=== PATIENT | male | born 1955 | race Caucasian/White ===

== ENCOUNTER 2016-05-21 10:57 | Inpatient (IN) | payer OTHER ==
[~2016-05-21] VITALS: Ht 160 cm; Wt 93.9 kg
[~2016-05-21 10:57] MED LIST: ASPI81TA28 PO; CARV12.52 PO; CITA20TA9 PO; CLOP1TAB5 PO; CYCL10TA6 PO; LOSA100T65 PO; NITR0.4S UT; PRVC/40 PO
[2016-05-21 11:05] VITALS: Ht 160 cm; Wt 93.9 kg
[2016-05-21 11:29] LABS: BASO % 0.7 %; BASO ABS # 0.05 K/uL (0-0.2); COMPLETE YES; EOS % 1.1 %; HEMATOCRIT 45.2 % (42-52); LYMPH % 26.7 %; LYMPH ABS # 2.01 K/uL (1.2-3.4); MEAN CORPUSCULAR HEMOGLOBIN 33.1 pg (25-34); MEAN CORPUSCULAR HGB CONC 35.6 g/dl (32-36); MEAN PLATELET VOLUME 10.5 fL (7.4-10.4); MONO % 9.8 %; NEUT % 61.7 %; PLATELET COUNT 200 K/uL (130-400); RED BLOOD COUNT 4.86 M/uL (4.7-6.1); WHITE BLOOD COUNT 7.54 K/uL (4.8-10.8)
--- NOTE | 2016-05-21 11:41 | DIAGNOSTIC IMAGING REPORT ---
CHEST ONE VIEW PORTABLE CLINICAL HISTORY: Atypical chest pain COMPARISON STUDY: 04/28/2013 FINDINGS: The cardiac and mediastinal contours are normal. There is no evidence of focal pulmonary consolidation. There is no evidence of failure. No pleural effusions are visualized.[ Slight interstitial prominence is felt to be chronic. IMPRESSION: No active disease in the chest. Electronically signed by: Jevon Reddy M.D. 05/21/2016 11:39 AM Dictated Date/Time: 05/21/2016 11:39 AM
[2016-05-21 11:44] LABS: PARTIAL THROMBOPLASTIN RATIO 1.1; PROTHROMBIN TIME (PATIENT) 10.5 SECONDS (9.0-12.0)
[2016-05-21 11:46] LABS: BUN/CREATININE RATIO 10.6 (10-20); CALCIUM 8.6 mg/dl (8.5-10.1); CREATININE 0.84 mg/dl (0.60-1.40); POTASSIUM 3.9 mmol/L (3.5-5.1)
[2016-05-21] MEDS ORDERED: ASPIRIN 81 MG CHEW PO STA (11:55)
[2016-05-21] MEDS ORDERED: LABETALOL HCL IV 5 MG/ML 20ML IV STA (11:56)
[2016-05-21 12:00] LABS: CKMB/CK RATIO 2.8 (0-3.0)
[2016-05-21] MEDS ORDERED: HEPARIN SOD 5000 UNIT/0.5 ML CARP ONE (12:42)
[2016-05-21] MEDS ORDERED: HEPARIN 25000 UNIT/500 ML D5W ONE (12:43)
[2016-05-21] MEDS ORDERED: NITROGLYCERIN 0.4 MG SL PER TAB CHARGE SL PRN (12:45)
[2016-05-21] MEDS ORDERED: ACETAMINOPHEN 325 MG TAB PO PRN (12:45)
[2016-05-21] MEDS ORDERED: ONDANSETRON INJ 2 MG/ML 2 ML VIAL IV PRN (12:45)
[2016-05-21] MEDS ORDERED: HEPARIN 25,000 UNIT/500ML D5W 500 ML IV PRN (13:00)
[2016-05-21 13:15] VITALS: O2SAT 97
--- NOTE | 2016-05-21 13:16 | History and Physical ---
History & Physical Date & Time of Service: May 21, 2016 at 12:55 Chief Complaint: Chest Pain Primary Care Physician: Jennifer Cantor M.D. History of Present Illness 60 year old male who was referred to the ER by his PCP for evaluation of chest pain. Patient reports he has been experiencing left jaw pain, left arm pain, and chest pain for the past 1-2 weeks. He reports that initially he would develop jaw pain only. It occurred while resting and would resolve on it's own. He reports it then started to radiated into the left side of his chest and into his left arm. He describes the chest pain as a sharp, stabbing pain. He rates it as it worst #3/10. Over the past few days, pain has become exertional. He also notes increasing exertional shortness of breath over the past couple of weeks. He denies associated lightheadedness, dizziness, diaphoresis, or nausea. No abdominal pain, vomiting, or diarrhea. Reports he otherwise has been feeling well. No fever or chills. Denies any urinary symptoms. He was given 1 SL nitro at PCP's office. He is currently chest pain free. In the ER, patient is found to have trop 4.2. EKG shows deeper T-wave inversions inferiorly but no other changes. BP was elevated on arrival at 189/76. This improved with a dose of IV Labetalol. Of note, patient reports he hasn't taken his meds in one year due to cost. Past Medical/Surgical History Medical Problems: (1) CAD (coronary artery disease) Permanent Comment: 2003 - inferior wall ND, s/p PCI and stenting to RCA 12/2012 - NSTEMI, s/p BMS to left cx Status: Chronic (2) COPD, mild Status: Chronic (3) Depression Status: Chronic (4) Dyslipidemia Status: Chronic (5) GERD (gastroesophageal reflux disease) Status: Chronic (6) HTN (hypertension) Status: Chronic Surgical Problems: (1) History of carpal tunnel surgery Status: Chronic Family History FH: CAD (coronary artery disease) FATHER ( at age 46 from [place]) Social History Smoking Status: Former Smoker Alcohol Use: none Immunizations History of Influenza Vaccine: No History of Tetanus Vaccine?: Yes Tetanus Immunization Date: Feb 22, 2007 History of Pneumococcal: Yes Pneumococcal Date: Feb 23, 2008 Allergies Coded Allergies: Morphine (Verified Allergy, Severe, GI SYMPTOMS, 05/21/16) Enalapril (Verified Allergy, Intermediate, COUGH, 05/21/16) Home Medications Scheduled Aspirin (Aspirin Ec), 81 MG PO DAILY Review of Systems 10 point review of systems was completed with the pertinent positives and negatives noted per the HPI Physical Exam Vital Signs Date Time Temp Pulse Resp B/P Pulse Ox O2 Delivery O2 Flow Rate FiO2 05/21/16 12:25 67 20 144/79 96 Room Air 05/21/16 12:21 67 20 172/106 95 Room Air 05/21/16 11:20 99 Room Air 05/21/16 11:20 97 Room Air 05/21/16 11:16 69 05/21/16 11:05 36.4 59 20 189/76 96 Room Air General Appearance: no apparent distress Head: normocephalic Eyes: normal inspection ENT: hearing grossly normal Neck: supple, no JVD Respiratory/Chest: chest non-tender, lungs clear, normal breath sounds, no respiratory distress Cardiovascular: regular rate, rhythm, no edema, normal peripheral pulses Abdomen/GI: normal bowel sounds, non tender, soft Extremities/Musculoskelatal: normal inspection, no calf tenderness Neurologic/Psych: no motor/sensory deficits, alert, normal mood/affect, oriented x 3 Skin: normal color, warm/dry Diagnostics Laboratory Results Results Past 24 Hours Test 05/21/16 11:18 Range/Units White Blood Count 7.54 4.8-10.8 K/uL Red Blood Count 4.86 4.7-6.1 M/uL Hemoglobin 16.1 14.0-18.0 g/dL Hematocrit 45.2 42-52 % Mean Corpuscular Volume 93.0 80-100 fL Mean Corpuscular Hemoglobin 33.1 25-34 pg Mean Corpuscular Hemoglobin Concent 35.6 32-36 g/dl Platelet Count 200 130-400 K/uL Mean Platelet Volume 10.5 7.4-10.4 fL Neutrophils (%) (Auto) 61.7 % Lymphocytes (%) (Auto) 26.7 % Monocytes (%) (Auto) 9.8 % Eosinophils (%) (Auto) 1.1 % Basophils (%) (Auto) 0.7 % Neutrophils # (Auto) 4.66 1.4-6.5 K/uL Lymphocytes # (Auto) 2.01 1.2-3.4 K/uL Monocytes # (Auto) 0.74 0.11-0.59 K/uL Eosinophils # (Auto) 0.08 0-0.5 K/uL Basophils # (Auto) 0.05 0-0.2 K/uL RDW Standard Deviation 44.0 36.4-46.3 fL RDW Coefficient of Variation 12.8 11.5-14.5 % Immature Granulocyte % (Auto) 0.0 % Immature Granulocyte # (Auto) 0.00 0.00-0.02 K/uL Prothrombin Time 10.5 9.0-12.0 SECONDS Prothromb Time International Ratio 1.0 0.9-1.1 Activated Partial Thromboplast Time 28.0 21.0-31.0 SECONDS Partial Thromboplastin Ratio 1.1 Sodium Level 138 136-145 mmol/L Potassium Level 3.9 3.5-5.1 mmol/L Chloride Level 104 98-107 mmol/L Carbon Dioxide Level 29 21-32 mmol/L Anion Gap 5.0 3-11 mmol/L Blood Urea Nitrogen 9 7-18 mg/dl Creatinine 0.84 0.60-1.40 mg/dl Est Creatinine Clear Calc Drug Dose 94.9 ml/min Estimated GFR () 110.3 Estimated GFR (Non- 95.2 BUN/Creatinine Ratio 10.6 10-20 Random Glucose 109 70-99 mg/dl Calcium Level 8.6 8.5-10.1 mg/dl Total Creatine Kinase 249 39-308 U/L Creatine Kinase MB 7.0 0.5-3.6 ng/ml Creatine Kinase MB Ratio 2.8 0-3.0 Troponin I 4.200 0-0.045 ng/ml Diagnostic Radiology CXR IMPRESSION: No active disease in the chest. Impression Assessment and Plan NSTEMI, HX CAD - admit to tele - patient presenting with worsening exertional chest, jaw, and left arm pain; chest pain resolved with nitro x 1 - hx CAD: 2003 PCI/stenting to RCA, 12/2012 - BMS to left cx; patient reports additional interventions done at [facility], details unknown, request for records placed - has not taken meds (beta jerrod, statin, Plavix) in one year due to cost; only taking ASA 81mg daily - initial troponin 4.2; EKG shows deeper T-wave inversions inferiorly - IV heparin started by ED - case discussed with Dr. Kimbrough - will resume low dose beta jerrod and atorvastatin 80mg daily; keep NPO for possible cath today - resting echo ordered HTN - BP elevated on arrival, improved with IV Labetalol x 1 - has not taken meds in one year; previous regimen: HCTZ 12.5mg daily, Losartan 100mg daily, carvediolol 12.5mg BID - for now, resuming carvedilol 3.125mg BID DVT PROPHYLAXIS - on IV heparin CODE STATUS - Patient is a full code as per my discussion with him. DISPO - In my clinical judgment this beneficiary meets acute admission criteria, established by [facility], that includes being hospitalized through two midnights. - Expect d/c home once medically stable. - Case management consult placed for assistance with medication costs VTE Prophylaxis VTE Risk Assessment Done? Y/N: Yes Risk Level: Moderate Note ATTENDING ADDENDUM Record reviewed. Patient interviewed and examined. Care coordinated with PETER Kirk. Please refer to her documentation for patient's history. Briefly, 60 YO male with history of ischemic heart disease, s/p PCI. Presented to clinic today with 1-2 weeks of worsening exertional CP and SOB. Received NTG in clinic with relief. EXAM: General- no distress VS- as noted HEENT- anicteric Neck- no JVD; carotids 2/2 Lungs- clear Heart- RRR, S4 Abdomen- + BS, soft, nontender Extremities- no pretibial edema or calf tenderness; radial and pedal pulses intact and symmetric Neuro- alert DATA: Troponin 4.2. Other lab studies as noted. EKG- SB 59/min, probable age-indeterminate inferior infarct, inverted T-waves inferiorly. CXR- slight interstitial prominence as previously noted. ASSESSMENT AND PLAN: 60 YO male with known ischemic heart disease, now with apparent non-STEMI. BP elevated in ED- received IV labetalol. Received aspirin and IV heparin. Cardiology consulted. Please refer to CLARIBEL Lozano's documentation for discussion of other issues. Keyon Mclaughlin MD .
[2016-05-21 13:48] VITALS: BP 142/87; PULSE 74; TEMP 36.8; O2SAT 96; BMI 36.7
--- NOTE | 2016-05-21 14:36 | CARDIOLOGY CONSULTATION ---
DATE OF CONSULTATION: 05/21/2016 REFERRING PHYSICIAN: Dr. Keyon Mclaughlin. REASON FOR CONSULTATION: NSTEMI. HISTORY OF PRESENT ILLNESS: Mr. Benoit is a 60-year-old gentleman who is known to the [facility]. He was last seen in clinic in 2012 and has been lost to follow up. He presented to his primary care physician's office today with chest pain. The patient reports exertional chest discomfort and heaviness over the past 2 weeks. Initially noted discomfort when walking to his car from work. The discomfort has become progressive and more severe. It is occurring at lower levels of exercise. Today, he reported an episode of resting chest discomfort and jaw pain while at his primary care physician's office. He was referred to the Emergency Department for evaluation. The patient was given sublingual nitroglycerin. He is pain free. Initial troponin is 4.200. Complex cardiovascular history listed below. Recent history notable for noncompliance. He stopped all cardiac medications approximately 1 year ago due to financial constraints. He seems to have poor insight into his medical conditions. He offers no other complaints at this time. REVIEW OF SYSTEMS: The pertinent positive noted above, a comprehensive 10-system review is otherwise negative. PAST MEDICAL HISTORY: 1. Chronic coronary artery disease with a history of prior inferior wall myocardial infarction in 2003, status post stenting to the right coronary artery. 2. NSTEMI in December 2012, status post bare-metal stenting to left circumflex. 3. History of preserved LV systolic function with inferior wall motion abnormality. 4. COPD. 5. Depression. 6. Dyslipidemia. 7. Hypertension. 8. Hypertriglyceridemia. 9. GERD. PAST SURGICAL HISTORY: Cardiac catheterization x2 with PCI to the RCA as well as left circumflex. FAMILY HISTORY: Premature coronary artery disease noted. Father at age 46 from myocardial infarction. SOCIAL HISTORY: Former tobacco abuse. ALLERGIES: MORPHINE AND ENALAPRIL. HOME MEDICATIONS CURRENTLY: Aspirin. The patient is noncompliant with all other medications. ECG ON ADMISSION: Sinus rhythm, age indeterminate inferior infarct, inferior T-wave abnormality. RESTING 2D TRANSTHORACIC ECHO: Pending. CHEST X-RAY: No active disease. LABORATORY DATA: Sodium 138, potassium 3.9, chloride 104, CO2 is 29, BUN is 9, and creatinine is 0.84. Troponin 4.200. White blood cell count 7.54, hemoglobin 16.1, and platelet count is 200. PT is 10.5 and INR is 1.0. PHYSICAL EXAMINATION: VITAL SIGNS: Temperature is 36.2 degrees centigrade, pulse 74 beats per minute and regular, respiratory rate 20 breaths per minute, blood pressure 142/87 and SaO2 is 96% on room air. GENERAL: NAD, awake, alert and oriented x3. THROAT: His mucous membranes are moist. No scleral icterus. Conjunctivae are pink. NECK: Supple. There is no JVD. No HJR. No carotid bruit. HEART: Regular with a normal S1 and S2. There is no murmur, rub, or gallop. LUNGS: Clear with no rales, rhonchi or wheeze. ABDOMEN: Soft and nontender. There is no rebound or guarding. Normal bowel sounds. EXTREMITIES: Warm and dry without clubbing, cyanosis, or edema. Posterior tibial pulses are 2/4 bilaterally. He has a 2/4 right upper extremity radial pulse. He has palpable ulnar pulse. He has a normal Wade's test. NEUROLOGIC: Demonstrates no focal deficit. FINAL IMPRESSION: 1. Non-ST elevation myocardial infarction. 2. Chronic coronary artery disease with prior RCA and circumflex stenting. 3. Preserved left ventricular systolic function with inferior wall motion abnormality per prior resting 2D transthoracic echo. 4. Hypertension. 5. Dyslipidemia. 6. Noncompliance. 7. Former tobacco abuse. PLAN AND RECOMMENDATIONS: The patient is currently medically managed with aspirin, heparin, statin, and beta-jerrod therapy. He is pain free. The risks, benefits and alternatives to cardiac catheterization with coronary angiography discussed at length. The patient is agreeable to procedure and possible percutaneous intervention if necessary. We also discussed his recent noncompliance and financial constraints. He understands that if intervention is performed, he will require Plavix for a minimum of 1 year. The patient is agreeable to obtain this medication. He is currently insured, although raises some concern regarding losing insurance in the near future. His significant other is present and is also agreeable. Further recommendations will be made pending review of cardiac catheterization. Thank you for allowing me to take part in the care of your patient.
[2016-05-21] MEDS ORDERED: PERFLUTREN LIPID MICROSPHERE (DEFINITY) IV ONE (14:44)
[2016-05-21] MEDS: ATORVASTATIN 40 MG TAB PO SCH (14:45)
[2016-05-21] MEDS: CARVEDILOL 3.125 MG TAB PO SCH ×2 (14:45→19:52)
[2016-05-21 15:35] VITALS: BP 134/80; PULSE 65; TEMP 36.8; O2SAT 94
[2016-05-21 17:00] LABS: PARTIAL THROMBOPLASTIN RATIO 2.9
--- NOTE | 2016-05-21 17:07 | EMERGENCY ROOM VISIT NOTE ---
History Report prepared by Cinda: Janice Jacobsen Under the Supervision of: Dr. Allen Ware M.D. First contact with patient: 11:15 Chief Complaint: CARDIAC ASSESSMENT Stated Complaint: ABNORMAL EKG History of Present Illness The patient is a 60 year old male who presents to the Emergency Room with complaints of intermittent, resolved chest pressure starting about 2 weeks ago. He first had some jaw discomfort and then started having chest pressure. He also reports some shortness of breath with exertion. He took Nitro with relief. He currently denies any pain or symptoms. He denies loss of consciousness, headache, nausea, vomiting, abdominal pain, diarrhea, or any other complaints. He has a history of cardiac stent placement. His last heart catheterization was a few years ago. The patient does not smoke cigarettes. He has a history of hypertension and high cholesterol. He denies any history of diabetes. He has a family history of heart disease. Source of History: patient Onset: about 2 weeks ago Position: chest Symptom Intensity: No pain currently Quality: pressure Timing: intermittent, resolved Modifying Factors (Relieving): other (Nitro with relief) Associated Symptoms: + SOB (with exertion), No LOC, No abdominal pain, No diarrhea, No headache, No nausea, No vomiting Review of Systems See HPI for pertinent positives & negatives. A total of 10 systems reviewed and were otherwise negative. Past Medical & Surgical Medical Problems: (1) CAD (coronary artery disease) (2) COPD, mild (3) Depression (4) Dyslipidemia (5) GERD (gastroesophageal reflux disease) (6) HTN (hypertension) Surgical Problems: (1) History of carpal tunnel surgery Family History Ischemic heart disease Other specified malignant neoplasm Social History Smoking Status: Never Smoker Housing Status: lives with family Occupation Status: employed Current/Historical Medications Scheduled Aspirin (Aspirin Ec), 81 MG PO DAILY Allergies Coded Allergies: Morphine (Verified Allergy, Severe, GI SYMPTOMS, 05/21/16) Enalapril (Verified Allergy, Intermediate, COUGH, 05/21/16) Physical Exam Vital Signs Date Time Temp Pulse Resp B/P Pulse Ox O2 Delivery O2 Flow Rate FiO2 05/21/16 12:25 67 20 144/79 96 Room Air 05/21/16 12:21 67 20 172/106 95 Room Air 05/21/16 11:20 99 Room Air 05/21/16 11:20 97 Room Air 05/21/16 11:16 69 05/21/16 11:05 36.4 59 20 189/76 96 Room Air Physical Exam GENERAL: Patient is well appearing and in no acute distress. HEENT: No acute trauma, normocephalic atraumatic, mucous membranes moist, no nasal congestion, no scleral icterus. NECK: No stridor, no adenopathy, no meningismus, trachea is midline. LUNGS: No dyspnea. Clear to auscultation and equal bilaterally. No wheeze, no rhonchi. HEART: Regular rate and rhythm. No murmurs, rubs, gallops appreciated. ABDOMEN: Soft, nontender, bowel sounds positive, no masses appreciated, no peritonitis. BACK: No midline tenderness, no CVA tenderness EXTREMITIES: Normal motion all extremities, no cyanosis, no edema. NEUROLOGIC: Alert and oriented, no acute motor or sensory deficits, no focal weakness, cranial nerves grossly intact. SKIN: No rash, no jaundice, no diaphoresis. Medical Decision & Procedures ER Provider Diagnostic Interpretation: X ray results are stated below per my interpretation and the radiologist's interpretation. CHEST ONE VIEW PORTABLE CLINICAL HISTORY: Atypical chest pain COMPARISON STUDY: 04/28/2013 FINDINGS: The cardiac and mediastinal contours are normal. There is no evidence of focal pulmonary consolidation. There is no evidence of failure. No pleural effusions are visualized.[ Slight interstitial prominence is felt to be chronic. IMPRESSION: No active disease in the chest. Electronically signed by: Jevon Reddy M.D. 05/21/2016 11:39 AM Dictated Date/Time: 05/21/2016 11:39 AM Laboratory Results 05/21/16 11:18 Red Blood Count 4.86, Mean Corpuscular Volume 93.0, Mean Corpuscular Hemoglobin 33.1, Mean Corpuscular Hemoglobin Concent 35.6, Mean Platelet Volume 10.5, Neutrophils (%) (Auto) 61.7, Lymphocytes (%) (Auto) 26.7, Monocytes (%) (Auto) 9.8, Eosinophils (%) (Auto) 1.1, Basophils (%) (Auto) 0.7, Neutrophils # (Auto) 4.66, Lymphocytes # (Auto) 2.01, Monocytes # (Auto) 0.74, Eosinophils # (Auto) 0.08, Basophils # (Auto) 0.05 2/27/17 11:18 Test 05/21/16 11:18 White Blood Count 7.54 K/uL (4.8-10.8) Red Blood Count 4.86 M/uL (4.7-6.1) Hemoglobin 16.1 g/dL (14.0-18.0) Hematocrit 45.2 % (42-52) Mean Corpuscular Volume 93.0 fL (80-100) Mean Corpuscular Hemoglobin 33.1 pg (25-34) Mean Corpuscular Hemoglobin Concent 35.6 g/dl (32-36) Platelet Count 200 K/uL (130-400) Mean Platelet Volume 10.5 fL (7.4-10.4) Neutrophils (%) (Auto) 61.7 % Lymphocytes (%) (Auto) 26.7 % Monocytes (%) (Auto) 9.8 % Eosinophils (%) (Auto) 1.1 % Basophils (%) (Auto) 0.7 % Neutrophils # (Auto) 4.66 K/uL (1.4-6.5) Lymphocytes # (Auto) 2.01 K/uL (1.2-3.4) Monocytes # (Auto) 0.74 K/uL (0.11-0.59) Eosinophils # (Auto) 0.08 K/uL (0-0.5) Basophils # (Auto) 0.05 K/uL (0-0.2) RDW Standard Deviation 44.0 fL (36.4-46.3) RDW Coefficient of Variation 12.8 % (11.5-14.5) Immature Granulocyte % (Auto) 0.0 % Immature Granulocyte # (Auto) 0.00 K/uL (0.00-0.02) Prothrombin Time 10.5 SECONDS (9.0-12.0) Prothromb Time International Ratio 1.0 (0.9-1.1) Anion Gap 5.0 mmol/L (3-11) Est Creatinine Clear Calc Drug Dose 94.9 ml/min Estimated GFR () 110.3 Estimated GFR (Non- 95.2 BUN/Creatinine Ratio 10.6 (10-20) Calcium Level 8.6 mg/dl (8.5-10.1) Total Creatine Kinase 249 U/L (39-308) Creatine Kinase MB 7.0 ng/ml (0.5-3.6) Creatine Kinase MB Ratio 2.8 (0-3.0) Troponin I 4.200 ng/ml (0-0.045) Hepatitis C Antibody Screen NEG (NEG) Laboratory results as reviewed by me. Medications Administered Medications (Trade) Dose Ordered Sig/Rolo Route Start Time Stop Time Status Last Admin Dose Admin Aspirin (Aspirin Chew) 162 mg NOW STAT PO 05/21/16 11:55 05/21/16 11:57 DC 05/21/16 12:13 162 MG Labetalol HCl (Normodyne IV) 10 mg NOW STAT IV 05/21/16 11:56 05/21/16 11:57 DC 05/21/16 12:16 10 MG ECG Indication: chest pain Rate (beats per minute): 59 Findings: T-wave inversion (Inferior), no acute ischemic change, no ectopy Comparison ECG Date: April 28, 2013 Change: no significant change ED Course 1115: The patient was evaluated in room C12B. A complete history and physical exam was performed. 1150: I reevaluated the patient. He reports that he took one 81 mg of aspirin this morning. 1155: Aspirin 162 mg PO 1156: Labetalol HCl 10 mg IV 1200: Heparin Sodium/Dextrose 1 ea N/A 1204: Upon reevaluation, the patient is resting comfortably. Discussed results and treatment plan with the patient. He verbalized understanding and agreement with the treatment plan. I spoke with PETER Kirk with [facility]. The patient will be evaluated for further management. Medical Decision Differential: Cardiac Ischemia (STEMI, NSTEMI, Unstable Angina, etc), Aortic Dissection, Arrhythmia, Pulmonary Embolism, Pneumonia, Pneumothorax, MSK, Infectious, Pericarditis/Myocarditis, Esophageal Rupture, Gastrointestinal, amongst other pathologies entertained. 60 yr old male arrives with left chest pain radiating to jaw earlier today resolved with SLNTG. Completely pain free now without symptoms. EKG similar to previous which was concerning appearing in past as well. Without persistent pain no indication for calling Heart Alert. CXR clear. Mild HTN though not currently causing issue. Given further ASA as only 81mg today. Monitored closely without any further chest pain nor concerns. BP improving just with rest. He is stable, no distress and looks well. Admits stopped taking most of his meds over a year ago. Long CAD history with many previous stents and multiple med comorbidities. Trop returned elevated consistent with NSTEMI consistent with history. Discussed at length risks of heparin and he has no contraindications. He agrees to starting heparin. Stable and admitted to medicine service for further treatment/evaluation. Consults Time Called: 1201 Consulting Physician: PETER Kirk with [facility] Returned Call: 1204 I spoke with PETER Kirk with [facility]. Impression Primary Impression: NSTEMI (non-ST elevated myocardial infarction) Critical Care I have personally spent greater than 35 minutes of critical care time in the direct management of this patient. This includes bedside care, interpretation of diagnostic studies, and testing, discussion with consultants, patient, and family members, and other required patient management activities. This 35 minutes is in excess of all separately billable procedures. Scribe Attestation The scribe's documentation has been prepared under my direction and personally reviewed by me in its entirety. I confirm that the note above accurately reflects all work, treatment, procedures, and medical decision making performed by me. Departure Information Dispostion Being Evaluated By Hospitalist Referrals No Doctor, Assigned (PCP) Patient Instructions My [facility]
--- NOTE | 2016-05-21 17:46 | ECHOCARDIOGRAM REPORT ---
*NOTICE TO RECEIVING [employer] [employer] This information is strictly Confidential and protected under [place] law. [place] law prohibits you from making any further disclosure of this information unless further disclosure is expressly permitted by the written consent of the person to whom it pertains or is authorized by law. A general authorization for the release of medical or other information is not sufficient for this purpose. Hospital accepts no responsibility if the information is made available to any other person, INCLUDING THE PATIENT. Interpretation Summary * Name: MALIKA QUISPE Study Date: 05/21/2016 03:14 PM BP: 142/87 mmHg * Patient Location: 210 HR: 74 * : 1955 (M/d/yyyy) Gender: Male Height: 63 in * Age: 60 yrs Ethnicity: [place] Weight: 207 lb * Ordering Physician: Teetee Lozano * Referring Physician: Jennifer Cantor * Performed By: Karla Hopper RDCS * * Reason For Study: NSTEMI * BSA: 2.0 m2 * History: NSTEMI * The study was technically adequate. * Compared to prior study, changes are noted. * -- Conclusions -- * Ejection Fraction = 50-55%. * The basal inferior wall is thinned and akinetic. * The apical lateral wall is hypokinetic. * The basal posterior wall is hypokinetic. * Grade I diastolic dysfunction, (abnormal relaxation pattern). * No significant valvular disease. Procedure Details * A complete two-dimensional transthoracic echocardiogram was performed (2D, M-mode, Doppler and color flow Doppler). Left Ventricle * The left ventricle is normal in size. * There is no thrombus. * There is normal left ventricular wall thickness. * Ejection Fraction = 50-55%. * Left ventricular systolic function is normal. * The basal inferior wall is thinned and akinetic. The apical lateral wall is hypokinetic. The basal posterior wall is hypokinetic. Right Ventricle * The right ventricle is normal size. * The right ventricular systolic function is normal as assessed by tricuspid annular plane systolic excursion (TAPSE) (normal >1.5 cm). Atria * The left atrial size is normal. * Right atrial size is normal. * There is no evidence of atrial septal defect, but resolution does not allow assessment for a patent foramen ovale. Mitral Valve * The mitral valve is normal. * There is no mitral valve stenosis. * Significant mitral regurgitation is absent. Tricuspid Valve * The tricuspid valve is normal. * There is no tricuspid stenosis. * Significant tricuspid regurgitation is absent. Aortic Valve * The aortic valve is trileaflet. * Aortic stenosis is absent. * There is no significant aortic regurgitation. Pulmonic Valve * The pulmonary valve is not well seen, but the Doppler examination is normal without significant regurgitation or stenosis. Great Vessels * The aortic root and proximal ascending aorta are normal sized. Pericardium/Pleural * There is no pericardial effusion. Great Vessels * Normal inferior vena cava diameter and respiratory variation suggests normal central venous pressure. Left Ventricular Diastolic Function * Grade I diastolic dysfunction, (abnormal relaxation pattern). MMode 2D Measurements and Calculations IVSd 1.2 cm IVSs 1.6 cm LVIDd 5.4 cm LVIDs 4.0 cm LVPWd 1.1 cm LVPWs 1.7 cm IVS/LVPW 1.1 FS 27.1 % EDV(Teich) 144.1 ml ESV(Teich) 68.7 ml EF(Teich) 52.3 % EDV(cubed) 161.6 ml ESV(cubed) 62.6 ml EF(cubed) 61.3 % % IVS thick 29.7 % % LVPW thick 45.1 % LV mass(C)d 261.5 grams LV mass(C)dI 133.3 grams/m\S\2 LV mass(C)s 259.3 grams LV mass(C)sI 132.2 grams/m\S\2 SV(Teich) 75.4 ml SI(Teich) 38.4 ml/m\S\2 SV(cubed) 99.0 ml SI(cubed) 50.5 ml/m\S\2 Ao root diam 3.5 cm Ao root area 9.5 cm\S\2 LA dimension 3.7 cm LA/Ao 1.1 LVAd ap4 34.5 cm\S\2 LVLd ap4 9.2 cm EDV(MOD-sp4) 107.7 ml EDV(sp4-el) 110.2 ml LVAs ap4 21.4 cm\S\2 LVLs ap4 7.8 cm ESV(MOD-sp4) 50.5 ml ESV(sp4-el) 49.8 ml EF(MOD-sp4) 53.1 % EF(sp4-el) 54.8 % LVAd ap2 33.0 cm\S\2 LVLd ap2 8.8 cm EDV(MOD-sp2) 110.1 ml EDV(sp2-el) 105.1 ml LVAs ap2 21.6 cm\S\2 LVLs ap2 7.4 cm ESV(MOD-sp2) 59.6 ml ESV(sp2-el) 53.8 ml EF(MOD-sp2) 45.9 % EF(sp2-el) 48.8 % LVLd %diff -4.55 % EDV(MOD-bp) 108.9 ml LVLs %diff -6.24 % ESV(MOD-bp) 55.0 ml EF(MOD-bp) 49.5 % SV(MOD-sp4) 57.2 ml SI(MOD-sp4) 29.1 ml/m\S\2 SV(MOD-sp2) 50.5 ml SI(MOD-sp2) 25.7 ml/m\S\2 SV(MOD-bp) 53.9 ml SI(MOD-bp) 27.5 ml/m\S\2 SV(sp4-el) 60.4 ml SI(sp4-el) 30.8 ml/m\S\2 SV(sp2-el) 51.3 ml SI(sp2-el) 26.1 ml/m\S\2 Doppler Measurements and Calculations MV E max kristi 64.7 cm/sec MV A max kristi 85.2 cm/sec MV E/A 0.76 MV dec time 0.25 sec Ao V2 max 134.1 cm/sec Ao max PG 7.2 mmHg Ao max PG (full) 3.9 mmHg LV V1 max PG 3.3 mmHg LV V1 max 91.0 cm/sec
[2016-05-21 19:39] VITALS: BP 133/78; PULSE 76; TEMP 37; O2SAT 95
[2016-05-21 23:46] LABS: PARTIAL THROMBOPLASTIN RATIO 1.8
[2016-05-22] VITALS (16 sets, daily range): BP systolic 131–174; BP diastolic 74–108; PULSE 64–93; TEMP 36.5–37.1; O2SAT 94–98
[2016-05-22 06:44] LABS: HEMATOCRIT 45.1 % (42-52); MEAN CELL VOLUME 93.2 fL (80-100); MEAN CORPUSCULAR HEMOGLOBIN 32.6 pg (25-34); MEAN PLATELET VOLUME 10.7 fL (7.4-10.4); PLATELET COUNT 183 K/uL (130-400); RED BLOOD COUNT 4.84 M/uL (4.7-6.1)
[2016-05-22 06:53] LABS: PARTIAL THROMBOPLASTIN RATIO 1.7
[2016-05-22 07:15] LABS: BUN/CREATININE RATIO 8.5 (10-20); CALCIUM 8.2 mg/dl (8.5-10.1); CREATININE 0.86 mg/dl (0.60-1.40); POTASSIUM 3.7 mmol/L (3.5-5.1)
[2016-05-22 07:18] LABS: CHOLESTEROL/HDL RATIO 4.9
[2016-05-22] MEDS ORDERED: NURSING VERBAL MED ORDER ONE ×2 (07:30→11:15)
[2016-05-22] MEDS ORDERED: HEPARIN SOD (PORCINE) 1000 UNIT/ML 10 ML VIAL ONE (07:56)
[2016-05-22] MEDS ORDERED: FENTANYL CITRATE INJ 50 MCG/1 ML 2 ML VIAL ONE (07:56)
[2016-05-22] MEDS ORDERED: NiCARDipine HCL INJ 2.5 MG/ML 10 ML AMP ONE (07:56)
[2016-05-22] MEDS ORDERED: MIDAZOLAM HCL 1 MG/ML 2ML VIAL ONE (07:56)
[2016-05-22] MEDS ORDERED: NITROGLYCERIN/D5W 100MCG/ML 20ML SYR ONE (07:57)
[2016-05-22] MEDS ORDERED: ASPIRIN 81 MG ECTAB PO SCH (09:00)
--- NOTE | 2016-05-22 09:33 | Procedure Note ---
Pre-Mod Sedation Assessment General Date of Moderate Sedation: May 22, 2016. Vital Signs: Vital Signs Past 12 Hours Date Time Temp Pulse Resp B/P Pulse Ox O2 Delivery O2 Flow Rate FiO2 05/22/16 09:30 64 16 129/78 96 Room Air 05/22/16 09:25 65 16 132/75 97 Room Air 05/22/16 09:20 63 16 127/77 96 Room Air 05/22/16 09:15 62 16 136/80 95 Room Air 05/22/16 08:00 Room Air 05/22/16 07:44 36.9 65 16 166/95 94 Room Air 05/22/16 04:00 Room Air 05/22/16 04:00 36.7 71 18 140/85 95 Room Air 05/22/16 00:01 Room Air 05/22/16 00:00 36.5 64 19 135/85 95 Room Air Review Cardiovascular: regular rate, rhythm, no edema, no gallop Abdomen: normal bowel sounds, non tender Lungs: chest non-tender, lungs clear Pre-Sedation Airway Assessment Oral Cavity: Dentures Smoking Status: Never Smoker ASA Classification: Class IV Procedure Planning Contraindications-for Mod Sed: None Yes Notes The planned sedation has been discussed with the patient and consent obtained. I have identified the patient, determined the appropriateness of sedation and have assessed the patient immediately prior to the procedure. All medicine(s) and interventions are by my order.
--- NOTE | 2016-05-22 09:34 | Procedure Note ---
Post-Mod Sedation Assessment General Date of Moderate Sedation May 22, 2016. Vital Signs: Vital Signs Past 12 Hours Date Time Temp Pulse Resp B/P Pulse Ox O2 Delivery O2 Flow Rate FiO2 05/22/16 09:30 64 16 129/78 96 Room Air 05/22/16 09:25 65 16 132/75 97 Room Air 05/22/16 09:20 63 16 127/77 96 Room Air 05/22/16 09:15 62 16 136/80 95 Room Air 05/22/16 08:00 Room Air 05/22/16 07:44 36.9 65 16 166/95 94 Room Air 05/22/16 04:00 Room Air 05/22/16 04:00 36.7 71 18 140/85 95 Room Air 05/22/16 00:01 Room Air 05/22/16 00:00 36.5 64 19 135/85 95 Room Air Review - Discharge Criteria Vital Signs Stable: Yes Alert/Oriented/Conversant: Yes Returned to Baseline Mental St: Yes Nausea Absent/Minimal: Yes Pain/Discomfort/Absent/Minimal: Yes Normal/Baseline Respirations: Yes Active Bleeding?: No Pt Received D/C Instructions: N/A Specific Proced. D/C Criteria Distal Pulses Present (Cardiac: Yes Groin site assessed-Card Cath: N/A Voided Prior To Discharge: N/A Discharged Patients Adult Escort/Transportation: N/A
--- NOTE | 2016-05-22 09:48 | Cardiac Catheterization ---
Procedure Note Procedure Date May 22, 2016. Pre-Procedure Diagnosis Non STEMI AUC Score 9 Post-Procedure Diagnosis Severe CAD Procedure(s) Performed Coronary Angiography (Start time 837. Stop time 917.), Left Heart Cath Flour Worker Dr. Kimbrough Leather Cartridge Belt Maker(s) [employer]en[employer] DIRECTOR STRATEGY Estimated Blood Loss 8cc Medication(s) Fentanyl (25mcg), Heparin, Nicardipine, Nitroglycerin, Versed (1mg), Lidocaine 1 % Summary of Findings 90% ulcerated mid LCx. 80% mid LAD SUPERVISOR PRE WAVE mid RCA Hemodynamics Rest Ao: 132/81/105 Final Ao: 130/80/103 LV: 126/4/9 Recommendations CABG Specimens None Radiation Exposure (mGy) 1724 Contrast (mls) 90 Procedural Complication(s) None Disposition PCU ACC Data Cardiac Status Clinical evaluation leading to the procedure CAD Presntation: Non STEMI Anginal Classification: CCS IV Heart Failure: No Coronary Anatomy Dominant: Right Left Main (% Stenosis): Normal LAD (% Stenosis): Ostial (0%), Proximal (20%), Mid (difuuse 30% followed by 80% ), Distal (diffuse 10-20%) D1 (% Stenosis): Ostial (20%), Proximal (20%), Mid (10%), Distal (10%) D2 (% Stenosis): Ostial (20%), Proximal (10%), Mid (20%), Distal (10%) D3 (% Stenosis): Ostial (diffuse mild luminal irregularities 10%) Circumflex (% Stenosis): Ostial (0%), Proximal (0%, stent patent), Mid (90% ulcerated) OM1 (% Stenosis): Ostial (0%), Proximal (10%), Mid (10%), Distal (10%) OM2 (% Stenosis): Ostial (0%), Proximal (30%), Mid (10%), Distal (10%) OM3 (% Stenosis): Ostial (20%), Proximal (10%), Mid (10%), Distal (10%) L PL1 (% Stenosis): Ostial (diffuse mild luminal irregularities, 10%) RCA (% Stenosis): Proximal (30% ISR), Mid (100% SUPERVISOR PRE WAVE) R PDA (% Stenosis): Ostial (fills via left to right collaterals) R PL1 (% Stenosis): Ostial (fills via right to left collaterals) R PL2 (% Stenosis): Ostial (small vessel with diffuse mild luninal irregularities) Diagnostic Status: Urgent Closure Device Percutaneous Entry Location: Radial Closure Device: Radial Band Recommendations: CABG Intraprocedure Events Significant Dissection: No Perforation: No
[2016-05-22] MEDS ORDERED: SODIUM CHLORIDE 0.9% 1000ML 250 ML IV PRN (09:50)
[2016-05-22] MEDS ORDERED: ATROPINE SULFATE 0.1 MG/ML 5ML SYR IV PRN (10:00)
[2016-05-22] MEDS ORDERED: ONDANSETRON INJ 2 MG/ML 2 ML VIAL IV PRN (10:00)
[2016-05-22] MEDS ORDERED: ACETAMINOPHEN 325 MG TAB PO PRN (10:00)
[2016-05-22] MEDS: ATORVASTATIN 40 MG TAB PO SCH (10:45)
[2016-05-22] MEDS: CARVEDILOL 3.125 MG TAB PO SCH (10:46)
--- NOTE | 2016-05-22 10:52 | Progress Note ---
Internal Med Progress Note Date of Service: May 22, 2016. Provider Documentation: SUBJECTIVE: Patient is seen and examined at bedside. Patient had cardiac cath today. Denies any chest pain, SOB, dizziness, palpitations currently. OBJECTIVE: Vital Signs-as noted below Physical Exam: General Appearance:Moderately built and nourished, no apparent distress Head: normocephalic, Atraumatic Eyes: normal inspection, EOMI, PERRLA, Anicteric Neck: supple, no JVD, Trachea midline Respiratory/Chest: Normal breath sounds, CTA Cardiovascular: S1, S2, No murmur Abdomen/GI:Soft, Non tender, Bowel sounds present Extremities/Musculoskelatal:normal inspection, no edema Neurologic/Psych:AAOX3, grossly no focal neurological deficits Skin: normal color, warm Lab data as noted below. ASSESSMENT & PLAN: NSTEMI, HX CAD S/P Cardiac cath on 05/22/16 Continue monitoring in Tele patient presented with worsening exertional chest, jaw, and left arm pain; chest pain resolved with nitro x 1 H/O CAD: 2003 PCI/stenting to RCA, 12/2012 - BMS to left cx Patient not taking meds (beta jerrod, statin, Plavix) in one year due to cost; only taking ASA 81mg daily initial troponin 4.2; 5.1; EKG shows deeper T-wave inversions inferiorly On IV heparin which was started by ED Appreciate cardiology help. ECHO/Cardiac cath results as below Continue Aspirin, Statin, Coreg, IV heparin HTN BP elevated on arrival, improved with IV Labetalol x 1 Not taken meds for one year previous regimen: HCTZ 12.5mg daily, Losartan 100mg daily, carvedilol 12.5mg BID Continue carvedilol 3.125mg BID for now DVT PROPHYLAXIS on IV heparin CODE STATUS Full code DISPO Plan to transfer to [place] for further care: Needs CABG PROCEDURES: Cardiac Cath results: 90% ulcerated mid LCx. 80% mid LAD SHOP ESTIMATOR mid RCA ECHO: -- Conclusions -- * Ejection Fraction = 50-55%. * The basal inferior wall is thinned and akinetic. * The apical lateral wall is hypokinetic. * The basal posterior wall is hypokinetic. * Grade I diastolic dysfunction, (abnormal relaxation pattern). * No significant valvular disease. Vital Signs: Date Time Temp Pulse Resp B/P Pulse Ox O2 Delivery O2 Flow Rate FiO2 2/28/17 11:00 36.5 82 20 158/74 97 05/22/16 10:30 36.5 78 21 159/85 94 05/22/16 10:15 36.5 66 20 157/94 97 05/22/16 10:00 36.5 70 20 156/89 97 05/22/16 09:45 36.5 93 20 157/94 97 05/22/16 09:30 64 16 129/78 96 Room Air 05/22/16 09:25 65 16 132/75 97 Room Air 05/22/16 09:20 63 16 127/77 96 Room Air 05/22/16 09:15 62 16 136/80 95 Room Air 05/22/16 08:00 Room Air 05/22/16 07:44 36.9 65 16 166/95 94 Room Air 05/22/16 04:00 Room Air 05/22/16 04:00 36.7 71 18 140/85 95 Room Air 05/22/16 00:01 Room Air 05/22/16 00:00 36.5 64 19 135/85 95 Room Air 05/21/16 20:00 Room Air 05/21/16 19:39 37.0 76 20 133/78 95 Room Air 05/21/16 16:00 Room Air 05/21/16 15:35 36.8 65 19 134/80 94 Room Air 05/21/16 13:48 36.8 74 20 142/87 96 Room Air 05/21/16 13:15 59 20 140/96 97 05/21/16 13:05 65 20 148/102 96 Room Air 05/21/16 12:25 67 20 144/79 96 Room Air 05/21/16 12:21 67 20 172/106 95 Room Air 05/21/16 11:20 99 Room Air 05/21/16 11:20 97 Room Air 05/21/16 11:16 69 Lab Results: Results Past 24 Hours Test 05/21/16 11:18 05/21/16 16:30 05/21/16 17:00 05/21/16 17:07 Range/Units White Blood Count 7.54 4.8-10.8 K/uL Red Blood Count 4.86 4.7-6.1 M/uL Hemoglobin 16.1 14.0-18.0 g/dL Hematocrit 45.2 42-52 % Mean Corpuscular Volume 93.0 80-100 fL Mean Corpuscular Hemoglobin 33.1 25-34 pg Mean Corpuscular Hemoglobin Concent 35.6 32-36 g/dl Platelet Count 200 130-400 K/uL Mean Platelet Volume 10.5 7.4-10.4 fL Neutrophils (%) (Auto) 61.7 % Lymphocytes (%) (Auto) 26.7 % Monocytes (%) (Auto) 9.8 % Eosinophils (%) (Auto) 1.1 % Basophils (%) (Auto) 0.7 % Neutrophils # (Auto) 4.66 1.4-6.5 K/uL Lymphocytes # (Auto) 2.01 1.2-3.4 K/uL Monocytes # (Auto) 0.74 0.11-0.59 K/uL Eosinophils # (Auto) 0.08 0-0.5 K/uL Basophils # (Auto) 0.05 0-0.2 K/uL RDW Standard Deviation 44.0 36.4-46.3 fL RDW Coefficient of Variation 12.8 11.5-14.5 % Immature Granulocyte % (Auto) 0.0 % Immature Granulocyte # (Auto) 0.00 0.00-0.02 K/uL Prothrombin Time 10.5 9.0-12.0 SECONDS Prothromb Time International Ratio 1.0 0.9-1.1 Activated Partial Thromboplast Time 28.0 74.8 21.0-31.0 SECONDS Partial Thromboplastin Ratio 1.1 2.9 Sodium Level 138 136-145 mmol/L Potassium Level 3.9 3.5-5.1 mmol/L Chloride Level 104 98-107 mmol/L Carbon Dioxide Level 29 21-32 mmol/L Anion Gap 5.0 3-11 mmol/L Blood Urea Nitrogen 9 7-18 mg/dl Creatinine 0.84 0.60-1.40 mg/dl Est Creatinine Clear Calc Drug Dose 94.9 ml/min Estimated GFR () 110.3 Estimated GFR (Non- 95.2 BUN/Creatinine Ratio 10.6 10-20 Random Glucose 109 70-99 mg/dl Calcium Level 8.6 8.5-10.1 mg/dl Total Creatine Kinase 249 39-308 U/L Creatine Kinase MB 7.0 5.8 0.5-3.6 ng/ml Creatine Kinase MB Ratio 2.8 0-3.0 Troponin I 4.200 4.510 0-0.045 ng/ml Hepatitis C Antibody Screen NEG NEG Test 05/21/16 23:00 05/21/16 23:20 05/22/16 06:29 Range/Units Creatine Kinase MB Ratio 0-3.0 Activated Partial Thromboplast Time 47.3 44.7 21.0-31.0 SECONDS Partial Thromboplastin Ratio 1.8 1.7 Creatine Kinase MB 4.7 0.5-3.6 ng/ml Troponin I 5.140 0-0.045 ng/ml White Blood Count 7.60 4.8-10.8 K/uL Red Blood Count 4.84 4.7-6.1 M/uL Hemoglobin 15.8 14.0-18.0 g/dL Hematocrit 45.1 42-52 % Mean Corpuscular Volume 93.2 80-100 fL Mean Corpuscular Hemoglobin 32.6 25-34 pg Mean Corpuscular Hemoglobin Concent 35.0 32-36 g/dl RDW Standard Deviation 44.1 36.4-46.3 fL RDW Coefficient of Variation 12.9 11.5-14.5 % Platelet Count 183 130-400 K/uL Mean Platelet Volume 10.7 7.4-10.4 fL Sodium Level 142 136-145 mmol/L Potassium Level 3.7 3.5-5.1 mmol/L Chloride Level 107 98-107 mmol/L Carbon Dioxide Level 28 21-32 mmol/L Anion Gap 7.0 3-11 mmol/L Blood Urea Nitrogen 7 7-18 mg/dl Creatinine 0.86 0.60-1.40 mg/dl Est Creatinine Clear Calc Drug Dose 92.6 ml/min Estimated GFR () 109.2 Estimated GFR (Non- 94.3 BUN/Creatinine Ratio 8.5 10-20 Random Glucose 91 70-99 mg/dl Calcium Level 8.2 8.5-10.1 mg/dl Triglycerides Level 140 0-150 mg/dl Cholesterol Level 131 0-200 mg/dl HDL Cholesterol 27 mg/dl LDL Cholesterol, Calculated 76 mg/dl VLDL Cholesterol, Calculated 28 mg/dl Cholesterol/HDL Ratio 4.9
[2016-05-22] MEDS ORDERED: LPT40 PO (11:14)
[2016-05-22] MEDS ORDERED: CRG3125 PO (11:14)
[2016-05-22] MEDS ORDERED: NTRSLP4 SL (11:14)
--- NOTE | 2016-05-22 11:22 | Discharge Summary ---
Discharge Summary Date of Service May 22, 2016. Discharge Summary Admission Date: May 21, 2016 at 12:35 Discharge Disposition: Acute care facility Principal Diagnosis: NSTEMI Procedures: Coronary Angiography, Left Heart Cath Consultations: Cardiology Pending Studies/Follow-Up: Follow up with at [facility] Medication Reconciliation New Medications: Atorvastatin (Atorvastatin Calcium) 40 Mg Tab 80 MG PO DAILY for 30 Days, #60 TAB Carvedilol (Carvedilol) 3.125 Mg Tab 3.125 MG PO BID for 30 Days, #60 TAB Nitroglycerin (Nitrostat) 0.4 Mg/1 Tab Subl 0.4 MG SL UD PRN for Chest Pain for 30 Days Continued Medications: Aspirin (Aspirin Ec) 81 Mg Tab 81 MG PO DAILY Admission Information HPI (per Admitting provider): 60 year old male who was referred to the ER by his PCP for evaluation of chest pain. Patient reports he has been experiencing left jaw pain, left arm pain, and chest pain for the past 1-2 weeks. He reports that initially he would develop jaw pain only. It occurred while resting and would resolve on it's own. He reports it then started to radiated into the left side of his chest and into his left arm. He describes the chest pain as a sharp, stabbing pain. He rates it as it worst #3/10. Over the past few days, pain has become exertional. He also notes increasing exertional shortness of breath over the past couple of weeks. He denies associated lightheadedness, dizziness, diaphoresis, or nausea. No abdominal pain, vomiting, or diarrhea. Reports he otherwise has been feeling well. No fever or chills. Denies any urinary symptoms. He was given 1 SL nitro at PCP's office. He is currently chest pain free. In the ER, patient is found to have trop 4.2. EKG shows deeper T-wave inversions inferiorly but no other changes. BP was elevated on arrival at 189/76. This improved with a dose of IV Labetalol. Of note, patient reports he hasn't taken his meds in one year due to cost. Physical Exam (per Admitting): General Appearance: no apparent distress Head: normocephalic Eyes: normal inspection ENT: hearing grossly normal Neck: supple, no JVD Respiratory/Chest: chest non-tender, lungs clear, normal breath sounds, no respiratory distress Cardiovascular: regular rate, rhythm, no edema, normal peripheral pulses Abdomen/GI: normal bowel sounds, non tender, soft Extremities/Musculoskelatal: normal inspection, no calf tenderness Neurologic/Psych: no motor/sensory deficits, alert, normal mood/affect, oriented x 3 Skin: normal color, warm/dry Hospital Course NSTEMI, HX CAD S/P Cardiac cath on 05/22/16 Continue monitoring in Tele patient presented with worsening exertional chest, jaw, and left arm pain; chest pain resolved with nitro x 1 H/O CAD: 2003 PCI/stenting to RCA, 12/2012 - BMS to left cx Patient not taking meds (beta jerrod, statin, Plavix) in one year due to cost; only taking ASA 81mg daily initial troponin 4.2; 5.1; EKG shows deeper T-wave inversions inferiorly On IV heparin which was started by ED Appreciate cardiology help. ECHO/Cardiac cath results as below Continue Aspirin, Statin, Coreg, IV heparin HTN BP elevated on arrival, improved with IV Labetalol x 1 Not taken meds for one year previous regimen: HCTZ 12.5mg daily, Losartan 100mg daily, carvedilol 12.5mg BID Continue carvedilol 3.125mg BID for now DVT PROPHYLAXIS on IV heparin CODE STATUS Full code DISPO Plan to transfer to [place] for further care: Needs CABG PROCEDURES: Cardiac Cath results: 90% ulcerated mid LCx. 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 * The basal inferior wall is thinned and akinetic. * The apical lateral wall is hypokinetic. * The basal posterior wall is hypokinetic. * Grade I diastolic dysfunction, (abnormal relaxation pattern). * No significant valvular disease. Total time spent on discharge = 55 minutes This includes examination of the patient, discharge planning, medication reconciliation, and communication with other providers. Discharge Instructions Discharge Instructions Admission Reason for Admission: Nstemi Discharge Discharge Diagnosis / Problem: NSTEMI Discharge Goals Goal(s): Decrease discomfort, Improve function Activity Recommendations Activity Limitations: per Instructions/Follow-up section . Instructions / Follow-Up Instructions / Follow-Up Follow up with (Fixed Route Operator) at [facility] for further [facility] Care: * Take your medications exactly as directed. Don't skip doses. * Remember that recovery after a heart attack takes time. Plan to rest for at lease 4-8 weeks while you recover. Then return to normal activity when your doctor says it's okay. * Ask your doctor about joining a heart rehabilitation program. * Tell your doctor if you are feeling depressed. Feelings of sadness are common after a heart attack, but it is important that you speak to someone if you are feeling overwhelmed by these feelings. * If you are having chest pain, call 911 for an ambulance. Do NOT drive yourself to the hospital. * Ask your family members to learn CPR. * Learn to take your own blood pressure and pulse. Keep a record of your results. Ask your doctor when you should seek emergency medical attention. He or she will tell you which blood pressure reading is dangerous. Lifestyle Changes: * Maintain a healthy weight. Get help to lose any extra pounds. * Cut back on salt. * Limit canned, dried, packaged, and fast foods. * Don't add salt to your food. * Season foods with herbs instead of salt when you cook. * Break the smoking habit. Enroll in a stop-smoking program to improve your chances of success. * Limit fatty foods. * Check your lipid levels regularly. (Your doctor can show you how to do this.) * Build up your activity according to your doctor's recommendation. * Ask your doctor when it's okay to resume sexual activity. * Tell your doctor about any erectile dysfunction (ED) medication you are taking. Some ED medications are not safe if you take certain heart medications. * Try to manage stress. Follow Up: It is important for you to keep your follow up appointments with your medical provider. Current Hospital Diet Patient's current hospital diet: AHA Diet (Heart Healthy) Discharge Diet Recommended Diet: AHA Diet (Heart Healthy) Pending Studies Studies pending at discharge: no Laboratory Results Lipid Panel Test 05/22/16 06:29 Range/Units Triglycerides Level 140 0-150 mg/dl Cholesterol Level 131 0-200 mg/dl HDL Cholesterol 27 mg/dl Cholesterol/HDL Ratio 4.9 LDL Cholesterol, Calculated 76 mg/dl Medical Emergencies . Who to Call and When: Medical Emergencies: If at any time you feel your situation is an emergency, please call 911 immediately. Call 911 immediately or go to your nearest Emergency Room if you experience any of the following: Warning Signs and Symptoms of a Heart Attack * Chest pain that is not relieved by medication * Shortness of breath . Non-Emergent Contact Non-Emergency issues call your: Primary Care Provider, Fixed Route Operator Call Non-Emergent contact if: you have a fever, your pain is not controlled, your pain is worsening, your pain is unusual for you, you have any medication questions . . "Provider Documentation" section prepared by Jose Alejandro. AMI Core Measures Reason no ASA as I/P: Treatment provided - N/A Reason no ASA at D/C: Treatment provided - N/A Reason no statin as I/P: Treatment provided - N/A Reason no statin at D/C: Treatment provided - N/A VTE Core Measure Inpt VTE Proph given/why not?: Unfractionated heparin SQ
[2016-05-22 11:47] LABS: PARTIAL THROMBOPLASTIN RATIO 1.4
[2016-05-22] MEDS: HEPARIN 25,000 UNIT/500ML D5W 500 ML IV PRN ×2 (11:54→12:15)
[2016-05-22] MEDS ORDERED: HEPARIN IV BOLUS 6,000 UNIT in SYRINGE 0 ML IV ONE (13:00)
[2016-05-22 18:32] LABS: PARTIAL THROMBOPLASTIN RATIO 3.1
== END 2016-05-22 18:46 | disposition short-term general hospital (02) | DRG 282 ==
LOC: ENRESERVDT → ENRESERVTM → C.EDB 10:59 → C.2E 12:35
PROVIDERS: ADMIT Hospitalist; ATTEND Internal Medicine
PROC: 4A023N7 Measurement of Cardiac Sampling and Pressure, Left Heart, Percutaneous Approach (ICD-10-PCS; principal; 2016-05-22 07:55)
PROC: B2111ZZ Fluoroscopy of Multiple Coronary Arteries using Low Osmolar Contrast (ICD-10-PCS; principal; 2016-05-22 07:55)
DX: I21.4 Non-ST elevation (NSTEMI) myocardial infarction (principal); I25.10 Atherosclerotic heart disease of native coronary artery without angina pectoris; I25.2 Old myocardial infarction; J44.9 Chronic obstructive pulmonary disease, unspecified; E78.5 Hyperlipidemia, unspecified; K21.9 Gastro-esophageal reflux disease without esophagitis; I10 Essential (primary) hypertension; Z87.891 Personal history of nicotine dependence; Z91.19 Patient's noncompliance with other medical treatment and regimen; Z79.82 Long term (current) use of aspirin; Z82.49 Family history of ischemic heart disease and other diseases of the circulatory system

== ENCOUNTER 2020-06-25 03:28 | Inpatient (IN) ==
[2020-06-25] MEDS ORDERED: fentaNYL citrate 100 MCG/2 ML VIAL IV STA ×2 (03:43→04:10)
[2020-06-25] MEDS ORDERED: fentaNYL citrate 100 MCG/2 ML VIAL ONE (03:46)
--- NOTE | 2020-06-25 03:47 | Emergency Department Note ---
Impression & Plan Acute pancreatitis, Acute upper GI bleed ED Provider Note Name: MALIKA QUISPE Age: 64 Sex: M Arrives Via: Walk-In Informant: Patient, EMS ED Provider: Allen Ware MD Chief Complaint: Abdominal pain Impression: Acute Pancreatitis Upper GI Bleed Medical Decision Makin yr old male with history CAD, COPD, HTN, DLP, Depression, GERD and previous CABG and Cholecystectomy arrives for severe abdominal pain. Evaluated on arrival and highly concerning for severe pathology, and emergently sent to CT for evaluation of dissection. Pain controlled with IV pain meds. CT consistent with severe pancreatitis as well as Lipase is severely elevated. Gradually feeling better with narcotics. He developed large amount of emesis which was coffee ground. Consistent with PUD rather than varicosities. He was given IV protonix and IV zofran which seemed to work well for nausea though did have some vomiting a bit later and further zofran. He is maintaining airway without difficulty and after discussion with hospitalist will hold off on NG tube as not clear source of bleed and vomiting is able to be controlled with zofran. Hemodynamically stable and HgB OK right now. I did opt to type/cross for 2 though no indication for transfusion at this time. Unclear etiology of pancreatitis as previous jayne and he does not drink alcohol Prior Medical Record and Triage/Nursing Notes reviewed by Me Additional history obtained from chart Differentials: Aortic dissection, ACS, PE, Pancreatitis, Hepatitis, Bowel obstruction, ischemic gut, PUD, GERD, Rochelle triplett tear, varicosities amongst other pathologies. Vital Signs: reviewed and remarkable for no significant abnormalities Interventions: saline lock, fentanyl iv, dilaudid iv, zofran iv, protonix iv Labs:Reviewed and remarkable for elevated lipase Imaging:[facility] Radiologist interpretation reviewed by me: ct c/a/p angio: acute pancreatitis EKG:Per My Interpretation: Indication Epigastric pain: NSR 76 bpm, qtc 447 with poor baseline. No Ectopy. No Ischemia. Compared to EKG 06/02/19, no significant changes. Cardiac/Tele Monitoring: Cardiac Monitoring: An Order was placed for continuous cardiac monitoring. The monitor shows a rate of 70 with a normal sinus rhythm. Consults:Dr Sánchez Plan: Disposition:Hospitalization. Referred to: PCP Condition: Fair History of Present Illness:64 yr old male arrives for evaluation of abdominal pain. Patient notes a few days of diarrhea. Acutely worsening abdominal pain over the last day or so. Associated nausea and shortness of breath. Notes tearing pain through to back and in to chest. Associated with leg pains and bilateral flank pain as well. No history of similar Previous CABG and Cholecystectomy. Denies trauma, injury, falls. With worsening pain patient started vomiting this evening. Denies black/bloody stools nor blood in emesis. States no new medications. Denies etoh use. No urinary symptoms, fevers, chills, syncope, headache, neck pain, focal weakness, nor other symptoms. No blood thinners other than asa 81mg daily ROS: See above HPI for pertinent positives & negatives. A total of 10 systems re viewed and were otherwise negative. Past Medical History:CAD, COPD, HTN, DLP, Depression, GERD Past Surgical History:Cholecystectomy, CABG Family History:See Below Social History:See Below Home Medications:See Below Allergies:See Below Vitals:Blood Pressure: 131/67, Pulse 73, RR 22, T 36.5C, O2 95% on 2: Physical Exam: GENERAL: Patient is severely ill appearing and in severe distress. Writhing on bed EYES: No scleral icterus, unremarkable pupils. ENT: Mucous membranes moist, no nasal congestion. NECK: No masses appreciated, nomeningismus, trachea is midline. RESPIRATORY: Tachypnea/dyspnea, clear to auscultation and equal bilaterally. No wheeze, no rhonchi. CARDIOVASCULAR: Regular rate and rhythm.No murmurs, rubs, gallops appreciated. GASTROINTESTINAL: Diffuse TTP, distension and bilateral flank mottling BACK: No midline tenderness, no CVA tenderness EXTREMITIES: Normal motion all extremities, no cyanosis, no edema. NEUROLOGIC: Alert and oriented, no acute motor or sensory deficits, no focal weakness, cranial nerves grossly intact. SKIN: Mildly mottled bilateral flanks. No rash, no jaundice, no diaphoresis. PSYCH: Appropriate GCS: 15 ED Course: Times/Reassessments: Patient arrived severely distressed writhing in bed with pain in abdomen radiating to back and up chest with shob. Highly concerning for dissection and immediately IV placed and he went to CT angio c/a/p. Pain controlled with fentanyl/dilaudid. CT with pancreatitis. Began vomiting coffee ground emesis. Protonix IV. Suspect PUD/rochelle rather than varicose given no blood earlier and no liver history. Critical Care: I have personally spent 45 minutes of critical care time in the direct management of this patient. Severe abdominal pain concern dissection with acute upper GI bleed and pancreatitis. This was a life/limb threatening event. This 45 minutes is in excess of all separately billable procedures. Allen Ware MD Past Med/Surg History Medical History BPH (benign prostatic hyperplasia) CAD (coronary artery disease) COPD, mild Depression Dyslipidemia GERD (gastroesophageal reflux disease) HTN (hypertension) Myocardial Infarction Surgical History History of carpal tunnel surgery History of colonoscopy History of heart artery stent History of quadruple bypass (~2016) History of tooth extraction Hx laparoscopic cholecystectomy (10/02/19) Family History Mother Breast cancer Heart disease Father Heart disease Denies family history of Ovarian cancer Prostate cancer Myocardial infarction Colorectal cancer Social History Smoking Status: Never smoker Second Hand Exposure: No; Hx Alcohol Use: No Hx Substance Use: No Preferred Language: Bruneian Communication Ability: Effective Visual Impairment: No Limitations Hearing Ability: Hard of Hearing Culinary Arts Instructor Required: No Beliefs That Will Affect Care: None marital status: Current Living Situation: Spouse current occupational status: employed current occupation: [employer] Feels Safe at Home: Yes Physical Activity Frequency: Does not Exercise Assistive Devices: Glasses Allergies Allergies Allergy/AdvReac Type Severity Reaction Status Date / Time bee venom protein (honey bee) Allergy Intermediate EXTREME Verified 01/20/20 13:57 SWELLING enalapril Allergy Intermediate COUGH Verified 01/20/20 13:57 morphine Allergy Intermediate GI SYMPTOMS Verified 01/20/20 13:57 Home Meds Home Medications Medication Instructions Recorded Confirmed aspirin 81 mg PO QAM 06/02/19 05/02/20 atorvastatin 80 mg PO QAM 06/02/19 05/02/20 clopidogrel [Plavix] 75 mg PO QAM 06/02/19 05/02/20 nitroglycerin [Nitrostat] 0.4 mg SUBLINGUAL UD 06/02/19 05/02/20 pantoprazole 40 mg tablet,delayed 40 mg PO BID tab 09/07/19 05/02/20 release carvedilol 3.125 mg tablet 6.25 mg PO BID tab 09/30/19 05/02/20 Previous Rx's Medication Instructions Recorded tamsulosin 0.4 mg capsule 0.4 mg PO DAILY #30 cap 09/08/19 Results & Data (ED) Vital Signs Vital Signs - 24 hr 06/25/20 03:31 06/25/20 03:46 06/25/20 04:00 Temperature 36.5 C Temperature Source Oral Pulse Rate 77 60 Pulse Rate from SpO2 Sensor 60 Respiratory Rate 24 28 H Respiratory Effort / Characteristics Non-Labored Spontaneous Respiratory Depth Normal Blood Pressure 110/77 141/91 H Blood Pressure Mean 88 107 Pulse Oximetry 96 97 Oxygen Delivery Method Room Air Oxygen Flow Rate Sepsis Recent Fever Within 48 Hours No Sepsis New/Unexplained Change in Mental Status N/A Sepsis Action Taken by Nursing No Action Required 06/25/20 04:02 06/25/20 04:04 06/25/20 04:15 Temperature Temperature Source Pulse Rate 65 65 68 Pulse Rate from SpO2 Sensor 62 60 56 L Respiratory Rate 29 H 28 H 26 H Respiratory Effort / Characteristics Respiratory Depth Blood Pressure 163/90 H Blood Pressure Mean 114 Pulse Oximetry 96 97 98 Oxygen Delivery Method Oxygen Flow Rate Sepsis Recent Fever Within 48 Hours Sepsis New/Unexplained Change in Mental Status Sepsis Action Taken by Nursing 06/25/20 04:30 06/25/20 04:31 06/25/20 04:43 Temperature Temperature Source Pulse Rate 73 76 72 Pulse Rate from SpO2 Sensor 73 72 Respiratory Rate 27 H 28 H 25 H Respiratory Effort / Characteristics Respiratory Depth Blood Pressure 158/105 H 118/76 Blood Pressure Mean 122 90 Pulse Oximetry 98 94 Oxygen Delivery Method Nasal Cannula Nasal Cannula Oxygen Flow Rate 2 2 Sepsis Recent Fever Within 48 Hours Sepsis New/Unexplained Change in Mental Status Sepsis Action Taken by Nursing 06/25/20 04:45 06/25/20 04:46 06/25/20 05:00 Temperature Temperature Source Pulse Rate 70 73 71 Pulse Rate from SpO2 Sensor 69 54 L 63 Respiratory Rate 24 22 21 Respiratory Effort / Characteristics Respiratory Depth Blood Pressure 131/67 132/78 Blood Pressure Mean 88 96 Pulse Oximetry 95 95 96 Oxygen Delivery Method Oxygen Flow Rate Sepsis Recent Fever Within 48 Hours Sepsis New/Unexplained Change in Mental Status Sepsis Action Taken by Nursing 06/25/20 05:01 06/25/20 05:15 06/25/20 05:16 Temperature Temperature Source Pulse Rate 66 67 71 Pulse Rate from SpO2 Sensor 65 60 71 Respiratory Rate 21 22 20 Respiratory Effort / Characteristics Respiratory Depth Blood Pressure 157/76 H Blood Pressure Mean 103 Pulse Oximetry 95 96 97 Oxygen Delivery Method Oxygen Flow Rate Sepsis Recent Fever Within 48 Hours Sepsis New/Unexplained Change in Mental Status Sepsis Action Taken by Nursing 06/25/20 05:30 06/25/20 05:31 06/25/20 05:45 Temperature Temperature Source Pulse Rate 63 72 82 Pulse Rate from SpO2 Sensor 60 72 81 Respiratory Rate 21 21 27 H Respiratory Effort / Characteristics Respiratory Depth Blood Pressure 144/92 H 169/100 H Blood Pressure Mean 109 123 Pulse Oximetry 95 96 98 Oxygen Delivery Method Nasal Cannula Oxygen Flow Rate 2 Sepsis Recent Fever Within 48 Hours Sepsis New/Unexplained Change in Mental Status Sepsis Action Taken by Nursing 06/25/20 05:46 Temperature Temperature Source Pulse Rate 78 Pulse Rate from SpO2 Sensor 77 Respiratory Rate 25 H Respiratory Effort / Characteristics Respiratory Depth Blood Pressure Blood Pressure Mean Pulse Oximetry 97 Oxygen Delivery Method Oxygen Flow Rate Sepsis Recent Fever Within 48 Hours Sepsis New/Unexplained Change in Mental Status Sepsis Action Taken by Nursing Laboratory Data Result diagrams: 06/25/20 03:45 06/25/20 03:45 Lab Results 06/25/20 06/25/20 06/25/20 Range/Units 03:45 03:45 03:45 WBC 16.65 H (4.8-10.8) K/uL RBC 5.51 (4.7-6.1) M/uL Hgb 17.8 (14.0-18.0) g/dL POC Hgb (14.0-18.0) g/dl Hct 51.9 (42-52) % POC Hct (42-52) % MCV 94.2 (80-100) fL MCH 32.3 (25-34) pg MCHC 34.3 (32-36) g/dL RDW Std Deviation 44.6 (36.4-46.3) fL RDW Coeff of Rasta 12.9 (11.5-14.5) % Plt Count 273 (130-400) K/uL MPV 10.7 H (7.4-10.4) fL Immature Gran % (Auto) 0.3 % Neut % (Auto) 75.8 % Lymph % (Auto) 15.6 % Hamilton % (Auto) 7.6 % Eos % (Auto) 0.5 % Baso % (Auto) 0.2 % Neut # (Auto) 12.62 H (1.4-6.5) K/uL Lymph # (Auto) 2.60 (1.2-3.4) K/uL Hamilton # (Auto) 1.26 H (0.11-0.59) K/uL Eos # (Auto) 0.09 (0-0.5) K/uL Baso # (Auto) 0.03 (0-0.2) K/uL Immature Gran # (Auto) 0.05 H (0.00-0.02) K/uL PT 10.3 (9.0-12.0) Seconds INR 1.0 (0.9-1.1) APTT 22.1 (21.0-31.0) Seconds PTT Ratio 0.8 POC Sodium (135-144) mmol/L Sodium 140 (136-145) mmol/L POC Potassium (3.3-5.0) mmol/L Potassium 3.2 L (3.5-5.1) mmol/L POC Chloride (101-112) mmol/L Chloride 107 (98-107) mmol/L Carbon Dioxide 27 (21-32) mmol/L POC Total CO2 (24-31) mmol/L Anion Gap 6.0 (3-11) POC Anion Gap (16-25) mmol/L POC BUN (7-18) mg/dl BUN 11 (7-18) mg/dl Creatinine 1.18 (0.6-1.4) mg/dl POC Creatinine (0.6-1.3) mg/dl Est Cr Clr Drug Dosing 63.0 ml/min Est GFR ( Amer) 75.1 Est GFR (Non-Af Amer) 64.8 BUN/Creatinine Ratio 9.1 L (10-20) Glucose 204 H (70-99) mg/dl POC Glucose (other) (70-99) mg/dl Calcium 8.8 (8.5-10.1) mg/dl POC Ioniz Calcium Sahara (1.12-1.32) mmol/l Magnesium 2.3 (1.8-2.4) mg/dl Total Bilirubin 2.8 H (0.2-1) mg/dl Direct Bilirubin 1.2 H (0-0.2) mg/dl AST 311 H (15-37) U/L ALT 195 H (12-78) U/L Alkaline Phosphatase 97 (45-117) U/L Troponin I < 0.015 (0-0.045) ng/ml Total Protein 7.8 (6.4-8.2) gm/dl Albumin 4.1 (3.4-5.0) gm/dl Lipase 43260 H (73-393) U/L COVID-19 Eval Order SARS-CoV-2 (PCR) (Negative) Influenza Type A (PCR) (Neg) Influenza Type B (PCR) (Neg) RSV (RT-PCR) (Neg) Blood Type Antibody Screen Crossmatch 06/25/20 06/25/20 06/25/20 Range/Units 03:47 04:41 04:48 WBC (4.8-10.8) K/uL RBC (4.7-6.1) M/uL Hgb (14.0-18.0) g/dL POC Hgb 18.4 H (14.0-18.0) g/dl Hct (42-52) % POC Hct 54 H (42-52) % MCV (80-100) fL MCH (25-34) pg MCHC (32-36) g/dL RDW Std Deviation (36.4-46.3) fL RDW Coeff of Rasta (11.5-14.5) % Plt Count (130-400) K/uL MPV (7.4-10.4) fL Immature Gran % (Auto) % Neut % (Auto) % Lymph % (Auto) % Hamilton % (Auto) % Eos % (Auto) % Baso % (Auto) % Neut # (Auto) (1.4-6.5) K/uL Lymph # (Auto) (1.2-3.4) K/uL Hamilton # (Auto) (0.11-0.59) K/uL Eos # (Auto) (0-0.5) K/uL Baso # (Auto) (0-0.2) K/uL Immature Gran # (Auto) (0.00-0.02) K/uL PT (9.0-12.0) Seconds INR (0.9-1.1) APTT (21.0-31.0) Seconds PTT Ratio POC Sodium 142 (135-144) mmol/L Sodium (136-145) mmol/L POC Potassium 3.3 (3.3-5.0) mmol/L Potassium (3.5-5.1) mmol/L POC Chloride 101 (101-112) mmol/L Chloride (98-107) mmol/L Carbon Dioxide (21-32) mmol/L POC Total CO2 29 (24-31) mmol/L Anion Gap (3-11) POC Anion Gap 16.0 (16-25) mmol/L POC BUN 9 (7-18) mg/dl BUN (7-18) mg/dl Creatinine (0.6-1.4) mg/dl POC Creatinine 1.0 (0.6-1.3) mg/dl Est Cr Clr Drug Dosing ml/min Est GFR ( Amer) Est GFR (Non-Af Amer) BUN/Creatinine Ratio (10-20) Glucose (70-99) mg/dl POC Glucose (other) 204 H (70-99) mg/dl Calcium (8.5-10.1) mg/dl POC Ioniz Calcium Sahara 1.16 (1.12-1.32) mmol/l Magnesium (1.8-2.4) mg/dl Total Bilirubin (0.2-1) mg/dl Direct Bilirubin (0-0.2) mg/dl AST (15-37) U/L ALT (12-78) U/L Alkaline Phosphatase (45-117) U/L Troponin I (0-0.045) ng/ml Total Protein (6.4-8.2) gm/dl Albumin (3.4-5.0) gm/dl Lipase (73-393) U/L COVID-19 Eval Order CovFluRsv at [facility] SARS-CoV-2 (PCR) (Negative) Influenza Type A (PCR) (Neg) Influenza Type B (PCR) (Neg) RSV (RT-PCR) (Neg) Blood Type O Positive Antibody Screen NEGATIVE Crossmatch See Detail 06/25/20 Range/Units 04:48 WBC (4.8-10.8) K/uL RBC (4.7-6.1) M/uL Hgb (14.0-18.0) g/dL POC Hgb (14.0-18.0) g/dl Hct (42-52) % POC Hct (42-52) % MCV (80-100) fL MCH (25-34) pg MCHC (32-36) g/dL RDW Std Deviation (36.4-46.3) fL RDW Coeff of Rasta (11.5-14.5) % Plt Count (130-400) K/uL MPV (7.4-10.4) fL Immature Gran % (Auto) % Neut % (Auto) % Lymph % (Auto) % Hamilton % (Auto) % Eos % (Auto) % Baso % (Auto) % Neut # (Auto) (1.4-6.5) K/uL Lymph # (Auto) (1.2-3.4) K/uL Hamilton # (Auto) (0.11-0.59) K/uL Eos # (Auto) (0-0.5) K/uL Baso # (Auto) (0-0.2) K/uL Immature Gran # (Auto) (0.00-0.02) K/uL PT (9.0-12.0) Seconds INR (0.9-1.1) APTT (21.0-31.0) Seconds PTT Ratio POC Sodium (135-144) mmol/L Sodium (136-145) mmol/L POC Potassium (3.3-5.0) mmol/L Potassium (3.5-5.1) mmol/L POC Chloride (101-112) mmol/L Chloride (98-107) mmol/L Carbon Dioxide (21-32) mmol/L POC Total CO2 (24-31) mmol/L Anion Gap (3-11) POC Anion Gap (16-25) mmol/L POC BUN (7-18) mg/dl BUN (7-18) mg/dl Creatinine (0.6-1.4) mg/dl POC Creatinine (0.6-1.3) mg/dl Est Cr Clr Drug Dosing ml/min Est GFR ( Amer) Est GFR (Non-Af Amer) BUN/Creatinine Ratio (10-20) Glucose (70-99) mg/dl POC Glucose (other) (70-99) mg/dl Calcium (8.5-10.1) mg/dl POC Ioniz Calcium Sah[place] (1.12-1.32) mmol/l Magnesium (1.8-2.4) mg/dl Total Bilirubin (0.2-1) mg/dl Direct Bilirubin (0-0.2) mg/dl AST (15-37) U/L ALT (12-78) U/L Alkaline Phosphatase (45-117) U/L Troponin I (0-0.045) ng/ml Total Protein (6.4-8.2) gm/dl Albumin (3.4-5.0) gm/dl Lipase (73-393) U/L COVID-19 Eval Order SARS-CoV-2 (PCR) NEGATIVE (Negative) Influenza Type A (PCR) Negative (Neg) Influenza Type B (PCR) Negative (Neg) RSV (RT-PCR) Negative (Neg) Blood Type Antibody Screen Crossmatch Administered Medications Discontinued Medications Fentanyl Citrate (Fentanyl Citrate 100 Mcg/2 Ml Vial) 75 mcg IV NOW STA Stop: 06/25/20 03:44 Last Admin: 06/25/20 03:47 Dose: 75 mcg Documented by: [id number] Fentanyl Citrate (Fentanyl Citrate 100 Mcg/2 Ml Vial) Confirm Administered Dose 100 mcg .ROUTE .STK-MED ONE Stop: 06/25/20 03:47 Last Admin: 06/25/20 03:47 Dose: Not Given Documented by: [id number] Fentanyl Citrate (Fentanyl Citrate 100 Mcg/2 Ml Vial) 50 mcg IV NOW STA Stop: 06/25/20 04:11 Last Admin: 06/25/20 04:13 Dose: 50 mcg Documented by: [id number] Hydromorphone HCl (Hydromorphone Inj 1 Mg/Ml Syringe) 1 mg IV NOW STA Stop: 06/25/20 04:34 Last Admin: 06/25/20 04:35 Dose: 1 mg Documented by: [id number] Hydromorphone HCl (Hydromorphone Inj 1 Mg/Ml Syringe) Confirm Administered Dose 1 mg .ROUTE .STK-MED ONE Stop: 06/25/20 04:34 Last Admin: 06/25/20 04:34 Dose: Not Given Documented by: [id number] Pantoprazole Sodium 80 mg/ (Dextrose) 100 mls @ 400 mls/hr IV ONE STA Stop: 06/25/20 04:44 Last Infusion: 06/25/20 05:13 Dose: 0 mls/hr Documented by: [id number] Admin: 06/25/20 04:44 Dose: 400 mls/hr Documented by: [id number] Ioversol (Optiray 320 125ml) 120 ml IV ONCE ONE Stop: 06/25/20 04:09 Last Admin: 06/25/20 04:08 Dose: 120 ml Documented by: [id number] Ondansetron HCl (Ondansetron Inj 2 Mg/Ml 2 Ml Vial) 4 mg IV NOW STA Stop: 06/25/20 04:31 Last Admin: 06/25/20 04:32 Dose: 4 mg Documented by: [id number] Ondansetron HCl (Ondansetron Inj 2 Mg/Ml 2 Ml Vial) Confirm Administered Dose 4 mg .ROUTE .STK-MED ONE Stop: 06/25/20 04:31 Last Admin: 06/25/20 04:32 Dose: Not Given Documented by: [id number] Ondansetron HCl (Ondansetron Inj 2 Mg/Ml 2 Ml Vial) 4 mg IV NOW STA Stop: 06/25/20 06:23 Last Admin: 06/25/20 06:25 Dose: 4 mg Documented by: [id number] Discharge Plan Visit Data Chief Complaint: Vomiting Stated Complaint: VOMITING,DIARRHEA,SOB ED Provider: Allen Ware Discharge Problem: Acute pancreatitis, Acute upper GI bleed Forms Stand Alone Forms: [facility] Prescriptions Prescriptions: No Action carvedilol 3.125 mg tablet 6.25 mg PO BID RF: 0 pantoprazole 40 mg tablet,delayed release (DR/EC) 40 mg PO BID RF: 0 tamsulosin 0.4 mg capsule 0.4 mg PO DAILY Qty: 30 RF: 2 atorvastatin 80 mg Tablet 80 mg PO QAM RF: 0 clopidogrel [Plavix] 75 mg Tablet 75 mg PO QAM RF: 0 aspirin 81 mg Tablet,Delayed Release (Dr/Ec) 81 mg PO QAM RF: 0 nitroglycerin [Nitrostat] 0.4 mg Tablet, Sublingual 0.4 mg sublingual UD RF: 0 Discharge Problem: Acute pancreatitis Qualifiers: Pancreatitis type: other Acute pancreatitis complication: uninfected necrosis Qualified Code(s): K85.81 - Other acute pancreatitis with uninfected necrosis
[2020-06-25 04:00] LABS: iSTAT Hemoglobin 18.4 g/dl (14.0-18.0); iSTAT Ionized Calcium 1.16 mmol/l (1.12-1.32); iSTAT Potassium 3.3 mmol/L (3.3-5.0)
[2020-06-25] MEDS ORDERED: OPTIRAY 320 125ml IV ONE (04:08)
[2020-06-25 04:27] LABS: Basophils # (auto) 0.03 K/uL (0-0.2); Basophils % (auto) 0.2 %; Eosinophils # (auto) 0.09 K/uL (0-0.5); Eosinophils % (auto) 0.5 %; Hematocrit (blood only) 51.9 % (42-52); Hemoglobin 17.8 g/dL (14.0-18.0); Immature Granulocytes # (auto) 0.05 K/uL (0.00-0.02); Immature Granulocytes % (auto) 0.3 %; Lymphocytes % (auto) 15.6 %; Mean Corpuscular Hemoglobin 32.3 pg (25-34); Mean Corpuscular Hgb Conc 34.3 g/dL (32-36); Mean Corpuscular Volume 94.2 fL (80-100); Mean Platelet Volume 10.7 fL (7.4-10.4); Monocytes # (auto) 1.26 K/uL (0.11-0.59); Monocytes % (auto) 7.6 %; Neutrophils # (auto) 12.62 K/uL (1.4-6.5); Neutrophils % (auto) 75.8 %; Platelet Count 273 K/uL (130-400); RDW Coefficient of Variation 12.9 % (11.5-14.5); RDW Standard Deviation 44.6 fL (36.4-46.3); Red Blood Count 5.51 M/uL (4.7-6.1); White Blood Count 16.65 K/uL (4.8-10.8)
[2020-06-25] MEDS ORDERED: ONDANSETRON INJ 2 MG/ML 2 ML VIAL IV STA ×2 (04:30→06:22)
[2020-06-25] MEDS ORDERED: SODIUM CHLORIDE 0.9% 250 ML IV PRN (04:30)
[2020-06-25] MEDS ORDERED: PANTOprazole 80 MG in DEXTROSE 5% 100 ML IV STA (04:30)
[2020-06-25] MEDS ORDERED: ONDANSETRON INJ 2 MG/ML 2 ML VIAL ONE (04:30)
[2020-06-25] MEDS ORDERED: HYDROmorphone INJ 1 MG/ML SYRINGE ONE (04:33)
[2020-06-25] MEDS ORDERED: HYDROmorphone INJ 1 MG/ML SYRINGE IV STA (04:33)
[2020-06-25 04:36] LABS: Partial Thromboplastin Ratio 0.8; Partial Thromboplastin Time 22.1 Seconds (21.0-31.0); Prothrombin Time 10.3 Seconds (9.0-12.0)
[2020-06-25 04:51] LABS: Alanine Aminotransferase 195 U/L (12-78); Albumin Level 4.1 gm/dl (3.4-5.0); Aspartate Aminotransferase 311 U/L (15-37); BUN Creatinine Ratio 9.1 (10-20); Bilirubin Direct 1.2 mg/dl (0-0.2); Blood Urea Nitrogen 11 mg/dl (7-18); Calcium 8.8 mg/dl (8.5-10.1); Carbon Dioxide 27 mmol/L (21-32); Chloride 107 mmol/L (98-107); Est GFR (African American) 75.1; Est GFR (Non-African American) 64.8; Glucose 204 mg/dl (70-99); Magnesium 2.3 mg/dl (1.8-2.4); Potassium 3.2 mmol/L (3.5-5.1); Sodium 140 mmol/L (136-145)
[2020-06-25 05:12] LABS: Alkaline Phosphatase 97 U/L (45-117); Bilirubin,Total 2.8 mg/dl (0.2-1); Total Protein 7.8 gm/dl (6.4-8.2); Troponin I < 0.015 ng/ml (0-0.045)
[2020-06-25 05:22] LABS: Lipase 58143 U/L (73-393)
[2020-06-25 05:54] LABS: Influenza A virus by PCR Negative (Neg); Influenza B virus by PCR Negative (Neg); RSV by PCR Negative (Neg); SARS CoV2 RNA(COVID-19) InHosp NEGATIVE (Negative)
--- NOTE | 2020-06-25 06:07 | History & Physical Report ---
Date of Service June 25, 2020 Assessment & Plan (1) Pancreatitis: Pancreatitis/transaminitis/duodenitis/gastric outlet obstruction/upper GI bleed- Question the possibility of a duodenal mass/duodenal ulcer contributing to gastric outlet obstruction symptoms as noted on CT Protonix drip IV fluids NSS + KCl 20 mEq at 150 mils per hour Serial CBC with differential, chemistry profile, lipase and magnesium levels Zofran 4 mg IV every 6 hours as needed Consult gastroenterology Present on Admission?: Yes (2) Transaminitis: See above Present on Admission?: Yes (3) Duodenitis: Duodenitis versus duodenal mass noted on CT. Consult gastroenterology for EGD Present on Admission?: Yes (4) Gastric outlet obstruction: Patient with recurrent nausea vomiting of dark bilious material likely consisting of blood products as well. Would be concerned about placing NG tube for potential og aggravating underlying bleeding process Present on Admission?: Yes (5) CAD (coronary artery disease): CAD/hypertension/stented coronary arteries- Hold aspirin and Plavix due to likely upper GI bleed with associated duodenal ulcer versus duodenal mass Hold carvedilol Present on Admission?: Yes (6) HTN (hypertension): See above Present on Admission?: Yes (7) Dyslipidemia: Hold atorvastatin while n.p.o. Present on Admission?: Yes (8) GERD (gastroesophageal reflux disease): See above Present on Admission?: Yes (9) BPH w urinary obs/LUTS: Hold tamsulosin 1 p.o. Present on Admission?: Yes History of Present Illness Chief Complaint: The patient presents to the emergency department with complaint of severe abdominal pain, generalized myalgias, leg and flank pain that is worsening over the past 24 hours, with a few days of diarrhea, and nausea with vomiting of dark bilious material. Primary Care Provider: PETER Francisco The patient is a 64-year-old male with a past medical history including mitral regurgitation, laparoscopic cholecystectomy, carpal tunnel surgery, hypertension, COPD, dyslipidemia, depression, CAD and GERD. He presents with symptoms as noted above. In the emergency department he vomited large volumes of dark bilious material. He denies any recent travels or sick exposures. He denies any questionable food intakes. He is on aspirin 81 mg daily and clopidogrel 75 mg daily. He has not had any blood in stool or urine. Allergies Allergy/AdvReac Type Severity Reaction Status Date / Time bee venom protein (honey bee) Allergy Intermediate EXTREME Verified 01/20/20 13:57 SWELLING enalapril Allergy Intermediate COUGH Verified 01/20/20 13:57 morphine Allergy Intermediate GI SYMPTOMS Verified 01/20/20 13:57 Home Medications Medication Instructions Recorded Confirmed Type aspirin 81 mg PO QAM 06/02/19 05/02/20 History atorvastatin 80 mg PO QAM 06/02/19 05/02/20 History clopidogrel [Plavix] 75 mg PO QAM 06/02/19 05/02/20 History nitroglycerin [Nitrostat] 0.4 mg SUBLINGUAL UD 06/02/19 05/02/20 History pantoprazole 40 mg tablet,delayed 40 mg PO BID tab 09/07/19 05/02/20 History release tamsulosin 0.4 mg capsule 0.4 mg PO DAILY #30 cap 09/08/19 05/02/20 Rx carvedilol 3.125 mg tablet 6.25 mg PO BID tab 09/30/19 05/02/20 History Past Med/Surg History Medical History BPH (benign prostatic hyperplasia) CAD (coronary artery disease) COPD, mild Depression Dyslipidemia GERD (gastroesophageal reflux disease) HTN (hypertension) Myocardial Infarction Surgical History History of carpal tunnel surgery History of colonoscopy History of heart artery stent History of quadruple bypass (~2016) History of tooth extraction Hx laparoscopic cholecystectomy (10/02/19) Family History Mother Breast cancer Heart disease Father Heart disease Denies family history of Ovarian cancer Prostate cancer Myocardial infarction Colorectal cancer Social History Smoking Status: Never smoker Second Hand Exposure: No; Hx Alcohol Use: No Hx Substance Use: No Preferred Language: Georgian Communication Ability: Effective Visual Impairment: No Limitations Hearing Ability: Hard of Hearing [employer] Manager Required: No Beliefs That Will Affect Care: None marital status: Current Living Situation: Spouse current occupational status: employed current occupation: [employer] Feels Safe at Home: Yes Physical Activity Frequency: Does not Exercise Assistive Devices: Glasses Review of Systems Review of Systems: The patient denies chest pain, palpitations, cough, lower extremity swelling, sore throat, fevers, chills, sweats, diarrhea , constipation, blood in urine or stool, dysuria, urinary frequency or urgency, memory loss, loss of consciousness, rash, abnormal bruising, imbalance, focal or generalized weakness, numbness or tingling in arms or legs, generalized arthralgias or myalgias, back or neck pain, or night sweats. The review of systems is otherwise negative other than for that already noted above, and at least 10 systems have been reviewed. Physical Exam Physical Exam: The patient is awake, alert and oriented 3, well developed and well nourished, normocephalic and atraumatic, lying in bed and in moderate distress when actively vomiting HEENT--PERRL, EOMI, mucous membranes and oropharynx dry. Neck--supple. No JVD. No bruits. Thyroid normal, trachea midline, no adenopathy. Heart--normal S1 and S2. No murmurs, rubs or gallops. Lungs--clear bilaterally, no respiratory distress, no accessory muscle use. Abdomen--normal bowel sounds and soft. generalized mild tenderness. Nondistended Extremities--no cyanosis or clubbing. No edema. Dermatologic--normal skin turgor, normal color, no abnormal lymph nodes, no rash. Neurologic--cranial nerves II through XII grossly intact. Rheumatologic--limited exam due to vomiting Psychiatric--normal affect. Results & Data Results & Data ([facility]) Vital Signs (Past 12 Hours) Vital Signs Temp Pulse Resp BP Pulse Ox 06/25/20 05:46 78 25 H 97 06/25/20 05:45 82 27 H 169/100 H 98 06/25/20 05:31 72 21 96 06/25/20 05:30 63 21 144/92 H 95 06/25/20 05:16 71 20 97 06/25/20 05:15 67 22 157/76 H 96 06/25/20 05:01 66 21 95 06/25/20 05:00 71 21 132/78 96 06/25/20 04:46 73 22 95 06/25/20 04:45 70 24 131/67 95 06/25/20 04:43 72 25 H 118/76 94 04/03/21 04:31 76 28 H 158/105 H 06/25/20 04:30 73 27 H 98 06/25/20 04:15 68 26 H 98 06/25/20 04:04 65 28 H 97 06/25/20 04:02 65 29 H 163/90 H 96 06/25/20 04:00 97.7 F 06/25/20 03:46 60 28 H 141/91 H 97 06/25/20 03:31 77 24 110/77 96 Laboratory Results Laboratory Results WBC 16.65 K/uL (4.8-10.8) H 06/25/20 03:45 RBC 5.51 M/uL (4.7-6.1) 06/25/20 03:45 Hgb 17.8 g/dL (14.0-18.0) 06/25/20 03:45 POC Hgb 18.4 g/dl (14.0-18.0) H 06/25/20 03:47 Hct 51.9 % (42-52) 06/25/20 03:45 POC Hct 54 % (42-52) H 06/25/20 03:47 MCV 94.2 fL (80-100) 06/25/20 03:45 MCH 32.3 pg (25-34) 06/25/20 03:45 MCHC 34.3 g/dL (32-36) 06/25/20 03:45 RDW Std Deviation 44.6 fL (36.4-46.3) 06/25/20 03:45 RDW Coeff of Rasta 12.9 % (11.5-14.5) 06/25/20 03:45 Plt Count 273 K/uL (130-400) 06/25/20 03:45 MPV 10.7 fL (7.4-10.4) H 06/25/20 03:45 Immature Gran % (Auto) 0.3 % 06/25/20 03:45 Neut % (Auto) 75.8 % 06/25/20 03:45 Lymph % (Auto) 15.6 % 06/25/20 03:45 Snyder % (Auto) 7.6 % 06/25/20 03:45 Eos % (Auto) 0.5 % 06/25/20 03:45 Baso % (Auto) 0.2 % 06/25/20 03:45 Neut # (Auto) 12.62 K/uL (1.4-6.5) H 06/25/20 03:45 Lymph # (Auto) 2.60 K/uL (1.2-3.4) 06/25/20 03:45 Snyder # (Auto) 1.26 K/uL (0.11-0.59) H 06/25/20 03:45 Eos # (Auto) 0.09 K/uL (0-0.5) 06/25/20 03:45 Baso # (Auto) 0.03 K/uL (0-0.2) 06/25/20 03:45 Immature Gran # (Auto) 0.05 K/uL (0.00-0.02) H 06/25/20 03:45 PT 10.3 Seconds (9.0-12.0) 06/25/20 03:45 INR 1.0 (0.9-1.1) 06/25/20 03:45 APTT 22.1 Seconds (21.0-31.0) 06/25/20 03:45 PTT Ratio 0.8 06/25/20 03:45 POC Sodium 142 mmol/L (135-144) 06/25/20 03:47 Sodium 140 mmol/L (136-145) 06/25/20 03:45 POC Potassium 3.3 mmol/L (3.3-5.0) 06/25/20 03:47 Potassium 3.2 mmol/L (3.5-5.1) L 06/25/20 03:45 POC Chloride 101 mmol/L (101-112) 06/25/20 03:47 Chloride 107 mmol/L (98-107) 06/25/20 03:45 Carbon Dioxide 27 mmol/L (21-32) 06/25/20 03:45 POC Total CO2 29 mmol/L (24-31) 06/25/20 03:47 Anion Gap 6.0 (3-11) 06/25/20 03:45 POC Anion Gap 16.0 mmol/L (16-25) 06/25/20 03:47 POC BUN 9 mg/dl (7-18) 06/25/20 03:47 BUN 11 mg/dl (7-18) 06/25/20 03:45 Creatinine 1.18 mg/dl (0.6-1.4) 06/25/20 03:45 POC Creatinine 1.0 mg/dl (0.6-1.3) 06/25/20 03:47 Est Cr Clr Drug Dosing 63.0 ml/min 06/25/20 03:45 Est GFR ( Amer) 75.1 06/25/20 03:45 Est GFR (Non-Af Amer) 64.8 06/25/20 03:45 BUN/Creatinine Ratio 9.1 (10-20) L 06/25/20 03:45 Glucose 204 mg/dl (70-99) H 06/25/20 03:45 POC Glucose (other) 204 mg/dl (70-99) H 06/25/20 03:47 Calcium 8.8 mg/dl (8.5-10.1) 06/25/20 03:45 POC Ioniz Calcium [place] 1.16 mmol/l (1.12-1.32) 06/25/20 03:47 Magnesium 2.3 mg/dl (1.8-2.4) 06/25/20 03:45 Total Bilirubin 2.8 mg/dl (0.2-1) H 06/25/20 03:45 Direct Bilirubin 1.2 mg/dl (0-0.2) H 06/25/20 03:45 AST 311 U/L (15-37) H 06/25/20 03:45 ALT 195 U/L (12-78) H 06/25/20 03:45 Alkaline Phosphatase 97 U/L (45-117) 06/25/20 03:45 Troponin I < 0.015 ng/ml (0-0.045) 06/25/20 03:45 Total Protein 7.8 gm/dl (6.4-8.2) 06/25/20 03:45 Albumin 4.1 gm/dl (3.4-5.0) 06/25/20 03:45 Lipase 66153 U/L (73-393) H 06/25/20 03:45 COVID-19 Eval Order CovFluRsv at [facility] 06/25/20 04:48 SARS-CoV-2 (PCR) NEGATIVE (Negative) 06/25/20 04:48 Influenza Type A (PCR) Negative (Neg) 06/25/20 04:48 Influenza Type B (PCR) Negative (Neg) 06/25/20 04:48 RSV (RT-PCR) Negative (Neg) 06/25/20 04:48 Crossmatch See Detail 06/25/20 04:41 Diagnostic Findings [facility] Patient: MALIKA QUISPE (Male) : 55 Status: ER Date: 06/25/20 04:17 Room #: History: 120 ml optiray, eval for dissection,unknown appendix, pt unable to lift arms Slices: [id number] Priors: Tech: Fro[place]an [place] @ [phone] Exams: CTA ABDOMEN & PELVIS, CT ABDOMEN & PELVIS Without Contrast Contrast: IV Amt: 120 ml optiray Accession Numbers: [id number] Preliminary Findings Only See Final Report For Complete Findings CT ABDOMEN & PELVIS W/O Contrast: Peripancreatic stranding/fluid, suggestive of pancreatitis. No organized fluid collection. Duodenal wall thickening, may be reactive. Fat density in the duodenum, may be related to ingested material or mass. Areas of mild small and large bowel wall thickening or underdistention. Correlate clinically regarding enterocolitis. Normal caliber appendix. Mildly thickened underdistended bladder. Prostatomegaly. Renal hypodensities. No hydronephrosis or ureteral stone. Fat-containing ventral and inguinal hernias. Small hydroceles. Cholecystectomy. CTA ABDOMEN & PELVIS: No aortic aneurysm or dissection. Branch vessels are patent. Atherosclerotic disease. Radiologist: Sharee Jackson M.D. Study ready at 04:27 and initial results transmitted at 05:13 *This report constitutes a preliminary interpretation only. Non-acute findings felt to be unrelated to the clinical presentation may not be discussed in this report. The study will be interpreted and a final report will be generated by the local Radiologist the following shift. To reach the hospital radiology department call [phone]. If a discrepancy is found between the preliminary and final interpretations of this study, please notify us via our Client Portal at [email or web address].You can also fax this report with a description of the discrepancy, or include the final report, to our daytime fax number [phone].If faxing, please indicate the severity of discrepancy using one of the following categories: [ ] 1 - Agree/Informational [ ] 2 - Unlikely to Affect Management [ ] 3 - Possible Eventual Change of Management [ ] 4 - Probable Immediate Change of Management For all other patient related information, please fax us at [phone]. [id number] [facility] Patient: MALIKA QUISPE (Male) : 55 Status: ER Date: 06/25/20 04:19 Room #: History: 120 ml optiray, eval for dissection,unknown appendix, pt unable to lift arms Slices: [id number] Priors: Tech: Froilan [place] @ [id number] Exams: CT CHEST Without Contrast, CTA CHEST Contrast: IV Amt: 120 ml optiray Accession Numbers: [id number] Preliminary Findings Only See Final Report For Complete Findings CT CHEST W/O Contrast: Distended fluid and air-filled esophagus. Mild atelectasis/pneumonitis. Atherosclerotic disease. Postsurgical changes CTA CHEST: Motion artifact. No aortic dissection or large central PE. Aneurysmal dilatation of the descending thoracic aorta measuring 3.2 cm. Radiologist: Sharee Jackson M.D. Study ready at 04:27 and initial results transmitted at 05:01 *This report constitutes a preliminary interpretation only. Non-acute findings felt to be unrelated to the clinical presentation may not be discussed in this report. The study will be interpreted and a final report will be generated by the local Radiologist the following shift. To reach the hospital radiology department call [phone]. If a discrepancy is found between the preliminary and final interpretations of this study, please notify us via our Client Portal at [email or web address].You can also fax this report with a description of the discrepancy, or include the final report, to our daytime fax number [phone].If faxing, please indicate the severity of discrepancy using one of the following categories: [ ] 1 - Agree/Informational [ ] 2 - Unlikely to Affect Management [ ] 3 - Possible Eventual Change of Management [ ] 4 - Probable Immediate Change of Management For all other patient related information, please fax us at [phone]. [id number] Code Status & VTE Plan Code Status Full code VTE Prophylaxis Plan VTE Prophylaxis will be ordered: Yes PG Care Time/CCT Total # of Minutes Spent Total Time Spent with Patient: Total time spent is greater than 50% in coordination of care (as documented) at patient's floor/unit and/or counseling patient: Coding Level of Care Code 04928 Initial Inpt Care Lvl 3 Diagnoses Pancreatitis K85.90 Transaminitis R74.01 Duodenitis K29.80 Gastric outlet obstruction K31.1 CAD (coronary artery disease) I25.10 HTN (hypertension) I10 Dyslipidemia E78.5 GERD (gastroesophageal reflux disease) K21.9 BPH w urinary obs/LUTS N40.1; N13.8
--- NOTE | 2020-06-25 08:33 | CT Scan Report ---
CT ANGIOGRAPHY OF THE CHEST WITHOUT AND WITH IV CONTRAST CLINICAL HISTORY: Chest pain. Suspected aortic dissection. COMPARISON STUDY: No previous studies for comparison. TECHNIQUE: Noncontrast images were obtained through the thorax. Following the IV administration of 12 0 mL of Optiray-320, CT angiography of the thorax was performed from the thoracic inlet to the lung b ases. MIP images were acquired. Images are reviewed in the axial, sagittal, and coronal planes. IV co ntrast was administered without complication. A dose lowering technique was utilized adhering to the principles of ALARA. CT DOSE: FINDINGS: Thyroid: Imaged portions of the thyroid gland are normal in appearance. Thoracic aorta: Noncontrast images reveal no evidence of acute thoracic hematoma. There is no evidenc e of thoracic aortic aneurysm or dissection. Pulmonary vasculature: The pulmonary trunk is normal in caliber. There are no central filling defects identified to suggest pulmonary embolus. Note that this examination was not protocoled for the evalu ation of pulmonary emboli. HEART: There are postsurgical changes of a midline sternotomy. There are coronary artery calcificatio ns. There is no pericardial effusion. Lungs and pleural spaces: There is respiratory motion artifact. There is no focal pulmonary consolida tion. There are no pleural effusions. Mediastinum: There is a hiatal hernia with a distended fluid-filled esophagus. There is no pathologic mediastinal lymphadenopathy. Karin: There is no evidence of pathologic hilar lymphadenopathy Axilla: There is no evidence of pathologic axillary lymphadenopathy Upper abdomen: There is infiltration of the peripancreatic fat suspicious for acute pancreatitis. Skeletal structures: There are no lytic or blastic osseous lesions. IMPRESSION: 1. No evidence of thoracic aortic aneurysm or dissection. 2. Dilated fluid-filled esophagus 3. Infiltration of the peripancreatic fat consistent with acute pancreatitis ACT 112: Negative or not required by law. Electronically signed by: Jevon Reddy M.D. 06/25/2020 8:32 AM
[2020-06-25] MEDS ORDERED: GLUCOSE 10 TABS/TUBE PO PRN (08:38)
[2020-06-25] MEDS ORDERED: GLUCAGON FOR INJ 1 MG VIAL SQ PRN (08:38)
[2020-06-25] MEDS ORDERED: CARBOHYDRATES FOR HYPOGLYCEMIA PO PRN (08:38)
[2020-06-25] MEDS ORDERED: DEXTROSE 50% 50 ML SYRINGE IV PRN (08:38)
[2020-06-25] MEDS ORDERED: GLUCOSE 40% GEL 15 GM TUBE PO PRN (08:38)
--- NOTE | 2020-06-25 08:43 | CT Scan Report ---
CT angio abd pelvis wo/w con CT DOSE: 3407.43 mGy.cm CLINICAL HISTORY: Abdominal pain. Possible dissection. TECHNIQUE: Unenhanced images were obtained through the abdomen and pelvis. CT angiography was then pe rformed a dynamic helical fashion during intravenous and ministration 1 20 cc of Optiray 320. MIP brain ges were acquired. A dose lowering technique was utilized adhering to the principles of ALARA. COMPARISON STUDY: Abdominal ultrasound dated 09/08/2019 FINDINGS: The visualized portions the lung bases reveal respiratory motion artifact and mild basilar atelectasi s. There is a fluid-filled dilated esophagus. No hepatic masses are visualized in this arterial phase study. The gallbladder is surgically absent. No splenic lesions are visualized. There is infiltration of the peripancreatic fat. The pancreas appears edematous. There is mild peripa ncreatic fluid. The findings are indicative of acute interstitial pancreatitis. No adrenal masses are visualized. There are bilateral renal cysts, the largest of which is located on the right and bilobed measuring 5 cm. There are no transition zones indicate bowel obstruction. The appendix appears normal. There is no ev idence of acute diverticulitis. There is no free air. There is no ascites. There is a moderate fat-containing periumbilical ventral h ernia There is no evidence of abdominal aortic aneurysm or dissection. There is no evidence of iliac artery stenosis. The inferior mesenteric artery is patent. There is no evidence of hemodynamically signific ant renal artery stenosis. There is no evidence of hemodynamically significant celiac or superior mes enteric artery stenosis. There is a 30% diameter narrowing of the proximal superior mesenteric artery . There is a duodenal lipoma within the transverse portion the duodenum. The prostate is enlarged. There is a venous varix within the right inguinal region. IMPRESSION: 1. No evidence of abdominal aortic aneurysm or dissection 2. No evidence of hemodynamically significant celiac superior mesenteric or renal artery stenosis 3. CT findings indicative of acute pancreatitis 4. Dilated fluid-filled esophagus 5. Bilateral renal cysts 6. Duodenal lipoma 7. Fat-containing periumbilical ventral hernia 8. Prostatomegaly ACT 112: Negative or not required by law. Electronically signed by: Jevon Reddy M.D. 06/25/2020 8:42 AM
[2020-06-25] MEDS ORDERED: NSS + 20MEQ KCL 20 MEQ/1,000 ML BAG IV SCH (09:00)
--- NOTE | 2020-06-25 09:14 | Electrocardiogram Report ---
Test Reason : Blood Pressure : / mmHG Vent. Rate : 076 BPM Atrial Rate : 076 BPM P-R Int : 160 ms QRS Dur : 100 ms QT Int : 398 ms P-R-T Axes : 002 -38 069 degrees QTc Int : 447 ms Poor data quality, interpretation may be adversely affected Normal sinus rhythm Old Inferior infarct Left axis deviation Left ventricular hypertrophy with repolarization abnormality Abnormal ECG When compared with ECG of 02-JUN-2019 10:43, Ectopy no longer present Otherwise no significant change Confirmed by Enzo Menchaca ([id number]) on 06/25/2020 9:13:50 AM Referred By: REFERRED SELF Confirmed By:Enzo Menchaca
[2020-06-25 09:35] LABS: BUN Creatinine Ratio 9.1 (10-20); Creatinine Clr Calc Pharmacy 60.9 ml/min; Est GFR (African American) 72.2; Est GFR (Non-African American) 62.3
[2020-06-25] MEDS: PANTOprazole 40 MG in DEXTROSE 5% 100 ML IV SCH ×3 (10:02→21:44)
[2020-06-25] MEDS: LACTATED RINGER'S 1,000 ML IV SCH ×3 (11:20→23:08)
[2020-06-25] MEDS: HYDROmorphone INJ 0.5 MG/0.5 ML SYR IV PRN ×3 (11:20→20:17)
[2020-06-25] MEDS ORDERED: diazePAM 5 MG TABLET PO ONE (11:46)
[2020-06-25] MEDS: INSULIN ASPART 100 UNITS/ML 3 ML PEN SC SCH ×3 (12:09→17:35)
[2020-06-25 13:13] LABS: BUN Creatinine Ratio 12.4 (10-20); Calcium 8.5 mg/dl (8.5-10.1); Creatinine Clr Calc Pharmacy 60.9 ml/min; Est GFR (African American) 72.2; Est GFR (Non-African American) 62.3; Potassium 4.3 mmol/L (3.5-5.1)
--- NOTE | 2020-06-25 17:19 | Magnetic Resonance Report ---
MR MRCP CLINICAL HISTORY: pancreatitis, transaminitis; eval for CBD stone COMPARISON STUDY: CT scan of the abdomen and pelvis dated 06/25/2020 FINDINGS: A breath-hold MRCP was obtained. MIP images were acquired. There are bilateral renal cysts. The largest is located on the right measuring 5.5 cm. There is trace perihepatic fluid. The spleen measures 9.2 cm in diameter. The gallbladder is surgically absent. 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 The pancreas appears edematous. There is peripancreatic edema consistent with acute interstitial panc reatitis. The common bile duct is of normal caliber. There are no ductal filling defects identified. There is n o pancreatic ductal dilatation. IMPRESSION: 1. Pancreatic edema and peripancreatic fluid consistent with acute pancreatitis 2. No evidence of pancreatic or biliary ductal dilatation. There are no filling defects to indicate c ommon bile duct calculi. 3. 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 Electronically signed by: Jevon Reddy M.D. 06/25/2020 5:18 PM
[2020-06-25 17:28] LABS: BUN Creatinine Ratio 13.8 (10-20); Calcium 8.8 mg/dl (8.5-10.1); Creatinine Clr Calc Pharmacy 64.1 ml/min; Est GFR (African American) 76.7; Est GFR (Non-African American) 66.2; Potassium 4.1 mmol/L (3.5-5.1)
[2020-06-25] MEDS: ONDANSETRON INJ 2 MG/ML 2 ML VIAL IV PRN (20:17)
--- NOTE | 2020-06-25 20:37 | Hospitalist Progress Note ---
Date of Service June 25, 2020 Assessment & Plan (1) Pancreatitis: etiology? with abnormal LFTs in obstructive pattern, and h/o cholecystectomy - CBD stone? passed stone? other? MRCP ordered STAT to r/o choledocholithiasis. Keep NPO. Change fluids to LR and run 200cc/hr. GI consultation pending. low-grade fever this afternoon -- blood cx's obtained. repeat LFTs and lipase along w/ cbc am. pain control. if vomiting persists despite anti-emetics may need to consider NG tube. check abd x-rays to r/o obstruction/ileus. (2) Transaminitis: See above in "pancreatitis" (3) CAD (coronary artery disease): Hold aspirin and Plavix due to ? of coffee-ground emesis resume carvedilol (4) HTN (hypertension): resume coreg resume flomax (5) Dyslipidemia: Hold atorvastatin due to abnormal LFTs (6) GERD (gastroesophageal reflux disease): cont PPI IV (7) BPH w urinary obs/LUTS: resume flomax (8) Lipoma of small intestine: CT abd/pelvis suggest lipoma or other pathology of duodenum MCRP may shed more light on this ?duodenitis or duodenal ulcer?? (9) DVT prophylaxis: SCDs for now if no GI bleeding then add chemical DVT proph Admission and Anticipated Discharge Date Admission Date: June 25, 2020 Subjective tele since admission normal. had emesis earlier this am but none since. main complaint is that of abdominal pain, central, and constant. had stool in the last 24 hours. no chest pain or dyspnea. Physical Exam Constitutional: well developed, well nourished, + acute distress (2nd pain ) and + ill appearing; no altered mental status Eyes: + anicteric sclerae ENMT: Mouth: + dry oral mucous membranes Respiratory: normal respiratory effort, lungs clear to auscultation Cardiovascular: RRR, no murmur, no edema Heart Sounds: normal S1 and normal S2 Vessels: posterior tibial pulses present and dorsalis pedis pulses present; no JVD Gastrointestinal (Abdomen): Inspection/Auscultation: + abdomen distended (mild) and normal bowel sounds Percussion/Palpation: + abdomen tender (epigastric region/central); no guarding, abdomen not rigid and no hepatosplenomegaly Skin: no jaundice Psychiatric: Orientation: alert and oriented x 3 Results & Data Results & Data ([facility]) Vital Signs (Past 12 Hours) Vital Signs Temp Pulse Resp BP Pulse Ox 06/25/20 19:41 37.7 C H 91 H 16 187/96 H 94 06/25/20 11:09 36.8 C 66 20 195/99 H 95 06/25/20 08:45 36.6 C 70 20 180/99 H 95 06/25/20 08:38 36.6 C 70 20 180/99 H 95 Laboratory Results Laboratory Results - last 24 hr 06/25/20 06/25/20 06/25/20 03:45 03:45 03:45 WBC 16.65 H RBC 5.51 Hgb 17.8 POC Hgb Hct 51.9 POC Hct MCV 94.2 MCH 32.3 MCHC 34.3 RDW Std Deviation 44.6 RDW Coeff of Rasta 12.9 Plt Count 273 MPV 10.7 H Immature Gran % (Auto) 0.3 Neut % (Auto) 75.8 Lymph % (Auto) 15.6 [place] % (Auto) 7.6 Eos % (Auto) 0.5 Baso % (Auto) 0.2 Neut # (Auto) 12.62 H Lymph # (Auto) 2.60 [place] # (Auto) 1.26 H Eos # (Auto) 0.09 Baso # (Auto) 0.03 Immature Gran # (Auto) 0.05 H PT 10.3 INR 1.0 APTT 22.1 PTT Ratio 0.8 POC Sodium Sodium 140 POC Potassium Potassium 3.2 L POC Chloride Chloride 107 Carbon Dioxide 27 POC Total CO2 Anion Gap 6.0 POC Anion Gap POC BUN BUN 11 Creatinine 1.18 POC Creatinine Est Cr Clr Drug Dosing 63.0 Est GFR ( Amer) 75.1 Est GFR (Non-Af Amer) 64.8 BUN/Creatinine Ratio 9.1 L Glucose 204 H POC Glucose (other) Calcium 8.8 POC Ioniz Calcium [place] Magnesium 2.3 Total Bilirubin 2.8 H Direct Bilirubin 1.2 H AST 311 H ALT 195 H Alkaline Phosphatase 97 Troponin I < 0.015 Total Protein 7.8 Albumin 4.1 Lipase 13849 H COVID-19 Eval Order SARS-CoV-2 (PCR) Influenza Type A (PCR) Influenza Type B (PCR) RSV (RT-PCR) Blood Type Antibody Screen Crossmatch 06/25/20 06/25/20 06/25/20 03:47 04:41 04:48 WBC RBC Hgb POC Hgb 18.4 H Hct POC Hct 54 H MCV MCH MCHC RDW Std Deviation RDW Coeff of [place] Plt Count MPV Immature Gran % (Auto) Neut % (Auto) Lymph % (Auto) [place] % (Auto) Eos % (Auto) Baso % (Auto) Neut # (Auto) Lymph # (Auto) [place] # (Auto) Eos # (Auto) Baso # (Auto) Immature Gran # (Auto) PT INR APTT PTT Ratio POC Sodium 142 Sodium POC Potassium 3.3 Potassium POC Chloride 101 Chloride Carbon Dioxide POC Total CO2 29 Anion Gap POC Anion Gap 16.0 POC BUN 9 BUN Creatinine POC Creatinine 1.0 Est Cr Clr Drug Dosing Est GFR ( Amer) Est GFR (Non-Af Amer) BUN/Creatinine Ratio Glucose POC Glucose (other) 204 H Calcium POC Ioniz Calcium [place] 1.16 Magnesium Total Bilirubin Direct Bilirubin AST ALT Alkaline Phosphatase Troponin I Total Protein Albumin Lipase COVID-19 Eval Order CovFluRsv at [facility] SARS-CoV-2 (PCR) Influenza Type A (PCR) Influenza Type B (PCR) RSV (RT-PCR) Blood Type O Positive Antibody Screen NEGATIVE Crossmatch See Detail 06/25/20 06/25/20 06/25/20 04:48 09:00 12:31 WBC RBC Hgb POC Hgb Hct POC Hct MCV MCH MCHC RDW Std Deviation RDW Coeff of [place] Plt Count MPV Immature Gran % (Auto) Neut % (Auto) Lymph % (Auto) [place] % (Auto) Eos % (Auto) Baso % (Auto) Neut # (Auto) Lymph # (Auto) [place] # (Auto) Eos # (Auto) Baso # (Auto) Immature Gran # (Auto) PT INR APTT PTT Ratio POC Sodium Sodium 138 140 POC Potassium Potassium 4.0 D 4.3 POC Chloride Chloride 108 H 112 H Carbon Dioxide 24 25 POC Total CO2 Anion Gap 5.0 3.0 POC Anion Gap POC BUN BUN 11 15 Creatinine 1.22 1.22 POC Creatinine Est Cr Clr Drug Dosing 60.9 60.9 Est GFR ( Amer) 72.2 72.2 Est GFR (Non-Af Amer) 62.3 62.3 BUN/Creatinine Ratio 9.1 L 12.4 Glucose 174 H 150 H POC Glucose (other) Calcium 9.0 8.5 POC Ioniz Calcium [place] Magnesium Total Bilirubin Direct Bilirubin AST ALT Alkaline Phosphatase Troponin I Total Protein Albumin Lipase COVID-19 Eval Order SARS-CoV-2 (PCR) NEGATIVE Influenza Type A (PCR) Negative Influenza Type B (PCR) Negative RSV (RT-PCR) Negative Blood Type Antibody Screen Crossmatch 06/25/20 16:51 WBC RBC Hgb POC Hgb Hct POC Hct MCV MCH MCHC RDW Std Deviation RDW Coeff of [place] Plt Count MPV Immature Gran % (Auto) Neut % (Auto) Lymph % (Auto) [place] % (Auto) Eos % (Auto) Baso % (Auto) Neut # (Auto) Lymph # (Auto) [place] # (Auto) Eos # (Auto) Baso # (Auto) Immature Gran # (Auto) PT INR APTT PTT Ratio POC Sodium Sodium 138 POC Potassium Potassium 4.1 POC Chloride Chloride 110 H Carbon Dioxide 24 POC Total CO2 Anion Gap 4.0 POC Anion Gap POC BUN BUN 16 Creatinine 1.16 POC Creatinine Est Cr Clr Drug Dosing 64.1 Est GFR ( Amer) 76.7 Est GFR (Non-Af Amer) 66.2 BUN/Creatinine Ratio 13.8 Glucose 134 H POC Glucose (other) Calcium 8.8 POC Ioniz Calcium [place] Magnesium Total Bilirubin Direct Bilirubin AST ALT Alkaline Phosphatase Troponin I Total Protein Albumin Lipase COVID-19 Eval Order SARS-CoV-2 (PCR) Influenza Type A (PCR) Influenza Type B (PCR) RSV (RT-PCR) Blood Type Antibody Screen Crossmatch Diagnostic Findings Abdomen/Pelvis CTA 06/25/20 03:43 CT angio abd pelvis wo/w con CT DOSE: 3407.43 mGy.cm CLINICAL HISTORY: Abdominal pain. Possible dissection. TECHNIQUE: Unenhanced images were obtained through the abdomen and pelvis. CT angiography was then performed a dynamic helical fashion during intravenous and ministration 1 20 cc of Optiray 320. MIP images were acquired. A dose lowering technique was utilized adhering to the principles of ALARA. COMPARISON STUDY: Abdominal ultrasound dated 09/08/2019 FINDINGS: The visualized portions the lung bases reveal respiratory motion artifact and mild basilar atelectasis. There is a fluid-filled dilated esophagus. No hepatic masses are visualized in this arterial phase study. The gallbladder is surgically absent. No splenic lesions are visualized. There is infiltration of the peripancreatic fat. The pancreas appears edematous. There is mild peripancreatic fluid. The findings are indicative of acute interstitial pancreatitis. No adrenal masses are visualized. There are bilateral renal cysts, the largest of which is located on the right and bilobed measuring 5 cm. There are no transition zones indicate bowel obstruction. The appendix appears normal. There is no evidence of acute diverticulitis. There is no free air. There is no ascites. There is a moderate fat-containing periumbilical ventral hernia There is no evidence of abdominal aortic aneurysm or dissection. There is no karen dence of iliac artery stenosis. The inferior mesenteric artery is patent. There is no evidence of hemodynamically significant renal artery stenosis. There is no evidence of hemodynamically significant celiac or superior mesenteric artery stenosis. There is a 30% diameter narrowing of the proximal superior mesenteric artery. There is a duodenal lipoma within the transverse portion the duodenum. The prostate is enlarged. There is a venous varix within the right inguinal region. IMPRESSION: 1. No evidence of abdominal aortic aneurysm or dissection 2. No evidence of hemodynamically significant celiac superior mesenteric or renal artery stenosis 3. CT findings indicative of acute pancreatitis 4. Dilated fluid-filled esophagus 5. Bilateral renal cysts 6. Duodenal lipoma 7. Fat-containing periumbilical ventral hernia 8. Prostatomegaly ACT 112: Negative or not required by law. Electronically signed by: Jevon Reddy M.D. 06/25/2020 8:42 AM Chest CTA 06/25/20 03:43 CT ANGIOGRAPHY OF THE CHEST WITHOUT AND WITH IV CONTRAST CLINICAL HISTORY: Chest pain. Suspected aortic dissection. COMPARISON STUDY: No previous studies for comparison. TECHNIQUE: Noncontrast images were obtained through the thorax. Following the IV administration of 120 mL of Optiray-320, CT angiography of the thorax was performed from the thoracic inlet to the lung bases. MIP images were acquired. Images are reviewed in the axial, sagittal, and coronal planes. IV contrast was administered without complication. A dose lowering technique was utilized adhering to the principles of ALARA. CT DOSE: FINDINGS: Thyroid: Imaged portions of the thyroid gland are normal in appearance. Thoracic aorta: Noncontrast images reveal no evidence of acute thoracic hematoma. There is no evidence of thoracic aortic aneurysm or dissection. Pulmonary vasculature: The pulmonary trunk is normal in caliber. There are no central filling defects identified to suggest pulmonary embolus. Note that this examination was not protocoled for the evaluation of pulmonary emboli. HEART: There are postsurgical changes of a midline sternotomy. There are coronary artery calcifications. There is no pericardial effusion. Lungs and pleural spaces: There is respiratory motion artifact. There is no focal pulmonary consolidation. There are no pleural effusions. Mediastinum: There is a hiatal hernia with a distended fluid-filled esophagus. There is no pathologic mediastinal lymphadenopathy. [place]: There is no evidence of pathologic hilar lymphadenopathy Axilla: There is no evidence of pathologic axillary lymphadenopathy Upper abdomen: There is infiltration of the peripancreatic fat suspicious for acute pancreatitis. Skeletal structures: There are no lytic or blastic osseous lesions. IMPRESSION: 1. No evidence of thoracic aortic aneurysm or dissection. 2. Dilated fluid-filled esophagus 3. Infiltration of the peripancreatic fat consistent with acute pancreatitis ACT 112: Negative or not required by law. Electronically signed by: Jeovn Reddy M.D. 06/25/2020 8:32 AM Cholangiopancreatography MRI 06/25/20 10:25 MR MRCP CLINICAL HISTORY: pancreatitis, transaminitis; eval for CBD stone COMPARISON STUDY: CT scan of the abdomen and pelvis dated 06/25/2020 FINDINGS: A breath-hold MRCP was obtained. MIP images were acquired. There are bilateral renal cysts. The largest is located on the right measuring 5.5 cm. There is trace perihepatic fluid. The spleen measures 9.2 cm in diameter. The gallbladder is surgically absent. 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 The pancreas appears edematous. There is peripancreatic edema consistent with acute interstitial pancreatitis. The common bile duct is of normal caliber. There are no ductal filling defects identified. There is no pancreatic ductal dilatation. IMPRESSION: 1. Pancreatic edema and peripancreatic fluid consistent with acute pancreatitis 2. No evidence of pancreatic or biliary ductal dilatation. There are no filling defects to indicate common bile duct calculi. 3. 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 Electronically signed by: Jevon Reddy M.D. 06/25/2020 5:18 PM PG Care Time/CCT Total # of Minutes Spent Total Time Spent with Patient: Total time spent is greater than 50% in coordination of care (as documented) at patient's floor/unit and/or counseling patient: Coding Level of Care Code None Diagnoses Pancreatitis K85.90 Transaminitis R74.01 CAD (coronary artery disease) I25.10 HTN (hypertension) I10 Dyslipidemia E78.5 GERD (gastroesophageal reflux disease) K21.9 BPH w urinary obs/LUTS N40.1; N13.8 Lipoma of small intestine D17.5 DVT prophylaxis Z29.9
[2020-06-25 20:58] LABS: Appearance Urine Clear (Clear); Bacteria Urine Automated Negative (Negative); Blood Urine 1+ (Negative); Color Urine Orange; Glucose Urine UA Negative (Negative); Ketones Urine 1+ (Negative); Leukocyte Esterase Urine Trace (Negative); Nitrite Urine Negative (Negative); Protein Urine 1+ (Negative); Specific Gravity Urine 1.037 (1.000-1.030); Urobilinogen Urine Negative (Negative); pH Urine 5.5 (4.5-7.5)
[2020-06-25 20:59] LABS: Bilirubin Urine 1+ (Negative)
[2020-06-25] MEDS ORDERED: METOPROLOL TARTRATE 1 MG/ML VIAL IV STA (23:00)
[2020-06-26] MEDS: INSULIN ASPART 100 UNITS/ML 3 ML PEN SC SCH ×4 (00:15→17:10)
[2020-06-26] MEDS: PANTOprazole 40 MG in DEXTROSE 5% 100 ML IV SCH ×4 (03:23→21:47)
[2020-06-26] MEDS: LACTATED RINGER'S 1,000 ML IV SCH ×4 (03:31→19:19)
[2020-06-26] MEDS ORDERED: METOPROLOL TARTRATE 1 MG/ML VIAL IV STA (04:12)
[2020-06-26] MEDS: ONDANSETRON INJ 2 MG/ML 2 ML VIAL IV PRN (04:36)
--- NOTE | 2020-06-26 06:16 | XRay Report ---
XR abdomen 2V w PA chest CLINICAL HISTORY: vomiting, assess for obstruction COMPARISON STUDY: 06/02/2019 FINDINGS: There are postsurgical changes of midline sternotomy. The heart is mildly enlarged. Trace p leural effusions are suspected. There are right basilar opacities, atelectasis versus pneumonia. Ther e is no evidence of failure. There is no free intraperitoneal air. IMPRESSION: 1. No evidence of free intraperitoneal air 2. Suspected small bilateral pleural effusions 3. Right basilar opacities, atelectasis versus pneumonia. ACT 112: Negative or not required by law. Electronically signed by: Jevon Reddy M.D. 06/26/2020 6:14 AM
[2020-06-26] MEDS ORDERED: carvediloL 6.25 MG TAB PO SCH (06:55)
[2020-06-26] MEDS ORDERED: TAMSULOSIN HCL 0.4 MG CAP PO ONE (06:55)
[2020-06-26] MEDS: HYDROmorphone INJ 0.5 MG/0.5 ML SYR IV PRN (07:19)
[2020-06-26 07:27] LABS: Albumin Level 3.5 gm/dl (3.4-5.0); BUN Creatinine Ratio 15.7 (10-20); Calcium 8.4 mg/dl (8.5-10.1); Creatinine Clr Calc Pharmacy 77.4 ml/min; Est GFR (African American) 98.9; Est GFR (Non-African American) 85.3; Potassium 3.9 mmol/L (3.5-5.1)
[2020-06-26 07:32] LABS: Hematocrit (blood only) 47.6 % (42-52); Hemoglobin 16.5 g/dL (14.0-18.0); Mean Corpuscular Hemoglobin 32.7 pg (25-34); Mean Corpuscular Hgb Conc 34.7 g/dL (32-36); Mean Corpuscular Volume 94.4 fL (80-100); Mean Platelet Volume 10.4 fL (7.4-10.4); Platelet Count 183 K/uL (130-400); RDW Coefficient of Variation 13.5 % (11.5-14.5); RDW Standard Deviation 46.6 fL (36.4-46.3); Red Blood Count 5.04 M/uL (4.7-6.1); White Blood Count 25.39 K/uL (4.8-10.8)
[2020-06-26 07:33] LABS: Albumin Globulin Ratio 1.2 (0.9-2); Bilirubin,Total 3.2 mg/dl (0.2-1); Total Protein 6.5 gm/dl (6.4-8.2)
[2020-06-26 07:37] LABS: Basophils # (auto) 0.01 K/uL (0-0.2); Immature Granulocytes # (auto) 0.09 K/uL (0.00-0.02); Immature Granulocytes % (auto) 0.4 %; Lymphocytes # (auto) 0.79 K/uL (1.2-3.4); Lymphocytes % (auto) 3.1 %; Monocytes % (auto) 7.1 %; Neutrophils % (auto) 89.4 %
[2020-06-26] MEDS ORDERED: PIPERACILL/TAZOBAC CONSULT ACTIVE PRN (08:06)
[2020-06-26] MEDS ORDERED: PIPERACILLIN/TAZOBACTAM 3.375 GM in DEXTROSE 5% 100 ML IV STA (08:15)
[2020-06-26] MEDS: PIPERACILLIN/TAZOBACTAM 3.375 GM in DEXTROSE 5% 100 ML IV SCH ×3 (09:40→21:01)
--- NOTE | 2020-06-26 15:23 | Consultation Report ---
DATE OF CONSULTATION: 06/26/2020 REFERRING PHYSICIAN: Kai Mitchell MD. REASON FOR CONSULTATION: I was asked by Dr. Mitchell to consult on this gentleman for evaluation of pancreatitis. HISTORY OF PRESENT ILLNESS: The patient is a 64-year-old who presented yesterday with severe abdominal pain. The pain was epigastric in origin. It began on Saturday and became worse. He had a few days of diarrhea, nausea and vomiting as well associated with this. The pain was in the epigastric area, it was stabbing in nature with some radiation to his back. Upon workup in the Emergency Room, he was found to have severe interstitial pancreatitis. Since admission, he has been hydrated and kept n.p.o. and today he feels much better. He has not had any bowel movements, but he has been passing flatus and he has been urinating "quite a lot." PAST MEDICAL HISTORY: Significant for mitral valve regurg. He had a laparoscopic cholecystectomy last year, hypertension, COPD, dyslipidemia, coronary artery disease, GERD. ALLERGIES: HE STATES HE IS ALLERGIC TO BEE VENOM, ENALAPRIL AND MORPHINE. OUTPATIENT MEDICATIONS: Include aspirin, atorvastatin, Plavix, pantoprazole, carvedilol. FAMILY HISTORY: He denies any family history of gastrointestinal disease. SOCIAL HISTORY: Not significant for active smoking or drinking alcohol. REVIEW OF SYSTEMS: As above, otherwise he denies any recent fevers. He denies any recent jaundice. He denies any recent rashes. He has had no hair loss or change in vision or change in hearing. He denies any change in mood or mental status. He denies any seizure activity. He has had no productive cough. He has no chest pain on exertion. He denies palpitations. He denies joint swelling. He denies easy bruising. He denies dysuria or polyuria. He denies heat or cold intolerance. PHYSICAL EXAMINATION: GENERAL: Reveals a pleasant gentleman lying in bed in no distress. VITAL SIGNS: His most recent blood pressure is 172/90, pulse is 74, temperature is 37.4. SKIN: Anicteric. EYES: Show anicteric sclerae. MOUTH: Clear of lesions. NECK: Supple with no adenopathy. CHEST: Clear. HEART: Regular rate and rhythm with no murmurs. ABDOMEN: Soft with good bowel sounds. He does have some tenderness to deep palpation in the epigastric area, but no rebound. EXTREMITIES: Warm with good distal pulses and no edema. NEUROLOGIC: He is alert and oriented x3 and grossly intact. LABORATORY DATA: On admission, his lipase was 58,000 and today it is 2395. His liver enzymes including AST and ALT were 311 and 195 on admission and today they are improved at 96 and 105 respectively. Total bilirubin yesterday was 2.8 and today is 3.2. His creatinine on admission was 1.2 and today it is 0.94. IMAGING: Shows interstitial pancreatitis and MRCP did not show any biliary ductal dilatation and no filling defects. IMPRESSION AND PLAN: A 64-year-old gentleman with acute pancreatitis, most likely biliary in origin. The patient may have passed a small stone. Even though the patient's bilirubin is mildly elevated, this can be seen in acute pancreatitis. His liver enzymes are improving. He is also subjectively improving. Given the MRCP and his clinical status is improving, I do not think he needs an ERCP at this point. I would keep him n.p.o. except for ice chips and meds. Tomorrow if he continues to improve as he has been, I would give him a trial of a low fat light diet. I would continue to follow his bilirubin. If his bilirubin improves and he continues to clinically improve, I would recommend an outpatient EUS and possible ERCP. If his bilirubin gets worse or his symptoms get worse, this should be done as an inpatient. I discussed this with the patient and he is agreeable with this plan.
--- NOTE | 2020-06-26 20:44 | Hospitalist Progress Note ---
Date of Service June 26, 2020 Assessment & Plan (1) Pancreatitis: etiology? with abnormal LFTs in obstructive pattern, and h/o cholecystectomy - CBD stone? passed stone? other? MRCP did not show choledocholithiasis but rise in bilirubin is concerning along with leukocytosis. appreciate GI consult by [facility] today. Keep NPO 1 more day. Cont LR but lower fluid rate to 150cc/hr. Given fever and jump in wbc count zosyn added to cover for pancreatic necrosis or cholangitis or other biliary/pancreatic tract infectious process (although CT and MRI did NOT show necrosis of pancreas). follow blood cx's. repeat LFTs and lipase along w/ cbc am. pain control. (2) Transaminitis: See above in "pancreatitis" ast/alt improving, but t.bili mirella overnight lfts in am (3) CAD (coronary artery disease): Hold aspirin and Plavix due to ? of coffee-ground emesis at admission and potential for needing a procedure cont carvedilol hold statin due to abnormal LFTs (4) HTN (hypertension): uncontrolled increase coreg to 12.5mg BID (5) Dyslipidemia: Hold atorvastatin due to abnormal LFTs (6) GERD (gastroesophageal reflux disease): cont PPI but d/c drip and change to oral PPI bid (7) BPH w urinary obs/LUTS: cont flomax (8) Lipoma of small intestine: imaging (MRCP) confirms lipoma of duodenum (9) DVT prophylaxis: SCDs for now if H/H remain stable then add chemical means updated pt's by phone today care d/w Dr Robertson from [facility] Admission and Anticipated Discharge Date Admission Date: June 25, 2020 Subjective feels better today overall less abd pain no diarrhea no vomiting but does have mild nausea tele overnight wnl asks when he can eat no hematemesis or coffee-ground emesis or bilious emesis Review of Systems Constitutional: + fever, + fatigue and + anorexia; no chills Respiratory: no cough and no dyspnea Cardiovascular: no chest pain Gastrointestinal: + abdominal pain and + bloating; no nausea Physical Exam Constitutional: well developed and well nourished; no acute distress and no altered mental status Eyes: + scleral abnormality (Icterus) ENMT: Mouth: + dry oral mucous membranes Respiratory: normal respiratory effort, lungs clear to auscultation Cardiovascular: RRR, no murmur, no edema Heart Sounds: normal S1 and normal S2 Vessels: posterior tibial pulses present and dorsalis pedis pulses present; no JVD Gastrointestinal (Abdomen): Inspection/Auscultation: + abdomen distended (mild) and normal bowel sounds Percussion/Palpation: + abdomen tender (epigastric region/central); no guarding, abdomen not rigid and no hepatosplenomegaly Skin: no jaundice Psychiatric: Orientation: alert and oriented x 3 Results & Data Results & Data ([facility]) Vital Signs (Past 12 Hours) Vital Signs Temp Pulse Resp BP Pulse Ox 06/26/20 19:04 36.7 C 89 16 181/87 H 92 06/26/20 15:55 37.2 C 75 20 179/88 H 92 06/26/20 11:35 37.4 C 74 19 172/90 H 93 Laboratory Results Laboratory Results - last 24 hr 06/25/20 06/26/20 06/26/20 20:40 00:06 06:12 WBC RBC Hgb Hct MCV MCH MCHC RDW Std Deviation RDW Coeff of [place]asta Plt Count MPV Immature Gran % (Auto) Neut % (Auto) Lymph % (Auto) [place] % (Auto) Eos % (Auto) Baso % (Auto) Neut # (Auto) Lymph # (Auto) [place] # (Auto) Eos # (Auto) Baso # (Auto) Immature Gran # (Auto) Sodium Potassium Chloride Carbon Dioxide Anion Gap BUN Creatinine Est Cr Clr Drug Dosing Est GFR ( Amer) Est GFR (Non-Af Amer) BUN/Creatinine Ratio Glucose POC Glucose 105 H 94 Estimat Average Glucose Hemoglobin A1c Calcium Total Bilirubin AST ALT Alkaline Phosphatase Total Protein Albumin Globulin Albumin/Globulin Ratio Lipase Urine Color [place] Urine Appearance Clear Urine pH 5.5 Ur Specific [place] 1.037 H Urine Protein 1+ H Urine Glucose (UA) Negative Urine Ketones 1+ H Urine Blood 1+ H Urine Nitrite Negative Urine Bilirubin 1+ H Urine Urobilinogen Negative Ur Leukocyte Esterase Trace H Urine WBC (Auto) 1-5 Urine RBC (Auto) 5-10 H U Hyaline Cast (Auto) 10-30 H U Epithel Cells (Auto) 10-20 H Urine Bacteria (Auto) Negative 06/26/20 06/26/20 06/26/20 07:01 07:01 07:01 WBC 25.39 H RBC 5.04 Hgb 16.5 Hct 47.6 MCV 94.4 MCH 32.7 MCHC 34.7 RDW Std Deviation 46.6 H RDW Coeff of [place] 13.5 Plt Count 183 MPV 10.4 Immature Gran % (Auto) 0.4 Neut % (Auto) 89.4 Lymph % (Auto) 3.1 [place] % (Auto) 7.1 Eos % (Auto) 0.0 Baso % (Auto) 0.0 Neut # (Auto) 22.70 H Lymph # (Auto) 0.79 L [place] # (Auto) 1.80 H Eos # (Auto) 0.00 Baso # (Auto) 0.01 Immature Gran # (Auto) 0.09 H Sodium 139 Potassium 3.9 Chloride 109 H Carbon Dioxide 26 Anion Gap 4.0 BUN 15 Creatinine 0.94 Est Cr Clr Drug Dosing 77.4 Est GFR ( Amer) 98.9 Est GFR (Non-Af Amer) 85.3 BUN/Creatinine Ratio 15.7 Glucose 91 POC Glucose Estimat Average Glucose Pending Hemoglobin A1c Pending Calcium 8.4 L Total Bilirubin 3.2 H AST 96 H ALT 105 H Alkaline Phosphatase 77 Total Protein 6.5 Albumin 3.5 Globulin 3.0 Albumin/Globulin Ratio 1.2 Lipase 2395 H Urine Color Urine Appearance Urine pH Ur Specific [place] Urine Protein Urine Glucose (UA) Urine Ketones Urine Blood Urine Nitrite Urine Bilirubin Urine Urobilinogen Ur Leukocyte Esterase Urine WBC (Auto) Urine RBC (Auto) U Hyaline Cast (Auto) U Epithel Cells (Auto) Urine Bacteria (Auto) 06/26/20 06/26/20 06/26/20 11:19 16:05 20:16 WBC RBC Hgb Hct MCV MCH MCHC RDW Std Deviation RDW Coeff of [place] Plt Count MPV Immature Gran % (Auto) Neut % (Auto) Lymph % (Auto) [place] % (Auto) Eos % (Auto) Baso % (Auto) Neut # (Auto) Lymph # (Auto) [place] # (Auto) Eos # (Auto) Baso # (Auto) Immature Gran # (Auto) Sodium Potassium Chloride Carbon Dioxide Anion Gap BUN Creatinine Est Cr Clr Drug Dosing Est GFR ( Amer) Est GFR (Non-Af Amer) BUN/Creatinine Ratio Glucose POC Glucose 100 H 90 83 Estimat Average Glucose Hemoglobin A1c Calcium Total Bilirubin AST ALT Alkaline Phosphatase Total Protein Albumin Globulin Albumin/Globulin Ratio Lipase Urine Color Urine Appearance Urine pH Ur Specific [place] Urine Protein Urine Glucose (UA) Urine Ketones Urine Blood Urine Nitrite Urine Bilirubin Urine Urobilinogen Ur Leukocyte Esterase Urine WBC (Auto) Urine RBC (Auto) U Hyaline Cast (Auto) U Epithel Cells (Auto) Urine Bacteria (Auto) blood cx's neg to date PG Care Time/CCT Total # of Minutes Spent Total Time Spent with Patient: Total time spent is greater than 50% in coordination of care (as documented) at patient's floor/unit and/or counseling patient: Coding Level of Care Code 23935 Subseq Hosp Care Lvl 3 Diagnoses Pancreatitis K85.90 Transaminitis R74.01 CAD (coronary artery disease) I25.10 HTN (hypertension) I10 Dyslipidemia E78.5 GERD (gastroesophageal reflux disease) K21.9 BPH w urinary obs/LUTS N40.1; N13.8 Lipoma of small intestine D17.5 DVT prophylaxis Z29.9
[2020-06-26] MEDS: PANTOprazole 40 MG TAB PO SCH (21:01)
[2020-06-26] MEDS: carvediloL 12.5 MG TAB PO SCH (21:02)
[2020-06-27] MEDS: INSULIN ASPART 100 UNITS/ML 3 ML PEN SC SCH ×3 (00:20→12:19)
[2020-06-27] MEDS: LACTATED RINGER'S 1,000 ML IV SCH ×2 (01:28→07:52)
[2020-06-27] MEDS: PIPERACILLIN/TAZOBACTAM 3.375 GM in DEXTROSE 5% 100 ML IV SCH (06:10)
[2020-06-27 06:30] LABS: Estimated Average Glucose 108 mg/dl; Hemoglobin A1C 5.4 % (4.5-5.6)
[2020-06-27 06:44] LABS: Basophils # (auto) 0.02 K/uL (0-0.2); Basophils % (auto) 0.1 %; Hematocrit (blood only) 41.2 % (42-52); Hemoglobin 14.5 g/dL (14.0-18.0); Immature Granulocytes # (auto) 0.08 K/uL (0.00-0.02); Immature Granulocytes % (auto) 0.4 %; Lymphocytes # (auto) 0.99 K/uL (1.2-3.4); Lymphocytes % (auto) 4.6 %; Mean Corpuscular Hemoglobin 32.6 pg (25-34); Mean Corpuscular Hgb Conc 35.2 g/dL (32-36); Mean Corpuscular Volume 92.6 fL (80-100); Mean Platelet Volume 10.6 fL (7.4-10.4); Monocytes % (auto) 8.8 %; Neutrophils # (auto) 18.68 K/uL (1.4-6.5); Neutrophils % (auto) 86.1 %; Platelet Count 146 K/uL (130-400); RDW Coefficient of Variation 12.9 % (11.5-14.5); Red Blood Count 4.45 M/uL (4.7-6.1); White Blood Count 21.67 K/uL (4.8-10.8)
[2020-06-27 07:18] LABS: Albumin Level 2.8 gm/dl (3.4-5.0); BUN Creatinine Ratio 18.1 (10-20); Calcium 8.1 mg/dl (8.5-10.1); Creatinine Clr Calc Pharmacy 102.3 ml/min; Est GFR (African American) 114.9; Est GFR (Non-African American) 99.2; Potassium 3.5 mmol/L (3.5-5.1)
[2020-06-27 07:21] LABS: Albumin Globulin Ratio 0.9 (0.9-2); Bilirubin,Total 3.1 mg/dl (0.2-1); Globulin 3.1 gm/dl (2.5-4.0); Total Protein 5.9 gm/dl (6.4-8.2)
[2020-06-27] MEDS: carvediloL 12.5 MG TAB PO SCH (07:51)
[2020-06-27] MEDS ORDERED: TAMSULOSIN HCL 0.4 MG CAP PO SCH (09:00)
[2020-06-27] MEDS: PANTOprazole 40 MG TAB PO SCH (09:10)
--- NOTE | 2020-06-27 09:19 | Gastroenterology Progress Note ---
Date of Service June 27, 2020 Assessment & Plan (1) Acute pancreatitis: Pt is a 64 y/o male followed for acute pancreatitis, unsure etiology: he is s/p cholecystectomy, denies ETOH, marijuana products, NSAIDs. MRCP w/o signs of CBD filling defect. 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 - Advanced to low fat diet - DC IVF if tolerating PO well - Will arrange outpt EUS eval in 4-6 week's time - Avoid ETOH, tobacco, NSAIDs - Elevated WBC and febrile, blood cx negative. Infectious vs inflammatory response. Will defer further workup to primary team Admission and Anticipated Discharge Date Admission Date: June 25, 2020 Supervising Physician Co-Signing Physician Notes I have seen and examined the patient and discussed the management with PETER Deutsch. GI consult for abnl ct showing pancreaitis- bilious vomiting on admission that has now resolved. Labs sig for lipase of 338, ct evidence of pancreatitis, slight elevation in lft's - ast 76, alt 66, tb 3.1, albd 2.8 He reports he is hungry- about to eat a popsicle Denies any new medications, recent supplements, recent drug use, mrcp shows no evidence of cbd stone, prior lap jayne in the past. He is on supportive care with iv fluids. ? idiopathic pancreatitis possibly from large duodenal lipoma- this will likely resolve with conservative mgmt. He is tolerating po. Agree with further plan of care as above. Subjective Pt denies abd pain, n/v ,would like to have a diet and wants to get discharged today if possible Noted WBC 21K, febrile last night 38C Review of Systems Review of Systems: All systems reviewed & are unremarkable except as noted in HPI & below Physical Exam Constitutional: WD/WN, vitals as above well groomed, cooperative and comfortable Eyes: PERRL, conjunctivae normal, anicteric sclerae ENMT: external ear and nose normal, oropharynx normal Respiratory: normal respiratory effort, lungs clear to auscultation Cardiovascular: RRR, no murmur, no edema Gastrointestinal (Abdomen): mild distended, but BS present, non tender Skin: no rashes, warm and dry no jaundice Psychiatric: A+Ox3, euthymic affect Lymphatic: no lymphedema Results & Data ([facility]) Vital Signs (Past 12 Hours) Vital Signs Temp Pulse Pulse Pulse Resp BP Pulse Ox 06/27/20 07:12 38 C H 87 16 184/83 H 94 06/27/20 07:00 73 06/27/20 03:10 37 C 77 18 153/79 H 94 06/26/20 23:35 37 C 75 18 160/78 H 93 06/26/20 23:11 75 (1) Acute pancreatitis Acute pancreatitis complication: uninfected necrosis Pancreatitis type: other Qualified Code(s): K85.81 - Other acute pancreatitis with uninfected necrosis
--- NOTE | 2020-06-27 17:28 | Discharge Summary ---
Date of Service June 27, 2020 Admission HPI Per Admitting Provider The patient is a 64-year-old male with a past medical history including mitral regurgitation, laparoscopic cholecystectomy, carpal tunnel surgery, hypertension, COPD, dyslipidemia, depression, CAD and GERD. He presents with symptoms as noted above. In the emergency department he vomited large volumes of dark bilious material. He denies any recent travels or sick exposures. He denies any questionable food intakes. He is on aspirin 81 mg daily and clopidogrel 75 mg daily. He has not had any blood in stool or urine. Principal Diagnosis Pancreatitis - Idiopathic vs. possibly from duodenal lipoma Discharge Exam Constitutional WD/WN, vitals as above Eyes EOM intact bilaterally; no conjunctival abnormality ENMT external ear and nose normal, oropharynx normal Neck trachea midline, no thyromegaly normal visual inspection Respiratory normal respiratory effort, lungs clear to auscultation no respiratory distress Cardiovascular RRR, no murmur, no edema Gastrointestinal (Abdomen) Inspection/Auscultation: abdomen normal to inspection; abdomen not distended Musculoskeletal no cyanosis or clubbing, extremities motor strength 5/5 Skin no rashes, warm and dry Neurologic moves all extremities and awake Psychiatric Orientation: alert, oriented to person and cooperative Discharge Data Allergies Allergy/AdvReac Type Severity Reaction Status Date / Time bee venom protein (honey bee) Allergy Intermediate EXTREME Verified 01/20/20 13:57 SWELLING enalapril Allergy Intermediate COUGH Verified 01/20/20 13:57 morphine Allergy Intermediate GI SYMPTOMS Verified 01/20/20 13:57 Consultations 06/25/20 05:19 ED Decision to Admit Stat 06/25/20 08:38 Consult Gastroenterology Routine Ordered Studies 06/25/20 03:43 CT angio abd pelvis wo/w con Urgent CT angio chest dissec wo/w con Urgent 06/25/20 10:25 MR MRCP Stat Hospital Course (1) Pancreatitis: Idiopathic vs. from duodenal lipoma. MRCP did not show choledocholithiasis but rise in bilirubin is concerning along with leukocytosis. Appreciate GI consult by [facility] today -> Will follow up in 4-6 weeks for EUS. - On discharge, lipase had normalized. WBC was trending down. The patient had no pain, no nausea, and requested discharge. - Asked patient to see PCP this week to recheck CBC to ensure WBC trending down. (2) Transaminitis: See above in "pancreatitis" - Ast/alt improving. T.bili stable/slightly down. (3) CAD (coronary artery disease): Held aspirin and Plavix due to ? of coffee-ground emesis at admission and potential for needing a procedure. - Continued carvedilol - Held statin due to abnormal LFTs. - On discharge, he had had no indication of GI bleed. Restarted ASA/Plavix. Given return to normal of labs, can restart statin as well. (4) HTN (hypertension): Not well controlled in the hospital. - Will need PCP follow up for check. (5) Dyslipidemia: Held atorvastatin due to abnormal LFTs as above. (6) GERD (gastroesophageal reflux disease): cont PPI but d/c drip and change to oral PPI bid (7) BPH w urinary obs/LUTS: Cont Flomax. 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 - Plan as above (9) DVT prophylaxis: SCDs Total Time Total Time Spent Total Time Spent (In Minutes): 35 Discharge Plan Discharge Items Patient Disposition: Home - Self-Care Reason For Visit: Pancreatitis Discharge Diagnosis: Pancreatitis Activity: Resume your previous activity Non-emergency contact: Primary Care Provider and [employer] Call non-emergency contact if: your symptoms worsen and your temperature is above 101 Follow-up/Referrals: Faustino Rashid CRNP [Primary Care Provider] - 07/04/20 10:20 am (Please see Mr. Rashid in 1 week. I would like him to recheck your blood counts to be sure they are stable.) Jeffry Robertson MD [Physician] - (DR ROBERTSON'S OFFICE WILL CALL YOU WITH A FOLLOW UP APT.) Diet: Low Fat Addtl Attending Provider Instructions: Mr. Benoit, Alan were admitted to the hospital with pancreatitis. We felt that his was possibly caused by a benign lipoma near the exit point where the pancreas juices enter the small intestine. Usual causes of pancreatitis are alcohol, NSAID use, or new medications. None of these apply to you. Other cases are "idiopathic" meaning we don't find a cause. The GI doctors would like you to see them in the office to plan for an examination of this benign mass. They will plan to do a scope. Please call their office when you get home to arrange a follow-up appointment. Please avoid alcohol, high fat foods, NSAIDs (for example, ibuprofen, naproxen, etc), and tobacco products. Pending Studies at Discharge: No Stand-Alone Forms: [facility], Smoking Cessation Medications and DC Order Prescriptions: Continued carvedilol 3.125 mg tablet 6.25 mg PO BID RF: 0 pantoprazole 40 mg tablet,delayed release (DR/EC) 40 mg PO BID RF: 0 tamsulosin 0.4 mg capsule 0.4 mg PO DAILY Qty: 30 RF: 2 atorvastatin 80 mg Tablet 80 mg PO QAM RF: 0 clopidogrel [Plavix] 75 mg Tablet 75 mg PO QAM RF: 0 aspirin 81 mg Tablet,Delayed Release (Dr/Ec) 81 mg PO QAM RF: 0 nitroglycerin [Nitrostat] 0.4 mg Tablet, Sublingual 0.4 mg sublingual UD RF: 0 Discharge Orders: Discharge Order (Routine); Ordered 06/27/20 Ordered By: Lio Carl Admission Data Admit Date/Time: 06/25/20 06:06 Attending Provider: Lio Carl Admit Provider: Ephraim Sánchez Primary Care Provider: Faustino Rashid Other Providers: Todd Mendoza ; Lio Carl Other Interventions: Discharge Summary Assessment (RN) Last Done: 06/27/20 14:16 Coding Level of Care Code D/C Day Management >30 mins Diagnoses Pancreatitis K85.90 Transaminitis R74.01 CAD (coronary artery disease) I25.10 HTN (hypertension) I10 Dyslipidemia E78.5 GERD (gastroesophageal reflux disease) K21.9 BPH w urinary obs/LUTS N40.1; N13.8 Lipoma of small intestine D17.5 DVT prophylaxis Z29.9
== END 2020-06-27 15:30 | disposition home or self-care (01) | DRG 439 ==
LOC: ED 03:28 → 2S 06:06 → SUATTDRO 06:06 → 2S 08:25

== ENCOUNTER 2020-06-29 09:24 | Observation (INO) ==
[2020-06-29] MEDS ORDERED: SODIUM CHLORIDE 0.9% 1000ML 1,000 ML IV STA (09:42)
[2020-06-29] MEDS ORDERED: HYDROmorphone INJ 0.5 MG/0.5 ML SYR IV STA ×2 (09:42→11:41)
[2020-06-29] MEDS ORDERED: ONDANSETRON INJ 2 MG/ML 2 ML VIAL IV STA (09:42)
--- NOTE | 2020-06-29 09:56 | Emergency Department Note ---
History of Present Illness General Chief complaint: Abdominal Pain Stated complaint: ABD PAIN Time Seen by Provider: 06/29/20 09:33 Source: patient Mode of arrival: ambulatory Limitations: no limitations History of Present Illness Provider complaint: worsening abdominal pain Maximum Pain Intensity: 5 This 64-year-old male patient recently admitted to the emergency department over the weekend for acute pancreatitis presents to the emergency department today at the recommendation of his primary care provider due to worsening abdominal pain. The patient states he was admitted on Saturday and discharged on Saturday. At that time, he had a pain level of 2/10. Since then, he has been attempting to eat Jell-O, ice, and popsicles and states despite this, his pain has been increasing and is now 5/10. Patient was evaluated by his PCP who was concerned for a distended abdomen and no bowel movement since Saturday. He indicated he was concerned that the patient may have been discharged too soon. The patient denies any alcohol use. He states he has not had a fever or vomiting. There is no chest pain or dyspnea. There is some nausea. His pain is diffuse throughout the abdomen, but worse in the epigastrium. He has been taking Tylenol without relief. He denies the use of any antiemetics. Patient denies any hematemesis or coffee-ground emesis. He denies any hematochezia or melena. He states he was not discharged on PPIs, but was only using them while in the hospital. Home Medications Medication Instructions Recorded Confirmed Type aspirin 81 mg PO QAM 06/02/19 06/29/20 History atorvastatin 80 mg PO QAM 06/02/19 06/29/20 History nitroglycerin [Nitrostat] 0.4 mg SUBLINGUAL UD 06/02/19 06/29/20 History pantoprazole 40 mg tablet,delayed 40 mg PO BID tab 09/07/19 06/29/20 History release carvedilol 3.125 mg tablet 6.25 mg PO BID tab 09/30/19 06/29/20 History Allergies Allergy/AdvReac Type Severity Reaction Status Date / Time bee venom protein (honey bee) Allergy Intermediate EXTREME Verified 06/29/20 11:48 SWELLING enalapril Allergy Intermediate COUGH Verified 06/29/20 11:48 morphine Allergy Intermediate GI SYMPTOMS Verified 06/29/20 11:48 Past Med/Surg History Medical History Acute pancreatitis BPH (benign prostatic hyperplasia) CAD (coronary artery disease) 8 stents prior to 2012. 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, s/p PCI and stenting to RCA 12/2012 - NSTEMI, s/p BMS to left cx" COPD, mild Depression Dyslipidemia GERD (gastroesophageal reflux disease) HTN (hypertension) Lipoma of small intestine duodenal lipoma Myocardial Infarction 2004 Surgical History History of carpal tunnel surgery RT History of colonoscopy History of heart artery stent STENTS PLACED TOTAL 8 (BEFORE 2012, PT STATES NO STENTS CURRENTLY HEART NOW) History of quadruple bypass (~2016) 2016 NIRANJAN GARCIA (MENA-LAD, SVG-D1, SVG-OM3, SVG-PDA) History of tooth extraction Hx laparoscopic cholecystectomy (10/02/19) Laparoscopic Cholecystectomy Dr. Acharya 10/09/2019 Family History (Updated 06/29/20 @ 11:40 by Kai Mitchell) Mother Breast cancer Heart disease Father Heart disease Myocardial infarction Denies family history of Pancreatic cancer Ovarian cancer Prostate cancer Colorectal cancer Social History Smoking Status: Never smoker Second Hand Exposure: No; Hx Alcohol Use: No Hx Substance Use: No Preferred Language: Turkish Communication Ability: Effective Visual Impairment: No Limitations Hearing Ability: Hard of Hearing Money Order Clerk Required: No Beliefs That Will Affect Care: None marital status: Current Living Situation: Spouse Current Living Situation Comment: Becky Méndez current occupational status: employed current occupation: [employer] How many Children do You have: 0 Other Information That Helps Us Care for You: No Feels Safe at Home: Yes Safety Concerns: Feels Safe At This Time caffeine: No during the past year weight has: remained stable Physical Activity Frequency: Daily Seatbelt Use: other Sunscreen Use: No Assistive Devices: Glasses Review of Systems A total of 10 systems reviewed and were otherwise negative Physical Exam Vital Signs Vital Signs - 24 hr 06/29/20 09:26 06/29/20 10:59 06/29/20 11:30 Temperature 36.8 C Temperature Source Temporal Artery Scan Pulse Rate 82 73 72 Pulse Rate from SpO2 Sensor 71 72 Respiratory Rate 20 23 23 Respiratory Effort / Characteristics Non-Labored Respiratory Depth Normal Respiratory Pattern Regular Blood Pressure 165/96 H 182/111 H Blood Pressure Mean 119 134 Blood Pressure Position Sitting Pulse Oximetry 96 93 95 Oxygen Delivery Method Room Air Sepsis Recent Fever Within 48 Hours No Sepsis New/Unexplained Change in Mental Status No Sepsis Action Taken by Nursing No Action Required 06/29/20 11:36 06/29/20 12:00 06/29/20 12:30 Temperature Temperature Source Pulse Rate 77 73 Pulse Rate from SpO2 Sensor 75 74 Respiratory Rate 20 19 Respiratory Effort / Characteristics Respiratory Depth Respiratory Pattern Blood Pressure 188/112 H 166/84 H Blood Pressure Mean 137 111 Blood Pressure Position Pulse Oximetry 95 93 94 Oxygen Delivery Method Room Air Sepsis Recent Fever Within 48 Hours Sepsis New/Unexplained Change in Mental Status Sepsis Action Taken by Nursing VITALS: Vitals are noted on the nurse's note and reviewed by myself. GENERAL: This is a 64-year-old white male, in no acute distress, nondiaphoretic, well-developed well-nourished. SKIN: The skin was without rashes, erythema, edema, or bruising. There is no tenting of the skin. Capillary refill less than 2 seconds. HEAD: Normocephalic atraumatic. EYES: Conjunctivae without injection, sclerae without icterus. NECK: Supple without nuchal rigidity. No lymphadenopathy. Cervical spine is nontender. No JVD. HEART: Regular rate and rhythm without murmurs gallops or rubs. LUNGS: Clear to auscultation bilaterally without wheezes, rales or rhonchi. No retractions or accessory muscle use. ABDOMEN: Positive bowel sounds x 4. Normal tympanic percussion. Mildly distended. Abdomen is tender, worse in the epigastrium but diffusely tender. No masses or organomegaly. Baptiste sign negative. No guarding or rebound tenderness. MUSCULOSKELETAL: No muscle atrophy, erythema, or edema noted. Full range of motion without joint tenderness in all extremities. No tenderness to palpation. Normal gait. Strength 5/5 throughout. NEURO: Patient was alert and oriented to person place and time. No focal neurological deficits. Course Course The patient was seen and evaluated as above. An order was placed for continuous cardiac monitoring. The monitor shows a rose marie l sinus rhythm at a rate of 73 bpm. IV access obtained, labs drawn. Patient medicated with IV fluids, Zofran, Dilaudid. Imaging performed and reviewed by myself and radiologist as noted. Labs reviewed by myself. I discussed the findings with the patient at bedside. Discussed elevated troponin with the patient and recommended admission. Patient agreeable. I discussed the case with the poolroom/poolhall manager. I [facility] the [facility] He did agree to see and evaluate the patient. Administered Medications Discontinued Medications Hydromorphone HCl (Hydromorphone Inj 0.5 Mg/0.5 Ml Syr) 0.5 mg IV NOW STA Stop: 06/29/20 09:43 Last Admin: 06/29/20 10:47 Dose: 0.5 mg Documented by: [id number] Hydromorphone HCl (Hydromorphone Inj 0.5 Mg/0.5 Ml Syr) 0.5 mg IV NOW STA Stop: 06/29/20 11:42 Last Admin: 06/29/20 11:55 Dose: 0.5 mg Documented by: [id number] Hydromorphone HCl (Hydromorphone Inj 0.5 Mg/0.5 Ml Syr) Confirm Administered Dose 0.5 mg .ROUTE .STK-MED ONE Stop: 06/29/20 11:53 Last Admin: 06/29/20 11:55 Dose: Not Given Documented by: [id number] Sodium Chloride (Nss 1000ml) 1,000 mls @ 999 mls/hr IV .Q1H1M STA Stop: 06/29/20 10:42 Last Infusion: 06/29/20 12:47 Dose: 0 mls/hr Documented by: [id number] Admin: 06/29/20 11:34 Dose: 999 mls/hr Documented by: [id number] Ioversol (Ioversol 100ml) 94 ml IV ONCE ONE Stop: 06/29/20 11:07 Last Admin: 06/29/20 11:07 Dose: 94 ml Documented by: [id number] Ondansetron HCl (Ondansetron Inj 2 Mg/Ml 2 Ml Vial) 4 mg IV NOW STA Stop: 06/29/20 09:43 Last Admin: 06/29/20 10:47 Dose: 4 mg Documented by: [id number] Medical Decision Making Differential Diagnosis Etiologies such as appendicitis, diverticulitis, obstruction, inflammatory bowel disease, renal colic, PUD, biliary pathology, pancreatitis, mesenteric ischemia, aortic pathology, infections, genitourinary, UTI, cardiac etiology, perforated viscus, as well as others were entertained. Medical Records Attestation: I reviewed the patient's medical records. Home Medications Current Medication List: was personally reviewed by me Laboratory Data Attestation: I reviewed the patient's lab results. Leukocytosis of 16,000. No concerning anemia or thrombocytopenia. Renal, hepatic function without significant abnormality. Potassium 2.7. Troponin elevated at 0.153. Lactic acid 1.5. Lipase 196. Urinalysis positive for urobilinogen, but no clear evidence of infection. COVID-19 testing negative. Result diagrams: 06/29/20 09:58 06/29/20 09:58 Lab Results 06/29/20 06/29/20 06/29/20 Range/Units 09:58 09:58 09:58 WBC 16.82 H (4.8-10.8) K/uL RBC 4.58 L (4.7-6.1) M/uL Hgb 15.1 (14.0-18.0) g/dL POC Hgb (14.0-18.0) g/dl Hct 41.5 L (42-52) % POC Hct (42-52) % MCV 90.6 (80-100) fL MCH 33.0 (25-34) pg MCHC 36.4 H (32-36) g/dL RDW Std Deviation 42.4 (36.4-46.3) fL RDW Coeff of Rasta 12.7 (11.5-14.5) % Plt Count 226 (130-400) K/uL MPV 10.4 (7.4-10.4) fL Immature Gran % (Auto) 0.4 % Neut % (Auto) 81.5 % Lymph % (Auto) 6.2 % [place] % (Auto) 11.7 % Eos % (Auto) 0.1 % Baso % (Auto) 0.1 % Neut # (Auto) 13.73 H (1.4-6.5) K/uL Lymph # (Auto) 1.04 L (1.2-3.4) K/uL [place] # (Auto) 1.97 H (0.11-0.59) K/uL Eos # (Auto) 0.01 (0-0.5) K/uL Baso # (Auto) 0.01 (0-0.2) K/uL Immature Gran # (Auto) 0.06 H (0.00-0.02) K/uL POC Sodium (135-144) mmol/L Sodium 138 (136-145) mmol/L POC Potassium (3.3-5.0) mmol/L Potassium 2.7 L (3.5-5.1) mmol/L POC Chloride (101-112) mmol/L Chloride 104 (98-107) mmol/L Carbon Dioxide 29 (21-32) mmol/L POC Total CO2 (24-31) mmol/L Anion Gap 5.0 (3-11) POC Anion Gap (16-25) mmol/L POC BUN (7-18) mg/dl BUN 11 (7-18) mg/dl Creatinine 0.85 (0.6-1.4) mg/dl POC Creatinine (0.6-1.3) mg/dl Est Cr Clr Drug Dosing 83.2 ml/min Est GFR ( Amer) 106.7 Est GFR (Non-Af Amer) 92.1 BUN/Creatinine Ratio 13.4 (10-20) Glucose 89 (70-99) mg/dl POC Glucose (other) (70-99) mg/dl Lactate 1.5 (0.4-2.0) mmol/L Calcium 8.4 L (8.5-10.1) mg/dl POC Ioniz Calcium Sahara (1.12-1.32) mmol/l Magnesium (1.8-2.4) mg/dl Total Bilirubin 2.5 H (0.2-1) mg/dl Direct Bilirubin (0-0.2) mg/dl AST 36 (15-37) U/L ALT 46 (12-78) U/L Alkaline Phosphatase 73 (45-117) U/L Troponin I 0.153 H* (0-0.045) ng/ml Total Protein 6.4 (6.4-8.2) gm/dl Albumin 2.9 L (3.4-5.0) gm/dl Globulin 3.5 (2.5-4.0) gm/dl Albumin/Globulin Ratio 0.8 L (0.9-2) Lipase 196 (73-393) U/L Urine Color Urine Appearance (Clear) Urine pH (4.5-7.5) Ur Specific Sidney (1.000-1.030) Urine Protein (Negative) Urine Glucose (UA) (Negative) Urine Ketones (Negative) Urine Blood (Negative) Urine Nitrite (Negative) Urine Bilirubin (Negative) Urine Urobilinogen (Negative) Ur Leukocyte Esterase (Negative) Urine WBC (Auto) (0-5) /hpf Urine RBC (Auto) (0-4) /hpf U Hyaline Cast (Auto) (0-5) /lpf U Epithel Cells (Auto) (0-5) /lpf Urine Bacteria (Auto) (Negative) Ur Renal Epithelial Cell (0-5) /lpf COVID-19 Eval Order SARS-CoV-2 (PCR) (Negative) Influenza Type A (PCR) (Neg) Influenza Type B (PCR) (Neg) RSV (RT-PCR) (Neg) 06/29/20 06/29/20 06/29/20 Range/Units 09:58 10:50 10:55 WBC (4.8-10.8) K/uL RBC (4.7-6.1) M/uL Hgb (14.0-18.0) g/dL POC Hgb 14.3 (14.0-18.0) g/dl Hct (42-52) % POC Hct 42 (42-52) % MCV (80-100) fL MCH (25-34) pg MCHC (32-36) g/dL RDW Std Deviation (36.4-46.3) fL RDW Coeff of Rasta (11.5-14.5) % Plt Count (130-400) K/uL MPV (7.4-10.4) fL Immature Gran % (Auto) % Neut % (Auto) % Lymph % (Auto) % [place] % (Auto) % Eos % (Auto) % Baso % (Auto) % Neut # (Auto) (1.4-6.5) K/uL Lymph # (Auto) (1.2-3.4) K/uL [place] # (Auto) (0.11-0.59) K/uL Eos # (Auto) (0-0.5) K/uL Baso # (Auto) (0-0.2) K/uL Immature Gran # (Auto) (0.00-0.02) K/uL POC Sodium 138 (135-144) mmol/L Sodium (136-145) mmol/L POC Potassium 2.9 L (3.3-5.0) mmol/L Potassium (3.5-5.1) mmol/L POC Chloride 98 L (101-112) mmol/L Chloride (98-107) mmol/L Carbon Dioxide (21-32) mmol/L POC Total CO2 34 H (24-31) mmol/L Anion Gap (3-11) POC Anion Gap 10.0 L (16-25) mmol/L POC BUN 11 (7-18) mg/dl BUN (7-18) mg/dl Creatinine (0.6-1.4) mg/dl POC Creatinine 0.6 (0.6-1.3) mg/dl Est Cr Clr Drug Dosing ml/min Est GFR ( Amer) Est GFR (Non-Af Amer) BUN/Creatinine Ratio (10-20) Glucose (70-99) mg/dl POC Glucose (other) 85 (70-99) mg/dl Lactate (0.4-2.0) mmol/L Calcium (8.5-10.1) mg/dl POC Ioniz Calcium Sah[place] 1.07 L (1.12-1.32) mmol/l Magnesium 2.6 H (1.8-2.4) mg/dl Total Bilirubin (0.2-1) mg/dl Direct Bilirubin 0.8 H (0-0.2) mg/dl AST (15-37) U/L ALT (12-78) U/L Alkaline Phosphatase (45-117) U/L Troponin I (0-0.045) ng/ml Total Protein (6.4-8.2) gm/dl Albumin (3.4-5.0) gm/dl Globulin (2.5-4.0) gm/dl Albumin/Globulin Ratio (0.9-2) Lipase (73-393) U/L Urine Color Dark Yellow Urine Appearance Clear (Clear) Urine pH 8.0 H (4.5-7.5) Ur Specific Sidney 1.016 (1.000-1.030) Urine Protein 1+ H (Negative) Urine Glucose (UA) Negative (Negative) Urine Ketones Negative (Negative) Urine Blood Trace H (Negative) Urine Nitrite Negative (Negative) Urine Bilirubin Negative (Negative) Urine Urobilinogen Positive H (Negative) Ur Leukocyte Esterase Negative (Negative) Urine WBC (Auto) 1-5 (0-5) /hpf Urine RBC (Auto) 5-10 H (0-4) /hpf U Hyaline Cast (Auto) 1-5 (0-5) /lpf U Epithel Cells (Auto) >30 H (0-5) /lpf Urine Bacteria (Auto) Negative (Negative) Ur Renal Epithelial Cell 0-5 (0-5) /lpf COVID-19 Eval Order SARS-CoV-2 (PCR) (Negative) Influenza Type A (PCR) (Neg) Influenza Type B (PCR) (Neg) RSV (RT-PCR) (Neg) 06/29/20 06/29/20 Range/Units 11:55 11:55 WBC (4.8-10.8) K/uL RBC (4.7-6.1) M/uL Hgb (14.0-18.0) g/dL POC Hgb (14.0-18.0) g/dl Hct (42-52) % POC Hct (42-52) % MCV (80-100) fL MCH (25-34) pg MCHC (32-36) g/dL RDW Std Deviation (36.4-46.3) fL RDW Coeff of Rasta (11.5-14.5) % Plt Count (130-400) K/uL MPV (7.4-10.4) fL Immature Gran % (Auto) % Neut % (Auto) % Lymph % (Auto) % [place] % (Auto) % Eos % (Auto) % Baso % (Auto) % Neut # (Auto) (1.4-6.5) K/uL Lymph # (Auto) (1.2-3.4) K/uL [place] # (Auto) (0.11-0.59) K/uL Eos # (Auto) (0-0.5) K/uL Baso # (Auto) (0-0.2) K/uL Immature Gran # (Auto) (0.00-0.02) K/uL POC Sodium (135-144) mmol/L Sodium (136-145) mmol/L POC Potassium (3.3-5.0) mmol/L Potassium (3.5-5.1) mmol/L POC Chloride (101-112) mmol/L Chloride (98-107) mmol/L Carbon Dioxide (21-32) mmol/L POC Total CO2 (24-31) mmol/L Anion Gap (3-11) POC Anion Gap (16-25) mmol/L POC BUN (7-18) mg/dl BUN (7-18) mg/dl Creatinine (0.6-1.4) mg/dl POC Creatinine (0.6-1.3) mg/dl Est Cr Clr Drug Dosing ml/min Est GFR ( Amer) Est GFR (Non-Af Amer) BUN/Creatinine Ratio (10-20) Glucose (70-99) mg/dl POC Glucose (other) (70-99) mg/dl Lactate (0.4-2.0) mmol/L Calcium (8.5-10.1) mg/dl POC Ioniz Calcium Sahara (1.12-1.32) mmol/l Magnesium (1.8-2.4) mg/dl Total Bilirubin (0.2-1) mg/dl Direct Bilirubin (0-0.2) mg/dl AST (15-37) U/L ALT (12-78) U/L Alkaline Phosphatase (45-117) U/L Troponin I (0-0.045) ng/ml Total Protein (6.4-8.2) gm/dl Albumin (3.4-5.0) gm/dl Globulin (2.5-4.0) gm/dl Albumin/Globulin Ratio (0.9-2) Lipase (73-393) U/L Urine Color Urine Appearance (Clear) Urine pH (4.5-7.5) Ur Specific Sidney (1.000-1.030) Urine Protein (Negative) Urine Glucose (UA) (Negative) Urine Ketones (Negative) Urine Blood (Negative) Urine Nitrite (Negative) Urine Bilirubin (Negative) Urine Urobilinogen (Negative) Ur Leukocyte Esterase (Negative) Urine WBC (Auto) (0-5) /hpf Urine RBC (Auto) (0-4) /hpf U Hyaline Cast (Auto) (0-5) /lpf U Epithel Cells (Auto) (0-5) /lpf Urine Bacteria (Auto) (Negative) Ur Renal Epithelial Cell (0-5) /lpf COVID-19 Eval Order CovFluRsv at [facility] SARS-CoV-2 (PCR) NEGATIVE (Negative) Influenza Type A (PCR) Negative (Neg) Influenza Type B (PCR) Negative (Neg) RSV (RT-PCR) Negative (Neg) Imaging Data Radiologist's Impression: Abdomen/Pelvis CT 06/29/20 09:42 CT abd pelvis IV con only CLINICAL HISTORY: Worsening abdominal pain. Recent pancreatitis. COMPARISON STUDY: MRCP dated 06/25/2020, CT scan dated 06/25/2020 TECHNIQUE: The patient was scanned in a dynamic helical fashion during intravenous administration of 94 cc of Optiray 320 A dose lowering technique was utilized adhering to the principles of ALARA. CT DOSE: 449.03 mGy.cm FINDINGS: Lower chest: There are small pleural effusions left larger than right with associated basilar atelectatic changes. Liver: There are right hepatic lobe dystrophic calcifications. There is no ductal dilatation. The hepatic and portal veins appear patent. Gallbladder: Surgically absent Spleen: Normal in size and attenuation. Pancreas: There is increasing peripancreatic fluid indicative of acute interstitial pancreatitis. There is no evidence of pancreatic necrosis. Adrenal glands: Unremarkable. Kidneys: There are multiple bilateral renal cysts. There is no hydronephrosis. No solid renal masses are visualized. The largest renal cyst arises from the upper pole the right kidney measuring 6 cm. Bowel: There are no transition zones to indicate bowel obstruction. There is a duodenal lipoma. There is no evidence of acute appendicitis. There is no evidence of acute diverticulitis. Peritoneum: There is no free intraperitoneal air. There are small fat-containing umbilical and periumbilical hernias. Vasculature: The abdominal aorta is normal in course and caliber. Adenopathy: None. Pelvic viscera: The prostate is enlarged. Skeletal structures: No destructive osseous lesions are seen. IMPRESSION: 1. No evidence of bowel obstruction. No evidence of free air 2. Increasing peripancreatic fluid indicative of acute interstitial pancreatitis. No evidence of pancreatic necrosis. 3. Stable duodenal lipoma 4. Small bilateral pleural effusions with basilar atelectasis 5. Bilateral renal cysts 6. Prostatomegaly 7. Fat-containing umbilical and periumbilical hernias. ACT 112: Negative or not required by law. Electronically signed by: Jevon Reddy M.D. 06/29/2020 11:17 AM ECG Data Attestation: I personally reviewed and interpreted this ECG as follows: Indication: + abdominal pain Rate (beats per minute): 73 Rhythm: + normal sinus ECG ST segments: + T-wave inversions (Anterior, inferior); no ST depression and no ST elevation Comparison ECG Date: from (06/25/2020) Change: the following changes noted (T wave inversion now present in anterior and inferior leads.) Blood Pressure Blood Pressure Findings: Elevated blood pressure Blood Pressure Disposition: further management by hospitalist MDM Narrative This 64-year-old male patient presents to the emergency department today for abdominal pain. This is in the setting of recent acute pancreatitis. The patient has not had a bowel movement and his pain has been worsening since discharge on Saturday. He is afebrile. He is hypertensive. Given his history and symptoms, we did elect to perform work-up to include labs, EKG testing, and CT imaging of the abdomen/pelvis. Lipase has improved, though CT imaging concerning for worsening pancreatitis. The patient was found to have an elevated troponin and inverted T waves in the anterior and inferior leads. Suspect ischemia associated with the acute pancreatitis. The patient will be admitted to the hospitalist service for ongoing management of his symptoms. Please see hospitalist dictation regarding ongoing management care of this patient. The chart was completed utilizing [employer] Speech voice recognition software. Grammatical errors, random word insertions, pronoun errors, and incomplete sentences are an occasional consequence of this system due to software limitations, ambient noise, and hardware issues. Any formal questions or concerns about the content, text, or information contained within the body of this dictation should be directly addressed to the provider for clarification. Impression & Plan Pancreatitis, Elevated troponin Discharge Plan Visit Data Chief Complaint: Abdominal Pain Stated Complaint: ABD PAIN ED Provider: Pankaj Staton ED Midlevel Provider: Zuleyka David Discharge Problem: Pancreatitis, Elevated troponin Patient Disposition: Admitted As Inpatient Discharge Instructions Interventions: ED Discharge Assessment Last Done: 06/29/20 14:01
[2020-06-29 10:35] LABS: Hematocrit (blood only) 41.5 % (42-52); Hemoglobin 15.1 g/dL (14.0-18.0); Mean Corpuscular Hgb Conc 36.4 g/dL (32-36); Mean Corpuscular Volume 90.6 fL (80-100); Mean Platelet Volume 10.4 fL (7.4-10.4); Platelet Count 226 K/uL (130-400); RDW Coefficient of Variation 12.7 % (11.5-14.5); RDW Standard Deviation 42.4 fL (36.4-46.3); Red Blood Count 4.58 M/uL (4.7-6.1); White Blood Count 16.82 K/uL (4.8-10.8)
[2020-06-29 10:36] LABS: Basophils # (auto) 0.01 K/uL (0-0.2); Basophils % (auto) 0.1 %; Eosinophils # (auto) 0.01 K/uL (0-0.5); Eosinophils % (auto) 0.1 %; Immature Granulocytes # (auto) 0.06 K/uL (0.00-0.02); Immature Granulocytes % (auto) 0.4 %; Lymphocytes # (auto) 1.04 K/uL (1.2-3.4); Lymphocytes % (auto) 6.2 %; Monocytes # (auto) 1.97 K/uL (0.11-0.59); Monocytes % (auto) 11.7 %; Neutrophils # (auto) 13.73 K/uL (1.4-6.5); Neutrophils % (auto) 81.5 %
[2020-06-29 10:45] LABS: Albumin Globulin Ratio 0.8 (0.9-2); Albumin Level 2.9 gm/dl (3.4-5.0); BUN Creatinine Ratio 13.4 (10-20); Bilirubin,Total 2.5 mg/dl (0.2-1); Calcium 8.4 mg/dl (8.5-10.1); Creatinine Clr Calc Pharmacy 83.2 ml/min; Est GFR (African American) 106.7; Est GFR (Non-African American) 92.1; Globulin 3.5 gm/dl (2.5-4.0); Potassium 2.7 mmol/L (3.5-5.1); Total Protein 6.4 gm/dl (6.4-8.2); Troponin I 0.153 ng/ml (0-0.045)
[2020-06-29] MEDS ORDERED: OPTIRAY 320 100ml IV ONE (11:06)
[2020-06-29 11:08] LABS: iSTAT Creatinine 0.6 mg/dl (0.6-1.3); iSTAT Hemoglobin 14.3 g/dl (14.0-18.0); iSTAT Ionized Calcium 1.07 mmol/l (1.12-1.32); iSTAT Potassium 2.9 mmol/L (3.3-5.0)
--- NOTE | 2020-06-29 11:18 | CT Scan Report ---
CT abd pelvis IV con only CLINICAL HISTORY: Worsening abdominal pain. Recent pancreatitis. COMPARISON STUDY: MRCP dated 06/25/2020, CT scan dated 06/25/2020 TECHNIQUE: The patient was scanned in a dynamic helical fashion during intravenous administration of 94 cc of Optiray 320 A dose lowering technique was utilized adhering to the principles of ALARA. CT DOSE: 449.03 mGy.cm FINDINGS: Lower chest: There are small pleural effusions left larger than right with associated basilar atelect atic changes. Liver: There are right hepatic lobe dystrophic calcifications. There is no ductal dilatation. The hep atic and portal veins appear patent. Gallbladder: Surgically absent Spleen: Normal in size and attenuation. Pancreas: There is increasing peripancreatic fluid indicative of acute interstitial pancreatitis. The re is no evidence of pancreatic necrosis. Adrenal glands: Unremarkable. Kidneys: There are multiple bilateral renal cysts. There is no hydronephrosis. No solid renal masses are visualized. The largest renal cyst arises from the upper pole the right kidney measuring 6 cm. Bowel: There are no transition zones to indicate bowel obstruction. There is a duodenal lipoma. There is no evidence of acute appendicitis. There is no evidence of acute diverticulitis. Peritoneum: There is no free intraperitoneal air. There are small fat-containing umbilical and perium bilical hernias. Vasculature: The abdominal aorta is normal in course and caliber. Adenopathy: None. Pelvic viscera: The prostate is enlarged. Skeletal structures: No destructive osseous lesions are seen. IMPRESSION: 1. No evidence of bowel obstruction. No evidence of free air 2. Increasing peripancreatic fluid indicative of acute interstitial pancreatitis. No evidence of panc reatic necrosis. 3. Stable duodenal lipoma 4. Small bilateral pleural effusions with basilar atelectasis 5. Bilateral renal cysts 6. Prostatomegaly 7. Fat-containing umbilical and periumbilical hernias. ACT 112: Negative or not required by law. Electronically signed by: Jevon Reddy M.D. 06/29/2020 11:17 AM
[2020-06-29 11:25] LABS: Appearance Urine Clear (Clear); Bacteria Urine Automated Negative (Negative); Bilirubin Urine Negative (Negative); Blood Urine Trace (Negative); Color Urine Dark Yellow; Epithelial Cell Urine Auto >30 /lpf (0-5); Glucose Urine UA Negative (Negative); Ketones Urine Negative (Negative); Leukocyte Esterase Urine Negative (Negative); Nitrite Urine Negative (Negative); Specific Gravity Urine 1.016 (1.000-1.030); Urobilinogen Urine Positive (Negative)
[2020-06-29 11:40] LABS: Protein Urine 1+ (Negative)
--- NOTE | 2020-06-29 11:41 | History & Physical Report ---
Date of Service June 29, 2020 Assessment & Plan (1) Acute pancreatitis: Recently admitted to the hospital for the same diagnosis. Peak lipase was about 50,000. Etiology was uncertain - had LFT abnormalities in an obstructive pattern but MRCP was negative for choledocholithiasis. Can't rule out that he had passed a small, retained gallstone. He is s/p cholecystectomy in the past. No alcohol use. Triglycerides wnl. Calcium wnl. COVID negative, and no other symptoms to suggest viral infection. He has a duodenal lipoma and there is a question of whether this could be contributing to pancreatitis. He presents today with recurrent, constant abdominal pain. Although lipase is normal his CT abd/pelvis shows radiographic worsening of his pancreatitis. Fortunately no necrosis or pseudocyst seen. He has no peritonitis on physical exam. Plan - * NPO except small amount of ice chips * copious LR hydration (200cc/hr) * dilaudid IV prn pain * t. bili mildly high but continuing to trend down - will obtain direct bili as well * repeat LFTs, lipase, etc in am * low threshold for formal GI consultation ([facility]) * CBC with leukocytosis but WBC count is slowly coming down; repeat in am (2) Hypokalemia: Give 20meq IV x 1 now. Then LR with 20meq added at 200cc/hr should normalize the K by tomorrow. Check mag level. Repeat BMP am. (3) Lipoma of small intestine: Duodenal lipoma. Causing/contributing to pancreatitis?? Plan - [facility]. There has been some discussion about endoscopic removal in the future. (4) Elevated troponin: Will trend. No symptoms to suggest ACS. Most likely myocardial demand ischemia in setting of his acute pancreatitis. However, he does have known CAD and there are anterior and inferior EKG changes. Repeat EKG am. Place on telemetry. (5) BPH w urinary obs/LUTS: No LUTs at this time. (6) HTN (hypertension): Markedly elevated, perhaps due to pain. Continue coreg. Treat pain. Adjust meds as needed. (7) COPD, mild: No symptoms of exacerbation at this time. (8) Dyslipidemia: Hold statin. (9) Depression: no issues at this time. (10) CAD (coronary artery disease): see "elevated troponin" above. continue coreg, aspirin. hold statin. trend troponins. (11) GERD (gastroesophageal reflux disease): cont PPI bid. (12) DVT prophylaxis: lovenox 40mg daily updated at bedside place on observation for now History of Present Illness Chief Complaint: abdominal pain Primary Care Provider: PETER Francisco 64yo male - well known to me from his recent hospital stay for acute pancreatitis (uncertain etiology) - along with CAD & HTN who presents from home due to ongoing and worsening central abdominal pain. During previous stay he received customary care for his pancreatitis including IV fluids, pain meds, etc. LFTs had been high and improved during the stay. Lipase improved nicely as well. His abdominal pain improved and he was resumed on a diet. He was discharged to home Saturday afternoon "feeling really good." Plan was for outpatient EUS at [facility]. Saturday evening his abdominal pain returned. Initially mild, then progressively worsened, and is now constant/severe. It radiates to his low back. No nausea/emesis. He has very little appetite. Able to take some clears last pm only. Passing little flatus and had a tiny stool since hospital discharge. Denies chest pain or dyspnea. Had subjective fever last night but no chills. No cough. Allergies Allergy/AdvReac Type Severity Reaction Status Date / Time bee venom protein (honey bee) Allergy Intermediate EXTREME Verified 06/29/20 11:48 SWELLING enalapril Allergy Intermediate COUGH Verified 06/29/20 11:48 morphine Allergy Intermediate GI SYMPTOMS Verified 06/29/20 11:48 Home Medications Medication Instructions Recorded Confirmed Type aspirin 81 mg PO QAM 06/02/19 06/29/20 History atorvastatin 80 mg PO QAM 06/02/19 06/29/20 History nitroglycerin [Nitrostat] 0.4 mg SUBLINGUAL UD 06/02/19 06/29/20 History pantoprazole 40 mg tablet,delayed 40 mg PO BID tab 09/07/19 06/29/20 History release carvedilol 3.125 mg tablet 6.25 mg PO BID tab 09/30/19 06/29/20 History Past Med/Surg History Medical History (Updated 06/29/20 @ 12:49 by Kai Mitchell) Acute pancreatitis BPH (benign prostatic hyperplasia) CAD (coronary artery disease) 8 stents prior to 2012. S/p 4 vessel CABG 2016 "2003 - inferior wall [place], s/p PCI and stenting to RCA 12/2012 - NSTEMI, s/p BMS to left cx" COPD, mild Depression Dyslipidemia GERD (gastroesophageal reflux disease) HTN (hypertension) Lipoma of small intestine duodenal lipoma Myocardial Infarction 2003 Surgical History History of carpal tunnel surgery RT History of colonoscopy History of heart artery stent STENTS PLACED TOTAL 8 (BEFORE 2012, PT STATES NO STENTS CURRENTLY HEART NOW) History of quadruple bypass (~2016) 2016 [facility] (MENA-LAD, SVG-D1, SVG-OM3, SVG-PDA) History of tooth extraction Hx laparoscopic cholecystectomy (10/02/19) Laparoscopic Cholecystectomy Dr. Acharya 10/09/2019 Family History (Updated 06/29/20 @ 11:40 by Kai Mitchell) Mother Breast cancer Heart disease Father Heart disease Myocardial infarction Denies family history of Pancreatic cancer Ovarian cancer Prostate cancer Colorectal cancer Social History (Updated 06/29/20 @ 11:41 by Kai Mitchell) Smoking Status: Never smoker Second Hand Exposure: No; Hx Alcohol Use: No Hx Substance Use: No Preferred Language: [place] Leonean Communication Ability: Effective Visual Impairment: No Limitations Hearing Ability: Hard of Hearing Link Assembler Required: No Beliefs That Will Affect Care: None marital status: Current Living Situation: Spouse Current Living Situation Comment: Becky Méndez current occupational status: employed current occupation: [employer] How many Children do You have: 0 Feels Safe at Home: Yes caffeine: No during the past year weight has: remained stable Physical Activity Frequency: Daily Seatbelt Use: other Sunscreen Use: No Assistive Devices: None Review of Systems Constitutional: as per Subjective / HPI, + fever, + fatigue and + anorexia; no chills Eyes: no worsening vision Ear, Nose, Mouth, Throat: no nasal congestion and no sore throat no loss of taste/smell Respiratory: no cough and no dyspnea Cardiovascular: no chest pain Gastrointestinal: + abdominal pain and + constipation; no nausea and no vomiting Genitourinary: no dysuria Musculoskeletal: + back pain Integumentary: no rash Neurologic: no loss of sensation Psychiatric: + abnormal sleep pattern (couldn't sleep last night due to pain ) Endocrine: denies diabetes Hematologic / Lymphatic: no easy bleeding Physical Exam Constitutional: + acute distress (mild abdominal pain ); + not appropriately hydrated and no altered mental status Eyes: + anicteric sclerae and PERRL ENMT: Mouth: + dry oral mucous membranes Neck: trachea midline, no thyromegaly Respiratory: normal respiratory effort, lungs clear to auscultation Auscultation: + diminished lung sounds (bases ) Cardiovascular: Rate/Rhythm: regular rate and regular rhythm Heart Sounds: normal S1 and normal S2; no murmur Vessels: posterior tibial pulses present and dorsalis pedis pulses present; no JVD Extremities: no edema Gastrointestinal (Abdomen): Inspection/Auscultation: + abdomen distended and + hypoactive bowel sounds Percussion/Palpation: + abdomen tender (periumbical ); no guarding, abdomen not rigid and no hepatosplenomegaly Musculoskeletal: no cyanosis or clubbing, extremities motor strength 5/5 Skin: + turgor decreased; no jaundice Neurologic: deep tendon reflexes 2+ bilaterally and moves all extremities; no focal motor deficits Psychiatric: Orientation: alert and oriented x 3 Lymphatic: no cervical lymphadenopathy Results & Data Results & Data ([facility]) Vital Signs (Past 12 Hours) Vital Signs Temp Pulse Resp Pulse Ox 06/29/20 11:36 95 06/29/20 09:26 36.8 C 82 20 96 Laboratory Results Laboratory Results - last 24 hr 06/29/20 06/29/20 06/29/20 09:58 09:58 09:58 WBC 16.82 H RBC 4.58 L Hgb 15.1 POC Hgb Hct 41.5 L POC Hct MCV 90.6 MCH 33.0 MCHC 36.4 H RDW Std Deviation 42.4 RDW Coeff of Rasta 12.7 Plt Count 226 MPV 10.4 Immature Gran % (Auto) 0.4 Neut % (Auto) 81.5 Lymph % (Auto) 6.2 [place] % (Auto) 11.7 Eos % (Auto) 0.1 Baso % (Auto) 0.1 Neut # (Auto) 13.73 H Lymph # (Auto) 1.04 L [place] # (Auto) 1.97 H Eos # (Auto) 0.01 Baso # (Auto) 0.01 Immature Gran # (Auto) 0.06 H POC Sodium Sodium 138 POC Potassium Potassium 2.7 L POC Chloride Chloride 104 Carbon Dioxide 29 POC Total CO2 Anion Gap 5.0 POC Anion Gap POC BUN BUN 11 Creatinine 0.85 POC Creatinine Est Cr Clr Drug Dosing 83.2 Est GFR ( Amer) 106.7 Est GFR (Non-Af Amer) 92.1 BUN/Creatinine Ratio 13.4 Glucose 89 POC Glucose (other) Lactate 1.5 Calcium 8.4 L POC Ioniz Calcium [place] Total Bilirubin 2.5 H AST 36 ALT 46 Alkaline Phosphatase 73 Troponin I 0.153 H* Total Protein 6.4 Albumin 2.9 L Globulin 3.5 Albumin/Globulin Ratio 0.8 L Lipase 196 Urine Color Urine Appearance Urine pH Ur Specific [place] Urine Protein Urine Glucose (UA) Urine Ketones Urine Blood Urine Nitrite Urine Bilirubin Urine Urobilinogen Ur Leukocyte Esterase Urine WBC (Auto) Urine RBC (Auto) U Hyaline Cast (Auto) U Epithel Cells (Auto) Urine Bacteria (Auto) Ur Renal Epithelial Cell COVID-19 Eval Order SARS-CoV-2 (PCR) Influenza Type A (PCR) Influenza Type B (PCR) RSV (RT-PCR) 06/29/20 06/29/20 06/29/20 10:50 10:55 11:55 WBC RBC Hgb POC Hgb 14.3 Hct POC Hct 42 MCV MCH MCHC RDW Std Deviation RDW Coeff of [place] Plt Count MPV Immature Gran % (Auto) Neut % (Auto) Lymph % (Auto) [place] % (Auto) Eos % (Auto) Baso % (Auto) Neut # (Auto) Lymph # (Auto) [place] # (Auto) Eos # (Auto) Baso # (Auto) Immature Gran # (Auto) POC Sodium 138 Sodium POC Potassium 2.9 L Potassium POC Chloride 98 L Chloride Carbon Dioxide POC Total CO2 34 H Anion Gap POC Anion Gap 10.0 L POC BUN 11 BUN Creatinine POC Creatinine 0.6 Est Cr Clr Drug Dosing Est GFR ( Amer) Est GFR (Non-Af Amer) BUN/Creatinine Ratio Glucose POC Glucose (other) 85 Lactate Calcium POC Ioniz Calcium [place] 1.07 L Total Bilirubin AST ALT Alkaline Phosphatase Troponin I Total Protein Albumin Globulin Albumin/Globulin Ratio Lipase Urine Color Dark Yellow Urine Appearance Clear Urine pH 8.0 H Ur Specific [place] 1.016 Urine Protein 1+ H Urine Glucose (UA) Negative Urine Ketones Negative Urine Blood Trace H Urine Nitrite Negative Urine Bilirubin Negative Urine Urobilinogen Positive H Ur Leukocyte Esterase Negative Urine WBC (Auto) 1-5 Urine RBC (Auto) 5-10 H U Hyaline Cast (Auto) 1-5 U Epithel Cells (Auto) >30 H Urine Bacteria (Auto) Negative Ur Renal Epithelial Cell 0-5 COVID-19 Eval Order CovFluRsv at [facility] SARS-CoV-2 (PCR) Influenza Type A (PCR) Influenza Type B (PCR) RSV (RT-PCR) 06/29/20 11:55 WBC RBC Hgb POC Hgb Hct POC Hct MCV MCH MCHC RDW Std Deviation RDW Coeff of [place] Plt Count MPV Immature Gran % (Auto) Neut % (Auto) Lymph % (Auto) [place] % (Auto) Eos % (Auto) Baso % (Auto) Neut # (Auto) Lymph # (Auto) [place] # (Auto) Eos # (Auto) Baso # (Auto) Immature Gran # (Auto) POC Sodium Sodium POC Potassium Potassium POC Chloride Chloride Carbon Dioxide POC Total CO2 Anion Gap POC Anion Gap POC BUN BUN Creatinine POC Creatinine Est Cr Clr Drug Dosing Est GFR ( Amer) Est GFR (Non-Af Amer) BUN/Creatinine Ratio Glucose POC Glucose (other) Lactate Calcium POC Ioniz Calcium [place] Total Bilirubin AST ALT Alkaline Phosphatase Troponin I Total Protein Albumin Globulin Albumin/Globulin Ratio Lipase Urine Color Urine Appearance Urine pH Ur Specific [place] Urine Protein Urine Glucose (UA) Urine Ketones Urine Blood Urine Nitrite Urine Bilirubin Urine Urobilinogen Ur Leukocyte Esterase Urine WBC (Auto) Urine RBC (Auto) U Hyaline Cast (Auto) U Epithel Cells (Auto) Urine Bacteria (Auto) Ur Renal Epithelial Cell COVID-19 Eval Order SARS-CoV-2 (PCR) Pending Influenza Type A (PCR) Pending Influenza Type B (PCR) Pending RSV (RT-PCR) Pending Diagnostic Findings Abdomen/Pelvis CT 06/29/20 09:42 CT abd pelvis IV con only CLINICAL HISTORY: Worsening abdominal pain. Recent pancreatitis. COMPARISON STUDY: MRCP dated 06/25/2020, CT scan dated 06/25/2020 TECHNIQUE: The patient was scanned in a dynamic helical fashion during intravenous administration of 94 cc of Optiray 320 A dose lowering technique was utilized adhering to the principles of ALARA. CT DOSE: 449.03 mGy.cm FINDINGS: Lower chest: There are small pleural effusions left larger than right with associated basilar atelectatic changes. Liver: There are right hepatic lobe dystrophic calcifications. There is no ductal dilatation. The hepatic and portal veins appear patent. Gallbladder: Surgically absent Spleen: Normal in size and attenuation. Pancreas: There is increasing peripancreatic fluid indicative of acute interstitial pancreatitis. There is no evidence of pancreatic necrosis. Adrenal glands: Unremarkable. Kidneys: There are multiple bilateral renal cysts. There is no hydronephrosis. No solid renal masses are visualized. The largest renal cyst arises from the upper pole the right kidney measuring 6 cm. Bowel: There are no transition zones to indicate bowel obstruction. There is a duodenal lipoma. There is no evidence of acute appendicitis. There is no evidence of acute diverticulitis. Peritoneum: There is no free intraperitoneal air. There are small fat-containing umbilical and periumbilical hernias. Vasculature: The abdominal aorta is normal in course and caliber. Adenopathy: None. Pelvic viscera: The prostate is enlarged. Skeletal structures: No destructive osseous lesions are seen. IMPRESSION: 1. No evidence of bowel obstruction. No evidence of free air 2. Increasing peripancreatic fluid indicative of acute interstitial p ancreatitis. No evidence of pancreatic necrosis. 3. Stable duodenal lipoma 4. Small bilateral pleural effusions with basilar atelectasis 5. Bilateral renal cysts 6. Prostatomegaly 7. Fat-containing umbilical and periumbilical hernias. ACT 112: Negative or not required by law. Electronically signed by: Jevon Reddy M.D. 06/29/2020 11:17 AM EKG - my reading - NSR; anterior ST flattening relative to previous EKGs; inferior III/AVF ST flattening relative to prior EKGs Code Status & VTE Plan Code Status full VTE Prophylaxis Plan VTE Prophylaxis will be ordered: Yes PG Care Time/CCT Total # of Minutes Spent Total Time Spent with Patient: Total time spent is greater than 50% in coordination of care (as documented) at patient's floor/unit and/or counseling patient: Coding Level of Care Code 94370 OBS Care - Level 3 Diagnoses Acute pancreatitis K85.81 Acute pancreatitis complication: uninfected necrosis Pancreatitis type: other Hypokalemia E87.6 Lipoma of small intestine D17.5 Elevated troponin R77.8 BPH w urinary obs/LUTS N40.1; N13.8 HTN (hypertension) I10 COPD, mild J44.9 Dyslipidemia E78.5 Depression F32.9 CAD (coronary artery disease) I25.10 GERD (gastroesophageal reflux disease) K21.9 DVT prophylaxis Z29.9 (1) Acute pancreatitis Acute pancreatitis complication: uninfected necrosis Pancreatitis type: other Qualified Code(s): K85.81 - Other acute pancreatitis with uninfected necrosis
[2020-06-29] MEDS ORDERED: HYDROmorphone INJ 0.5 MG/0.5 ML SYR ONE (11:52)
[2020-06-29 11:53] LABS: Renal Epithelial Cells Urine 0-5 /lpf (0-5)
[2020-06-29] MEDS ORDERED: HYDROmorphone INJ 0.5 MG/0.5 ML SYR IV PRN (12:31)
[2020-06-29 12:57] LABS: Influenza A virus by PCR Negative (Neg); Influenza B virus by PCR Negative (Neg); RSV by PCR Negative (Neg); SARS CoV2 RNA(COVID-19) InHosp NEGATIVE (Negative)
[2020-06-29 13:02] LABS: Bilirubin Direct 0.8 mg/dl (0-0.2); Magnesium 2.6 mg/dl (1.8-2.4)
[2020-06-29] MEDS ORDERED: NITROGLYCERIN SL 0.4 MG/TAB TAB SL PRN (14:18)
[2020-06-29] MEDS ORDERED: ONDANSETRON INJ 2 MG/ML 2 ML VIAL IV PRN (14:18)
--- NOTE | 2020-06-29 16:04 | Electrocardiogram Report ---
Test Reason : Blood Pressure : / mmHG Vent. Rate : 073 BPM Atrial Rate : 073 BPM P-R Int : 164 ms QRS Dur : 112 ms QT Int : 418 ms P-R-T Axes : 033 -31 010 degrees QTc Int : 460 ms Normal sinus rhythm Possible Left atrial enlargement Left axis deviation Left ventricular hypertrophy Inferior infarct , age undetermined Abnormal ECG When compared with ECG of 25-JUN-2020 03:45, T wave inversion now evident in Inferior leads T wave inversion more evident in Anterior leads Confirmed by Timothy Cedeno ([id number]) on 06/29/2020 4:04:24 PM Referred By: REFERRED SELF Confirmed By:Timothy Cedeno
[2020-06-29] MEDS: POTASSIUM CHLORIDE / WTR 10 MEQ/100 ML PLCT IV SCH (16:49)
[2020-06-29] MEDS: ENOXAPARIN INJ 40 MG/0.4 ML SYR SQ SCH (16:50)
[2020-06-29] MEDS: POTASSIUM CHLORIDE 20 MEQ in D5W AND LACTATED RINGERS 1,000 ML IV SCH ×2 (17:44→21:07)
[2020-06-29] MEDS: carvediloL 12.5 MG TAB PO SCH (19:09)
[2020-06-29] MEDS ORDERED: carvediloL 6.25 MG TAB PO SCH (21:00)
[2020-06-29] MEDS: PANTOprazole 40 MG TAB PO SCH (21:06)
[2020-06-30] MEDS: POTASSIUM CHLORIDE 20 MEQ in D5W AND LACTATED RINGERS 1,000 ML IV SCH ×3 (02:09→13:21)
--- NOTE | 2020-06-30 07:19 | Hospitalist Progress Note ---
Date of Service June 30, 2020 Assessment & Plan (1) Acute pancreatitis: Recently admitted to the hospital for the same diagnosis. Completely resolved with bowel movements Peak lipase was about 50,000 lipase now normal. Etiology was uncertain - had LFT abnormalities in an obstructive pattern but MRCP was negative for choledocholithiasis. Can't rule out that he had passed a small, retained gallstone. He is s/p cholecystectomy in the past. No alcohol use. Triglycerides wnl. Calcium wnl. COVID negative, and no other symptoms to suggest viral infection. He has a duodenal lipoma and there is a question of whether this could be contributing to pancreatitis. Although lipase is normal his CT abd/pelvis shows radiographic worsening of his pancreatitis. Fortunately no necrosis or pseudocyst seen. He remains without peritonitis on physical exam. Improved bowel movement we will continue cathartic agents advance diet (2) Hypokalemia: Give 20meq IV x 1 now. Then LR with 20meq added at 200cc/hr should normalize the K by tomorrow. Check mag level. Repeat BMP am. (3) Lipoma of small intestine: Duodenal lipoma. Causing/contributing to pancreatitis?? Plan - Outpatient EUS by [facility]. There has been some discussion about endoscopic removal in the future. (4) Elevated troponin: Will trend. No symptoms to suggest ACS. Most likely myocardial demand ischemia in setting of his acute pancreatitis. However, he does have known CAD and there are anterior and inferior EKG changes. Repeat EKG am. Place on telemetry. (5) BPH w urinary obs/LUTS: No LUTs at this time. (6) HTN (hypertension): Markedly elevated, perhaps due to pain. Continue coreg. Treat pain. Adjust meds as needed. (7) COPD, mild: No symptoms of exacerbation at this time. (8) Dyslipidemia: Hold statin. (9) Depression: no issues at this time. (10) CAD (coronary artery disease): see "elevated troponin" above. continue coreg, aspirin. hold statin. trend troponins. (11) GERD (gastroesophageal reflux disease): cont PPI bid. (12) DVT prophylaxis: lovenox 40mg daily updated at bedside place on observation for now Admission and Anticipated Discharge Date Admission Date: June 29, 2020 Subjective pt states he feels much better after having a bowel movement will keep overnight to see if he can advance diet and tolerate it Review of Systems Review of Systems: Mild distress and fatigue no headache, blurry or double vision no speech or swallowing issues no chest pain, pressure or palpitations no shortness of breath, cough or wheezes no abdominal pain, resolved with bowel movement no dysuria, hematuria or frequency no focal joint pain or swelling no back pain, CVA tenderness or radicular pain no bruising, bleeding or rashes no focal signs of weakness or numbness or altered sensation no complaints of anxiety or depression.. Physical Exam Physical Exam: The patient appeared well nourished and normally developed. Vital signs as documented. Head exam is normocephalic atraumatic no scleral icterus Neck is without JVD, thyromegaly, or carotid bruits. Lungs are clear to auscultation, no focal loss of breath sounds Cardiac exam, Rhythm is regular.. No murmurs, rubs or gallops. Abdominal exam reveals normal bowel sounds, soft non tender, no masses no tenderness despite abnormal CT findings Extremities are nonedematous and both pedal pulses are present Neurologic exam is alert and oriented, no focal loss of strength or sensation Skin is without bruises or rashes Psychologically is without concerns for anxiety or depression Results & Data Results & Data ([facility]) Vital Signs (Past 12 Hours) Vital Signs Temp Pulse Pulse Resp BP Pulse Ox 06/30/20 03:19 99.1 F 76 18 168/95 H 97 06/30/20 00:03 59 L 06/29/20 23:50 99.3 F 70 20 119/66 96 06/29/20 20:05 99.1 F 85 16 175/58 H 94 PG Care Time/CCT Total # of Minutes Spent Total Time Spent with Patient: Total time spent is greater than 50% in coordination of care (as documented) at patient's floor/unit and/or counseling patient: Coding Level of Care Code 70848 Subseq Hosp Care Lvl 3 Diagnoses Acute pancreatitis K85.81 Acute pancreatitis complication: uninfected necrosis Pancreatitis type: other Hypokalemia E87.6 Lipoma of small intestine D17.5 Elevated troponin R77.8 BPH w urinary obs/LUTS N40.1; N13.8 HTN (hypertension) I10 COPD, mild J44.9 Dyslipidemia E78.5 Depression F32.9 CAD (coronary artery disease) I25.10 GERD (gastroesophageal reflux disease) K21.9 DVT prophylaxis Z29.9 (1) Acute pancreatitis Acute pancreatitis complication: uninfected necrosis Pancreatitis type: other Qualified Code(s): K85.81 - Other acute pancreatitis with uninfected necrosis
[2020-06-30 07:40] LABS: Basophils # (auto) 0.01 K/uL (0-0.2); Basophils % (auto) 0.1 %; Eosinophils # (auto) 0.05 K/uL (0-0.5); Eosinophils % (auto) 0.3 %; Hematocrit (blood only) 40.8 % (42-52); Hemoglobin 14.4 g/dL (14.0-18.0); Immature Granulocytes # (auto) 0.06 K/uL (0.00-0.02); Immature Granulocytes % (auto) 0.4 %; Lymphocytes % (auto) 9.3 %; Mean Corpuscular Hemoglobin 32.4 pg (25-34); Mean Corpuscular Hgb Conc 35.3 g/dL (32-36); Mean Corpuscular Volume 91.7 fL (80-100); Mean Platelet Volume 10.7 fL (7.4-10.4); Monocytes # (auto) 1.75 K/uL (0.11-0.59); Monocytes % (auto) 11.6 %; Neutrophils # (auto) 11.83 K/uL (1.4-6.5); Neutrophils % (auto) 78.3 %; Platelet Count 196 K/uL (130-400); RDW Coefficient of Variation 12.9 % (11.5-14.5); RDW Standard Deviation 43.4 fL (36.4-46.3); Red Blood Count 4.45 M/uL (4.7-6.1)
[2020-06-30] MEDS: ASPIRIN 81 MG ECTAB PO SCH (07:40)
[2020-06-30] MEDS: PANTOprazole 40 MG TAB PO SCH ×2 (07:40→21:19)
[2020-06-30] MEDS: carvediloL 12.5 MG TAB PO SCH ×2 (07:40→21:20)
[2020-06-30 08:23] LABS: Albumin Globulin Ratio 0.7 (0.9-2); Albumin Level 2.4 gm/dl (3.4-5.0); BUN Creatinine Ratio 12.4 (10-20); Bilirubin,Total 1.6 mg/dl (0.2-1); Calcium 8.1 mg/dl (8.5-10.1); Creatinine Clr Calc Pharmacy 110.1 ml/min; Est GFR (African American) 119.9; Est GFR (Non-African American) 103.5; Globulin 3.4 gm/dl (2.5-4.0); Potassium 3.2 mmol/L (3.5-5.1); Total Protein 5.8 gm/dl (6.4-8.2)
[2020-06-30] MEDS ORDERED: hydrALAZINE HCL 20 MG/ML VIAL IV PRN (12:26)
--- NOTE | 2020-06-30 15:50 | Electrocardiogram Report ---
Test Reason : Blood Pressure : / mmHG Vent. Rate : 064 BPM Atrial Rate : 064 BPM P-R Int : 172 ms QRS Dur : 106 ms QT Int : 440 ms P-R-T Axes : 044 -25 -08 degrees QTc Int : 453 ms Normal sinus rhythm Inferior infarct (cited on or before 18-FEB-2008) Abnormal ECG When compared with ECG of 29-JUN-2020 10:53, No significant change was found Confirmed by Timothy Cedeno ([id number]) on 06/30/2020 3:50:11 PM Referred By: REFERRED SELF Confirmed By:Timothy Cedeno
[2020-06-30] MEDS: ENOXAPARIN INJ 40 MG/0.4 ML SYR SQ SCH (16:24)
[2020-06-30] MEDS: POTASSIUM CHLORIDE CRTAB 20 MEQ TABCR PO SCH (21:19)
[2020-07-01 06:02] LABS: Hematocrit (blood only) 39.3 % (42-52); Mean Corpuscular Hemoglobin 32.3 pg (25-34); Mean Corpuscular Hgb Conc 35.6 g/dL (32-36); Mean Corpuscular Volume 90.8 fL (80-100); Mean Platelet Volume 10.5 fL (7.4-10.4); Platelet Count 229 K/uL (130-400); RDW Coefficient of Variation 12.8 % (11.5-14.5); Red Blood Count 4.33 M/uL (4.7-6.1); White Blood Count 11.29 K/uL (4.8-10.8)
[2020-07-01 06:36] LABS: Albumin Level 2.3 gm/dl (3.4-5.0); BUN Creatinine Ratio 17.6 (10-20); Calcium 7.9 mg/dl (8.5-10.1); Creatinine Clr Calc Pharmacy 110.1 ml/min; Est GFR (African American) 119.9; Est GFR (Non-African American) 103.5; Potassium 3.3 mmol/L (3.5-5.1)
[2020-07-01 06:39] LABS: Albumin Globulin Ratio 0.6 (0.9-2); Bilirubin,Total 1.3 mg/dl (0.2-1); Globulin 3.7 gm/dl (2.5-4.0)
[2020-07-01] MEDS: PANTOprazole 40 MG TAB PO SCH (08:26)
[2020-07-01] MEDS: carvediloL 12.5 MG TAB PO SCH (08:26)
[2020-07-01] MEDS: ASPIRIN 81 MG ECTAB PO SCH (08:26)
[2020-07-01] MEDS: POTASSIUM CHLORIDE CRTAB 20 MEQ TABCR PO SCH (08:26)
--- NOTE | 2020-07-01 18:42 | Discharge Summary ---
Date of Service July 01, 2020 Admission HPI Per Admitting Provider 64yo male - well known to me from his recent hospital stay for acute pancreatitis (uncertain etiology) - along with CAD & HTN who presents from home due to ongoing and worsening central abdominal pain. During previous stay he received customary care for his pancreatitis including IV fluids, pain meds, etc. LFTs had been high and improved during the stay. Lipase improved nicely as well. His abdominal pain improved and he was resumed on a diet. He was discharged to home Saturday afternoon "feeling really good." Plan was for outpatient EUS at [facility]. Saturday evening his abdominal pain returned. Initially mild, then progressively worsened, and is now constant/severe. It radiates to his low back. No nausea/emesis. He has very little appetite. Able to take some clears last pm only. Passing little flatus and had a tiny stool since hospital discharge. Denies chest pain or dyspnea. Had subjective fever last night but no chills. No cough. Principal Diagnosis abdominal pain resolved, likely from constipation persistent pancreatic inflammation seen on imaging Discharge Exam The patient appeared well nourished and normally developed. Vital signs as documented. Head exam is normocephalic atraumatic no scleral icterus Neck is without JVD, thyromegaly, or carotid bruits. Lungs are clear to auscultation, no focal loss of breath sounds Cardiac exam, Rhythm is regular.. No murmurs, rubs or gallops. Abdominal exam reveals normal bowel sounds, soft non tender, no masses Extremities are nonedematous and both pedal pulses are present Neurologic exam is alert and oriented, no focal loss of strength or sensation Skin is without bruises or rashes Psychologically is without concerns for anxiety or depression Discharge Data Allergies Allergy/AdvReac Type Severity Reaction Status Date / Time bee venom protein (honey bee) Allergy Intermediate EXTREME Verified 06/29/20 11:48 SWELLING enalapril Allergy Intermediate COUGH Verified 06/29/20 11:48 morphine Allergy Intermediate GI SYMPTOMS Verified 06/29/20 11:48 Consultations 06/29/20 11:02 ED Decision to Admit Stat Ordered Studies 06/29/20 09:42 CT abd pelvis IV con only Stat Hospital Course (1) Acute pancreatitis: Recently admitted to the hospital for the same diagnosis. Completely resolved with bowel movements Peak lipase was about 50,000 lipase now normal. Etiology was uncertain - had LFT abnormalities in an obstructive pattern but MRCP was negative for choledocholithiasis. Can't rule out that he had passed a small, retained gallstone. He is s/p cholecystectomy in the past. No alcohol use. Triglycerides wnl. Calcium wnl. COVID negative, and no other symptoms to suggest viral infection. He has a duodenal lipoma and there is a question of whether this could be contributing to pancreatitis. I personally spoke to [facility] gastroenterology and they do feel they will follow-up with his possible duodenal lipoma but do not recommend any further inpatient evaluation. All the patient's symptoms resolved the 3 of 2 large bowel movements he is no additional pain or problems he was given food and his labs are checked 1 day afterwards without evidence elevation of LFTs or lipase. Subsequently he was discharged home on a bowel regiment Although lipase is normal his CT abd/pelvis shows radiographic worsening of his pancreatitis. Fortunately no necrosis or pseudocyst seen. (2) Hypokalemia: Patient received oral supplementation as an inpatient (3) Lipoma of small intestine: Duodenal lipoma. Plan - Outpatient EUS by [facility]. There has been some discussion about endoscopic removal in the future. (4) Elevated troponin: Will trend. Likely demand ischemia continue aspirin statin and beta- jerrod No symptoms to suggest ACS. Most likely myocardial demand ischemia in setting of his acute pancreatitis. (5) BPH w urinary obs/LUTS: No LUTs at this time. (6) HTN (hypertension): Improved with bowel movement continue Coreg (7) COPD, mild: No symptoms of exacerbation at this time. (8) Dyslipidemia: Hold statin. (9) Depression: no issues at this time. (10) CAD (coronary artery disease): continue coreg, aspirin. hold statin. (11) GERD (gastroesophageal reflux disease): cont PPI bid. Total Time Total Time Spent Total Time Spent (In Minutes): It required greater than 30 minutes to prepare this patient for discharge Discharge Plan Discharge Items Patient Disposition: Home - Self-Care Reason For Visit: ACUTE PANCREATITIS, HYPOKALEMIA,DEHYDRATION Discharge Diagnosis: abdominal pain hypokalemia pancreatic inflammation on CT scan of abdomen Activity: Resume your previous activity Non-emergency contact: Primary Care Provider Call non-emergency contact if: you have any medication questions and your symptoms worsen Follow-up/Referrals: Faustino Rashid CRNP [Primary Care Provider] - 07/06/20 9:40 am (You have an appt with Patrick Hernandez on July 06 at 0940am. Please arrive 15 minutes prior to your appt time. It is important that you keep your appt. If for any reason this appt does not fit your schedule please call [phone] to reschedule. ) Diet: Low Fiber Addtl Attending Provider Instructions: please hydrate and eat healthy, consider using over the counter senna containing laxative please follow up with your primary care next week Pending Studies at Discharge: No Stand-Alone Forms: My [facility], Smoking Cessation Medications and DC Order Prescriptions: New sennosides [Senna Lax] 8.6 mg tablet 17.2 mg PO DAILY PRN (Reason: constipation) Qty: 60 RF: 0 Continued carvedilol 3.125 mg tablet 6.25 mg PO BID RF: 0 pantoprazole 40 mg tablet,delayed release (DR/EC) 40 mg PO BID RF: 0 atorvastatin 80 mg Tablet 80 mg PO QAM RF: 0 aspirin 81 mg Tablet,Delayed Release (Dr/Ec) 81 mg PO QAM RF: 0 nitroglycerin [Nitrostat] 0.4 mg Tablet, Sublingual 0.4 mg sublingual UD RF: 0 Discharge Orders: Discharge Order (Routine); Ordered 07/01/20 Ordered By: Quan Burgos Admission Data Admit Date/Time: 06/29/20 12:31 Attending Provider: Quan Burgos Admit Provider: Kai Mitchell Primary Care Provider: Faustino Rashid Other Providers: Kai Mitchell Coding Level of Care Code D/C Day Management >30 mins Diagnoses Acute pancreatitis K85.81 Acute pancreatitis complication: uninfected necrosis Pancreatitis type: other Hypokalemia E87.6 Lipoma of small intestine D17.5 Elevated troponin R77.8 BPH w urinary obs/LUTS N40.1; N13.8 HTN (hypertension) I10 COPD, mild J44.9 Dyslipidemia E78.5 Depression F32.9 CAD (coronary artery disease) I25.10 GERD (gastroesophageal reflux disease) K21.9
== END 2020-07-01 15:00 | disposition home or self-care (01) ==
LOC: 2N 09:24 → ED 09:24 → SUATTDRO 12:31 → 2N 14:01

== ENCOUNTER 2023-09-21 21:11 | Inpatient (IN) ==
--- OUTSIDE RECORDS SUMMARY | 2023-09-21 21:18 | External Medical Summary | Summary of Care ---
Author Name Unknown Organization [facility] Address [address] [place] [address] Phone [phone] Care Team Providers Care Public Service Representative Name Role Phone Zuleyka Benz DO Primary Care Provider Reason for Visit * Reason Onset Date Comments Appointment 07/31/2023 Colonoscopy Encounter Details Date Type Department Care Team (Late st Contact Info) Description 07/31/[address] [place] [address] Zuleyka Benz [address] [place] [id number] Appointment (Colonoscopy ) Allergies Active Allergy Reactions Criticality Noted Date Comments Bee Venom Edema Other High 08/09/2020 Enalapril Cough 02/20/2011 Morphine And Codeine Nausea/vomiting High 07/29/2009 documented as of this encounter (statuses as of 08/27/2023) Medications Medication Sig Dispensed Refills Start Date End Date Status aspirin 81 MG chewable tabletIndication s:Old myocardial infarct,Atherosc lerotic heart disease of [place]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 angina pectoris (HCC) Take 1 Tablet by mouth in the morning. 60 Tab 6 05/02/2017 Active B-12 1000 MCG Oral Capsule Take 1 Capsule by mouth in the morning. Active Loratadine 10 MG Oral Tablet (Claritin)Indica tions:Flu-like symptoms,Nasal sinus congestion,Non-r ecurrent acute serous otitis media of both ears TAKE 1 TABLET BY MOUTH EVERY DAY IN THE MORNING 30 Tablet 05/31/2022 Active hydrOXYzine HCl 50 MG Oral TabletIndication s:Fear of flying Take 1 tablet 30 minutes before flying if needed for anxiety. 20 Tablet 11/20/2022 Active Clotrimazole-Bet amethasone 1-0.05 % External Cream Apply to affected area twice daily. 45 g 6 04/29/2023 Active Ciclopirox 8 % External Solution Apply over nail and surrounding skin. Apply daily over previous coat. After seven (7) days, may remove with alcohol and continue cycle. 6.6 mL 3 05/30/2023 Active Atorvastatin Calcium 80 MG Oral Tablet (Lipitor)Indicat ions:Coronary artery disease involving [place] coronary artery of [place] heart without angina pectoris,HTN, goal below 140/90,Dyslipide ze, goal LDL below 70,Coronary artery disease involving [place] heart without angina pectoris, unspecified vessel or lesion type,Asymptomati c bilateral carotid artery stenosis Take 1 Tablet by mouth every afternoon. 90 Tablet 3 06/28/2023 Active Furosemide 20 MG Oral Tablet (Lasix)Indicatio ns:Coronary artery disease involving [place] coronary artery of [place] heart without angina pectoris,HTN, goal below 140/90,Dyslipide ze, goal LDL below 70,Coronary artery disease involving [place] heart without angina pectoris, unspecified vessel or lesion type,Asymptomati c bilateral carotid artery stenosis Only as needed 90 Tablet 3 06/28/2023 Active hydroCHLOROthiaz daniel 25 MG Oral Tablet (Hydrodiuril)Ind ications:Coronar y artery disease involving [place] coronary artery of [place] heart without angina pectoris,HTN, goal below 140/90,Dyslipide ze, goal LDL below 70,Coronary artery disease involving [place] heart without angina pectoris, unspecified vessel or lesion type,Asymptomati c bilateral carotid artery stenosis Take 1 Tablet by mouth in the morning. 90 Tablet 3 06/28/2023 Active Isosorbide Mononitrate ER 60 MG Oral Tablet Extended Release 24 Hour (Imdur)Indicatio ns:Coronary artery disease involving [place] coronary artery of [place] heart without angina pectoris,HTN, goal below 140/90,Dyslipide ze, goal LDL below 70,Coronary artery disease involving [place] heart without angina pectoris, unspecified vessel or lesion type,Asymptomati c bilateral carotid artery stenosis TAKE 1 TABLET BY MOUTH EVERY DAY IN THE MORNING 90 Tablet 3 06/28/2023 Active Losartan Potassium 50 MG Oral Tablet (Cozaar)Indicati ons:Coronary artery disease involving [place] coronary artery of [place] heart without angina pectoris,HTN, goal below 140/90,Dyslipide ze, goal LDL below 70,Coronary artery disease involving [place] heart without angina pectoris, unspecified vessel or lesion type,Asymptomati c bilateral carotid artery stenosis Take 1 Tablet by mouth in the morning and 1 Tablet before bedtime. 90 Tablet 1 06/28/2023 Active amLODIPine Besylate 10 MG Oral Tablet (Norvasc)Indicat ions:Coronary artery disease involving [place] coronary artery of [place] heart without angina pectoris,HTN, goal below 140/90,Dyslipide ze, goal LDL below 70,Coronary artery disease involving [place] heart without angina pectoris, unspecified vessel or lesion type,Asymptomati c bilateral carotid artery stenosis Take 1 Tablet by mouth in the morning. 100 Tablet 3 07/15/2023 Active Ezetimibe 10 MG Oral Tablet (Zetia)Indicatio ns:Coronary artery disease involving [place] coronary artery of [place] heart without angina pectoris,Dyslipi demia, goal LDL below 70,Asymptomatic bilateral carotid artery stenosis Take 1 Tablet by mouth in the morning. 100 Tablet 3 07/15/2023 Active Nitroglycerin 0.4 MG Sublingual Tablet Sublingual (Nitrostat)Indic ations:HTN, goal below 140/90,Coronary artery disease involving [place] heart without angina pectoris, unspecified vessel or lesion type,Dyslipidemi a, goal LDL below [address] Place 1 Tablet under the tongue as needed for Pain, Chest. May repeat 3 times. If chest pain continues, call 911. 25 Tablet 1 07/31/2023 Active Carvedilol 12.5 MG Oral Tablet (Coreg)Indicatio ns:Coronary artery disease involving [place] coronary artery of [place] heart without angina pectoris,HTN, goal below 140/90,Dyslipide ze, goal LDL below 70,Coronary artery disease involving [place] heart without angina pectoris, unspecified vessel or lesion type,Asymptomati c bilateral carotid artery stenosis Take by mouth 1/2 tablet 2 times per day with morning and evening meals 90 Tablet 3 06/28/2023 4 Discontinued Akofvsj-Rvaegy-M cell Pertussis 5-2.5-18.5 LF-MCG/0.5 Suspension Prefilled Syringe (Boostrix) Inject 0.5 mL into a large muscle once for 1 dose. As directed 0.5 mL 07/31/2023 Hospital, Clinic, or Other Facility Administered Medication Ordered Dose Route Frequency Start Date End Date Status albuterol (PROVENTIL HFA) inhaler 4 PuffIndications:COPD, mild (HCC) 4 Puff IN Q4H PRN 08/07/2017 Active documented as of this encounter (statuses as of 08/27/2023) Active Problems Problem Noted Date Diagnosed Date PSVT (paroxysmal supraventricular tachycardia) 0 04/17/2022 Premature atrial contractions 12/22/2021 ASCVD (arteriosclerotic cardiovascular disease) 12/22/2021 BPH with obstruction/lower urinary tract symptom s 10/25/2021 Supraumbilical hernia withou t gangrene and without obstruction 07/05/2021 Overview: fat containing Gastroesophageal reflux dise ase with esophagitis without hemorrhage 06/07/2021 Atherosclerotic heart diseas e of [place]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 angina pectoris 09/06/2016 Thoracic aortic ectasia 09/06/2016 S/P CABG x 3 08/06/2016 Dyslipidemia, goal LDL below 70 04/03/2012 HTN, goal below 140/90 05/13/2008 Old myocardial infarct 09/30/2003 COPD, mild documented as of this encounter (statuses as of 08/27/2023) Resolved Problems Problem Noted Date Diagnosed Date Resolved Date Hypertensive kidney disease with chronic kidney disease stage II 07/30/2023 07/31/2023 CKD (chronic kidney disease), stage II 05/11/2021 07/31/2023 Overview: EGFR 71 History of tobacco use 07/08/201810/14 History of colon polyps 07/08/201809/23 Contact dermatitis 07/08/2018 9 Lump in scrotum 08/22/2013 09/06/2016 HTN, goal below 130/80 04/30/201307/30 Major depressive disorder wi th single episode, in full remission 11/24/2009 07/08/2018 Impaired fasting glucose 02/16/2009 PERCUTANEOUS TRANSLUMINAL CO RONARY ANGIOPLASTY STATUS 09/30/2003 10/14/2018 HYPERLIPIDEMIA 02/16/2009 Gastroesophageal reflux dise ase with esophagitis 06/07/2021 Dyslipidemia, goal LDL below 100 04/03/2012 documented as of this encounter (statuses as of 08/27/2023) Immunizations Name Administration Dates Next Due Pneumococcal Polysaccharide PPV23 (Pneumovax) 02/23/2008 Seasonal Influenza, PF, 6 M & above, IM , (FluLaval or Fluzone) 01/23/2018 Seasonal Influenza, Split, I IV3, With Preserve, Inj 02/01/2014,01/25/2012,12/14/2010,12/22,01/17/2009,02/23/2008 TD - Tetanus/Diptheria (ADULT) 02/22/2007 documented as of this encounter Social History Tobacco Use Types Packs/Day Years Used Date Smoking Tobacco: Former Cigarettes 1.5 38 1 03/28/1974 - 01/26/2013 Smokeless Tobacco: Never Alcohol Use Standard Drinks/Week Comments No 0 (1 standard drink = 0.6 oz pur e alcohol) PHQ-2 Answer Date Recorded PHQ-2 Score 0 01/08/2019 Hunger Vital Sign Answer Date Recorded Worried About Running Out of Food in the Last Ye ar Never true 08/18/2020 Ran Out of Food in the Last Year Never true 08/18/2020 Sex and Gender Information Value Date Recorded Sex Assigned at Not on file Gender Identity Not on file Sexual Orientation Not on file Job Start Date Occupation Industry Not on file Not on file Not on file documented as of this encounter Functional Status Functional Status Response Date of Assess ment Are you deaf or do you have serious difficulty h earing? No 05/24/2016 Are you blind or do you have serious difficulty seeing, even when wearing glasses? No 05/24/2016 Do you have serious difficul ty walking or climbing stairs? (5 years old or older) No 05/24/2016 Do you have difficulty dress ing or bathing? (5 years old or older) No 05/24/2016 Because of a physical, menta l, or emotional condition, do you have difficulty doing errands alone such as visiting a doctor s office or shopping? (15 years old or older) No 05/25/19 Cognitive Status Response Date of Assessm ent Because of a physical, menta l, or emotional condition, do you have serious difficulty concentrating, remembering, or making decisions? (5 years old or older) No 05/24/2016 documented as of this encounter Miscellaneous Notes * Telephone Encounter - Rosa Lee OSA - 08/27/2023 2:54 PM EDT Letter Sent. Patient did not return call and schedule. Second message left for patient 1 week ago. 08/27/2023 2:54 PM * Telephone Encounter - Ginger Izaguirre OSA - 08/20/2023 3:39 PM EDT Lmm PHIL Herrera 08/20/2023 3:39 PM * Telephone Encounter - Beba Guerra OSA - 08/05/2023 8:30 AM EDT Lmm for pt. * Telephone Encounter - Elsie Barreto OSA - 07/31/2023 3:42 PM EDT Jeffry mueller scheduled for colonoscopy for: Special screening for malignant neoplasms, colon [Z12.11] documented in this encounter Plan of Treatment Upcoming Encounters Date Type Department Care Team (Late st Contact Info) Description 12/13/2023 8:00 AM EDT Office Visit Cardiology, [facility] [address] [place] [address] Luda Baldwin CRNP [address] [place] [phone] 03/24/2024 8:50 AM EST Office Visit Family [address] [place] [phone] Zuleyka Benz [address] [place] [address] Health Maintenance Due Date Last Done Comments Alpha-1 Antitrypsin 08/01/1973 Cologuard 08/01/2000 Fecal Occult Blood Test 08/01/2000 Sigmoidoscopy 08/01/2000 Zoster Vaccines (1 of 2) 08/01/2005 DTaP,Tdap,and Td Vaccines (1 - Tdap) 02/23/2007 02/22/2007 Colonoscopy 01/13/2009 01/14/2008 Colorectal Cancer Screening 01/13/2009 Depression Screening 01/09/2020 01/08/2019 Pneumococcal Vaccine: 65+ Years (3 of 3 - PPSV23 or PCV20) 08/01/2020 02/23/2008, 06/24/2007 COVID-19 Vaccine (3 - 2022- season) 2022 08/01/2020, 07/29/2020 *NEPHROLOGY REFERRAL DUE TO RESISTANT HTN 07/07/2023 Influenza Vaccine (FLU shot) (Season Ended) 2023 02/12/2021, 01/23/2018, 01/23/2018, Additional history exists GFR 07/04/2024 07/05/2023, 01/24, 04/30/2022, Additional history exists O2 ASSESSMENT COMPLETED IN PAST YEAR FOR COPD 07/30/2024 07/31/2023 Albumin/Creatinine Ratio 07/31/2026 08/01/2023 Diabetes Screening 07/31/2026 08/01/2023, 0 07/05/2023, 02/11/2023, Additional history exists RETIRED - COLONOSCOPY-ANNUAL AGES 18-100 Discontinued 01/14/2008 Lung Cancer Screening Completed 01/08/2018 AAA Screening Completed 08/08/2023 GARDASIL-HPV IMMUNIZATION SERIES Aged Out No longer eligible based on patient's age to complete this topic Hepatitis B Aged Out No longer eligi ble based on patient's age to complete this topic MENINGOCOCCAL (MENACTRA/MENVEO) Aged Out No longer eligible based on patient's age to complete this topic documented as of this encounter Medical Devices Implanted Type Area Graduation Coach Device Identifier Shelf Expiration Date Model / Serial / Lot Delicia Flynn 6 [id number] - [id number] Implanted:Qty: 4 on 05/23/2016 by Vinny Wolf MD at OR [facility] N/A: Sternum JNJ : [employer] 11/22/2020 [id number] / / [id number] Graft Marker Coronary - [id number] Implanted:Qty: 1 on 05/23/2016 by Vinny Wolf MD at OR [facility] N/A: Aorta VM CARDIO VASCULAR 09/21/2017 [id number] / / [id number] Graft Marker Coronary - [id number] Implanted:Qty: 1 on 05/23/2016 by Vinny Wolf MD at OR [facility] N/A: Aorta VM CARDIO VASCULAR 09/21/2017 [id number] / / [id number] Graft Marker Coronary - [id number] Implanted:Qty: 1 on 05/23/2016 by Vinny Wolf MD at OR [facility] N/A: Aorta VM CARDIO VASCULAR 09/21/2017 [id number] / / [id number] Lens Intraoc 22.5 - [id number] - [id number] Implanted:Qty: 1 on 05/03/2022 by Jonny Chong MD at OR [facility] Left: Eye [employer]OM[employer] 02/21/2027 [id number] / [id number] / [id number] Lens Intraoc 22.5 - [id number] - [id number] Implanted:Qty: 1 on 05/10/2022 by Jonny Chong MD at OR [facility] Right: Eye BAUSCH [employer] LOMB 11/22/2026 [id number] / [id number] / [id number] documented as of this encounter Additional Health Concerns Infection Onset Date Last Indicated Resolved Time C. difficile Rule-Out 08/01/2023 08/01/20232023 10:53 PM EDT documented as of this encounter Advance Directives * No Code (Latest Code Status on File) Date Activated Date Inactivated Comments 05/10/2022 8:51 AM 05/10/2022 3:12 PM This order r eflects the patients wishes and were consensually agreed upon. Question Answer Comments Discussion of Advance Directives occurred with: Patient Does the patient have a Living Will? No Does the patient have Health Care Power of Attor nancy? No * No Code Date Activated Date Inactivated Comments 05/03/2022 11:09 AM 05/03/2022 5:34 PM This order re flects the patients wishes and were consensually agreed upon. Question Answer Comments Discussion of Advance Directives occurred with: Patient Does the patient have a Living Will? No Does the patient have Health Care Power of Attor nancy? No * Full Code Date Activated Date Inactivated Comments 05/23/2016 2:01 PM 05/26/2016 6:20 PM This order ref lects the patients wishes and were consensually agreed upon. * Full Code Date Activated Date Inactivated Comments 05/23/2016 2:35 AM 05/23/2016 2:01 PM This order ref lects the patients wishes and were consensually agreed upon. Question Answer Comments Discussion of Advance Directives occurred with: Patient Does the patient have a Living Will? No Does the patient have Health Care Power of Attor nancy? No * Full Code Date Activated Date Inactivated Comments 05/22/2016 8:39 PM 05/23/2016 2:35 AM This order re flects the patients wishes and were consensually agreed upon. Question Answer Comments Discussion of Advance Directives occurred with: Patient Care Teams Public Service Representative Relationship Specialty Start Date End Date Zuleyka Benz DO [address] [place] [address] [place] [id number] PCP - General Internal Medicine 07/08/18 documented as of this encounter
--- OUTSIDE RECORDS SUMMARY | 2023-09-21 21:18 | External Medical Summary | Summary of Care ---
Author Name Unknown Organization [facility] Address [address] [facility] [place] [address] Phone [phone] Care Team Providers Care Area Counselor Name Role Phone Zuleyka Benz DO Primary Care Provider Reason for Visit * Reason Onset Date Comments Appointment 07/31/2023 Colonoscopy Encounter Details Date Type Department Care Team (Late st Contact Info) Description 07/31/[address] [phone] Zuleyka Benz [address] [place] [address] Appointment (Colonoscopy ) Allergies Active Allergy Reactions Criticality Noted Date Comments Bee Venom Edema Other High 08/09/2020 Enalapril Cough 02/20/2011 Morphine And Related Nausea/vomiting High 07/29/2009 documented as of this encounter (statuses as of 08/20/2023) Medications Medication Sig Dispensed Refills Start Date End Date Status aspirin 81 MG chewable tabletIndication s:Old myocardial infarct,Atherosc lerotic heart disease of [place]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 angina [...] Oral Tablet (Lipitor)Indicat ions:Coronary artery disease involving [place] coronary artery of [place] heart without angina pectoris,HTN, goal below 140/90,Dyslipide ze, goal LDL below 70,Coronary artery disease involving [place] heart without angina pectoris, unspecified vessel or lesion type,Asymptomati c bilateral carotid artery stenosis Take 1 Tablet by mouth every afternoon. 90 Tablet 3 06/28/2023 Active Furosemide 20 MG Oral Tablet (Lasix)Indicatio ns:Coronary artery disease involving [place] coronary artery of [place] heart without angina pectoris,HTN, goal below 140/90,Dyslipide ze, goal LDL below 70,Coronary artery disease involving [place] heart without angina pectoris, unspecified vessel or lesion type,Asymptomati c bilateral carotid artery stenosis Only as needed 90 Tablet 3 06/28/2023 Active hydroCHLOROthiaz daniel 25 MG Oral Tablet (Hydrodiuril)Ind ications:Coronar y artery disease involving [place] coronary artery of [place] heart without angina pectoris,HTN, goal below 140/90,Dyslipide ze, goal LDL below 70,Coronary artery disease involving [place] heart without angina pectoris, unspecified vessel or lesion type,Asymptomati c bilateral carotid artery stenosis Take 1 Tablet by mouth in the morning. 90 Tablet 3 06/28/2023 Active Isosorbide Mononitrate ER 60 MG Oral Tablet Extended Release 24 Hour (Imdur)Indicatio ns:Coronary artery disease involving [place] coronary artery of [place] heart without angina pectoris,HTN, goal below 140/90,Dyslipide ze, goal LDL below 70,Coronary artery disease involving [place] heart without angina pectoris, unspecified vessel or lesion type,Asymptomati c bilateral carotid artery stenosis TAKE 1 TABLET BY MOUTH EVERY DAY IN THE MORNING 90 Tablet 3 06/28/2023 Active Losartan Potassium 50 MG Oral Tablet (Cozaar)Indicati ons:Coronary artery disease involving [place] coronary artery of [place] heart without angina pectoris,HTN, goal below 140/90,Dyslipide ze, goal LDL below 70,Coronary artery disease involving [place] heart without angina pectoris, unspecified vessel or lesion type,Asymptomati c bilateral carotid artery stenosis Take 1 Tablet by mouth in the morning and 1 Tablet before bedtime. 90 Tablet 1 06/28/2023 Active amLODIPine Besylate 10 MG Oral Tablet (Norvasc)Indicat ions:Coronary artery disease involving [place] coronary artery of [place] heart without angina pectoris,HTN, goal below 140/90,Dyslipide ze, goal LDL below 70,Coronary artery disease involving [place] heart without angina pectoris, unspecified vessel or lesion type,Asymptomati c bilateral carotid artery stenosis Take 1 Tablet by mouth in the morning. 100 Tablet 3 07/15/2023 Active Ezetimibe 10 MG Oral Tablet (Zetia)Indicatio ns:Coronary artery disease involving [place] coronary artery of [place] heart without angina pectoris,Dyslipi demia, goal LDL below 70,Asymptomatic bilateral carotid artery stenosis Take 1 Tablet by mouth in the morning. 100 Tablet 3 07/15/2023 Active Nitroglycerin 0.4 MG Sublingual Tablet Sublingual (Nitrostat)Indic ations:HTN, goal below 140/90,Coronary artery disease involving [place] heart without angina pectoris, unspecified vessel or lesion type,Dyslipidemi a, goal LDL below [address] Place 1 Tablet under the tongue as needed for Pain, Chest. May repeat 3 times. If chest pain continues, call 911. 25 Tablet 1 07/31/2023 Active Carvedilol 12.5 MG Oral Tablet (Coreg)Indicatio ns:Coronary artery disease involving [place] coronary artery of [place] heart without angina pectoris,HTN, goal below 140/90,Dyslipide ze, goal LDL below 70,Coronary artery disease involving [place] heart without angina pectoris, unspecified vessel or lesion type,Asymptomati c bilateral carotid artery stenosis Take by mouth 1/2 tablet 2 times per day with morning and evening meals 90 Tablet 3 06/28/2023 4 Discontinued Fclzhsi-Gxkvpd-P cell Pertussis 5-2.5-18.5 LF-MCG/0.5 Suspension Prefilled Syringe (Boostrix) Inject 0.5 mL into a large muscle once for 1 dose. As directed 0.5 mL 07/31/2023 Hospital, Clinic, or Other Facility Administered Medication Ordered Dose Route Frequency Start Date End Date Status albuterol (PROVENTIL HFA) inhaler 4 PuffIndications:COPD, mild (HCC) 4 Puff IN Q4H PRN 08/07/2017 Active documented as of this encounter (statuses as of 08/20/2023) Active Problems Problem Noted Date Diagnosed Date PSVT (paroxysmal supraventricular tachycardia) 0 04/17/2022 Premature atrial contractions 12/22/2021 ASCVD (arteriosclerotic cardiovascular disease) 12/22/2021 BPH with obstruction/lower urinary tract symptom s 10/25/2021 Supraumbilical hernia withou t gangrene and without obstruction 07/05/2021 Overview: fat containing Gastroesophageal reflux dise ase with esophagitis without hemorrhage 06/07/2021 Atherosclerotic heart diseas e of [place]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 angina pectoris 09/06/2016 Thoracic aortic ectasia 09/06/2016 S/P CABG x 3 08/06/2016 Dyslipidemia, goal LDL below 70 04/03/2012 HTN, goal below 140/90 05/13/2008 Old myocardial infarct 09/30/2003 COPD, mild documented as of this encounter (statuses as of 08/20/2023) Resolved Problems Problem Noted Date Diagnosed Date [...] as of this encounter (statuses as of 08/20/2023) Immunizations Name Administration Dates Next Due Pneumococcal [...] encounter Miscellaneous Notes * Telephone Encounter - Ginger Izaguirre OSA [...] 8:00 AM EDT Office Visit Cardiology, [facility] [address] [facility] [place] [address] Luda Baldwin CRNP [address] [place] [address] 03/24/2024 8:50 AM EST Office Visit Family Medicine [address] [place] [phone] Zuleyka Benz [address] [place] [address] Health Maintenance Due Date Last Done Comments Alpha-1 Antitrypsin 08/01/1973 Cologuard 08/01/2000 Fecal Occult Blood Test 08/01/2000 Sigmoidoscopy 08/01/2000 Zoster Vaccines (1 of 2) 08/01/2005 DTaP,Tdap,and Td Vaccines (1 - Tdap) 02/23/2007 02/22/2007 Colonoscopy 01/13/2009 01/14/2008 Colorectal Cancer Screening 01/13/2009 Depression Screening 01/09/2020 01/08/2019 Pneumococcal Vaccine: 65+ Years (3 of 3 - PPSV23 or PCV20) 08/01/2020 02/23/2008, 06/24/2007 COVID-19 Vaccine (3 - season) 2022 08/01/2020, 07/29/2020 *NEPHROLOGY REFERRAL DUE [...] this encounter Medical Devices Implanted Type Area Assistant Plant Manager Device Identifier Shelf Expiration Date Model / Serial / Lot Sut Steel 6 [id number] - [id number] Implanted:Qty: 4 on 05/23/2016 by Vinny Wolf MD at [place] [facility] [place] N/A: Sternum JNJ : [employer] 11/22/2020 [id number] / / [id number] Graft Marker Coronary - [id number] Implanted:Qty: 1 on 05/23/2016 by Vinny Wolf MD at [place] [facility] [place] N/A: Aorta VM CARDIO VASCULAR 09/21/2017 [id number] / / [id number] Graft Marker Coronary - [id number] Implanted:Qty: 1 on 05/23/2016 by Vinny Wolf MD at OR [facility] [place] N/A: Aorta VM CARDIO VASCULAR 09/21/2017 [id number] / / [id number] Graft Marker Coronary - [id number] Implanted:Qty: 1 on 05/23/2016 by Vinny Wolf MD at OR [facility] [place] N/A: Aorta VM CARDIO VASCULAR 09/21/2017 [id number] / / [id number] Lens Intraoc 22.5 - [id number] - [id number] Implanted:Qty: 1 on 05/03/2022 by Jonny Chong MD at OR [facility] Left: Eye [employer] 02/21/2027 [id number] / [id number] / [id number] Lens Intraoc 22.5 - [id number] - [id number] Implanted:Qty: 1 on 05/10/2022 by Jonny Chong MD at OR [facility] Right: Eye [employer] 11/22/2026 [id number] / [id number] / [id number] documented as of this encounter Additional Health [...] Advance Directives occurred with: Patient Care Teams Area Counselor Relationship Specialty Start Date End Date Zuleyka Benz DO [address] [place] [address] [place] [address] PCP - General Internal Medicine 07/08/18 documented as of this encounter
--- OUTSIDE RECORDS SUMMARY | 2023-09-21 21:18 | External Medical Summary | Summary of Care ---
Author Name Unknown Organization [facility] Address [address] [facility] [place] [address] Phone [phone] Care Team Providers Care Supervisor Insulation Name Role Phone Zuleyka Benz DO Primary Care Provider Encounter Details Date Type Department Care Team (Late st Contact Info) Description 08/08/2023 8:15 AM EDT Imaging Radiology [address] [place] [address] Screening for AAA (abdominal aortic aneurysm) Allergies Active Allergy Reactions Criticality Noted Date Comments Bee Venom Edema Other High 08/09/2020 Enalapril Cough 02/20/2011 Morphine And Related Nausea/vomiting High 07/29/2009 documented as of this encounter (statuses as of 08/12/2023) Medications Medication Sig Dispensed Refills Start Date End Date Status aspirin 81 MG chewable tabletIndications:O ld myocardial infarct,Atheroscler otic heart disease of [place]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 angina pectoris (HCC) Take 1 Tablet by mouth in the morning. 60 Tab 6 05/02/2017 Active B-12 1000 MCG Oral Capsule Take 1 Capsule by mouth in the morning. Active Loratadine 10 MG Oral Tablet (Claritin)Indicatio ns:Flu-like symptoms,Nasal sinus congestion,Non-recu rrent acute serous otitis media of both ears TAKE 1 TABLET BY MOUTH EVERY DAY IN THE MORNING 30 Tablet 05/31/2022 Active hydrOXYzine HCl 50 MG Oral TabletIndications:F ear of flying Take 1 tablet 30 minutes before flying if needed for anxiety. 20 Tablet 11/20/2022 Active Clotrimazole-Betame thasone 1-0.05 % External Cream Apply to affected area twice daily. 45 g 6 04/29/2023 Active Ciclopirox 8 % External Solution Apply over nail and surrounding skin. Apply daily over previous coat. After seven (7) days, may remove with alcohol and continue cycle. 6.6 mL 3 05/30/2023 Active Atorvastatin Calcium 80 MG Oral Tablet (Lipitor)Indication s:Coronary artery disease involving [place] coronary artery of [place] heart without angina pectoris,HTN, goal below 140/90,Dyslipidemia , goal LDL below 70,Coronary artery disease involving [place] heart without angina pectoris, unspecified vessel or lesion type,Asymptomatic bilateral carotid artery stenosis Take 1 Tablet by mouth every afternoon. 90 Tablet 3 06/28/2023 Active Furosemide 20 MG Oral Tablet (Lasix)Indications: Coronary artery disease involving [place] coronary artery of [place] heart without angina pectoris,HTN, goal below 140/90,Dyslipidemia , goal LDL below 70,Coronary artery disease involving [place] heart without angina pectoris, unspecified vessel or lesion type,Asymptomatic bilateral carotid artery stenosis Only as needed 90 Tablet 3 06/28/2023 Active hydroCHLOROthiazide 25 MG Oral Tablet (Hydrodiuril)Indica tions:Coronary artery disease involving [place] coronary artery of [place] heart without angina pectoris,HTN, goal below 140/90,Dyslipidemia , goal LDL below 70,Coronary artery disease involving [place] heart without angina pectoris, unspecified vessel or lesion type,Asymptomatic bilateral carotid artery stenosis Take 1 Tablet by mouth in the morning. 90 Tablet 3 06/28/2023 Active Isosorbide Mononitrate ER 60 MG Oral Tablet Extended Release 24 Hour (Imdur)Indications: Coronary artery disease involving [place] coronary artery of [place] heart without angina pectoris,HTN, goal below 140/90,Dyslipidemia , goal LDL below 70,Coronary artery disease involving [place] heart without angina pectoris, unspecified vessel or lesion type,Asymptomatic bilateral carotid artery stenosis TAKE 1 TABLET BY MOUTH EVERY DAY IN THE MORNING 90 Tablet 3 06/28/2023 Active Losartan Potassium 50 MG Oral Tablet (Cozaar)Indications :Coronary artery disease involving [place] coronary artery of [place] heart without angina pectoris,HTN, goal below 140/90,Dyslipidemia , goal LDL below 70,Coronary artery disease involving [place] heart without angina pectoris, unspecified vessel or lesion type,Asymptomatic bilateral carotid artery stenosis Take 1 Tablet by mouth in the morning and 1 Tablet before bedtime. 90 Tablet 1 06/28/2023 Active amLODIPine Besylate 10 MG Oral Tablet (Norvasc)Indication s:Coronary artery disease involving [place] coronary artery of [place] heart without angina pectoris,HTN, goal below 140/90,Dyslipidemia , goal LDL below 70,Coronary artery disease involving [place] heart without angina pectoris, unspecified vessel or lesion type,Asymptomatic bilateral carotid artery stenosis Take 1 Tablet by mouth in the morning. 100 Tablet 3 07/15/2023 Active Ezetimibe 10 MG Oral Tablet (Zetia)Indications: Coronary artery disease involving [place] coronary artery of [place] heart without angina pectoris,Dyslipidem ia, goal LDL below 70,Asymptomatic bilateral carotid artery stenosis Take 1 Tablet by mouth in the morning. 100 Tablet 3 07/15/2023 Active Nitroglycerin 0.4 MG Sublingual Tablet Sublingual (Nitrostat)Indicati ons:HTN, goal below 140/90,Coronary artery disease involving [place] heart without angina pectoris, unspecified vessel or lesion type,Dyslipidemia, goal LDL below 70 Place 1 Tablet under the tongue as needed for Pain, Chest. May repeat 3 times. If chest pain continues, call 911. 25 Tablet 1 07/31/2023 Active Carvedilol 12.5 MG Oral Tablet (Coreg)Indications: Coronary artery disease involving [place] coronary artery of [place] heart without angina pectoris,HTN, goal below 140/90,Dyslipidemia , goal LDL below 70,Coronary artery disease involving [place] heart without angina pectoris, unspecified vessel or lesion type,Asymptomatic bilateral carotid artery stenosis TAKE 1/2 TABLET BY MOUTH 2 TIMES PER DAY WITH MORNING AND EVENING MEALS 90 Tablet 3 08/05/2023 Active Hospital, Clinic, or Other Facility Administered Medication Ordered Dose Route Frequency Start Date End Date Status albuterol (PROVENTIL HFA) inhaler 4 PuffIndications:COPD, mild (HCC) 4 Puff IN Q4H PRN 08/07/2017 Active documented as of this encounter (statuses as of 08/12/2023) Active Problems Problem Noted Date Diagnosed Date PSVT (paroxysmal supraventricular tachycardia) 0 04/17/2022 Premature atrial contractions 12/22/2021 ASCVD (arteriosclerotic cardiovascular disease) 12/22/2021 BPH with obstruction/lower urinary tract symptom s 10/25/2021 Supraumbilical hernia withou t gangrene and without obstruction 07/05/2021 Overview: fat containing Gastroesophageal reflux dise ase with esophagitis without hemorrhage 06/07/2021 Atherosclerotic heart diseas e of [place]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 angina pectoris 09/06/2016 Thoracic aortic ectasia 09/06/2016 S/P CABG x 3 08/06/2016 Dyslipidemia, goal LDL below 70 04/03/2012 HTN, goal below 140/90 05/13/2008 Old myocardial infarct 09/30/2003 COPD, mild documented as of this encounter (statuses as of 08/12/2023) Resolved Problems Problem Noted Date Diagnosed Date [...] as of this encounter (statuses as of 08/12/2023) Immunizations Name Administration Dates Next Due Pneumococcal [...] (15 years old or older) No 05/25/19 17 Cognitive Status Response Date of Assessm ent Because of a physical, menta l, or emotional condition, do you have serious difficulty concentrating, remembering, or making decisions? (5 years old or older) No 05/24/2016 documented as of this encounter Plan of Treatment Upcoming Encounters Date Type Department Care Team (Late st Contact Info) Description 12/13/2023 8:00 AM EDT Office Visit Cardiology, [facility] [address] [place] [address] Luda Baldwin CRNP [address] [address] 03/24/2024 8:50 AM EST Office Visit Family Medicine [address] [place] [phone] Zuleyka Benz [address] [place] [address] Health Maintenance Due Date Last Done Comments [...] this encounter Medical Devices Implanted Type Area Hand Shoes Sewer Device Identifier Shelf Expiration Date Model / Serial / Lot Sut Gee 6 M654g - [id number] Implanted:Qty: 4 on 05/23/2016 by Vinny Wolf MD at OR [facility] [place] N/A: Sternum JNJ : [employer] 11/22/2020 [id number] / / [id number] Graft Marker Coronary - [id number] Implanted:Qty: 1 on 05/23/2016 by Vinny Wolf MD at OR [facility] [place] N/A: Aorta VM CARDIO VASCULAR 09/21/2017 [id number] / / [id number] Graft Marker Coronary - [id number] Implanted:Qty: 1 on 05/23/2016 by Vinny Wolf MD at OR [facility] [place] N/A: Aorta VM CARDIO VASCULAR 09/21/2017 [id number] / / [id number] Graft Marker Coronary - [id number] Implanted:Qty: 1 on 05/23/2016 by Vinny Wolf MD at OR [facility] [place] N/A: Aorta VM CARDIO VASCULAR 09/21/2017 [id number] / / [id number] Lens Intraoc 22.5 - [id number] - [id number] Implanted:Qty: 1 on 05/03/2022 by Jonny Chong MD at OR [facility] Left: Eye [employer]OM[employer] 02/21/2027 [id number] / [id number] / [id number] Lens Intraoc 22.5 - [id number] - [id number] Implanted:Qty: 1 on 05/10/2022 by Jonny Chong MD at OR [facility] Right: Eye [employer]OMB 11/22/2026 [id number] / [id number] / [id number] documented as of this encounter Procedures Procedure Name Priority Date/Time Associated Diagnosis Comments US AORTA Routine 08/08/2023 9:36 AM EDT Screening for AAA (abdominal aortic aneurysm) documented in this encounter Results * US AORTA (08/08/2023 9:36 AM EDT) Anatomical Region Laterality Modality Abdomen Ultrasound 08/09/2023 5:15 AM EDT Impressions 08/09/2023 5:12 AM EDT IMPRESSION No abdominal aortic aneurysm Narrative 08/09/2023 5:12 AM EDT EXAM US AORTA - 08/08/2023 9:36 am HISTORY AAA screening TECHNIQUE Sonogram of the abdominal aorta. COMPARISON None. FINDINGS Aorta measures as follows : Proximal: 2.4 cm x 2.6 cm. Mid: 2.0 cm x 2.0 cm. Distal: 2.8 cm x 2.5 cm. Right common iliac: 1.1 cm x 1.2 cm. Left common iliac: 1.3 cm x 1.1 cm. Atherosclerotic changes. Procedure Note Mauro Austin MD - 08/09/2023 EXAM US AORTA - 08/08/2023 9:36 am HISTORY AAA screening TECHNIQUE Sonogram of the abdominal aorta. COMPARISON None. FINDINGS Aorta measures as follows : Proximal: 2.4 cm x 2.6 cm. Mid: 2.0 cm x 2.0 cm. Distal: 2.8 cm x 2.5 cm. Right common iliac: 1.1 cm x 1.2 cm. Left common iliac: 1.3 cm x 1.1 cm. Atherosclerotic changes. IMPRESSION IMPRESSION No abdominal aortic aneurysm Zuleyka Benz DO RAD ULTRASOUND documented in this encounter Visit Diagnoses Diagnosis Screening for AAA (abdominal aortic aneurysm) Screening for other and unspecified cardiovascular conditions documented in this encounter Advance Directives * No Code [...] Advance Directives occurred with: Patient Care Teams Supervisor Insulation Relationship Specialty Start Date End Date Zuleyka Benz DO [address] [place] [address] [place] [phone] PCP - General Internal Medicine 07/08/18 documented as of this encounter
--- OUTSIDE RECORDS SUMMARY | 2023-09-21 21:19 | External Medical Summary ---
Author Name Unknown Address Unknown Organization K01:[facility] - [address] [place] [address] Laboratory Report Ordering Provider Test Date Status MARCELA EVANGELISTA 08/01/2023 11:12:48 Final Observation Date Value Abnormality Reference (Units) Status Source 08/01/2023 11:12:48 Semi-liquid Final Clostridioides difficile toxin and [id number] strain DNA panel - Stool by GENARO with probe detection 08/01/2023 11:12:48 Negative. No C. difficile toxin B gene DNA detected by PCR (Amplified Probe). Negative Final Performing Location [facility] - [address] [place] [address]
--- OUTSIDE RECORDS SUMMARY | 2023-09-21 21:19 | External Medical Summary | Summary of Care ---
Author Name Unknown Organization [facility] Address [address] [facility] [place] [address] Phone [phone] Care Team Providers Care Auxiliary Engineer Name Role Phone Zuleyka Benz DO Primary Care Provider Reason for Visit * Reason Comments Outpatient Testing Encounter Details Date Type Department Care Team (Late st Contact Info) Description 08/01/2023 8:40 AM EDT Laboratory Laboratory [address] [place] [phone] [facility] [address] [place] [address] terminal gauger current use of therapeutic drug; HTN, goal below 140/90; Nocturia; Incomplete bladder emptying; Elevated blood sugar Allergies Active Allergy Reactions Criticality Noted Date Comments Bee Venom Edema Other High 08/09/2020 Enalapril Cough 02/20/2011 Morphine And Related Nausea/vomiting High 07/29/2009 documented as of this encounter (statuses as of 08/01/2023) Medications Medication Sig Dispensed Refills Start Date End Date Status aspirin 81 MG chewable tabletIndications:O ld myocardial infarct,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 60 Tab 6 05/02/2017 Active B-12 1000 MCG Oral Capsule Take 1 Capsule by mouth in the morning. 0 Active Loratadine 10 MG Oral Tablet (Claritin)Indicatio ns:Flu-like symptoms,Nasal sinus congestion,Non-recu rrent acute serous otitis media of both ears TAKE 1 TABLET BY MOUTH EVERY DAY IN THE MORNING 30 Tablet 0 05/31/2022 Active hydrOXYzine HCl 50 MG Oral TabletIndications:F ear of flying Take 1 tablet 30 minutes before flying if needed for anxiety. 20 Tablet 0 11/20/2022 Active Clotrimazole-Betame thasone 1-0.05 % External Cream Apply to affected area twice daily. 45 g 6 04/29/2023 Active Ciclopirox 8 % External Solution Apply over nail and surrounding skin. Apply daily over previous coat. After seven (7) days, may remove with alcohol and continue cycle. 6.6 mL 3 05/30/2023 Active Atorvastatin Calcium 80 MG Oral Tablet (Lipitor)Indication s:Coronary artery disease involving [place] coronary artery of [place] heart without angina pectoris,HTN, goal below 140/90,Dyslipidemia , goal LDL below 70,Coronary artery disease involving [place] heart without angina pectoris, unspecified vessel or lesion type,Asymptomatic bilateral carotid artery stenosis Take 1 Tablet by mouth every afternoon. 90 Tablet 3 06/28/2023 Active Carvedilol 12.5 MG Oral Tablet (Coreg)Indications: Coronary artery disease involving [place] coronary artery of [place] heart without angina pectoris,HTN, goal below 140/90,Dyslipidemia , goal LDL below 70,Coronary artery disease involving [place] heart without angina pectoris, unspecified vessel or lesion type,Asymptomatic bilateral carotid artery stenosis Take by mouth 1/2 tablet 2 times per day with morning and evening meals 90 Tablet 3 06/28/2023 Active Furosemide 20 MG Oral Tablet (Lasix)Indications: Coronary artery disease involving [place] coronary artery of [place] heart without angina pectoris,HTN, goal below 140/90,Dyslipidemia , goal LDL below 70,Coronary artery disease involving [place] heart without angina pectoris, unspecified vessel or lesion type,Asymptomatic bilateral carotid artery stenosis Only as needed 90 Tablet 3 06/28/2023 Active hydroCHLOROthiazide 25 MG Oral Tablet (Hydrodiuril)Indica tions:Coronary artery disease involving [place] coronary artery of [place] heart without angina pectoris,HTN, goal below 140/90,Dyslipidemia , goal LDL below 70,Coronary artery disease involving [place] heart without angina pectoris, unspecified vessel or lesion type,Asymptomatic bilateral carotid artery stenosis Take 1 Tablet by mouth in the morning. 90 Tablet 3 06/28/2023 Active Isosorbide Mononitrate ER 60 MG Oral Tablet Extended Release 24 Hour (Imdur)Indications: Coronary artery disease involving [place] coronary artery of [place] heart without angina pectoris,HTN, goal below 140/90,Dyslipidemia , goal LDL below 70,Coronary artery disease involving [place] heart without angina pectoris, unspecified vessel or lesion type,Asymptomatic bilateral carotid artery stenosis TAKE 1 TABLET BY MOUTH EVERY DAY IN THE MORNING 90 Tablet 3 06/28/2023 Active Losartan Potassium 50 MG Oral Tablet (Cozaar)Indications :Coronary artery disease involving [place] coronary artery of [place] heart without angina pectoris,HTN, goal below 140/90,Dyslipidemia , goal LDL below 70,Coronary artery disease involving [place] heart without angina pectoris, unspecified vessel or lesion type,Asymptomatic bilateral carotid artery stenosis Take 1 Tablet by mouth in the morning and 1 Tablet before bedtime. 90 Tablet 1 06/28/2023 Active amLODIPine Besylate 10 MG Oral Tablet (Norvasc)Indication s:Coronary artery disease involving [place] coronary artery of [place] heart without angina pectoris,HTN, goal below 140/90,Dyslipidemia , goal LDL below 70,Coronary artery disease involving [place] heart without angina pectoris, unspecified vessel or lesion type,Asymptomatic bilateral carotid artery stenosis Take 1 Tablet by mouth in the morning. 100 Tablet 3 07/15/2023 Active Ezetimibe 10 MG Oral Tablet (Zetia)Indications: Coronary artery disease involving [place] coronary artery of [place] heart without angina pectoris,Dyslipidem ia, goal LDL below 70,Asymptomatic bilateral carotid artery stenosis Take 1 Tablet by mouth in the morning. 100 Tablet 3 07/15/2023 Active Nitroglycerin 0.4 MG Sublingual Tablet Sublingual (Nitrostat)Indicati ons:HTN, goal below 140/90,Coronary artery disease involving [place] heart without angina pectoris, unspecified vessel or lesion type,Dyslipidemia, goal LDL below [address] Place 1 Tablet under the tongue as needed for Pain, Chest. May repeat 3 times. If chest pain continues, call 911. 30 Tablet 1 07/31/2023 Active Hospital, Clinic, or Other Facility Administered Medication Ordered Dose Route Frequency Start Date End Date Status albuterol (PROVENTIL HFA) inhaler 4 PuffIndications:COPD, mild (HCC) 4 Puff IN Q4H PRN 08/07/2017 Active documented as of this encounter (statuses as of 08/01/2023) Active Problems Problem Noted Date Diagnosed Date PSVT (paroxysmal supraventricular tachycardia) 0 04/17/2022 Premature atrial contractions 12/22/2021 ASCVD (arteriosclerotic cardiovascular disease) 12/22/2021 BPH with obstruction/lower urinary tract symptom s 10/25/2021 Supraumbilical hernia withou t gangrene and without obstruction 07/05/2021 Overview: fat containing Gastroesophageal reflux dise ase with esophagitis without hemorrhage 06/07/2021 Atherosclerotic heart diseas e of [place]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 angina pectoris 09/06/2016 Thoracic aortic ectasia 09/06/2016 S/P CABG x 3 08/06/2016 Dyslipidemia, goal LDL below 70 04/03/2012 HTN, goal below 140/90 05/13/2008 Old myocardial infarct 09/30/2003 COPD, mild documented as of this encounter (statuses as of 08/01/2023) Resolved Problems Problem Noted Date Diagnosed Date [...] as of this encounter (statuses as of 08/01/2023) Immunizations Name Administration Dates Next Due Pneumococcal [...] Care Team (Late st Contact Info) Description 08/05/2023 10:00 AM EDT Nurse Only Ancillary Darwin Farrell[address] [place] [address] Nurse Tiffany [address] [place] [address] 08/08/2023 8:15 AM EDT Imaging Radiology [address] [place] [address] 12/13/2023 8:00 AM EDT Office Visit Cardiology, [facility] [address] [place] [address] Luda Baldwin CRNP [address] [place] [address] 03/24/2024 8:50 AM EST Office Visit Family Medicine [address] [place] [phone] Zuleyka Benz[address] [place] [address] Pending Results Name Type Priority Associated Diagnoses Date /Time MAGNESIUM Lab Routine group home current use of therapeutic drug 08/01/2023 8:23 AM EDT VITAMIN B12 Lab Routine terminal gauger current use of therapeutic drug 08/01/2023 8:23 AM EDT PSA Lab Routine Nocturia Incomplete bladder emptying 08/01/2023 8:23 AM EDT HEMOGLOBIN A1C Lab Routine Elevated blood sugar 08/01/2023 8:23 AM EDT Health Maintenance Due Date Last Done Comments Albumin/Creatinine Ratio 08/01/1973 Alpha-1 Antitrypsin 08/01/1973 Cologuard 08/01/2000 Fecal Occult Blood Test 08/01/2000 Sigmoidoscopy 08/01/2000 Zoster Vaccines (1 of 2) 08/01/2005 DTaP,Tdap,and Td Vaccines (1 - Tdap) 02/23/2007 02/22/2007 Colonoscopy 01/13/2009 01/14/2008 Colorectal Cancer Screening 01/13/2009 Depression Screening 01/09/2020 01/08/2019 AAA Screening 08/01/2020 Pneumococcal Vaccine: 65+ Years (3 of 3 - PPSV23 or PCV20) 08/01/2020 02/23/2008, 06/24/2007 COVID-19 Vaccine (3 - 2022-24 season) 2022 08/01/2020, 07/29/2020 *NEPHROLOGY REFERRAL DUE TO RESISTANT HTN 07/07/2023 Influenza Vaccine (FLU shot) (Season Ended) 2023 02/12/2021, 01/23/2018, 01/23/2018, Additional history exists GFR 07/04/2024 07/05/2023, 01/24, 04/30/2022, Additional history exists O2 ASSESSMENT COMPLETED IN PAST YEAR FOR COPD 07/30/2024 07/31/2023 Diabetes Screening 07/04/2026 07/05/2023, 1 04/13/2022, 04/30/2022, Additional history exists RETIRED - COLONOSCOPY-ANNUAL AGES 18-100 Discontinued 01/14/2008 Lung Cancer Screening Completed 01/08/2018 GARDASIL-HPV IMMUNIZATION SERIES Aged Out No longer eligible based on patient's age to complete this topic Hepatitis B Aged Out No longer eligi ble based on patient's age to complete this topic MENINGOCOCCAL (MENACTRA/MENVEO) Aged Out No longer eligible based on patient's age to complete this topic documented as of this encounter Medical Devices Implanted Type Area Iron Miner Blasting Device Identifier Shelf Expiration Date Model / Serial / Lot Sut Steel 6 [id number] - [id number] Implanted:Qty: 4 on 05/23/2016 [place]inny Wolf [place] [facility] [place] Sternum JNJ : [employer] 11/22/2020 [id number] / / [id number] Graft Marker Coronary - [id number] Implanted:Qty: 1 on 05/23/2016 by Vinny Wolf [place] [facility] [place]: Aorta VM CARDIO VASCULAR 09/21/2017 [id number] / / [id number] Graft Marker Coronary - [id number] Implanted:Qty: 1 on 05/23/2016 by Vinny Wolf [place] [facility] [place] Aorta VM CARDIO VASCULAR 09/21/2017 [id number] / / [id number] Graft Marker Coronary - [id number] Implanted:Qty: 1 on 05/23/2016 by Vinny Wolf [place] [facility] [place] Aorta VM CARDIO VASCULAR 09/21/2017 [id number] / / [id number] Lens Intraoc 22.5 - [id number] - [id number] Implanted:Qty: 1 on 05/03/2022 by Jonny Chong MD at OR [facility] Left: Eye [employer] 02/21/2027 [id number] / [id number] / [id number] Lens Intraoc 22.5 - [id number] - [id number] Implanted:Qty: 1 on 05/10/2022 by Jonny Chong MD at OR [facility] Right: Eye [employer] 11/22/2026 [id number] / [id number] / [id number] documented as of this encounter Visit Diagnoses Diagnosis group home current use of therapeutic drug HTN, goal below 140/90 Unspecified essential hypertension Nocturia Incomplete bladder emptying Elevated blood sugar Other abnormal glucose documented in this encounter Advance Directives Latest Code Status on File Code Status Date Activated Date Inactivated Comments No Code 05/10/2022 8:51 AM 05/10/2022 3:12 PM This order reflects the patients wishes and were consensually agreed upon. Question Answer Comments Discussion of Advance Directives occurred with: Patient Does the patient have a Living Will? No Does the patient have Health Care Power of Manager Home Healthcare? No Code Status History Code Status Date Activated Date Inactivated Comments No Code 05/03/2022 11:09 AM 05/03/2022 5:34 PM This o rder reflects the patients wishes and were consensually agreed upon. Question Answer Comments Discussion of Advance Directives occurred with: Patient Does the patient have a Living Will? No Does the patient have Health Care Power of Manager Home Healthcare? No Full Code 05/23/2016 2:01 PM 05/26/2016 6:20 PM This or jorge reflects the patients wishes and were consensually agreed upon. Full Code 05/23/2016 2:35 AM 05/23/2016 2:01 PM This or jorge reflects the patients wishes and were consensually agreed upon. Question Answer Comments Discussion of Advance Directives occurred with: Patient Does the patient have a Living Will? No Does the patient have Health Care Power of Manager Home Healthcare? No Full Code 05/22/2016 8:39 PM 05/23/2016 2:35 AM This o rder reflects the patients wishes and were consensually agreed upon. Question Answer Comments Discussion of Advance Directives occurred with: Patient Care Teams Auxiliary Engineer Relationship Specialty Start Date End Date Zuleyka Benz DO [address] [place] [address] [place] [address] PCP - General Internal Medicine 07/08/18 documented as of this encounter
--- OUTSIDE RECORDS SUMMARY | 2023-09-21 21:19 | External Medical Summary | Summary of Care ---
Author Name Unknown Organization [facility] Address [address] [facility] [place] [address] Phone [phone] Care Team Providers Care Section Hand Name Role Phone Zuleyka Benz DO Primary Care Provider Reason for Visit * Reason Onset Date Comments Appointment 07/31/2023 Colonoscopy Encounter Details Date Type Department Care Team (Late st Contact Info) Description 07/31/[address] [place] [address] Zuleyka Benz [address] [place] [address] Appointment (Colonoscopy ) Allergies Active Allergy Reactions Criticality Noted Date Comments Bee Venom Edema Other High 08/09/2020 Enalapril Cough 02/20/2011 Morphine And Related Nausea/vomiting High 07/29/2009 documented as of this encounter (statuses as of 07/31/2023) Medications Medication Sig Dispensed Refills Start Date End Date Status aspirin 81 MG chewable tabletIndications: Old myocardial infarct,Atheroscle rotic heart disease of [place]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 angina pectoris (HCC) Take 1 Tablet by mouth in the morning. 60 Tab 6 05/02/2017 Active B-12 1000 MCG Oral Capsule Take 1 Capsule by mouth in the morning. 0 Active Loratadine 10 MG Oral Tablet (Claritin)Indicati ons:Flu-like symptoms,Nasal sinus congestion,Non-rec urrent acute serous otitis media of both ears TAKE 1 TABLET BY MOUTH EVERY DAY IN THE MORNING 30 Tablet 0 05/31/2022 Active hydrOXYzine HCl 50 MG Oral TabletIndications: Fear of flying Take 1 tablet 30 minutes before flying if needed for anxiety. 20 Tablet 0 11/20/2022 Active Clotrimazole-Betam ethasone 1-0.05 % External Cream Apply to affected area twice daily. 45 g 6 04/29/2023 Active Ciclopirox 8 % External Solution Apply over nail and surrounding skin. Apply daily over previous coat. After seven (7) days, may remove with alcohol and continue cycle. 6.6 mL 3 05/30/2023 Active Atorvastatin Calcium 80 MG Oral Tablet (Lipitor)Indicatio ns:Coronary artery disease involving [place] coronary artery of [place] heart without angina pectoris,HTN, goal below 140/90,Dyslipidemi a, goal LDL below 70,Coronary artery disease involving [place] heart without angina pectoris, unspecified vessel or lesion type,Asymptomatic bilateral carotid artery stenosis Take 1 Tablet by mouth every afternoon. 90 Tablet 3 06/28/2023 Active Carvedilol 12.5 MG Oral Tablet (Coreg)Indications :Coronary artery disease involving [place] coronary artery of [place] heart without angina pectoris,HTN, goal below 140/90,Dyslipidemi a, goal LDL below 70,Coronary artery disease involving [place] heart without angina pectoris, unspecified vessel or lesion type,Asymptomatic bilateral carotid artery stenosis Take by mouth 1/2 tablet 2 times per day with morning and evening meals 90 Tablet 3 06/28/2023 Active Furosemide 20 MG Oral Tablet (Lasix)Indications :Coronary artery disease involving [place] coronary artery of [place] heart without angina pectoris,HTN, goal below 140/90,Dyslipidemi a, goal LDL below 70,Coronary artery disease involving [place] heart without angina pectoris, unspecified vessel or lesion type,Asymptomatic bilateral carotid artery stenosis Only as needed 90 Tablet 3 06/28/2023 Active hydroCHLOROthiazid e 25 MG Oral Tablet (Hydrodiuril)Indic ations:Coronary artery disease involving [place] coronary artery of [place] heart without angina pectoris,HTN, goal below 140/90,Dyslipidemi a, goal LDL below 70,Coronary artery disease involving [place] heart without angina pectoris, unspecified vessel or lesion type,Asymptomatic bilateral carotid artery stenosis Take 1 Tablet by mouth in the morning. 90 Tablet 3 06/28/2023 Active Isosorbide Mononitrate ER 60 MG Oral Tablet Extended Release 24 Hour (Imdur)Indications :Coronary artery disease involving [place] coronary artery of [place] heart without angina pectoris,HTN, goal below 140/90,Dyslipidemi a, goal LDL below 70,Coronary artery disease involving [place] heart without angina pectoris, unspecified vessel or lesion type,Asymptomatic bilateral carotid artery stenosis TAKE 1 TABLET BY MOUTH EVERY DAY IN THE MORNING 90 Tablet 3 06/28/2023 Active Losartan Potassium 50 MG Oral Tablet (Cozaar)Indication s:Coronary artery disease involving [place] coronary artery of [place] heart without angina pectoris,HTN, goal below 140/90,Dyslipidemi a, goal LDL below 70,Coronary artery disease involving [place] heart without angina pectoris, unspecified vessel or lesion type,Asymptomatic bilateral carotid artery stenosis Take 1 Tablet by mouth in the morning and 1 Tablet before bedtime. 90 Tablet 1 06/28/2023 Active amLODIPine Besylate 10 MG Oral Tablet (Norvasc)Indicatio ns:Coronary artery disease involving [place] coronary artery of [place] heart without angina pectoris,HTN, goal below 140/90,Dyslipidemi a, goal LDL below 70,Coronary artery disease involving [place] heart without angina pectoris, unspecified vessel or lesion type,Asymptomatic bilateral carotid artery stenosis Take 1 Tablet by mouth in the morning. 100 Tablet 3 07/15/2023 Active Ezetimibe 10 MG Oral Tablet (Zetia)Indications :Coronary artery disease involving [place] coronary artery of [place] heart without angina pectoris,Dyslipide ze, goal LDL below 70,Asymptomatic bilateral carotid artery stenosis Take 1 Tablet by mouth in the morning. 100 Tablet 3 07/15/2023 Active Nitroglycerin 0.4 MG Sublingual Tablet Sublingual (Nitrostat)Indicat ions:HTN, goal below 140/90,Coronary artery disease involving [place] heart without angina pectoris, unspecified vessel or lesion type,Dyslipidemia, goal LDL below [address] Place 1 Tablet under the tongue as needed for Pain, Chest. May repeat 3 times. If chest pain continues, call 911. 30 Tablet 1 07/31/2023 Active Qwlnntv-Zqhszj-Efd ll Pertussis 5-2.5-18.5 LF-MCG/0.5 Suspension Prefilled Syringe (Boostrix) Inject 0.5 mL into a large muscle once for 1 dose. As directed 0.5 mL 0 07/31/2023 07/31/2023 Active Hospital, Clinic, or Other Facility Administered Medication Ordered Dose Route Frequency Start Date End Date Status albuterol (PROVENTIL HFA) inhaler 4 PuffIndications:COPD, mild (HCC) 4 Puff IN Q4H PRN 08/07/2017 Active documented as of this encounter (statuses as of 07/31/2023) Active Problems Problem Noted Date Diagnosed Date PSVT (paroxysmal supraventricular tachycardia) 0 04/17/2022 Premature atrial contractions 12/22/2021 ASCVD (arteriosclerotic cardiovascular disease) 12/22/2021 BPH with obstruction/lower urinary tract symptom s 10/25/2021 Supraumbilical hernia withou t gangrene and without obstruction 07/05/2021 Overview: fat containing Gastroesophageal reflux dise ase with esophagitis without hemorrhage 06/07/2021 Atherosclerotic heart diseas e of [place]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 angina pectoris 09/06/2016 Thoracic aortic ectasia 09/06/2016 S/P CABG x 3 08/06/2016 Dyslipidemia, goal LDL below 70 04/03/2012 HTN, goal below 140/90 05/13/2008 Old myocardial infarct 09/30/2003 COPD, mild documented as of this encounter (statuses as of 07/31/2023) Resolved Problems Problem Noted Date Diagnosed Date [...] as of this encounter (statuses as of 07/31/2023) Immunizations Name Administration Dates Next Due Pneumococcal [...] encounter Miscellaneous Notes * Telephone Encounter - Elsie Barreto OSA - 07/31/2023 3:42 PM EDT Jeffry mueller scheduled for colonoscopy for: Special screening for malignant neoplasms, colon [Z12.11] documented in this encounter Plan of Treatment Upcoming Encounters Date Type Department Care Team (Late st Contact Info) Description 08/01/2023 8:20 AM EDT Nurse Only Ancillary [address] [place] [address] Tiffany, Nurse [address] [place] [address] 08/05/2023 10:00 AM EDT Nurse Only Ancillary [address] [place] [address] Tiffany, Nurse [address] [place] [address] 08/08/2023 8:15 AM EDT Imaging Radiology [address] [place] [address] 12/13/2023 8:00 AM EDT Office Visit Cardiology, [facility] [address] [place] [address] Luda Baldwin CRNP [address] [place] [address] 03/24/2024 8:50 AM EST Office Visit Family Medicine [address] [place] [phone] Zuleyka Benz DO [address] [place] [address] [place] [address] Health Maintenance Due Date Last Done Comments [...] this encounter Medical Devices Implanted Type Area Model Maker Firearms Device Identifier Shelf Expiration Date Model / Serial / Lot Sut Steel 6 [id number] - [id number] Implanted:Qty: 4 on 05/23/2016 by Vinny Wolf MD [place] [facility] [place] Sternum J[place] : [employer] 11/22/2020 [id number] / / [id number] Graft Marker Coronary - [id number] Implanted:Qty: 1 on 05/23/2016 by Vinny Wolf MD [place] [facility] [place]: Aorta VM CARDIO VASCULAR 09/21/2017 [id number] / / [id number] Graft Marker Coronary - [id number] Implanted:Qty: 1 on 05/23/2016 by Vinny Wolf MD at [place] [facility] [place]A: Aorta VM CARDIO VASCULAR 09/21/2017 [id number] / / [id number] Graft Marker Coronary - [id number] Implanted:Qty: 1 on 05/23/2016 by Vinny Wolf MD at [place] [facility] [place]A: Aorta VM CARDIO VASCULAR 09/21/2017 [id number] / / [id number] Lens Intraoc 22.5 - [id number] - [id number] Implanted:Qty: 1 on 05/03/2022 by Jonny Chong MD at OR [facility] Left: Eye [employer] 02/21/2027 [id number] / [id number] / [id number] Lens Intraoc 22.5 - [id number] - [id number] Implanted:Qty: 1 on 05/10/2022 by Jonny Chong MD at OR [facility] Right: Eye [employer]OM[employer] 11/22/2026 [id number] / [id number] / [id number] documented as of this encounter Advance Directives Latest Code Status on File Code Status Date Activated Date Inactivated Comments No Code 05/10/2022 8:51 AM 05/10/2022 3:12 PM This order reflects the patients wishes and were consensually agreed upon. Question Answer Comments Discussion of Advance Directives occurred with: Patient Does the patient have a Living Will? No Does the patient have Health Care Power of System Safety Engineer? No Code Status History Code Status Date Activated Date Inactivated Comments No Code 05/03/2022 11:09 AM 05/03/2022 5:34 PM This o rder reflects the patients wishes and were consensually agreed upon. Question Answer Comments Discussion of Advance Directives occurred with: Patient Does the patient have a Living Will? No Does the patient have Health Care Power of System Safety Engineer? No Full Code 05/23/2016 2:01 PM 05/26/2016 [...] the patient have Health Care Power of System Safety Engineer? No Full Code 05/22/2016 8:39 PM 05/23/2016 2:35 AM This o rder reflects the patients wishes and were consensually agreed upon. Question Answer Comments Discussion of Advance Directives occurred with: Patient Care Teams Section Hand Relationship Specialty Start Date End Date Zuleyka Benz DO [address] [place] [address] [place] [address] PCP - General Internal Medicine 07/08/18 documented as of this encounter
--- OUTSIDE RECORDS SUMMARY | 2023-09-21 21:19 | External Medical Summary | Summary of Care ---
Author Name Unknown Organization [facility] Address [address] [facility] [place] [address] Phone [phone] Care Team Providers Care Asthma Educator Name Role Phone Zuleyka Benz DO Primary Care Provider Reason for Visit * Reason Comments eRx-Medication Refill Encounter Details Date Type Department Care Team (Late st Contact Info) Description 08/03/2023 Refill Cardiology, [facility] [address] [facility] [place] [phone] Luda Durham CRNP [address] [place] [address] Coronary artery disease involving [place] coronary artery of [place] heart without angina pectoris; HTN, goal below 140/90; Dyslipidemia, goal LDL below 70; Coronary artery disease involving [place] heart without angina pectoris, unspecified vessel or lesion type; Asymptomatic bilateral carotid artery stenosis Allergies Active Allergy Reactions Criticality Noted Date Comments Bee Venom Edema Other High 08/09/2020 Enalapril Cough 02/20/2011 Morphine And Related Nausea/vomiting High 07/29/2009 documented as of this encounter (statuses as of 08/05/2023) Medications Medication Sig Dispensed Refills Start Date End Date Status aspirin 81 MG chewable tabletIndication s:Old myocardial infarct,Atherosc lerotic heart disease of [place]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 angina pectoris (HCC) Take 1 Tablet by mouth in the morning. 60 Tab 6 05/02/2017 Active B-12 1000 MCG Oral Capsule Take 1 Capsule by mouth in the morning. 0 Active Loratadine 10 MG Oral Tablet (Claritin)Indica tions:Flu-like symptoms,Nasal sinus congestion,Non-r ecurrent acute serous otitis media of both ears TAKE 1 TABLET BY MOUTH EVERY DAY IN THE MORNING 30 Tablet 0 05/31/2022 Active hydrOXYzine HCl 50 MG Oral TabletIndication s:Fear of flying Take 1 tablet 30 minutes before flying if needed for anxiety. 20 Tablet 0 11/20/2022 Active Clotrimazole-Bet amethasone 1-0.05 % External Cream Apply to affected area twice daily. 45 g 6 04/29/2023 Active Ciclopirox 8 % External Solution Apply over nail and surrounding skin. Apply daily over previous coat. After seven (7) days, may remove with alcohol and continue cycle. 6.6 mL 3 05/30/2023 Active Atorvastatin Calcium 80 MG Oral Tablet (Lipitor)Indicat ions:Coronary artery disease involving [place] coronary artery of [place] heart without angina pectoris,HTN, goal below 140/90,Dyslipide ze, goal LDL below 70,Coronary artery disease involving [place] heart without angina pectoris, unspecified vessel or lesion type,Asymptomati c bilateral carotid artery stenosis Take 1 Tablet by mouth every afternoon. 90 Tablet 3 06/28/2023 Active Furosemide 20 MG Oral Tablet (Lasix)Indicatio ns:Coronary artery disease involving [place] coronary artery of [place] heart without angina pectoris,HTN, goal below 140/90,Dyslipide ze, goal LDL below 70,Coronary artery disease involving [place] heart without angina pectoris, unspecified vessel or lesion type,Asymptomati c bilateral carotid artery stenosis Only as needed 90 Tablet 3 06/28/2023 Active hydroCHLOROthiaz daniel 25 MG Oral Tablet (Hydrodiuril)Ind ications:Coronar y artery disease involving [place] coronary artery of [place] heart without angina pectoris,HTN, goal below 140/90,Dyslipide ze, goal LDL below 70,Coronary artery disease involving [place] heart without angina pectoris, unspecified vessel or lesion type,Asymptomati c bilateral carotid artery stenosis Take 1 Tablet by mouth in the morning. 90 Tablet 3 06/28/2023 Active Isosorbide Mononitrate ER 60 MG Oral Tablet Extended Release 24 Hour (Imdur)Indicatio ns:Coronary artery disease involving [place] coronary artery of [place] heart without angina pectoris,HTN, goal below 140/90,Dyslipide ze, goal LDL below 70,Coronary artery disease involving [place] heart without angina pectoris, unspecified vessel or lesion type,Asymptomati c bilateral carotid artery stenosis TAKE 1 TABLET BY MOUTH EVERY DAY IN THE MORNING 90 Tablet 3 06/28/2023 Active Losartan Potassium 50 MG Oral Tablet (Cozaar)Indicati ons:Coronary artery disease involving [place] coronary artery of [place] heart without angina pectoris,HTN, goal below 140/90,Dyslipide ze, goal LDL below 70,Coronary artery disease involving [place] heart without angina pectoris, unspecified vessel or lesion type,Asymptomati c bilateral carotid artery stenosis Take 1 Tablet by mouth in the morning and 1 Tablet before bedtime. 90 Tablet 1 06/28/2023 Active amLODIPine Besylate 10 MG Oral Tablet (Norvasc)Indicat ions:Coronary artery disease involving [place] coronary artery of [place] heart without angina pectoris,HTN, goal below 140/90,Dyslipide ze, goal LDL below 70,Coronary artery disease involving [place] heart without angina pectoris, unspecified vessel or lesion type,Asymptomati c bilateral carotid artery stenosis Take 1 Tablet by mouth in the morning. 100 Tablet 3 07/15/2023 Active Ezetimibe 10 MG Oral Tablet (Zetia)Indicatio ns:Coronary artery disease involving [place] coronary artery of [place] heart without angina pectoris,Dyslipi demia, goal LDL below 70,Asymptomatic bilateral carotid artery stenosis Take 1 Tablet by mouth in the morning. 100 Tablet 3 07/15/2023 Active Nitroglycerin 0.4 MG Sublingual Tablet Sublingual (Nitrostat)Indic ations:HTN, goal below 140/90,Coronary artery disease involving [place] heart without angina pectoris, unspecified vessel or lesion type,Dyslipidemi a, goal LDL below [address] Place 1 Tablet under the tongue as needed for Pain, Chest. May repeat 3 times. If chest pain continues, call 911. 25 Tablet 1 07/31/2023 Active Carvedilol 12.5 MG Oral Tablet (Coreg)Indicatio ns:Coronary artery disease involving [place] coronary artery of [place] heart without angina pectoris,HTN, goal below 140/90,Dyslipide ze, goal LDL below 70,Coronary artery disease involving [place] heart without angina pectoris, unspecified vessel or lesion type,Asymptomati c bilateral carotid artery stenosis TAKE 1/2 TABLET BY MOUTH 2 TIMES PER DAY WITH MORNING AND EVENING MEALS 90 Tablet 3 08/05/2023 Active Carvedilol 12.5 MG Oral Tablet (Coreg)Indicatio ns:Coronary artery disease involving [place] coronary artery of [place] heart without angina pectoris,HTN, goal below 140/90,Dyslipide ze, goal LDL below 70,Coronary artery disease involving [place] heart without angina pectoris, unspecified vessel or lesion type,Asymptomati c bilateral carotid artery stenosis Take by mouth 1/2 tablet 2 times per day with morning and evening meals 90 Tablet 3 06/28/2023 Discontinued Hospital, Clinic, or Other Facility Administered Medication Ordered Dose Route Frequency Start Date End Date Status albuterol (PROVENTIL HFA) inhaler 4 PuffIndications:COPD, mild (HCC) 4 Puff IN Q4H PRN 08/07/2017 Active documented as of this encounter (statuses as of 08/05/2023) Active Problems Problem Noted Date Diagnosed Date PSVT (paroxysmal supraventricular tachycardia) 0 04/17/2022 Premature atrial contractions 12/22/2021 ASCVD (arteriosclerotic cardiovascular disease) 12/22/2021 BPH with obstruction/lower urinary tract symptom s 10/25/2021 Supraumbilical hernia withou t gangrene and without obstruction 07/05/2021 Overview: fat containing Gastroesophageal reflux dise ase with esophagitis without hemorrhage 06/07/2021 Atherosclerotic heart diseas e of [place]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 angina pectoris 09/06/2016 Thoracic aortic ectasia 09/06/2016 S/P CABG x 3 08/06/2016 Dyslipidemia, goal LDL below 70 04/03/2012 HTN, goal below 140/90 05/13/2008 Old myocardial infarct 09/30/2003 COPD, mild documented as of this encounter (statuses as of 08/05/2023) Resolved Problems Problem Noted Date Diagnosed Date [...] as of this encounter (statuses as of 08/05/2023) Immunizations Name Administration Dates Next Due Pneumococcal [...] encounter Miscellaneous Notes * Telephone Encounter - Luda Durham CRNP - 08/05/2023 10:19 AM EDT Signed Prescriptions: Disp Refills Carvedilol 12.5 MG Oral Tablet (Coreg) 90 Tab*3 Sig: TAKE 1/2 TABLET BY MOUTH 2 TIMES PER DAY WITH MORNING AND EVENING MEALS Authorizing Provider: LUDA DURHAM * Telephone Encounter - Dai Coy CMA - 08/05/2023 10:18 AM EDTPending Prescriptions: Disp Refills Carvedilol 12.5 MG Oral Tablet [Pharmacy M*90 Tab*3 Sig: TAKE 1/2 TABLET BY MOUTH 2 TIMES PER DAY WITH MORNING AND EVENING MEALS * Telephone Encounter - Dai Coy CMA - 08/05/2023 10:17 AM EDT Did you pend patient's preferred pharmacy and medication before forwarding?yes Pharmacy: [id number] [facility] Pending Prescriptions: Disp Refills Carvedilol 12.5 MG Oral Tablet (Coreg) [P*90 Tab*3 Sig: TAKE 1/2 TABLET BY MOUTH 2 TIMES PER DAY WITH MORNING AND EVENING MEALS Last Visit: 06/28/2023 (in office), Visit date not found (telemedicine) Next Visit: 12/13/2023 If no future appointments scheduled, and last appointment is greater than a year ago, please schedule patient for a follow-up appointment Last date the medication was ordered: 06-28-2023 Is this request for a controlled substance?No Urine Drug Screen:No results found for this or any previous visit. Patient Phone Numbers Labs: Lab Results Component Value Date/Time CREAT 1.0 07/05/2023 08:02 AM CREAT 0.99 11/15/2021 12:00 AM CREAT 1.0 11/26/2017 09:30 AM POTASSIUM 4.1 07/05/2023 08:02 AM POTASSIUM 4.3 11/15/2021 12:00 AM POTASSIUM 5.0 11/26/2017 09:30 AM TSH 1.45 04/30/2022 11:13 AM TSH 3.18 05/22/2016 09:25 PM LDLCALC 56 01/07/2018 02:15 PM LDLDIRECT 94 07/05/2023 08:02 AM LDLDIRECT NOT APPLICABLE 01/07/2018 02:15 PM LDLDIRECT 113 12/28/2002 09:50 AM ALT 19 07/05/2023 08:02 AM ALT 22 11/26/2017 09:30 AM HGBA1C 5.2 08/01/2023 08:23 AM HGBA1C 5.5 01/07/2018 02:15 PM documented in this encounter Plan of Treatment Upcoming Encounters Date Type Department Care Team (Late st Contact Info) Description 08/08/2023 8:15 AM EDT Imaging Radiology [address] [place] [address] 12/13/2023 8:00 AM EDT Office Visit Cardiology, [facility] [address] [address] Luda Durham CRNP [address] [place] [id number] 03/24/2024 8:50 AM EST Office Visit Family Medicine [address] [place] [phone] Zuleyka Benz, [address] [place] [address] Health Maintenance Due Date Last Done Comments [...] this encounter Medical Devices Implanted Type Area Printing Roller Polisher Device Identifier Shelf Expiration Date Model / Serial / Lot Sut Steel 6 [id number] - [id number] Implanted:Qty: 4 on 05/23/2016 by Vinny Wolf [place] [facility] [place] Sternum JNJ : [employer] 11/22/2020 [id number] / / [id number] Graft Marker Coronary - [id number] Implanted:Qty: 1 on 05/23/2016 by Vinny Wolf MD [place] [facility] [place]A: Aorta VM CARDIO VASCULAR 09/21/2017 [id number] / / [id number] Graft Marker Coronary - [id number] Implanted:Qty: 1 on 05/23/2016 by Vinny Wolf MD [place] [facility] [place]A: Aorta VM CARDIO VASCULAR 09/21/2017 [id number] / / [id number] Graft Marker Coronary - [id number] Implanted:Qty: 1 on 05/23/2016 by Vinny Wolf MD [place] [facility] [place]A: Aorta VM CARDIO VASCULAR 09/21/2017 [id number] / / [id number] Lens Intraoc 22.5 - [id number] - [id number] Implanted:Qty: 1 on 05/03/2022 by Jonny Chong MD at [facility] Left: Eye [employer] 02/21/2027 [id number] / [id number] / [id number] Lens Intraoc 22.5 - [id number] - [id number] Implanted:Qty: 1 on 05/10/2022 by Jonny Chong MD at [place] [facility] Right: Eye [employer] 11/22/2026 [id number] / [id number] / [id number] documented as of this encounter Visit Diagnoses Diagnosis Coronary artery disease involving [place] heart without angina pectoris, unspecified vessel or lesion type HTN, goal below 140/90 Unspecified essential hypertension Dyslipidemia, goal LDL below 70 Other and unspecified hyperlipidemia Asymptomatic bilateral carotid artery stenosis Occlusion 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 Question Answer Comments Discussion of Advance Directives occurred with: Patient Does the patient have a Living Will? No Does the patient have Health Care Power of Commodity Supervisor? No Code Status History Code Status Date Activated Date Inactivated Comments No Code 05/03/2022 11:09 AM 05/03/2022 5:34 PM This o rder reflects the patients wishes and were consensually agreed upon. Question Answer Comments Discussion of Advance Directives occurred with: Patient Does the patient have a Living Will? No Does the patient have Health Care Power of Commodity Supervisor? No Full Code 05/23/2016 2:01 PM 05/26/2016 [...] the patient have Health Care Power of Commodity Supervisor? No Full Code 05/22/2016 8:39 PM 05/23/2016 2:35 AM This o rder reflects the patients wishes and were consensually agreed upon. Question Answer Comments Discussion of Advance Directives occurred with: Patient Care Teams Asthma Educator Relationship Specialty Start Date End Date Zuleyka Benz DO [address] [place] [address] [place] [address] PCP - General Internal Medicine 07/08/18 documented as of this encounter
--- OUTSIDE RECORDS SUMMARY | 2023-09-21 21:19 | External Medical Summary | Summary of Care ---
Author Name Unknown Organization [facility] Address [address] [facility] [place] [address] Phone [phone] Care Team Providers Care Fireman Name Role Phone Zuleyka Benz DO Primary Care Provider Reason for Visit * Reason Onset Date Comments Blood Pressure Check 07/15/2023 Encounter Details Date Type Department Care Team (Late st Contact Info) Description 07/15/2023 Telephone Cardiology, [facility] [address] [facility] [place] [address] Luda Baldwin CRNP [address] [facility] [place] [address] Blood Pressure Check Allergies Active Allergy Reactions Criticality Noted Date Comments Bee Venom Edema Other High 08/09/2020 Enalapril Cough 02/20/2011 Morphine And Related Nausea/vomiting High 07/29/2009 documented as of this encounter (statuses as of 07/17/2023) Medications Medication Sig Dispensed Refills Start Date End Date Status aspirin 81 MG chewable tabletIndications :Old myocardial infarct,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 60 Tab 6 05/02/2017 Active Nitroglycerin 0.4 MG Sublingual Tablet Sublingual (Nitrostat)Indica tions:HTN, goal below 140/90,Coronary artery disease involving [place] heart without angina pectoris, unspecified vessel or lesion type,Lower extremity edema,Dyslipidemi a, goal LDL below 70,Asymptomatic bilateral carotid artery stenosis,MOORE (dyspnea on exertion),Frequen t PVCs Place under the tongue 1 Tablet as needed for Pain, Chest. May repeat 3 times. If chest pain continues, call 911. 30 Tablet 1 07/03/2021 Active B-12 1000 MCG Oral Capsule Take 1 Capsule by mouth in the morning. 0 Active Tamsulosin HCl 0.4 MG Oral Capsule (Flomax)Indicatio ns:Urinary frequency,Urinary incontinence, unspecified type TAKE 1 CAPSULE BY MOUTH EVERY DAY IN THE MORNING 90 Capsule 3 05/16/2022 Active Loratadine 10 MG Oral Tablet (Claritin)Indicat ions:Flu-like symptoms,Nasal sinus congestion,Non-re current acute serous otitis media of both ears TAKE 1 TABLET BY MOUTH EVERY DAY IN THE MORNING 30 Tablet 0 05/31/2022 Active hydrOXYzine HCl 50 MG Oral TabletIndications :Fear of flying Take 1 tablet 30 minutes before flying if needed for anxiety. 20 Tablet 0 11/20/2022 Active Pantoprazole Sodium 40 MG Oral Tablet Delayed Release (Protonix) TAKE BY MOUTH 1 TAB IN THE MORNING 30 MINS BEFORE THE FIRST MEAL OF THE DAY DO NOT CRUSH/SPLIT/CHEW 90 Tablet 1 11/22/2022 Active Clotrimazole-Beta methasone 1-0.05 % External Cream Apply to affected area twice daily. 45 g 6 04/29/2023 Active Ciclopirox 8 % External Solution Apply over nail and surrounding skin. Apply daily over previous coat. After seven (7) days, may remove with alcohol and continue cycle. 6.6 mL 3 05/30/2023 Active Atorvastatin Calcium 80 MG Oral Tablet (Lipitor)Indicati ons:Coronary artery disease involving [place] coronary artery of [place] heart without angina pectoris,HTN, goal below 140/90,Dyslipidem ia, goal LDL below 70,Coronary artery disease involving [place] heart without angina pectoris, unspecified vessel or lesion type,Asymptomatic bilateral carotid artery stenosis Take 1 Tablet by mouth every afternoon. 90 Tablet 3 06/28/2023 Active Carvedilol 12.5 MG Oral Tablet (Coreg)Indication s:Coronary artery disease involving [place] coronary artery of [place] heart without angina pectoris,HTN, goal below 140/90,Dyslipidem ia, goal LDL below 70,Coronary artery disease involving [place] heart without angina pectoris, unspecified vessel or lesion type,Asymptomatic bilateral carotid artery stenosis Take by mouth 1/2 tablet 2 times per day with morning and evening meals 90 Tablet 3 06/28/2023 Active Furosemide 20 MG Oral Tablet (Lasix)Indication s:Coronary artery disease involving [place] coronary artery of [place] heart without angina pectoris,HTN, goal below 140/90,Dyslipidem ia, goal LDL below 70,Coronary artery disease involving [place] heart without angina pectoris, unspecified vessel or lesion type,Asymptomatic bilateral carotid artery stenosis Only as needed 90 Tablet 3 06/28/2023 Active hydroCHLOROthiazi de 25 MG Oral Tablet (Hydrodiuril)Malina cations:Coronary artery disease involving [place] coronary artery of [place] heart without angina pectoris,HTN, goal below 140/90,Dyslipidem ia, goal LDL below 70,Coronary artery disease involving [place] heart without angina pectoris, unspecified vessel or lesion type,Asymptomatic bilateral carotid artery stenosis Take 1 Tablet by mouth in the morning. 90 Tablet 3 06/28/2023 Active Isosorbide Mononitrate ER 60 MG Oral Tablet Extended Release 24 Hour (Imdur)Indication s:Coronary artery disease involving [place] coronary artery of [place] heart without angina pectoris,HTN, goal below 140/90,Dyslipidem ia, goal LDL below 70,Coronary artery disease involving [place] heart without angina pectoris, unspecified vessel or lesion type,Asymptomatic bilateral carotid artery stenosis TAKE 1 TABLET BY MOUTH EVERY DAY IN THE MORNING 90 Tablet 3 06/28/2023 Active Losartan Potassium 50 MG Oral Tablet (Cozaar)Indicatio ns:Coronary artery disease involving [place] coronary artery of [place] heart without angina pectoris,HTN, goal below 140/90,Dyslipidem ia, goal LDL below 70,Coronary artery disease involving [place] heart without angina pectoris, unspecified vessel or lesion type,Asymptomatic bilateral carotid artery stenosis Take 1 Tablet by mouth in the morning and 1 Tablet before bedtime. 90 Tablet 1 06/28/2023 Active amLODIPine Besylate 10 MG Oral Tablet (Norvasc)Indicati ons:Coronary artery disease involving [place] coronary artery of [place] heart without angina pectoris,HTN, goal below 140/90,Dyslipidem ia, goal LDL below 70,Coronary artery disease involving [place] heart without angina pectoris, unspecified vessel or lesion type,Asymptomatic bilateral carotid artery stenosis Take 1 Tablet by mouth in the morning. 100 Tablet 3 07/15/2023 Active Ezetimibe 10 MG Oral Tablet (Zetia)Indication s:Coronary artery disease involving [place] coronary artery of [place] heart without angina pectoris,Dyslipid emia, goal LDL below 70,Asymptomatic bilateral carotid artery stenosis Take 1 Tablet by mouth in the morning. 100 Tablet 3 07/15/2023 Active amLODIPine Besylate 5 MG Oral Tablet (Norvasc)Indicati ons:Coronary artery disease involving [place] coronary artery of [place] heart without angina pectoris,HTN, goal below 140/90,Dyslipidem ia, goal LDL below 70,Coronary artery disease involving [place] heart without angina pectoris, unspecified vessel or lesion type,Asymptomatic bilateral carotid artery stenosis Take 1 Tablet by mouth in the morning. 90 Tablet 3 06/28/2023 4 Discontinued (Refill) Doxycycline Hyclate 100 MG Oral CapsuleIndication s:Tick bite, unspecified site, initial encounter Take 1 Capsule by mouth in the morning and 1 Capsule before bedtime. Do all this for 10 days. Until gone.. 20 Capsule 0 07/05/2023 4 Hospital, Clinic, or Other Facility Administered Medication Ordered Dose Route Frequency Start Date End Date Status albuterol (PROVENTIL HFA) inhaler 4 PuffIndications:COPD, mild (HCC) 4 Puff IN Q4H PRN 08/07/2017 Active documented as of this encounter (statuses as of 07/17/2023) Active Problems Problem Noted Date Diagnosed Date PSVT (paroxysmal supraventricular tachycardia) 0 04/17/2022 Premature atrial contractions 12/22/2021 ASCVD (arteriosclerotic cardiovascular disease) 12/22/2021 BPH with obstruction/lower urinary tract symptom s 10/25/2021 Supraumbilical hernia withou t gangrene and without obstruction 07/05/2021 Overview: fat containing Gastroesophageal reflux dise ase with esophagitis without hemorrhage 06/07/2021 CKD (chronic kidney disease), stage II Overview: EGFR 71 Atherosclerotic heart diseas e of [place]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 angina pectoris 09/06/2016 Thoracic aortic ectasia 09/06/2016 S/P CABG x 3 08/06/2016 HTN, goal below 130/80 04/30/2013 Dyslipidemia, goal LDL below 70 04/03/2012 HTN, goal below 140/90 05/13/2008 Old myocardial infarct 09/30/2003 COPD, mild documented as of this encounter (statuses as of 07/17/2023) Resolved Problems Problem Noted Date Diagnosed Date Resolved Date History of tobacco use 07/08/201810/14 History of colon polyps 07/08/201809/23 Contact dermatitis 07/08/2018 9 Lump in scrotum 08/22/2013 09/06/2016 Major depressive disorder wi th single episode, in full remission 11/24/2009 07/08/2018 Impaired fasting glucose 02/16/2009 PERCUTANEOUS TRANSLUMINAL CO RONARY ANGIOPLASTY STATUS 09/30/2003 10/14/2018 HYPERLIPIDEMIA 02/16/2009 Gastroesophageal reflux dise ase with esophagitis 06/07/2021 Dyslipidemia, goal LDL below 100 04/03/2012 documented as of this encounter (statuses as of 07/17/2023) Immunizations Name Administration Dates Next Due Pneumococcal [...] encounter Miscellaneous Notes * Telephone Encounter - Agusto Ng OSA - 07/16/2023 12:30 PM EDT Okay, I did see the encounter, but wanted to confirm since Cardiology is NOT here on a Saturday. * Telephone Encounter - Iraj Davies RN - 07/16/2023 12:28 PM EDT SaturdayAugust 04. Thank you * Telephone Encounter - Agusto Ng OSA - 07/16/2023 11:09 AM EDT Yes I can add , but just wanted to confirm the date. 08/04 is a Saturday so do you want pt on fam practice nurse schedule or that Saturday 08/05 when the cardiology doc is here? Just confirming * Telephone Encounter - Carolyn Huffman PA-C - 07/15/2023 11:28 AM EDT Orders signed as requested. Please arrange BP check or add to schedule if it is not yet added. * Telephone Encounter - Iraj Davies RN - 07/15/2023 9:24 AM EDT Patient phoned the clinic and I reviewed the messages with him in regards to his BP; his echocardiogram; his carotid studies and his ab work. He stated he understood. He stated he is will to increasethe Norvasc to 10 mg daily for his BP and take the Zetia as directed for his high LDL. He is requested scripts to be sent to his [facility] Mail order. He stated he is willing to go to [facility] in one month to get his BP rechecked on August 04 at 0930 am. * Telephone Encounter - Irja Davies RN - 07/15/2023 9:23 AM EDT ----- Message from PETER Cordero sent at 07/12/2023 4:51 AM EDT ----- Reviewed in coverage of [place] Baldwin Please advise patient that his Carotid ultrasound study is ok. He has less than 50% stenosis on both sides. Will plan to repeat in 1-2 years. Continue current medications/treatments. * Telephone Encounter - Dai Coy CMA - 07/15/2023 8:55 AM EDT Called patient to review instructions. No answer. Left message asking patient to return call. * Telephone Encounter - Dai Coy CMA - 07/15/2023 8:52 AM EDT BP remains hypertensive. Please have him increase Norvasc to 10 mg daily. Nurse BP/HR check in 1 month. PETER Ribeiro documented in this encounter Plan of Treatment Upcoming Encounters Date Type Department Care Team (Late st Contact Info) Description 07/31/2023 2:30 PM EDT Office Visit Family Medicine [address] [place] [address] Zuleyka Bnez [address] [place] [address] 08/05/2023 10:00 AM EDT Nurse Only Ancillary [address] [place] [address] [place], Nurse [address] [place] [address] 12/13/2023 8:00 AM EDT Office Visit Cardiology, [facility] [address] [place] [address] Luda Baldwin CRNP [address] [place] [address] Health Maintenance Due Date Last Done Comments Albumin/Creatinine Ratio 08/01/1973 Alpha-1 Antitrypsin 08/01/1973 Zoster Vaccines (1 of 2) 08/01/2005 DTaP,Tdap,and Td Vaccines (1 - Tdap) 02/23/2007 02/22/2007 COLONOSCOPY-ANNUAL AGES 18-100 01/13/2009 01/14/2008 Pneumococcal Vaccine: 65+ Years (2 of 2 - PCV) 02/22/2009 02/23/2008 Depression Screening 01/09/2020 01/08/2019 AAA Screening 08/01/2020 COVID-19 Vaccine ( - season) 2022 *NEPHROLOGY REFERRAL DUE TO RESISTANT HTN 07/07/2023 Influenza Vaccine (FLU shot) (Season Ended) 2023 01/23/2018, 02/01/2014, 01/25/2012, Additional history exists GFR 07/04/2024 07/05/2023, 01/24, 04/30/2022, Additional history exists O2 ASSESSMENT COMPLETED IN PAST YEAR FOR COPD 07/04/2024 07/05/2023 Diabetes Screening 07/04/2026 07/05/2023, 1 04/13/2022, 04/30/2022, Additional history exists Lung Cancer Screening Completed 01/08/2018 GARDASIL-HPV IMMUNIZATION SERIES Aged Out No longer eligible based on patient's age to complete this topic Hepatitis B Aged Out No longer eligi ble based on patient's age to complete this topic MENINGOCOCCAL (MENACTRA/MENVEO) Aged Out No longer eligible based on patient's age to complete this topic documented as of this encounter Medical Devices Implanted Type Area Merchandise Examiner Device Identifier Shelf Expiration Date Model / Serial / Lot Sut Steel 6 [id number] - [id number] Implanted:Qty: 4 on 05/23/2016 by Vinny Wolf MD at [place] [facility] [place] N/A: Sternum JNJ : [employer] 11/22/2020 [id number] / / [id number] Graft Marker Coronary - [id number] Implanted:Qty: 1 on 05/23/2016 by Vinny Wolf MD at OR [facility] – [place] N/A: Aorta VM CARDIO VASCULAR 09/21/2017 [id number] / / [id number] Graft Marker Coronary - [id number] Implanted:Qty: 1 on 05/23/2016 by Vinny Wolf MD at OR [facility] – [place] N/A: Aorta VM CARDIO VASCULAR 09/21/2017 [id number] / / [id number] Graft Marker Coronary - [id number] Implanted:Qty: 1 on 05/23/2016 by Vinny Wolf MD at OR [facility] – [place] N/A: Aorta VM CARDIO VASCULAR 09/21/2017 [id number] / / [id number] Lens Intraoc 22.5 - [id number] - [id number] Implanted:Qty: 1 on 05/03/2022 by Jonny Chong MD at OR [facility] Left: Eye [employer] 02/21/2027 [id number] / [id number] / [id number] Lens Intraoc 22.5 - [id number] - [id number] Implanted:Qty: 1 on 05/10/2022 by Jonny Chong MD at [facility] Right: Eye [employer] 11/22/2026 [id number] / [id number] / [id number] documented as of this encounter Visit Diagnoses Diagnosis Coronary artery disease involving [place] heart without angina pectoris, unspecified vessel or [...] the patient have Health Care Power of Health And Safety Specialist? No Code Status History Code Status Date Activated Date Inactivated Comments No Code 05/03/2022 11:09 AM 05/03/2022 5:34 PM This o rder reflects the patients wishes and were consensually agreed upon. Question Answer Comments Discussion of Advance Directives occurred with: Patient Does the patient have a Living Will? No Does the patient have Health Care Power of Health And Safety Specialist? No Full Code 05/23/2016 2:01 PM 05/26/2016 [...] the patient have Health Care Power of Health And Safety Specialist? No Full Code 05/22/2016 8:39 PM 05/23/2016 2:35 AM This o rder reflects the patients wishes and were consensually agreed upon. Question Answer Comments Discussion of Advance Directives occurred with: Patient Care Teams Fireman Relationship Specialty Start Date End Date Zuleyka Benz DO [address] [place] [address] [place] [address] PCP - General Internal Medicine 07/08/18 documented as of this encounter
--- OUTSIDE RECORDS SUMMARY | 2023-09-21 21:19 | External Medical Summary ---
Author Name Unknown Address Unknown Organization K01:[facility] [place] [address] [place] [address] Laboratory Report Ordering Provider Test Date Status MARCELA EVANGELISTA 08/01/2023 11:12:28 Final Normal: <30 mg/g creatinine< br/>High: 30-300 mg/g creatinine
Very High: >300 mg/g creatinine
Nephrotic: >2200 mg/g creatinine Observation Date Value Abnormality Reference (Units ) Status Albumin, Urine 08/01/2023 11:12:28 1.76 (mg/dL) Final Creatinine, Urine 08/01/2023 11:12:28 245 (mg/dL) Final Albumin/Creatinine [Mass Ratio] in Urine 08/01/2023 11:12:28 7 <30 (mg/g Creat) Final Performing Location [facility] [place] [address] [place] [address]
--- OUTSIDE RECORDS SUMMARY | 2023-09-21 21:19 | External Medical Summary | Summary of Care ---
Author Name Unknown Organization [facility] Address [address] [facility] [place] [address] Phone [phone] Care Team Providers Care Overseer Kosher Kitchen Name Role Phone Zuleyka Benz DO Primary Care Provider Reason for Visit * Reason Comments Blood Pressure Check Encounter Details Date Type Department Care Team (Late st Contact Info) Description 07/11/2023 1:00 PM EDT Nurse Only Cardiology [address] [place] [phone] [place], Nurse Cardiology [address] [place] [address] Blood Pressure Check Allergies Active Allergy Reactions Criticality Noted Date Comments Bee Venom Edema Other High 08/09/2020 Enalapril Cough 02/20/2011 Morphine And Related Nausea/vomiting High 07/29/2009 documented as of this encounter (statuses as of 07/11/2023) Medications Medication Sig Dispensed Refills Start Date End Date Status aspirin 81 MG chewable tabletIndications: Old myocardial infarct,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 60 Tab 6 05/02/2017 Active Nitroglycerin 0.4 MG Sublingual Tablet Sublingual (Nitrostat)Indicat ions:HTN, goal below 140/90,Coronary artery disease involving [place] heart without angina pectoris, unspecified vessel or lesion type,Lower extremity edema,Dyslipidemia , goal LDL below 70,Asymptomatic bilateral carotid artery stenosis,MOORE (dyspnea on exertion),Frequent PVCs Place under the tongue 1 Tablet as needed for Pain, Chest. May repeat 3 times. If chest pain continues, call 911. 30 Tablet 1 07/03/2021 Active B-12 1000 MCG Oral Capsule Take 1 Capsule by mouth in the morning. 0 Active Tamsulosin HCl 0.4 MG Oral Capsule (Flomax)Indication s:Urinary frequency,Urinary incontinence, unspecified type TAKE 1 CAPSULE BY MOUTH EVERY DAY IN THE MORNING 90 Capsule 3 05/16/2022 Active Loratadine 10 MG Oral Tablet (Claritin)Indicati [...] NOT CRUSH/SPLIT/CHEW 90 Tablet 1 11/22/2022 Active Clotrimazole-Betam ethasone 1-0.05 % External Cream Apply to affected area twice daily. 45 g 6 04/29/2023 Active Ciclopirox 8 % External Solution Apply over nail and surrounding skin. Apply daily over previous coat. After seven (7) days, may remove with alcohol and continue cycle. 6.6 mL 3 05/30/2023 Active amLODIPine Besylate 5 MG Oral Tablet (Norvasc)Indicatio ns:Coronary artery disease involving [place] coronary artery of [place] heart without angina pectoris,HTN, goal below 140/90,Dyslipidemi a, goal LDL below 70,Coronary artery disease involving [place] heart without angina pectoris, unspecified vessel or lesion type,Asymptomatic bilateral carotid artery stenosis Take 1 Tablet by mouth in the morning. 90 Tablet 3 06/28/2023 Active Atorvastatin Calcium 80 MG Oral Tablet (Lipitor)Indicatio ns:Coronary artery disease involving [place] coronary artery of [place] heart without angina pectoris,HTN, goal below 140/90,Dyslipidemi a, goal LDL below 70,Coronary artery disease involving [place] heart without angina pectoris, unspecified vessel or lesion type,Asymptomatic bilateral carotid artery stenosis Take 1 Tablet by mouth every afternoon. 90 Tablet 3 06/28/2023 Active Carvedilol 12.5 MG Oral Tablet (Coreg)Indications :Coronary artery disease involving [place] coronary artery of [place] heart without angina pectoris,HTN, goal below 140/90,Dyslipidemi a, goal LDL below 70,Coronary artery disease involving [place] heart without angina pectoris, unspecified vessel or lesion type,Asymptomatic bilateral carotid artery stenosis Take by mouth 1/2 tablet 2 times per day with morning and evening meals 90 Tablet 3 06/28/2023 Active Furosemide 20 MG Oral Tablet (Lasix)Indications :Coronary artery disease involving [place] coronary artery of [place] heart without angina pectoris,HTN, goal below 140/90,Dyslipidemi a, goal LDL below 70,Coronary artery disease involving [place] heart without angina pectoris, unspecified vessel or lesion type,Asymptomatic bilateral carotid artery stenosis Only as needed 90 Tablet 3 06/28/2023 Active hydroCHLOROthiazid e 25 MG Oral Tablet (Hydrodiuril)Indic ations:Coronary artery disease involving [place] coronary artery of [place] heart without angina pectoris,HTN, goal below 140/90,Dyslipidemi a, goal LDL below 70,Coronary artery disease involving [place] heart without angina pectoris, unspecified vessel or lesion type,Asymptomatic bilateral carotid artery stenosis Take 1 Tablet by mouth in the morning. 90 Tablet 3 06/28/2023 Active Isosorbide Mononitrate ER 60 MG Oral Tablet Extended Release 24 Hour (Imdur)Indications :Coronary artery disease involving [place] coronary artery of [place] heart without angina pectoris,HTN, goal below 140/90,Dyslipidemi a, goal LDL below 70,Coronary artery disease involving [place] heart without angina pectoris, unspecified vessel or lesion type,Asymptomatic bilateral carotid artery stenosis TAKE 1 TABLET BY MOUTH EVERY DAY IN THE MORNING 90 Tablet 3 06/28/2023 Active Losartan Potassium 50 MG Oral Tablet (Cozaar)Indication s:Coronary artery disease involving [place] coronary artery of [place] heart without angina pectoris,HTN, goal below 140/90,Dyslipidemi a, goal LDL below 70,Coronary artery disease involving [place] heart without angina pectoris, unspecified vessel or lesion type,Asymptomatic bilateral carotid artery stenosis Take 1 Tablet by mouth in the morning and 1 Tablet before bedtime. 90 Tablet 1 06/28/2023 Active Doxycycline Hyclate 100 MG Oral CapsuleIndications :Tick bite, unspecified site, initial encounter Take 1 Capsule by mouth in the morning and 1 Capsule before bedtime. Do all this for 10 days. Until gone.. 20 Capsule 0 07/05/2023 07/15/2023 Active Hospital, Clinic, or Other Facility Administered Medication Ordered Dose Route Frequency Start Date End Date Status albuterol (PROVENTIL HFA) inhaler 4 PuffIndications:COPD, mild (HCC) 4 Puff IN Q4H PRN 08/07/2017 Active documented as of this encounter (statuses as of 07/11/2023) Active Problems Problem Noted Date Diagnosed Date [...] EGFR 71 Atherosclerotic heart diseas e of [place]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 angina pectoris 09/06/2016 Thoracic aortic ectasia 09/06/2016 S/P CABG x 3 08/06/2016 HTN, goal below 130/80 04/30/2013 Dyslipidemia, goal LDL below 70 04/03/2012 HTN, goal below 140/90 05/13/2008 Old myocardial infarct 09/30/2003 COPD, mild documented as of this encounter (statuses as of 07/11/2023) Resolved Problems Problem Noted Date Diagnosed Date [...] as of this encounter (statuses as of 07/11/2023) Immunizations Name Administration Dates Next Due Pneumococcal [...] on file documented as of this encounter Last Filed Vital Signs Vital Sign Reading Time Taken Comments Blood Pressure 154/94 07/11/2023 1:17 PM EDT Pulse - - Temperature - - Respiratory Rate - - Oxygen Saturation - - Inhaled Oxygen Concentration - - Weight - - Height - - Body Mass Index - - documented in this encounter Functional Status Functional Status Response [...] No 05/24/2016 documented as of this encounter Progress Notes * Luda Baldwin CRNP - 07/11/2023 1:56 PM EDT BP remains hypertensive. Please have him increase Norvasc to 10 mg daily. Nurse BP/HR check in 1 month. PETER Ribeiro * Endy Cooln LPN - 07/11/2023 1:46 PM EDT Jeffry Benoit presented for blood pressure check per provider orders. The blood pressure was obtained using the left arm in the sitting position using a adult cuff. The results were charted in Vital Signs. BP Readings from Last 3 Encounters: 07/11/23 154/94 07/05/23 158/92 06/28/23 172/102 BP 154/94 Patient complains of dizziness/lightheadedness the other day when cutting his grass. Patient state he was hydrated and needed to take a break. Patient did restart medications. Patient denies headache, pressure in head, chest discomfort, focal neurological symptoms, change invision, nose bleeds. Did patient take medications today? Yes Patient was instructed Luda would review blood pressure check and patient would be contacted withany recommendations/changes. documented in this encounter Plan of Treatment Upcoming Encounters Date Type Department Care Team (Latest Contact Info) Description 07/11/2023 2:30 PM EDT Cardiac Studies Cardiac Studies [address] [place] [address] Coronary artery disease involving [place] coronary artery of [place] heart without angina pectoris; HTN, goal below 140/90; Dyslipidemia, goal LDL below 70; Coronary artery disease involving [place] heart without angina pectoris, unspecified vessel or lesion type; Asymptomatic bilateral carotid artery stenosis 07/31/2023 2:30 PM EDT Office Visit Family Medicine [address] [place] [phone] Zuleyka Benz, [address] [place] [address] 12/13/2023 8:00 AM EDT Office Visit Cardiology, [facility] [address] [place] [address] Luda Baldwin CRNP [address] [place] [address] Health Maintenance Due Date Last Done Comments Albumin/Creatinine Ratio 08/01/1973 Alpha-1 Antitrypsin 08/01/1973 Zoster Vaccines (1 of 2) 08/01/2005 DTaP,Tdap,and Td Vaccines (1 - Tdap) 02/23/2007 02/22/2007 COLONOSCOPY-ANNUAL AGES 18-100 01/13/2009 01/14/2008 Pneumococcal Vaccine: 65+ Years (2 of 2 - PCV) 02/22/2009 02/23/2008 Depression Screening 01/09/2020 01/08/2019 AAA Screening 08/01/2020 COVID-19 Vaccine ( season) 2022 *NEPHROLOGY REFERRAL DUE TO RESISTANT [...] this encounter Medical Devices Implanted Type Area Donor Relations Manager Device Identifier Shelf Expiration Date Model / Serial / Lot Sut Steel 6 M654g - [id number] Implanted:Qty: 4 on 05/23/2016 by Vinny Wolf MD at OR [facility] [place] N/A: Sternum JNJ : [employer] 11/22/2020 [id number] / / [id number] Graft Marker Coronary - [id number] Implanted:Qty: 1 on 05/23/2016 by Vinny Wolf MD at OR [facility] [place] N/A: Aorta VM CARDIO VASCULAR 09/21/2017 [id number] / / [id number] Graft Marker Coronary - [id number] Implanted:Qty: 1 on 05/23/2016 by Vinny Wolf MD at OR [facility] [place] N/A: Aorta VM CARDIO VASCULAR 09/21/2017 [id number] / / [id number] Graft Marker Coronary - [id number] Implanted:Qty: 1 on 05/23/2016 by Vinny Wolf MD at OR [facility] [place] N/A: Aorta VM CARDIO VASCULAR 09/21/2017 [id number] / / [id number] Lens Intraoc 22.5 - [id number] - [id number] Implanted:Qty: 1 on 05/03/2022 by Jonny Chong MD at OR [facility] Left: Eye [employer] 02/21/2027 [id number] / [id number] / [id number] Lens Intraoc 22.5 - [id number] - [id number] Implanted:Qty: 1 on 05/10/2022 by Jonny Chong MD at OR [facility] Right: Eye [employer]OM[employer] 11/22/2026 [id number] / [id number] / [id number] documented as of this encounter Visit Diagnoses Diagnosis Coronary artery disease involving [place] heart without angina pectoris, unspecified vessel or lesion type HTN, goal below 140/90 Unspecified essential hypertension Dyslipidemia, goal LDL below 70 Other and unspecified hyperlipidemia Asymptomatic bilateral carotid artery stenosis 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 Question Answer Comments Discussion of Advance Directives occurred with: Patient Does the patient have a Living Will? No Does the patient have Health Care Power of Courtroom Reporter? No Code Status History Code Status Date Activated Date Inactivated Comments No Code 05/03/2022 11:09 AM 05/03/2022 5:34 PM This o rder reflects the patients wishes and were consensually agreed upon. Question Answer Comments Discussion of Advance Directives occurred with: Patient Does the patient have a Living Will? No Does the patient have Health Care Power of Courtroom Reporter? No Full Code 05/23/2016 2:01 PM 05/26/2016 [...] the patient have Health Care Power of Courtroom Reporter? No Full Code 05/22/2016 8:39 PM 05/23/2016 2:35 AM This o rder reflects the patients wishes and were consensually agreed upon. Question Answer Comments Discussion of Advance Directives occurred with: Patient Care Teams Overseer Kosher Kitchen Relationship Specialty Start Date End Date Zuleyka Benz DO [address] [place] [address] [place] [phone] PCP - General Internal Medicine 07/08/18 documented as of this encounter
--- OUTSIDE RECORDS SUMMARY | 2023-09-21 21:19 | External Medical Summary ---
Author Name Unknown Address Unknown Organization K01:[facility] - [address] [place] [address] Laboratory Report Ordering Provider Test Date Status MARCELA EVANGELISTA 08/01/2023 08:23:17 Final Observation Date Value Abnormality Reference (Units ) Status PSA 08/01/2023 08:23:17 2.45 <4.10 (ng/ mL) Final Performing Location [facility] - [address] [place] [address]
--- OUTSIDE RECORDS SUMMARY | 2023-09-21 21:19 | External Medical Summary ---
Author Name Unknown Address Unknown Organization K[facility] [place] [address] [place] [id number] Laboratory Report Ordering Provider Test Date Status JEAN CARLOSMARCELA VILLAGOMEZ 08/01/2023 08:23:17 Final Observation Date Value Abnormality Reference (Units ) Status HbA1C 08/01/2023 08:23:17 5.2 4.0-5.6 (% ) Final The use of HbA1c to monitor glycemic status is based on normal hemoglobin and HbA composition. This test should not be used in patients with abnormal hemoglobin that affects the half life of the red blood cell or the in vivo glycation rates. Glucose, estimated average 08/01/2023 08:23:17 103 <126 (mg/dL) Final Performing Location [facility] [place] [address] [place] [id number]
--- OUTSIDE RECORDS SUMMARY | 2023-09-21 21:19 | External Medical Summary ---
Author Name Unknown Address Unknown Organization K01:[facility] [place] - [address] [place] [address] Laboratory Report Ordering Provider Test Date Status MARCELA EVANGELISTA 08/01/2023 08:23:17 Final Observation Date Value Abnormality Reference (Units ) Status Vitamin B12 08/01/2023 08:23:17 [phone] (pg/mL) Final Performing Location [facility] - [address] [place] [address]
--- OUTSIDE RECORDS SUMMARY | 2023-09-21 21:19 | External Medical Summary | Summary of Care ---
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 90 Tablet 3 06/28/2023 Active Carvedilol 12.5 MG Oral Tablet (Coreg)Indications: Coronary artery disease involving [place] coronary artery of [place] heart without angina pectoris,HTN, goal below 140/90,Dyslipidemia , goal LDL below 70,Coronary artery disease involving [place] heart without angina pectoris, unspecified vessel or lesion type,Asymptomatic bilateral carotid artery stenosis Take by mouth 1/2 tablet 2 times per day with morning and evening meals 90 Tablet 3 06/28/2023 Active Furosemide 20 MG Oral Tablet (Lasix)Indications: Coronary artery disease involving [place] coronary artery of [place] heart without angina pectoris,HTN, goal below 140/90,Dyslipidemia , goal LDL below 70,Coronary artery disease involving [place] heart without angina pectoris, unspecified vessel or lesion type,Asymptomatic bilateral carotid artery stenosis Only as needed 90 Tablet 3 06/28/2023 Active hydroCHLOROthiazide 25 MG Oral Tablet (Hydrodiuril)Indica tions:Coronary artery disease involving [place] coronary artery of [place] heart without angina pectoris,HTN, goal below 140/90,Dyslipidemia , goal LDL below 70,Coronary artery disease involving [place] heart without angina pectoris, unspecified vessel or lesion type,Asymptomatic bilateral carotid artery stenosis Take 1 Tablet by mouth in the morning. 90 Tablet 3 06/28/2023 Active Isosorbide Mononitrate ER 60 MG Oral Tablet Extended Release 24 Hour (Imdur)Indications: Coronary artery disease involving [place] coronary artery of [place] heart without angina pectoris,HTN, goal below 140/90,Dyslipidemia , goal LDL below 70,Coronary artery disease involving [place] heart without angina pectoris, unspecified vessel or lesion type,Asymptomatic bilateral carotid artery stenosis TAKE 1 TABLET BY MOUTH EVERY DAY IN THE MORNING 90 Tablet 3 06/28/2023 Active Losartan Potassium 50 MG Oral Tablet (Cozaar)Indications :Coronary artery disease involving [place] coronary artery of [place] heart without angina pectoris,HTN, goal below 140/90,Dyslipidemia , goal LDL below 70,Coronary artery disease involving [place] heart without angina pectoris, unspecified vessel or lesion type,Asymptomatic bilateral carotid artery stenosis Take 1 Tablet by mouth in the morning and 1 Tablet before bedtime. 90 Tablet 1 06/28/2023 Active amLODIPine Besylate 10 MG Oral Tablet (Norvasc)Indication s:Coronary artery disease involving [place] coronary artery of [place] heart without angina pectoris,HTN, goal below 140/90,Dyslipidemia , goal LDL below 70,Coronary artery disease involving [place] heart without angina pectoris, unspecified vessel or lesion type,Asymptomatic bilateral carotid artery stenosis Take 1 Tablet by mouth in the morning. 100 Tablet 3 07/15/2023 Active Ezetimibe 10 MG Oral Tablet (Zetia)Indications: Coronary artery disease involving [place] coronary artery of [place] heart without angina pectoris,Dyslipidem ia, goal LDL below 70,Asymptomatic bilateral carotid artery stenosis Take 1 Tablet by mouth in the morning. 100 Tablet 3 07/15/2023 Active Nitroglycerin 0.4 MG Sublingual Tablet Sublingual (Nitrostat)Indicati ons:HTN, goal below 140/90,Coronary artery disease involving [place] heart without angina pectoris, unspecified vessel or [...] hemorrhage 06/07/2021 Atherosclerotic heart diseas e of [place]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 angina [...] 10:00 AM EDT Nurse Only Ancillary Darwin Farrell[address] [place] [address] Nurse Tiffany [address] [place] [address] 08/08/2023 8:15 AM EDT Imaging Radiology [address] [place] [address] 12/13/2023 8:00 AM EDT Office Visit Cardiology, [facility] [address] [place] [address] Luda Baldwin CRNP [address] [place] [address] 03/24/2024 8:50 AM EST Office Visit Family Medicine [address] [place] [phone] Zuleyka Benz[address] [place] [address] Pending Results Name Type Priority Associated Diagnoses Date /Time MAGNESIUM Lab Routine senior living current use of therapeutic drug 08/01/2023 8:23 AM EDT VITAMIN B12 Lab Routine 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 08/01/2023 8:23 AM EDT ALBUMIN / CREATININE RATIO, URINE Lab Routine HTN, goal below 140/90 08/01/2023 11:12 AM EDT PSA Lab Routine Nocturia Incomplete [...] 08/01/2020 02/23/2008, 06/24/2007 COVID-19 Vaccine (3 - 24 season) 2022 08/01/2020, 07/29/2020 *NEPHROLOGY REFERRAL DUE [...] this encounter Medical Devices Implanted Type Area Cushion Gum Applicator Device Identifier Shelf Expiration Date Model / Serial / Lot Sut Steel 6 M654g - [id number] Implanted:Qty: 4 on 05/23/2016 by Vinny Wolf MD at [place] [facility] [place] N/A: Sternum JNJ : [employer] 11/22/2020 [id number] / / [id number] Graft Marker Coronary - [id number] Implanted:Qty: 1 on 05/23/2016 by Vinny Wolf MD at [place] [facility] [place] N/A: Aorta VM CARDIO VASCULAR 09/21/2017 [id number] / / [id number] Graft Marker Coronary - [id number] Implanted:Qty: 1 on 05/23/2016 by Vinny Wolf MD at [place] [facility] [place] N/A: Aorta VM CARDIO VASCULAR 09/21/2017 [id number] / / [id number] Graft Marker Coronary - [id number] Implanted:Qty: 1 on 05/23/2016 by iVnny Wolf MD at [place] [facility] [place] N/A: Aorta VM CARDIO VASCULAR 09/21/2017 [id number] / / [id number] Lens Intraoc 22.5 - [id number] - [id number] Implanted:Qty: 1 on 05/03/2022 by Jonny Chong MD at OR [facility] Left: Eye [employer] 02/21/2027 [id number] / [id number] / [id number] Lens Intraoc 22.5 - [id number] - [id number] Implanted:Qty: 1 on 05/10/2022 by Jonny Chong MD at OR [facility] Right: Eye [employer]OM[employer] 11/22/2026 [id number] / [id number] / [id number] documented as of this encounter Visit Diagnoses Diagnosis senior living current use of therapeutic drug HTN, goal [...] the patient have Health Care Power of Set Up Mechanic Crown Assembly Machine? No Code Status History Code Status Date Activated Date Inactivated Comments No Code 05/03/2022 11:09 AM 05/03/2022 5:34 PM This o rder reflects the patients wishes and were consensually agreed upon. Question Answer Comments Discussion of Advance Directives occurred with: Patient Does the patient have a Living Will? No Does the patient have Health Care Power of Set Up Mechanic Crown Assembly Machine? No Full Code 05/23/2016 2:01 PM 05/26/2016 [...] the patient have Health Care Power of Set Up Mechanic Crown Assembly Machine? No Full Code 05/22/2016 8:39 PM 05/23/2016 2:35 AM This o rder reflects the patients wishes and were consensually agreed upon. Question Answer Comments Discussion of Advance Directives occurred with: Patient Care Teams Certified Registered Nurse Practitioner Relationship Specialty Start Date End Date Zuleyka Benz DO [address] [place] [address] [place] [phone] PCP - General Internal Medicine 07/08/18 documented as of this encounter
--- OUTSIDE RECORDS SUMMARY | 2023-09-21 21:19 | External Medical Summary | Summary of Care ---
Author Name Unknown Organization [facility] Address [address] 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; HTN, goal below 140/90; Nocturia; Incomplete bladder emptying; Elevated blood sugar; Diarrhea, unspecified type Allergies Active Allergy Reactions Criticality Noted Date Comments Bee Venom Edema Other High 08/09/2020 Enalapril Cough 02/20/2011 Morphine And Related Nausea/vomiting High 07/29/2009 documented as of this encounter (statuses as of 08/01/2023) Medications Medication Sig Dispensed Refills Start Date End Date Status aspirin 81 MG chewable tabletIndications:O ld myocardial infarct,Atheroscler otic heart disease of [place]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 angina [...] Oral Tablet (Lipitor)Indication s:Coronary artery disease involving [place] coronary artery of [place] heart without angina pectoris,HTN, goal below 140/90,Dyslipidemia , goal LDL below 70,Coronary artery disease involving [place] heart without angina pectoris, unspecified vessel or lesion type,Asymptomatic bilateral carotid artery stenosis Take 1 Tablet by mouth every afternoon. 90 Tablet 3 06/28/2023 Active Carvedilol 12.5 MG Oral Tablet (Coreg)Indications: Coronary artery disease involving [place] coronary artery of [place] heart without angina pectoris,HTN, goal below 140/90,Dyslipidemia , goal LDL below 70,Coronary artery disease involving [place] heart without angina pectoris, unspecified vessel or lesion type,Asymptomatic bilateral carotid artery stenosis Take by mouth 1/2 tablet 2 times per day with morning and evening meals 90 Tablet 3 06/28/2023 Active Furosemide 20 MG Oral Tablet (Lasix)Indications: Coronary artery disease involving [place] coronary artery of [place] heart without angina pectoris,HTN, goal below 140/90,Dyslipidemia , goal LDL below 70,Coronary artery disease involving [place] heart without angina pectoris, unspecified vessel or lesion type,Asymptomatic bilateral carotid artery stenosis Only as needed 90 Tablet 3 06/28/2023 Active hydroCHLOROthiazide 25 MG Oral Tablet (Hydrodiuril)Indica tions:Coronary artery disease involving [place] coronary artery of [place] heart without angina pectoris,HTN, goal below 140/90,Dyslipidemia , goal LDL below 70,Coronary artery disease involving [place] heart without angina pectoris, unspecified vessel or lesion type,Asymptomatic bilateral carotid artery stenosis Take 1 Tablet by mouth in the morning. 90 Tablet 3 06/28/2023 Active Isosorbide Mononitrate ER 60 MG Oral Tablet Extended Release 24 Hour (Imdur)Indications: Coronary artery disease involving [place] coronary artery of [place] heart without angina pectoris,HTN, goal below 140/90,Dyslipidemia , goal LDL below 70,Coronary artery disease involving [place] heart without angina pectoris, unspecified vessel or lesion type,Asymptomatic bilateral carotid artery stenosis TAKE 1 TABLET BY MOUTH EVERY DAY IN THE MORNING 90 Tablet 3 06/28/2023 Active Losartan Potassium 50 MG Oral Tablet (Cozaar)Indications :Coronary artery disease involving [place] coronary artery of [place] heart without angina pectoris,HTN, goal below 140/90,Dyslipidemia , goal LDL below 70,Coronary artery disease involving [place] heart without angina pectoris, unspecified vessel or lesion type,Asymptomatic bilateral carotid artery stenosis Take 1 Tablet by mouth in the morning and 1 Tablet before bedtime. 90 Tablet 1 06/28/2023 Active amLODIPine Besylate 10 MG Oral Tablet (Norvasc)Indication s:Coronary artery disease involving [place] coronary artery of [place] heart without angina pectoris,HTN, goal below 140/90,Dyslipidemia , goal LDL below 70,Coronary artery disease involving [place] heart without angina pectoris, unspecified vessel or lesion type,Asymptomatic bilateral carotid artery stenosis Take 1 Tablet by mouth in the morning. 100 Tablet 3 07/15/2023 Active Ezetimibe 10 MG Oral Tablet (Zetia)Indications: Coronary artery disease involving [place] coronary artery of [place] heart without angina pectoris,Dyslipidem ia, goal LDL below 70,Asymptomatic bilateral carotid artery stenosis Take 1 Tablet by mouth in the morning. 100 Tablet 3 07/15/2023 Active Nitroglycerin 0.4 MG Sublingual Tablet Sublingual (Nitrostat)Indicati ons:HTN, goal below 140/90,Coronary artery disease involving [place] heart without angina pectoris, unspecified vessel or [...] hemorrhage 06/07/2021 Atherosclerotic heart diseas e of [place]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 angina [...] 08/05/2023 10:00 AM EDT Nurse Only Ancillary Sydney Liriano [address] [place] [address] [place] Nurse [address] [place] [address] 08/08/2023 8:15 AM EDT Imaging Radiology [address] [place] [address] 12/13/2023 8:00 AM EDT Office Visit Cardiology, [facility] [address] [place] [address] Luda Baldwin CRNP [address] [place] [address] 03/24/2024 8:50 AM EST Office Visit Family Medicine [address] [place] [phone] [address] [place] [address] Pending Results Name Type Priority Associated Diagnoses Date /Time MAGNESIUM Lab Routine 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 08/01/2023 8:23 AM EDT VITAMIN B12 Lab Routine 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 08/01/2023 8:23 AM EDT ALBUMIN / CREATININE RATIO, URINE Lab Routine HTN, goal below 140/90 08/01/2023 11:12 AM EDT PSA Lab Routine Nocturia Incomplete bladder emptying 08/01/2023 8:23 AM EDT HEMOGLOBIN A1C Lab Routine Elevated blood sugar 08/01/2023 8:23 AM EDT CLOSTRIDIUM DIFFICILE, PCR Lab Routine Diarrhea, unspecified type 08/01/2023 11:12 AM EDT Health Maintenance Due Date Last [...] or PCV20) 08/01/2020 02/23/2008, 06/24/2007 COVID-19 Vaccine ( season) 2022 08/01/2020, 07/29/2020 *NEPHROLOGY REFERRAL DUE [...] this encounter Medical Devices Implanted Type Area Case Work Aide Device Identifier Shelf Expiration Date Model / Serial / Lot Sut Steel 6 [id number] - [id number] Implanted:Qty[place] 4 on 05/23/2016 [place] [facility] [place] Sternum JNJ : [employer] 11/22/2020 [id number] / / [id number] Graft Marker Coronary - [id number] Implanted:Qty: 1 on 05/23/2016 [place] Wolf [place] [facility] [place]: Aorta VM CARDIO VASCULAR 09/21/2017 [id number] / / [id number] Graft Marker Coronary - [id number] Implanted:Qty: 1 on 05/23/2016 [place] Wolf [place] [facility] [place] Aorta VM CARDIO VASCULAR 09/21/2017 [id number] / / [id number] Graft Marker Coronary - [id number] Implanted:Qty: 1 on 05/23/2016 [place]inny [place]Wlf [place] [facility] [place] Aorta VM CARDIO VASCULAR 09/21/2017 [id number] / / [id number] Lens Intraoc 22.5 - [id number] - [id number] Implanted:Qty: 1 on 05/03/2022 by Jonny Chong MD at OR [facility] Left: Eye [employer]OM[employer] 02/21/2027 [id number] / [id number] / [id number] Lens Intraoc 22.5 - [id number] - [id number] Implanted:Qty: 1 on 05/10/2022 by Jonny Chong MD at OR [facility] Right: Eye BAUSCH [employer] LOMB 11/22/2026 [id number] / [id number] / [id number] documented as of this encounter Visit Diagnoses Diagnosis MCC current use of therapeutic drug HTN, goal below 140/90 Unspecified essential hypertension Nocturia Incomplete bladder emptying Elevated blood sugar Other abnormal glucose Diarrhea, unspecified type documented in this encounter Additional Health Concerns Infection Onset Date Last Indicated Resolved Time C. difficile Rule-Out 08/01/2023 08/01/2023 documented as of this encounter Advance Directives [...] the patient have Health Care Power of Collections Technician? No Code Status History Code Status Date Activated Date Inactivated Comments No Code 05/03/2022 11:09 AM 05/03/2022 5:34 PM This o rder reflects the patients wishes and were consensually agreed upon. Question Answer Comments Discussion of Advance Directives occurred with: Patient Does the patient have a Living Will? No Does the patient have Health Care Power of Collections Technician? No Full Code 05/23/2016 2:01 PM 05/26/2016 6:20 PM This o rder reflects the patients wishes and were consensually agreed upon. Full Code 05/23/2016 2:35 AM 05/23/2016 2:01 PM This or jorge reflects the patients wishes and were consensually agreed upon. Question Answer Comments Discussion of Advance Directives occurred with: Patient Does the patient have a Living Will? No Does the patient have Health Care Power of Collections Technician? No Full Code 05/22/2016 8:39 PM 05/23/2016 2:35 AM This o rder reflects the patients wishes and were consensually agreed upon. Question Answer Comments Discussion of Advance Directives occurred with: Patient Care Teams Pilot Can Router Relationship Specialty Start Date End Date Zuleyka Benz DO [address] [place] [address] [place] [phone] PCP - General Internal Medicine 07/08/18 documented as of this encounter
--- OUTSIDE RECORDS SUMMARY | 2023-09-21 21:19 | External Medical Summary ---
Author Name Unknown Address Unknown Organization K01:[facility] [address] [place] [address] Laboratory Report Ordering Provider Test Date Status MARCELA EVANGELISTA 08/01/2023 08:23:17 Final Observation Date Value Abnormality Reference (Units ) Status Magnesium 08/01/2023 08:23:17 2.3 1.5-2.6 (m g/dL) Final Performing Location [facility] [address] [place] [address]
--- OUTSIDE RECORDS SUMMARY | 2023-09-21 21:19 | External Medical Summary | Summary of Care ---
Author Name Unknown Organization [facility] Address [address] [facility] [place] [address] Phone [phone] Care Team Providers Care Janitorial Assistant Name Role Phone Zuleyka Benz DO Primary Care Provider Reason for Visit * Reason Comments Blood Pressure Check Encounter Details Date Type Department Care Team (Late st Contact Info) Description 07/11/2023 1:00 PM EDT Nurse Only Cardiology [address] [place] [address] [place], Nurse Cardiology [address] [place] [address] Blood Pressure Check Allergies Active Allergy Reactions Criticality Noted Date Comments Bee Venom Edema Other High 08/09/2020 Enalapril Cough 02/20/2011 Morphine And Related Nausea/vomiting High 07/29/2009 documented as of this encounter (statuses as of 07/11/2023) Medications Medication Sig Dispensed Refills Start Date End Date Status aspirin 81 MG chewable tabletIndications: Old myocardial infarct,Atheroscle rotic heart disease of [place]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 angina pectoris (HCC) Take 1 Tablet by mouth in the morning. 60 Tab 6 05/02/2017 Active Nitroglycerin 0.4 MG Sublingual Tablet Sublingual (Nitrostat)Indicat ions:HTN, goal below 140/90,Coronary artery disease involving [place] heart without angina pectoris, unspecified vessel or [...] Oral Tablet (Norvasc)Indicatio ns:Coronary artery disease involving [place] coronary artery of [place] heart without angina pectoris,HTN, goal below 140/90,Dyslipidemi a, goal LDL below 70,Coronary artery disease involving [place] heart without angina pectoris, unspecified vessel or lesion type,Asymptomatic bilateral carotid artery stenosis Take 1 Tablet by mouth in the morning. 90 Tablet 3 06/28/2023 Active Atorvastatin Calcium 80 MG Oral Tablet (Lipitor)Indicatio ns:Coronary artery disease involving [place] coronary artery of [place] heart without angina pectoris,HTN, goal below 140/90,Dyslipidemi a, goal LDL below 70,Coronary artery disease involving [place] heart without angina pectoris, unspecified vessel or lesion type,Asymptomatic bilateral carotid artery stenosis Take 1 Tablet by mouth every afternoon. 90 Tablet 3 06/28/2023 Active Carvedilol 12.5 MG Oral Tablet (Coreg)Indications :Coronary artery disease involving [place] coronary artery of [place] heart without angina pectoris,HTN, goal below 140/90,Dyslipidemi a, goal LDL below 70,Coronary artery disease involving [place] heart without angina pectoris, unspecified vessel or lesion type,Asymptomatic bilateral carotid artery stenosis Take by mouth 1/2 tablet 2 times per day with morning and evening meals 90 Tablet 3 06/28/2023 Active Furosemide 20 MG Oral Tablet (Lasix)Indications :Coronary artery disease involving [place] coronary artery of [place] heart without angina pectoris,HTN, goal below 140/90,Dyslipidemi a, goal LDL below 70,Coronary artery disease involving [place] heart without angina pectoris, unspecified vessel or lesion type,Asymptomatic bilateral carotid artery stenosis Only as needed 90 Tablet 3 06/28/2023 Active hydroCHLOROthiazid e 25 MG Oral Tablet (Hydrodiuril)Indic ations:Coronary artery disease involving [place] coronary artery of [place] heart without angina pectoris,HTN, goal below 140/90,Dyslipidemi a, goal LDL below 70,Coronary artery disease involving [place] heart without angina pectoris, unspecified vessel or lesion type,Asymptomatic bilateral carotid artery stenosis Take 1 Tablet by mouth in the morning. 90 Tablet 3 06/28/2023 Active Isosorbide Mononitrate ER 60 MG Oral Tablet Extended Release 24 Hour (Imdur)Indications :Coronary artery disease involving [place] coronary artery of [place] heart without angina pectoris,HTN, goal below 140/90,Dyslipidemi a, goal LDL below 70,Coronary artery disease involving [place] heart without angina pectoris, unspecified vessel or lesion type,Asymptomatic bilateral carotid artery stenosis TAKE 1 TABLET BY MOUTH EVERY DAY IN THE MORNING 90 Tablet 3 06/28/2023 Active Losartan Potassium 50 MG Oral Tablet (Cozaar)Indication s:Coronary artery disease involving [place] coronary artery of [place] heart without angina pectoris,HTN, goal below 140/90,Dyslipidemi a, goal LDL below 70,Coronary artery disease involving [place] heart without angina pectoris, unspecified vessel or [...] EGFR 71 Atherosclerotic heart diseas e of [place]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 angina [...] in 1 month. PETER Ribeiro * Endy Colon LPN - 07/11/2023 1:46 PM EDT Jeffry [...] 2:30 PM EDT Cardiac Studies Cardiac Studies [address] [place] [address] Coronary artery disease involving [place] coronary artery of [place] heart without angina pectoris; HTN, goal below 140/90; Dyslipidemia, goal LDL below 70; Coronary artery disease involving [place] heart without angina pectoris, unspecified vessel or lesion type; Asymptomatic bilateral carotid artery stenosis 07/31/2023 2:30 PM EDT Office Visit Family Medicine [address] [place] [phone] Zuleyka Benz, [address] [place] [address] 12/13/2023 8:00 AM EDT Office Visit Cardiology, [facility] [address] [place] [address] Luda Baldwin CRNP [address] [place] [address] Health Maintenance Due Date Last Done Comments [...] this encounter Medical Devices Implanted Type Area Home Health Cna Device Identifier Shelf Expiration Date Model / Serial / Lot Sut Steel 6 M654g - [id number] Implanted:Qty: 4 on 05/23/2016 by Vinny Wolf MD at [place] [facility] [place] N/A: Sternum JNJ : [employer] 11/22/2020 [id number] / / [id number] Graft Marker Coronary - [id number] Implanted:Qty: 1 on 05/23/2016 by Vinny Wolf MD at [place] [facility] [place] N/A: Aorta VM CARDIO VASCULAR 09/21/2017 [id number] / / [id number] Graft Marker Coronary - [id number] Implanted:Qty: 1 on 05/23/2016 by Vinny Wolf MD at [place] [facility] [place] N/A: Aorta VM CARDIO VASCULAR 09/21/2017 [id number] / / [id number] Graft Marker Coronary - [id number] Implanted:Qty: 1 on 05/23/2016 by Vinny Wolf MD at [place] [facility] [place] N/A: Aorta VM CARDIO VASCULAR 09/21/2017 [id number] / / [id number] Lens Intraoc 22.5 - [id number] - [id number] Implanted:Qty: 1 on 05/03/2022 by Jonny Chong MD at OR [facility] Left: Eye BAUSCH & LOMB 02/21/2027 [id number] / [id number] / [id number] Lens Intraoc 22.5 - [id number] - [id number] Implanted:Qty: 1 on 05/10/2022 by Jonny Chong MD at OR [facility] Right: Eye [employer]USCH [employer] LOMB 11/22/2026 [id number] / [id number] / [id number] documented as of this encounter Visit Diagnoses Diagnosis Coronary artery disease involving [place] heart without angina pectoris, unspecified vessel or [...] the patient have Health Care Power of Water Resources Engineer? No Code Status History Code Status Date Activated Date Inactivated Comments No Code 05/03/2022 11:09 AM 05/03/2022 5:34 PM This o rder reflects the patients wishes and were consensually agreed upon. Question Answer Comments Discussion of Advance Directives occurred with: Patient Does the patient have a Living Will? No Does the patient have Health Care Power of Water Resources Engineer? No Full Code 05/23/2016 2:01 PM [...] the patient have Health Care Power of Water Resources Engineer? No Full Code 05/22/2016 8:39 PM 05/23/2016 2:35 AM This o rder reflects the patients wishes and were consensually agreed upon. Question Answer Comments Discussion of Advance Directives occurred with: Patient Care Teams Janitorial Assistant Relationship Specialty Start Date End Date Zuleyka Benz DO [address] [place] [address] [place] [address] PCP - General Internal Medicine 07/08/18 documented as of this encounter
--- OUTSIDE RECORDS SUMMARY | 2023-09-21 21:19 | External Medical Summary | Summary of Care ---
Author Name Unknown Organization [facility] Address [address] [facility] [place] [address] Phone [phone] Care Team Providers Care Warehouse Receiving Clerk Name Role Phone Zuleyka Benz DO Primary Care Provider Reason for Visit * Reason Onset Date Comments Appointment 07/31/2023 Colonoscopy Encounter Details Date Type Department Care Team (Late st Contact Info) Description 07/31/[address] [place] [phone] Zuleyka Benz [address] [place] [address] Appointment (Colonoscopy ) Allergies Active Allergy Reactions Criticality Noted Date Comments Bee Venom Edema Other High 08/09/2020 Enalapril Cough 02/20/2011 Morphine And Related Nausea/vomiting High 07/29/2009 documented as of this encounter (statuses as of 08/05/2023) Medications Medication Sig Dispensed Refills Start Date End Date Status aspirin 81 MG chewable tabletIndications: Old myocardial infarct,Atheroscle rotic heart disease of [place]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 angina [...] Oral Tablet (Lipitor)Indicatio ns:Coronary artery disease involving [place] coronary artery of [place] heart without angina pectoris,HTN, goal below 140/90,Dyslipidemi a, goal LDL below 70,Coronary artery disease involving [place] heart without angina pectoris, unspecified vessel or lesion type,Asymptomatic bilateral carotid artery stenosis Take 1 Tablet by mouth every afternoon. 90 Tablet 3 06/28/2023 Active Carvedilol 12.5 MG Oral Tablet (Coreg)Indications :Coronary artery disease involving [place] coronary artery of [place] heart without angina pectoris,HTN, goal below 140/90,Dyslipidemi a, goal LDL below 70,Coronary artery disease involving [place] heart without angina pectoris, unspecified vessel or lesion type,Asymptomatic bilateral carotid artery stenosis Take by mouth 1/2 tablet 2 times per day with morning and evening meals 90 Tablet 3 06/28/2023 Active Furosemide 20 MG Oral Tablet (Lasix)Indications :Coronary artery disease involving [place] coronary artery of [place] heart without angina pectoris,HTN, goal below 140/90,Dyslipidemi a, goal LDL below 70,Coronary artery disease involving [place] heart without angina pectoris, unspecified vessel or lesion type,Asymptomatic bilateral carotid artery stenosis Only as needed 90 Tablet 3 06/28/2023 Active hydroCHLOROthiazid e 25 MG Oral Tablet (Hydrodiuril)Indic ations:Coronary artery disease involving [place] coronary artery of [place] heart without angina pectoris,HTN, goal below 140/90,Dyslipidemi a, goal LDL below 70,Coronary artery disease involving [place] heart without angina pectoris, unspecified vessel or lesion type,Asymptomatic bilateral carotid artery stenosis Take 1 Tablet by mouth in the morning. 90 Tablet 3 06/28/2023 Active Isosorbide Mononitrate ER 60 MG Oral Tablet Extended Release 24 Hour (Imdur)Indications :Coronary artery disease involving [place] coronary artery of [place] heart without angina pectoris,HTN, goal below 140/90,Dyslipidemi a, goal LDL below 70,Coronary artery disease involving [place] heart without angina pectoris, unspecified vessel or lesion type,Asymptomatic bilateral carotid artery stenosis TAKE 1 TABLET BY MOUTH EVERY DAY IN THE MORNING 90 Tablet 3 06/28/2023 Active Losartan Potassium 50 MG Oral Tablet (Cozaar)Indication s:Coronary artery disease involving [place] coronary artery of [place] heart without angina pectoris,HTN, goal below 140/90,Dyslipidemi a, goal LDL below 70,Coronary artery disease involving [place] heart without angina pectoris, unspecified vessel or lesion type,Asymptomatic bilateral carotid artery stenosis Take 1 Tablet by mouth in the morning and 1 Tablet before bedtime. 90 Tablet 1 06/28/2023 Active amLODIPine Besylate 10 MG Oral Tablet (Norvasc)Indicatio ns:Coronary artery disease involving [place] coronary artery of [place] heart without angina pectoris,HTN, goal below 140/90,Dyslipidemi a, goal LDL below 70,Coronary artery disease involving [place] heart without angina pectoris, unspecified vessel or lesion type,Asymptomatic bilateral carotid artery stenosis Take 1 Tablet by mouth in the morning. 100 Tablet 3 07/15/2023 Active Ezetimibe 10 MG Oral Tablet (Zetia)Indications :Coronary artery disease involving [place] coronary artery of [place] heart without angina pectoris,Dyslipide ze, goal LDL below 70,Asymptomatic bilateral carotid artery stenosis Take 1 Tablet by mouth in the morning. 100 Tablet 3 07/15/2023 Active Nitroglycerin 0.4 MG Sublingual Tablet Sublingual (Nitrostat)Indicat ions:HTN, goal below 140/90,Coronary artery disease involving [place] heart without angina pectoris, unspecified vessel or lesion type,Dyslipidemia, goal LDL below [address] Place 1 Tablet under the tongue as needed for Pain, Chest. May repeat 3 times. If chest pain continues, call 911. 25 Tablet 1 07/31/2023 Active Nyeoeap-Xcxswe-Blw ll Pertussis 5-2.5-18.5 LF-MCG/0.5 Suspension Prefilled Syringe (Boostrix) Inject 0.5 mL into a large muscle once for 1 dose. As directed 0.5 mL 0 07/31/2023 07/31/2023 Hospital, Clinic, or Other Facility Administered [...] hemorrhage 06/07/2021 Atherosclerotic heart diseas e of [place]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 angina [...] encounter Miscellaneous Notes * Telephone Encounter - Beba Guerra OSA [...] 10:00 AM EDT Nurse Only Ancillary [address] [place] [address] Tiffany, Nurse [address] [place] [address] 08/08/2023 8:15 AM EDT Imaging Radiology [address] [place] [address] 12/13/2023 8:00 AM EDT Office Visit Cardiology, [facility] [address] [place] [address] Luda Baldwin CRNP [address] [place] [address] 03/24/2024 8:50 AM EST Office Visit Family Medicine [address] [place] [phone] Zuleyka Benz [address] [place] [address] Health Maintenance Due Date Last Done Comments [...] this encounter Medical Devices Implanted Type Area Aerospace Manager Device Identifier Shelf Expiration Date Model / Serial / Lot Sut Steel 6 [id number] - [id number] Implanted:Qty: 4 on 05/23/2016 by Vinny Wolf MD [place] [facility] [place]: Sternum JNJ : [employer] 11/22/2020 [id number] / / [id number] Graft Marker Coronary - [id number] Implanted:Qty: 1 on 05/23/2016 by Vinny Wolf MD [place] [facility] [place]/A: Aorta VM CARDIO VASCULAR 09/21/2017 [id number] / / [id number] Graft Marker Coronary - [id number] Implanted:Qty: 1 on 05/23/2016 by Vinny Wolf MD at [place] [facility] [place]/A: Aorta VM CARDIO VASCULAR 09/21/2017 [id number] / / [id number] Graft Marker Coronary - [id number] Implanted:Qty: 1 on 05/23/2016 by Vinny Wolf MD at [place] [facility] [place]/A: Aorta VM CARDIO VASCULAR 09/21/2017 [id number] / / [id number] Lens Intraoc 22.5 - [id number] - [id number] Implanted:Qty: 1 on 05/03/2022 by Jonny Chong MD at OR [facility] Left: Eye [employer] LOMB 02/21/2027 [id number] / [id number] / [id number] Lens Intraoc 22.5 - [id number] - [id number] Implanted:Qty: 1 on 05/10/2022 by Jonny Chong MD at OR [facility] Right: Eye [employer]CH [employer] LOMB 11/22/2026 [id number] / [id number] / [id number] documented as of this encounter Additional Health [...] the patient have Health Care Power of Needle Molder? No Code Status History Code Status Date Activated Date Inactivated Comments No Code 05/03/2022 11:09 AM 05/03/2022 5:34 PM This o rder reflects the patients wishes and were consensually agreed upon. Question Answer Comments Discussion of Advance Directives occurred with: Patient Does the patient have a Living Will? No Does the patient have Health Care Power of Needle Molder? No Full Code 05/23/2016 2:01 PM 05/26/2016 [...] the patient have Health Care Power of Needle Molder? No Full Code 05/22/2016 8:39 PM 05/23/2016 2:35 AM This o rder reflects the patients wishes and were consensually agreed upon. Question Answer Comments Discussion of Advance Directives occurred with: Patient Care Teams Warehouse Receiving Clerk Relationship Specialty Start Date End Date Zuleyka Benz DO [address] [place] [address] [place] [address] PCP - General Internal Medicine 07/08/18 documented as of this encounter
--- OUTSIDE RECORDS SUMMARY | 2023-09-21 21:19 | External Medical Summary | Summary of Care ---
Author Name Unknown Organization [facility] Address [address] [place] [address] Phone [phone] Care Team Providers Care Contract Writer Name Role Phone Zuleyka Benz DO Primary Care Provider Reason for Referral * Ancillary Services (Within 30 days (routine)) - Authorized Specialty Diagnoses / Procedures Referred By Contac t Referred To Contact Gastroenterology Diagnoses Special screening for malignant neoplasms, colon Zuleyka Benz DO [address] [place] [address] [place] [address] Referral ID Status Reason Start Date Expiration Date Visits Requested Visits Authorized [id number] Authorized Ancillary Services Required 07/31/[phone] Question Answer Referral Priority Within 30 days (routine) Where should this appointment be scheduled? [facility] Comments ALERT: Do not order for pediatric patients (18 years or younger). Cancel off screen and order PEDS GASTROENTEROLOGY CONSULT (Type: 1 visit only-Evaluate and Treat) The following Pt. Instructions are available: - Gastro Colonoscopy Prep Instructions [[id number]] - Gastro Colonoscopy Prep Instructions (Khmer Version) [[id number]] Go to the Pt. Instructions section within the Visit Navigator to access. Colonoscopy ASGE Guidelines: Altered bowel habit, chronic diarrhea ADDITIONAL INFORMATION 1. Is the patient on Coumadin? No 2. Is the patient on Pradaxa? No Reason for Visit * Reason Comments Re-Check Pt denies any concer ns at this time. Encounter Details Date Type Department Care Team (Latest Contact Info) Description 07/31/2023 2:30 PM EDT Office Visit [address] [phone] [place] [address] S/P CABG x 3*; HTN, goal below 140/90; Coronary artery disease involving [place] heart without angina pectoris, unspecified vessel or lesion type; Dyslipidemia, goal LDL below 70; Special screening for malignant neoplasms, colon; PSVT (paroxysmal supraventricular tachycardia) ([facility]); Gastroesophageal reflux disease with esophagitis without hemorrhage; Screening for AAA (abdominal aortic aneurysm); Nocturia; Incomplete bladder emptying; Diarrhea, unspecified type; 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 60 Tab 6 8 Active B-12 1000 MCG Oral Capsule Take 1 Capsule by mouth in the morning. 0 Active Loratadine 10 MG Oral Tablet (Claritin)Indica tions:Flu-like symptoms,Nasal sinus congestion,Non-r ecurrent acute serous otitis media of both ears TAKE 1 TABLET BY MOUTH EVERY DAY IN THE MORNING 30 Tablet 0 3 Active hydrOXYzine HCl 50 MG Oral TabletIndication s:Fear of flying Take 1 tablet 30 minutes before flying if needed for anxiety. 20 Tablet 0 3 Active Clotrimazole-Bet amethasone 1-0.05 % External Cream Apply to affected area twice daily. 45 g 6 4 Active Ciclopirox 8 % External Solution Apply over nail and surrounding skin. Apply daily over previous coat. After seven (7) days, may remove with alcohol and continue cycle. 6.6 mL 3 4 Active Atorvastatin Calcium 80 MG Oral Tablet (Lipitor)Indicat ions:Coronary artery disease involving [place] coronary artery of [place] heart without angina pectoris,HTN, goal below 140/90,Dyslipide ze, goal LDL below 70,Coronary artery disease involving [place] heart without angina pectoris, unspecified vessel or lesion type,Asymptomati c bilateral carotid artery stenosis Take 1 Tablet by mouth every afternoon. 90 Tablet 3 4 Active Carvedilol 12.5 MG Oral Tablet (Coreg)Indicatio ns:Coronary artery disease involving [place] coronary artery of [place] heart without angina pectoris,HTN, goal below 140/90,Dyslipide ze, goal LDL below 70,Coronary artery disease involving [place] heart without angina pectoris, unspecified vessel or lesion type,Asymptomati c bilateral carotid artery stenosis Take by mouth 1/2 tablet 2 times per day with morning and evening meals 90 Tablet 3 4 Active Furosemide 20 MG Oral Tablet (Lasix)Indicatio ns:Coronary artery disease involving [place] coronary artery of [place] heart without angina pectoris,HTN, goal below 140/90,Dyslipide ze, goal LDL below 70,Coronary artery disease involving [place] heart without angina pectoris, unspecified vessel or lesion type,Asymptomati c bilateral carotid artery stenosis Only as needed 90 Tablet 3 4 Active hydroCHLOROthiaz daniel 25 MG Oral Tablet (Hydrodiuril)Ind ications:Coronar y artery disease involving [place] coronary artery of [place] heart without angina pectoris,HTN, goal below 140/90,Dyslipide ze, goal LDL below 70,Coronary artery disease involving [place] heart without angina pectoris, unspecified vessel or lesion type,Asymptomati c bilateral carotid artery stenosis Take 1 Tablet by mouth in the morning. 90 Tablet 3 4 Active Isosorbide Mononitrate ER 60 MG Oral Tablet Extended Release 24 Hour (Imdur)Indicatio ns:Coronary artery disease involving [place] coronary artery of [place] heart without angina pectoris,HTN, goal below 140/90,Dyslipide ze, goal LDL below 70,Coronary artery disease involving [place] heart without angina pectoris, unspecified vessel or lesion type,Asymptomati c bilateral carotid artery stenosis TAKE 1 TABLET BY MOUTH EVERY DAY IN THE MORNING 90 Tablet 3 4 Active Losartan Potassium 50 MG Oral Tablet (Cozaar)Indicati ons:Coronary artery disease involving [place] coronary artery of [place] heart without angina pectoris,HTN, goal below 140/90,Dyslipide ze, goal LDL below 70,Coronary artery disease involving [place] heart without angina pectoris, unspecified vessel or lesion type,Asymptomati c bilateral carotid artery stenosis Take 1 Tablet by mouth in the morning and 1 Tablet before bedtime. 90 Tablet 1 4 Active amLODIPine Besylate 10 MG Oral Tablet (Norvasc)Indicat ions:Coronary artery disease involving [place] coronary artery of [place] heart without angina pectoris,HTN, goal below 140/90,Dyslipide ze, goal LDL below 70,Coronary artery disease involving [place] heart without angina pectoris, unspecified vessel or lesion type,Asymptomati c bilateral carotid artery stenosis Take 1 Tablet by mouth in the morning. 100 Tablet 3 4 Active Ezetimibe 10 MG Oral Tablet (Zetia)Indicatio ns:Coronary artery disease involving [place] coronary artery of [place] heart without angina pectoris,Dyslipi demia, goal LDL below 70,Asymptomatic bilateral carotid artery stenosis Take 1 Tablet by mouth in the morning. 100 Tablet 3 4 Active Nitroglycerin 0.4 MG Sublingual Tablet Sublingual (Nitrostat)Indic ations:HTN, goal below 140/90,Coronary artery disease involving [place] heart without angina pectoris, unspecified vessel or lesion type,Dyslipidemi a, goal LDL below [address] Place 1 Tablet under the tongue as needed for Pain, Chest. May repeat 3 times. If chest pain continues, call 911. 30 Tablet 1 4 Active Orakfpo-Xptyzk-B cell Pertussis 5-2.5-18.5 LF-MCG/0.5 Suspension Prefilled Syringe (Boostrix) Inject 0.5 mL into a large muscle once for 1 dose. As directed 0.5 mL 0 4 07/31/19 24 Active Nitroglycerin 0.4 MG Sublingual Tablet Sublingual (Nitrostat)Indic ations:HTN, goal below 140/90,Coronary artery disease involving [place] heart without angina pectoris, unspecified vessel or lesion type,Lower extremity edema,Dyslipidem ia, goal LDL below 70,Asymptomatic bilateral carotid artery stenosis,MOORE (dyspnea on exertion),Freque nt PVCs Place under the tongue 1 Tablet as needed for Pain, Chest. May repeat 3 times. If chest pain continues, call 911. 30 Tablet 1 2 07/31/19 24 Discontinued(Ref ill) Tamsulosin HCl 0.4 MG Oral Capsule (Flomax)Indicati ons:Urinary frequency,Urinar y incontinence, unspecified type TAKE 1 CAPSULE BY MOUTH EVERY DAY IN THE MORNING 90 Capsule 3 3 07/31/19 24 Discontinued Pantoprazole Sodium 40 MG Oral Tablet Delayed Release (Protonix) TAKE BY MOUTH 1 TAB IN THE MORNING 30 MINS BEFORE THE FIRST MEAL OF THE DAY DO NOT CRUSH/SPLIT/TONY W 90 Tablet 1 3 07/31/19 24 Discontinued Hospital, Clinic, or Other Facility Administered [...] hemorrhage 06/07/2021 Atherosclerotic heart diseas e of [place]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 angina [...] Sign Reading Time Taken Comments Blood Pressure 148/90 07/31/2023 2:32 PM EDT Pulse 68 07/31/2023 2:32 PM EDT Temperature 36.7 C (98 F) 07/31/2023 2:32 PM EDT Respiratory Rate - - Oxygen Saturation 96% 07/31/2023 2:32 PM EDT Inhaled Oxygen Concentration - - Weight 85.6 kg (188 lb 12.8 oz) 07/31/2023 2:32 PM EDT Height - - Body Mass Index 31.92 08/30/2022 1:42 PM EDT documented in this encounter Functional Status Functional [...] as of this encounter Progress Notes * Zuleyka Benz, DO - 07/31/2023 2:41 PM EDT Subjective: Jeffry Benoit is a 67 year old male. Chief Complaint Patient presents with Re-Check Pt denies any concerns at this time. HPI: Jeffry Benoit presents today for routine follow up. He has no concerns today. He had an umbilical hernia repair since his last visit. He is doing well from this standpoint. BP is high here today but improved from his previous values. He did have a period of time that he was out of his medicine. He is now on auto-refills with [facility] and feels this is working well. No chest pain. He has been having problems with diarrhea. He was on antibiotics for tick bites. 4-5 loose/watery bowel movements per day. Diarrhea started prior to the antibiotics, however. He would like to have a colonoscopy. He is due for colonoscopy. He has nocturia x 9-10 times per night - all small amounts. He does not feel as though he is emptying his bladder. Was previously on flomax but is no longer taking this. PMH: Patient Active Problem List Diagnosis Code Old myocardial infarct I25.2 HTN, goal below 140/90 I10 Dyslipidemia, goal LDL below 70 E78.5 COPD, mild ([facility]) J44.9 HTN, goal below 130/80 I10 S/P CABG x 3 Z95.1 Atherosclerotic heart disease of [place]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 angina pectoris ([facility]) I25.118 Thoracic aortic ectasia ([facility]) I77.810 Gastroesophageal reflux disease with esophagitis without hemorrhage K21.00 CKD (chronic kidney disease), stage II N18.2 Supraumbilical hernia without gangrene and without obstruction K43.9 BPH with obstruction/lower urinary tract symptoms N40.1, N13.8 Premature atrial contractions I49.1 ASCVD (arteriosclerotic cardiovascular disease) I25.10 PSVT (paroxysmal supraventricular tachycardia) ([facility]) I47.10 Hypertensive kidney disease with chronic kidney disease stage II I12.9, N18.2 Current Outpatient Medications Medication Sig Dispense Refill aspirin 81 MG chewable tablet Take 1 Tablet by mouth in the morning. 60 Tab 6 Nitroglycerin 0.4 MG Sublingual Tablet Sublingual (Nitrostat) Place under the tongue 1 Tablet as needed for Pain, Chest. May repeat 3 times. If chest pain continues, call 911. 30 Tablet 1 B-12 1000 MCG Oral Capsule Take 1 Capsule by mouth in the morning. Tamsulosin HCl 0.4 MG Oral Capsule (Flomax) TAKE 1 CAPSULE BY MOUTH EVERY DAY IN THE MORNING 90 Capsule 3 Loratadine 10 MG Oral Tablet (Claritin) TAKE 1 TABLET BY MOUTH EVERY DAY IN THE MORNING 30 Tablet 0 hydrOXYzine HCl 50 MG Oral Tablet Take 1 tablet 30 minutes before flying if needed for anxiety. 20 Tablet 0 Pantoprazole Sodium 40 MG Oral Tablet Delayed Release (Protonix) TAKE BY MOUTH 1 TAB IN THE [id number] MINS BEFORE THE FIRST MEAL OF THE DAY DO NOT CRUSH/SPLIT/CHEW 90 Tablet 1 Clotrimazole-Betamethasone 1-0.05 % External Cream Apply to affected area twice daily. 45 g 6 Ciclopirox 8 % External Solution Apply over nail and surrounding skin. Apply daily over previous coat. After seven (7) days, may remove with alcohol and continue cycle. 6.6 mL 3 Atorvastatin Calcium 80 MG Oral Tablet (Lipitor) Take 1 Tablet by mouth every afternoon. 90 Tablet 3 Carvedilol 12.5 MG Oral Tablet (Coreg) Take by mouth 1/2 tablet 2 times per day with morning and evening meals 90 Tablet 3 Furosemide 20 MG Oral Tablet (Lasix) Only as needed 90 Tablet 3 hydroCHLOROthiazide 25 MG Oral Tablet (Hydrodiuril) Take 1 Tablet by mouth in the morning. 90 Tablet 3 Isosorbide Mononitrate ER 60 MG Oral Tablet Extended Release 24 Hour (Imdur) TAKE 1 TABLET BY MOUTHEVERY DAY IN THE MORNING 90 Tablet 3 Losartan Potassium 50 MG Oral Tablet (Cozaar) Take 1 Tablet by mouth in the morning and 1 Tablet before bedtime. 90 Tablet 1 amLODIPine Besylate 10 MG Oral Tablet (Norvasc) Take 1 Tablet by mouth in the morning. 100 Tablet 3 Ezetimibe 10 MG Oral Tablet (Zetia) Take 1 Tablet by mouth in the morning. 100 Tablet 3 Current Facility-Administered Medications Medication Dose Route Frequency Provider Last Rate Last Admin albuterol (PROVENTIL HFA) inhaler 4 Puff 4 Puff Inhalation Q4H PRN Jennifer Cantor MD 4 Puff at 02/27/18 1415 Review of patient's allergies indicates: Allergen Reactions Bee Venom Edema Other Morphine And Related Nausea/vomiting Enalapril Cough Objective: BP 148/90 | Pulse 68 | Temp 36.7 C (98 F) | Wt 85.6 kg (188 lb 12.8 oz) | SpO2 96% | BMI 31.92 kg/m | BSA 1.97 m General: alert, healthy, no distress, well nourished, and well developed Neck: supple, no adenopathy, thyroid normal size, non-tender, without nodularity Heart: regular rate & rhythm and no murmur Lungs: chest symmetric with normal AP diameter, no chest deformities noted, normal respiratory rateand rhythm, lungs clear to auscultation Abdomen: abdomen soft and non-tender Extremities: no joint deformities, effusion, or inflammation, (+) varicose veins with mild LE edema Neuro Exam: alert & oriented x 3 with fluent speech, no focal motor/sensory deficits, gait normal Skin: skin color, texture, turgor are normal, no rashes or significant lesions ASSESSMENT/PLAN: S/P CABG x 3 (Primary) HTN, goal below 140/90 - high here today but improved from previous readings. He appears to have better med compliance now that he is on mail order pharmacy. - Nitroglycerin 0.4 MG Sublingual Tablet Sublingual (Nitrostat); Place 1 Tablet under the tongue asneeded for Pain, Chest. May repeat 3 times. If chest pain continues, call 911. - ALBUMIN / CREATININE RATIO, URINE; Future; Expected date: 07/31/2023 Coronary artery disease involving [place] heart without angina pectoris, unspecified vessel or lesion type - Nitroglycerin 0.4 MG Sublingual Tablet Sublingual (Nitrostat); Place 1 Tablet under the tongue asneeded for Pain, Chest. May repeat 3 times. If chest pain continues, call 911. Dyslipidemia, goal LDL below 70 - on atorvastatin and zetia. Still above goal but I am not sure he has been compliant with his medication. - Nitroglycerin 0.4 MG Sublingual Tablet Sublingual (Nitrostat); Place 1 Tablet under the tongue asneeded for Pain, Chest. May repeat 3 times. If chest pain continues, call 911. 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 As directed Follow-up: Return in about 6 months (around 01/31/2024). | Check-out note: Labs another day. Nurse visit for post void residual. Zuleyka Benz DO documented in this encounter Plan of Treatment Upcoming Encounters Date Type Department Care Team (Late st Contact Info) Description 08/01/2023 8:20 AM EDT Nurse Only Ancillary [address] [place] [address] Nurse Tiffany [address] [place] [address] 08/05/2023 10:00 AM EDT Nurse Only Ancillary [address] [place] [address] Nurse Tiffany [address] [place] [address] 08/08/2023 8:15 AM EDT Imaging Radiology [address] [place] [address] 12/13/2023 8:00 AM EDT Office Visit Cardiology, [facility] [address] [place] [address] Luda Baldwin CRNP [address] [place] [address] 03/24/2024 8:50 AM EST Office Visit Family Medicine [address] [place] [phone] Zuleyka Benz DO [address] [place] [address] [place] [address] Scheduled Orders Name Type Priority Associated Diagnoses Orde r Schedule MAGNESIUM Lab Routine 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 Expected: 07/31/2023 (Approximate), Expires: 07/30/2024 VITAMIN B12 Lab Routine 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 Expected: 07/31/2023 (Approximate), Expires: 07/30/2024 ALBUMIN / CREATININE RATIO, URINE Lab Routine HTN, goal below 140/90 Expected: 07/31/2023 (Approximate), Expires: 07/30/2024 CLOSTRIDIUM DIFFICILE, PCR Lab Routine Diarrhea, unspecified type Expected: 07/31/2023 (Approximate), Expires: 07/30/2024 PSA Lab Routine Nocturia Incomplete bladder emptying Expected: 07/31/2023 (Approximate), Expires: 07/30/2024 US AORTA Medical Imaging Routine Screening for AAA (abdominal aortic aneurysm) Expected: 07/31/2023 (Approximate), Expires: 08/30/2024 HEMOGLOBIN A1C Lab Routine Elevated blood sugar Expected: 07/31/2023 (Approximate), Expires: 07/30/2024 Scheduled Referrals Name Type Priority Associated Diagnoses Orde r Schedule COLONOSCOPY, GI REFERRAL OP Referral Within 30 days (routine) Special screening for malignant neoplasms, colon Ordered: 07/31/2023 Health Maintenance Due Date Last Done Comments [...] this encounter Medical Devices Implanted Type Area Inspection Manager Device Identifier Shelf Expiration Date Model / Serial / Lot Sut Steel 6 [id number] - [id number] Implanted:Qty: 4 on 05/23/2016 by Vinny Wolf MD at OR [facility] N/A: Sternum JNJ : [employer] 11/22/2020 [id number] / / [id number] Graft Marker Coronary - [id number] Implanted:Qty: 1 on 05/23/2016 by Vniny Wolf MD at OR [facility] [place] N/A: Aorta VM [employer]IO VASC[employer] 09/21/2017 [id number] / / [id number] Graft Marker Coronary - [id number] Implanted:Qty: 1 on 05/23/2016 by Vinny Wolf MD at OR [facility] [place] N/A: Aorta VM [employer]IO VASC[employer] 09/21/2017 [id number] / / [id number] Graft Marker Coronary - [id number] Implanted:Qty: 1 on 05/23/2016 by Vinny Wolf MD at OR [facility] [place] N/A: Aorta VM CARDIO VASCULAR 09/21/2017 [id number] / / [id number] Lens Intraoc 22.5 - [id number] - [id number] Implanted:Qty: 1 on 05/03/2022 by Jonny Chong MD at OR [facility] Left: Eye [employer] 02/21/2027 [id number] / [id number] / [id number] Lens Intraoc 22.5 - [id number] - [id number] Implanted:Qty: 1 on 05/10/2022 by Jonny Chong MD at OR [facility] Right: Eye [employer] 11/22/2026 [id number] / [id number] / [id number] documented as of this encounter Visit Diagnoses Diagnosis S/P CABG x 3- Primary Postsurgical aortocoronary bypass status HTN, goal below 140/90 Unspecified essential hypertension Coronary artery disease involving [place] heart without angina pectoris, unspecified vessel or lesion type Dyslipidemia, goal LDL below 70 Other and unspecified hyperlipidemia Special screening for malignant neoplasms, colon PSVT (paroxysmal supraventricular tachycardia) (HCC) Paroxysmal supraventricular tachycardia Gastroesophageal reflux disease with esophagitis without hemorrhage Screening for AAA (abdominal aortic aneurysm) Screening for other and unspecified cardiovascular conditions Nocturia Incomplete bladder emptying Diarrhea, unspecified type [facility] current use of therapeutic drug Elevated blood sugar Other abnormal glucose documented [...] the patient have Health Care Power of Fighting Vehicle Infantryman? No Code Status History Code Status Date Activated Date Inactivated Comments No Code 05/03/2022 11:09 AM 05/03/2022 5:34 PM This o rder reflects the patients wishes and were consensually agreed upon. Question Answer Comments Discussion of Advance Directives occurred with: Patient Does the patient have a Living Will? No Does the patient have Health Care Power of Fighting Vehicle Infantryman? No Full Code 05/23/2016 2:01 PM 05/26/2016 [...] the patient have Health Care Power of Fighting Vehicle Infantryman? No Full Code 05/22/2016 8:39 PM 05/23/2016 2:35 AM This o rder reflects the patients wishes and were consensually agreed upon. Question Answer Comments Discussion of Advance Directives occurred with: Patient Care Teams Contract Writer Relationship Specialty Start Date End Date Zuleyka Benz DO [address] [place] [address] [place] [address] PCP - General Internal Medicine 07/08/18 documented as of this encounter"
--- OUTSIDE RECORDS SUMMARY | 2023-09-21 21:19 | External Medical Summary | Summary of Care ---
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 90 Tablet 3 06/28/2023 Active Carvedilol 12.5 MG Oral Tablet (Coreg)Indications: Coronary artery disease involving [place] coronary artery of [place] heart without angina pectoris,HTN, goal below 140/90,Dyslipidemia , goal LDL below 70,Coronary artery disease involving [place] heart without angina pectoris, unspecified vessel or lesion type,Asymptomatic bilateral carotid artery stenosis Take by mouth 1/2 tablet 2 times per day with morning and evening meals 90 Tablet 3 06/28/2023 Active Furosemide 20 MG Oral Tablet (Lasix)Indications: Coronary artery disease involving [place] coronary artery of [place] heart without angina pectoris,HTN, goal below 140/90,Dyslipidemia , goal LDL below 70,Coronary artery disease involving [place] heart without angina pectoris, unspecified vessel or lesion type,Asymptomatic bilateral carotid artery stenosis Only as needed 90 Tablet 3 06/28/2023 Active hydroCHLOROthiazide 25 MG Oral Tablet (Hydrodiuril)Indica tions:Coronary artery disease involving [place] coronary artery of [place] heart without angina pectoris,HTN, goal below 140/90,Dyslipidemia , goal LDL below 70,Coronary artery disease involving [place] heart without angina pectoris, unspecified vessel or lesion type,Asymptomatic bilateral carotid artery stenosis Take 1 Tablet by mouth in the morning. 90 Tablet 3 06/28/2023 Active Isosorbide Mononitrate ER 60 MG Oral Tablet Extended Release 24 Hour (Imdur)Indications: Coronary artery disease involving [place] coronary artery of [place] heart without angina pectoris,HTN, goal below 140/90,Dyslipidemia , goal LDL below 70,Coronary artery disease involving [place] heart without angina pectoris, unspecified vessel or lesion type,Asymptomatic bilateral carotid artery stenosis TAKE 1 TABLET BY MOUTH EVERY DAY IN THE MORNING 90 Tablet 3 06/28/2023 Active Losartan Potassium 50 MG Oral Tablet (Cozaar)Indications :Coronary artery disease involving [place] coronary artery of [place] heart without angina pectoris,HTN, goal below 140/90,Dyslipidemia , goal LDL below 70,Coronary artery disease involving [place] heart without angina pectoris, unspecified vessel or lesion type,Asymptomatic bilateral carotid artery stenosis Take 1 Tablet by mouth in the morning and 1 Tablet before bedtime. 90 Tablet 1 06/28/2023 Active amLODIPine Besylate 10 MG Oral Tablet (Norvasc)Indication s:Coronary artery disease involving [place] coronary artery of [place] heart without angina pectoris,HTN, goal below 140/90,Dyslipidemia , goal LDL below 70,Coronary artery disease involving [place] heart without angina pectoris, unspecified vessel or lesion type,Asymptomatic bilateral carotid artery stenosis Take 1 Tablet by mouth in the morning. 100 Tablet 3 07/15/2023 Active Ezetimibe 10 MG Oral Tablet (Zetia)Indications: Coronary artery disease involving [place] coronary artery of [place] heart without angina pectoris,Dyslipidem ia, goal LDL below 70,Asymptomatic bilateral carotid artery stenosis Take 1 Tablet by mouth in the morning. 100 Tablet 3 07/15/2023 Active Nitroglycerin 0.4 MG Sublingual Tablet Sublingual (Nitrostat)Indicati ons:HTN, goal below 140/90,Coronary artery disease involving [place] heart without angina pectoris, unspecified vessel or [...] hemorrhage 06/07/2021 Atherosclerotic heart diseas e of [place]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 angina [...] 10:00 AM EDT Nurse Only Ancillary Darwin Farrell[address] [place] [address] Nurse Tiffany [address] [place] [address] 08/08/2023 8:15 AM EDT Imaging Radiology [address] [place] [address] 12/13/2023 8:00 AM EDT Office Visit Cardiology, [facility] [address] [place] [address] Luda Baldwin CRNP [address] [place] [address] 03/24/2024 8:50 AM EST Office Visit Family Medicine [address] [place] [phone] Z[address] [place] [address] Pending Results Name Type Priority Associated Diagnoses Date /Time MAGNESIUM Lab Routine alf current use of therapeutic drug 08/01/2023 8:23 AM EDT VITAMIN B12 Lab Routine 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 08/01/2023 8:23 [...] this encounter Medical Devices Implanted Type Area Low Pressure Kettle Operator Device Identifier Shelf Expiration Date Model / Serial / Lot Sut Steel 6 M654g - [id number] Implanted:Qty: 4 on 05/23/2016 by Vinny Wolf MD at [place] [facility] N/A: Sternum JNJ : [employer] 11/22/2020 [id number] / / [id number] Graft Marker Coronary - [id number] Implanted:Qty: 1 on 05/23/2016 by Vinny Wolf MD at OR [facility] N/A: Aorta VM CARDIO VASCULAR 09/21/2017 [id number] / / [id number] Graft Marker Coronary - [id number] Implanted:Qty: 1 on 05/23/2016 by Vinny Wolf MD at OR [facility] N/A: Aorta VM CARDIO VASCULAR 09/21/2017 [id number] / / [id number] Graft Marker Coronary - [id number] Implanted:Qty: 1 on 05/23/2016 by Vinny Wolf MD at OR [facility] N/A: Aorta VM CARDIO VASCULAR 09/21/2017 [id number] / / [id number] Lens Intraoc 22.5 - [id number] - [id number] Implanted:Qty: 1 on 05/03/2022 by Jonny Chong MD at OR [facility] Left: Eye [employer] 02/21/2027 [id number] / [id number] / [id number] Lens Intraoc 22.5 - [id number] - [id number] Implanted:Qty: 1 on 05/10/2022 by Jonny Chong MD at OR [facility] Right: Eye [employer]OM[employer] 11/22/2026 [id number] / [id number] / [id number] documented as of this encounter Visit Diagnoses Diagnosis alf current use of therapeutic drug HTN, goal [...] the patient have Health Care Power of Mutuel Clerk? No Code Status History Code Status Date Activated Date Inactivated Comments No Code 05/03/2022 11:09 AM 05/03/2022 5:34 PM This o rder reflects the patients wishes and were consensually agreed upon. Question Answer Comments Discussion of Advance Directives occurred with: Patient Does the patient have a Living Will? No Does the patient have Health Care Power of Mutuel Clerk? No Full Code 05/23/2016 2:01 PM 05/26/2016 [...] the patient have Health Care Power of Mutuel Clerk? No Full Code 05/22/2016 8:39 PM 05/23/2016 2:35 AM This o rder reflects the patients wishes and were consensually agreed upon. Question Answer Comments Discussion of Advance Directives occurred with: Patient Care Teams Tinware Lithograph Press Operator Relationship Specialty Start Date End Date Zuleyka Benz DO [address] [place] [address] [place] [address] PCP - General Internal Medicine 07/08/18 documented as of this encounter
--- OUTSIDE RECORDS SUMMARY | 2023-09-21 21:20 | External Medical Summary ---
Author Name Unknown Address Unknown Organization K01:LABORATORY [facility] [place], [place] - [address] [address] Laboratory Report Ordering Provider Test Date Status MARVA COHEN 07/05/2023 08:02:25 Final Observation Date Value Abnormality Reference (Units ) Status LDL, (direct) 07/05/2023 08:02:25 94 <=129 (mg/dL) Final LDL Cholesterol Reference Ra nges (mg/dL):
<70 Target level for high risk ASCVD patient
<100 Optimal for general population
100-129 Near optimal for general population
130-159 Borderline high
160-189 High
>=190 Very high Performing Location LABORATORY [facility] - [address] [place] [address]
--- OUTSIDE RECORDS SUMMARY | 2023-09-21 21:20 | External Medical Summary | Summary of Care ---
Author Name Unknown Organization [facility] Address [address] [facility] [place] [address] Phone [phone] Care Team Providers Care Material Control Analyst Name Role Phone Zuleyka Benz DO Primary Care Provider Reason for Visit * Reason Comments Outpatient Testing Encounter Details Date Type Department Care Team (Late st Contact Info) Description 07/05/2023 8:00 AM EDT Laboratory Laboratory [address] [place] [address] [place], Lab [address] [place] [address] [employer] Other*[id number]; Coronary artery disease involving [place] si[place] coronary artery of [place] heart without angina pectoris; HTN, goal below 140/90; Dyslipidemia, goal LDL below 70; Coronary artery disease involving [place] heart without angina pectoris, unspecified vessel or lesion type; Asymptomatic bilateral carotid artery stenosis Allergies Active Allergy Reactions Criticality Noted Date Comments Bee Venom Edema Other High 08/09/2020 Enalapril Cough 02/20/2011 Morphine And Related Nausea/vomiting High 07/29/2009 documented as of this encounter (statuses as of 07/05/2023) Medications Medication Sig Dispensed Refills Start Date End Date Status aspirin 81 MG chewable tabletIndications:O ld myocardial infarct,Atheroscler otic heart disease of [place]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 angina pectoris (HCC) Take 1 Tablet by mouth in the morning. 60 Tab 6 05/02/2017 Active Nitroglycerin 0.4 MG Sublingual Tablet Sublingual (Nitrostat)Indicati ons:HTN, goal below 140/90,Coronary artery disease involving [place] and [place] heart without angina pectoris, unspecified vessel or lesion type,Lower extremity edema,Dyslipidemia, goal LDL below 70,Asymptomatic bilateral carotid artery stenosis,MOORE (dyspnea on exertion),Frequent PVCs Place under the tongue 1 Tablet as needed for Pain, Chest. May repeat 3 times. If chest pain continues, call 911. 30 Tablet 1 07/03/2021 Active B-12 1000 MCG Oral Capsule Take 1 Capsule by mouth in the morning. 0 Active Tamsulosin HCl 0.4 MG Oral Capsule (Flomax)Indications :Urinary frequency,Urinary incontinence, unspecified type TAKE 1 CAPSULE BY MOUTH EVERY DAY IN THE MORNING 90 Capsule 3 05/16/2022 Active Loratadine 10 MG Oral Tablet (Claritin)Indicatio ns:Flu-like symptoms,Nasal sinus congestion,Non-recu rrent acute serous otitis media of both ears TAKE 1 TABLET BY MOUTH EVERY DAY IN THE MORNING 30 Tablet 0 05/31/2022 Active Cephalexin 500 MG Oral Capsule (Keflex) 0 08/27/2022 Active hydrOXYzine HCl 50 MG Oral TabletIndications:F ear of flying Take 1 tablet 30 minutes before flying if needed for anxiety. 20 Tablet 0 11/20/2022 Active Pantoprazole Sodium 40 MG Oral Tablet Delayed Release (Protonix) TAKE BY MOUTH 1 TAB IN THE MORNING 30 MINS BEFORE THE FIRST MEAL OF THE DAY DO NOT CRUSH/SPLIT/CHEW 90 Tablet 1 11/22/2022 Active Clotrimazole-Betame thasone 1-0.05 % External Cream Apply to affected area twice daily. 45 g 6 04/29/2023 Active Ciclopirox 8 % External Solution Apply over nail and surrounding skin. Apply daily over previous coat. After seven (7) days, may remove with alcohol and continue cycle. 6.6 mL 3 05/30/2023 Active amLODIPine Besylate 5 MG Oral Tablet (Norvasc)Indication s:Coronary artery disease involving [place] and si[place] coronary artery of [place] heart without angina pectoris,HTN, goal below 140/90,Dyslipidemia , goal LDL below 70,Coronary artery disease involving [place] and [place] heart without angina pectoris, unspecified vessel or lesion type,Asymptomatic bilateral carotid artery stenosis Take 1 Tablet by mouth in the morning. 90 Tablet 3 06/28/2023 Active Atorvastatin Calcium 80 MG Oral Tablet (Lipitor)Indication s:Coronary artery disease involving [place] coronary artery of [place] heart without angina pectoris,HTN, goal below 140/90,Dyslipidemia , goal LDL below 70,Coronary artery disease involving [place] and si[place] heart without angina pectoris, unspecified vessel or lesion type,Asymptomatic bilateral carotid artery stenosis Take 1 Tablet by mouth every afternoon. 90 Tablet 3 06/28/2023 Active Carvedilol 12.5 MG Oral Tablet (Coreg)Indications: Coronary artery disease involving [place] coronary artery of [place] heart without angina pectoris,HTN, goal below 140/90,Dyslipidemia , goal LDL below 70,Coronary artery disease involving [place] and [place] heart without angina pectoris, unspecified vessel or lesion type,Asymptomatic bilateral carotid artery stenosis Take by mouth 1/2 tablet 2 times per day with morning and evening meals 90 Tablet 3 06/28/2023 Active Furosemide 20 MG Oral Tablet (Lasix)Indications: Coronary artery disease involving [place] coronary artery of [place] heart without angina pectoris,HTN, goal below 140/90,Dyslipidemia , goal LDL below 70,Coronary artery disease involving [place] and [place] heart without angina pectoris, unspecified vessel or lesion type,Asymptomatic bilateral carotid artery stenosis Only as needed 90 Tablet 3 06/28/2023 Active hydroCHLOROthiazide 25 MG Oral Tablet (Hydrodiuril)Indica tions:Coronary artery disease involving [place] coronary artery of [place] heart without angina pectoris,HTN, goal below 140/90,Dyslipidemia , goal LDL below 70,Coronary artery disease involving [place] and [place] heart without angina pectoris, unspecified vessel or lesion type,Asymptomatic bilateral carotid artery stenosis Take 1 Tablet by mouth in the morning. 90 Tablet 3 06/28/2023 Active Isosorbide Mononitrate ER 60 MG Oral Tablet Extended Release 24 Hour (Imdur)Indications: Coronary artery disease involving [place] coronary artery of [place] heart without angina pectoris,HTN, goal below 140/90,Dyslipidemia , goal LDL below 70,Coronary artery disease involving [place] and [place] heart without angina pectoris, unspecified vessel or lesion type,Asymptomatic bilateral carotid artery stenosis TAKE 1 TABLET BY MOUTH EVERY DAY IN THE MORNING 90 Tablet 3 06/28/2023 Active Losartan Potassium 50 MG Oral Tablet (Cozaar)Indications :Coronary artery disease involving [place] coronary artery of [place] heart without angina pectoris,HTN, goal below 140/90,Dyslipidemia , goal LDL below 70,Coronary artery disease involving [place] and [place] heart without angina pectoris, unspecified vessel or lesion type,Asymptomatic bilateral carotid artery stenosis Take 1 Tablet by mouth in the morning and 1 Tablet before bedtime. 90 Tablet 1 06/28/2023 Active Hospital, Clinic, or Other Facility Administered Medication Ordered Dose Route Frequency Start Date End Date Status albuterol (PROVENTIL HFA) inhaler 4 PuffIndications:COPD, mild (HCC) 4 Puff IN Q4H PRN 08/07/2017 Active documented as of this encounter (statuses as of 07/05/2023) Active Problems Problem Noted Date Diagnosed Date [...] EGFR 71 Atherosclerotic heart diseas e of ass[place]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 angina pectoris 09/06/2016 Thoracic aortic ectasia 09/06/2016 S/P CABG x 3 08/06/2016 HTN, goal below 130/80 04/30/2013 Dyslipidemia, goal LDL below 70 04/03/2012 HTN, goal below 140/90 05/13/2008 Old myocardial infarct 09/30/2003 COPD, mild documented as of this encounter (statuses as of 07/05/2023) Resolved Problems Problem Noted Date Diagnosed Date [...] as of this encounter (statuses as of 07/05/2023) Immunizations Name Administration Dates Next Due Pneumococcal [...] Care Team (Late st Contact Info) Description 07/05/2023 12:20 PM EDT Office Visit Family Medicine [address] [place] [phone] Florencia Cameron MD [address] [place] [address] [place] [address] Arrived 07/11/2023 1:00 PM EDT Nurse Only Cardiology [address] [place] [address] [place], Nurse Cardiology [address] [place] [address] 07/11/2023 1:15 PM EDT Imaging Radiology [address] [place] [address] 07/11/2023 2:30 PM EDT Cardiac Studies Cardiac Studies [address] [place] [address] 07/31/2023 2:30 PM EDT Office Visit Family Medicine [address] [place] [phone] Zuley[address] [place] [address] 12/13/2023 8:00 AM EDT [facility] [place] [address] Luda Baldwin CRNP [address] [place] [address] Pending Results Name Type Priority Associated Diagnoses Date /Time MYCODE SUBSEQUENT ADULT Lab Routine MyCode Research Other*[id number] 07/05/2023 8:02 AM EDT CBC Lab Routine Coronary artery disease involving assin[place] and [place] coronary artery of ass[place] and si[place] heart without angina pectoris HTN, goal below 140/90 Dyslipidemia, goal LDL below 70 Coronary artery disease involving ass[place] and si[place] heart without angina pectoris, unspecified vessel or lesion type Asymptomatic bilateral carotid artery stenosis 07/05/2023 8:02 AM EDT COMPREHENSIVE METABOLIC PANEL Lab Routine Coronary artery disease involving [place] coronary artery of [place] heart without angina pectoris HTN, goal below 140/90 Dyslipidemia, goal LDL below 70 Coronary artery disease involving assin[place] and si[place] heart without angina pectoris, unspecified vessel or lesion type Asymptomatic bilateral carotid artery stenosis 07/05/2023 8:02 AM EDT LIPID PANEL WITH DIRECT LDL IF TG IS HIGH Lab Routine Coronary artery disease involving [place] coronary artery of [place] and [place] heart without angina pectoris HTN, goal below 140/90 Dyslipidemia, goal LDL below 70 Coronary artery disease involving ass[place] heart without angina pectoris, unspecified vessel or lesion type Asymptomatic bilateral carotid artery stenosis 07/05/2023 8:02 AM EDT MAGNESIUM Lab Routine Coronary artery disease involving ass[place] and [place] coronary artery of ass[place] and [place] heart without angina pectoris HTN, goal below 140/90 Dyslipidemia, goal LDL below 70 Coronary artery disease involving assinibo[place] and sioux heart without angina pectoris, unspecified vessel or lesion type Asymptomatic bilateral carotid artery stenosis 07/05/2023 8:02 AM EDT MYCODE SST1 Lab Routine MyCode Research Other*[id number] 07/05/2023 8:02 AM EDT MYCODE SST2 Lab Routine [employer] Other*[id number] 07/05/2023 8:02 AM EDT Health Maintenance Due Date Last Done Comments Albumin/Creatinine Ratio 08/01/1973 Alpha-1 Antitrypsin 08/01/1973 Zoster Vaccines (1 of 2) 08/01/2005 DTaP,Tdap,and Td Vaccines (1 - Tdap) 02/23/2007 02/22/2007 COLONOSCOPY-ANNUAL AGES 18-100 01/13/2009 01/14/2008 Pneumococcal Vaccine: 65+ Years (2 of 2 - PCV) 02/22/2009 02/23/2008 Depression Screening 01/09/2020 01/08/2019 AAA Screening 08/01/2020 COVID-19 Vaccine ( - season) 2022 O2 ASSESSMENT COMPLETED IN PAST YEAR FOR COPD 08/31/2023 08/30/2022 Influenza Vaccine (FLU shot) (Season Ended) 2023 01/23/2018, 02/01/2014, 01/25/2012, Additional history exists GFR 02/12/2024 02/11/2023, 02/0 08/2022, 12/12/2021, Additional history exists Diabetes Screening 02/11/2026 02/11/2023, 0 04/30/2022, 12/12/2021, Additional history exists LUNG CANCER SCREENING - USE SMARTSET 20652 Completed 01/08/2018 GARDASIL-HPV IMMUNIZATION SERIES Aged Out No longer eligible based on patient's age to complete this topic Hepatitis B Aged Out No longer eligi ble based on patient's age to complete this topic MENINGOCOCCAL (MENACTRA/MENVEO) Aged Out No longer eligible based on patient's age to complete this topic documented as of this encounter Medical Devices Implanted Type Area Inspecting Machine Adjuster Device Identifier Shelf Expiration Date Model / Serial / Lot Sut Steel 6 M654g - [id number] Implanted:Qty: 4 on 05/23/2016 by [place]inny Wolf [place] [facility] [place]: Sternum JNJ : [employer] 11/22/2020 M654G / / [id number] Graft Marker Coronary - [id number] Implanted:Qty: 1 on 05/23/2016 by Vinny Wolf MD [place] [facility] [place]A: Aorta VM CARDIO VASCULAR 09/21/2017 [id number] / / [id number] Graft Marker Coronary - [id number] Implanted:Qty: 1 on 05/23/2016 by Vinny Wolf MD [place] [facility] [place]/A: Aorta VM CARDIO VASCULAR 09/21/2017 [id number] / / [id number] Graft Marker Coronary - [id number] Implanted:Qty: 1 on 05/23/2016 by Vinny Wolf MD [place] [facility] [place]/A: Aorta VM CARDIO VASCULAR 09/21/2017 [id number] / / [id number] Lens Intraoc 22.5 - [id number] - [id number] Implanted:Qty: 1 on 05/03/2022 by Jonny Chong MD at [place] [facility] Left: Eye [employer]OM[employer] 02/21/2027 [id number] / [id number] / [id number] Lens Intraoc 22.5 - [id number] - [id number] Implanted:Qty: 1 on 05/10/2022 by Jonny Chong MD at OR [facility] Right: Eye [employer]CH [employer] LOMB 11/22/2026 [id number] / [id number] / [id number] documented as of this encounter Visit Diagnoses Diagnosis MyCode Research Other*[id number] Coronary artery disease involving assiniboine and sioux heart without angina pectoris, unspecified vessel or [...] the patient have Health Care Power of Full Time? No Code Status History Code Status Date Activated Date Inactivated Comments No Code 05/03/2022 11:09 AM 05/03/2022 5:34 PM This o rder reflects the patients wishes and were consensually agreed upon. Question Answer Comments Discussion of Advance Directives occurred with: Patient Does the patient have a Living Will? No Does the patient have Health Care Power of Full Time? No Full Code 05/23/2016 2:01 PM 05/26/2016 [...] the patient have Health Care Power of Full Time? No Full Code 05/22/2016 8:39 PM 05/23/2016 2:35 AM This o rder reflects the patients wishes and were consensually agreed upon. Question Answer Comments Discussion of Advance Directives occurred with: Patient Care Teams Material Control Analyst Relationship Specialty Start Date End Date Zuleyka Benz DO [address] [place] [address] [place] [address] PCP - General Internal Medicine 07/08/18 documented as of this encounter
--- OUTSIDE RECORDS SUMMARY | 2023-09-21 21:20 | External Medical Summary | Summary of Care ---
Author Name Unknown Organization [facility] Address [address] [facility] [place] [address] Phone [phone] Care Team Providers Care Oncology Social Work Name Role Phone Zuleyka Benz DO Primary Care Provider Encounter Details Date Type Department Care Team ([facility] st Contact Info) Description 07/02/2023 Orders Only PATIENT PORTAL DO NOT DELETE THIS DEPT USED BY [place] [id number] Allergies Active Allergy Reactions Criticality Noted Date Comments Bee Venom Edema Other High 08/09/2020 Enalapril Cough 02/20/2011 Morphine And Related Nausea/vomiting High 07/29/2009 documented as of this encounter (statuses as of 07/02/2023) Medications Medication Sig Dispensed Refills Start Date End Date Status aspirin 81 MG chewable tabletIndications:O ld myocardial infarct,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 60 Tab 6 05/02/2017 Active Nitroglycerin 0.4 MG Sublingual Tablet Sublingual (Nitrostat)Indicati ons:HTN, goal below 140/90,Coronary artery disease involving [place] heart without angina pectoris, unspecified vessel or [...] Oral Tablet (Norvasc)Indication s:Coronary artery disease involving [place] coronary artery of [place] heart without angina pectoris,HTN, goal below 140/90,Dyslipidemia , goal LDL below 70,Coronary artery disease involving [place] heart without angina pectoris, unspecified vessel or lesion type,Asymptomatic bilateral carotid artery stenosis Take 1 Tablet by mouth in the morning. 90 Tablet 3 06/28/2023 Active Atorvastatin Calcium 80 MG Oral Tablet (Lipitor)Indication s:Coronary artery disease involving [place] coronary artery of [place] heart without angina pectoris,HTN, goal below 140/90,Dyslipidemia , goal LDL below 70,Coronary artery disease involving [place] heart without angina pectoris, unspecified vessel or lesion type,Asymptomatic bilateral carotid artery stenosis Take 1 Tablet by mouth every afternoon. 90 Tablet 3 06/28/2023 Active Carvedilol 12.5 MG Oral Tablet (Coreg)Indications: Coronary artery disease involving [place] coronary artery of [place] heart without angina pectoris,HTN, goal below 140/90,Dyslipidemia , goal LDL below 70,Coronary artery disease involving [place] heart without angina pectoris, unspecified vessel or lesion type,Asymptomatic bilateral carotid artery stenosis Take by mouth 1/2 tablet 2 times per day with morning and evening meals 90 Tablet 3 06/28/2023 Active Furosemide 20 MG Oral Tablet (Lasix)Indications: Coronary artery disease involving [place] coronary artery of [place] heart without angina pectoris,HTN, goal below 140/90,Dyslipidemia , goal LDL below 70,Coronary artery disease involving [place] heart without angina pectoris, unspecified vessel or lesion type,Asymptomatic bilateral carotid artery stenosis Only as needed 90 Tablet 3 06/28/2023 Active hydroCHLOROthiazide 25 MG Oral Tablet (Hydrodiuril)Indica tions:Coronary artery disease involving [place] coronary artery of [place] heart without angina pectoris,HTN, goal below 140/90,Dyslipidemia , goal LDL below 70,Coronary artery disease involving [place] heart without angina pectoris, unspecified vessel or lesion type,Asymptomatic bilateral carotid artery stenosis Take 1 Tablet by mouth in the morning. 90 Tablet 3 06/28/2023 Active Isosorbide Mononitrate ER 60 MG Oral Tablet Extended Release 24 Hour (Imdur)Indications: Coronary artery disease involving [place] coronary artery of [place] heart without angina pectoris,HTN, goal below 140/90,Dyslipidemia , goal LDL below 70,Coronary artery disease involving [place] heart without angina pectoris, unspecified vessel or lesion type,Asymptomatic bilateral carotid artery stenosis TAKE 1 TABLET BY MOUTH EVERY DAY IN THE MORNING 90 Tablet 3 06/28/2023 Active Losartan Potassium 50 MG Oral Tablet (Cozaar)Indications :Coronary artery disease involving [place] coronary artery of [place] heart without angina pectoris,HTN, goal below 140/90,Dyslipidemia , goal LDL below 70,Coronary artery disease involving [place] heart without angina pectoris, unspecified vessel or [...] as of this encounter (statuses as of 07/02/2023) Active Problems Problem Noted Date Diagnosed Date [...] EGFR 71 Atherosclerotic heart diseas e of [place]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 angina pectoris 09/06/2016 Thoracic aortic ectasia 09/06/2016 S/P CABG x 3 08/06/2016 HTN, goal below 130/80 04/30/2013 Dyslipidemia, goal LDL below 70 04/03/2012 HTN, goal below 140/90 05/13/2008 Old myocardial infarct 09/30/2003 COPD, mild documented as of this encounter (statuses as of 07/02/2023) Resolved Problems Problem Noted Date Diagnosed Date [...] as of this encounter (statuses as of 07/02/2023) Immunizations Name Administration Dates Next Due Pneumococcal [...] 07/11/2023 1:00 PM EDT Nurse Only Cardiology [address] [place] [address] [place], Nurse Cardiology [address] [place] [address] 07/11/2023 1:15 PM EDT Imaging Radiology [address] [place] [address] 07/11/2023 2:30 PM EDT Cardiac Studies Cardiac Studies [address] [place] [address] 07/31/2023 2:30 PM EDT Office Visit Family Medicine [address] [place] [phone] Zuleyka Benz[address] [place] [address] 12/13/2023 8:00 AM EDT Office Visit Cardiology, [facility] [address] [place] [address] Luda Baldwin CRNP [address] [place] [id number] Health Maintenance Due Date Last Done Comments [...] exists LUNG CANCER SCREENING - USE SMARTSET 29255 Completed 01/08/2018 GARDASIL-HPV IMMUNIZATION SERIES Aged Out No longer eligible based on patient's age to complete this topic Hepatitis B Aged Out No longer eligi ble based on patient's age to complete this topic MENINGOCOCCAL (MENACTRA/MENVEO) Aged Out No longer eligible based on patient's age to complete this topic documented as of this encounter Medical Devices Implanted Type Area Hospital Coder Device Identifier Shelf Expiration Date Model / Serial / Lot Sut Steel 6 [id number] - [id number] Implanted:Qty: 4 on 05/23/2016 by Vinny Wolf MD at OR [facility] [place] [place] N/A: Sternum JNJ : [employer] 11/22/2020 [id number] / / [id number] Graft Marker Coronary - [id number] Implanted:Qty: 1 on 05/23/2016 by Vinny Wolf MD at OR [facility] [place] [place] N/A: Aorta VM CARDIO VASCULAR 09/21/2017 [id number] / / [id number] Graft Marker Coronary - [id number] Implanted:Qty: 1 on 05/23/2016 by Vinny Wolf MD at OR [facility] [place] [place] N/A: Aorta VM CARDIO VASCULAR 09/21/2017 [id number] / / [id number] Graft Marker Coronary - [id number] Implanted:Qty: 1 on 05/23/2016 by Vinny Wolf MD at OR [facility] [place] [place] N/A: Aorta VM CARDIO VASCULAR 09/21/2017 [id number] / / [id number] Lens Intraoc 22.5 - [id number] - [id number] Implanted:Qty: 1 on 05/03/2022 by Jonny Chong MD at OR [facility] Left: Eye BAUSCH [employer] LOMB 02/21/2027 [id number] / [id number] / [id number] Lens Intraoc 22.5 - [id number] - [id number] Implanted:Qty: 1 on 05/10/2022 by Jonny Chong MD at OR [facility] Right: Eye BAUSCH & LOMB 11/22/2026 [id number] / [id number] / [id number] documented as of this encounter Advance Directives [...] the patient have Health Care Power of Flaking Roll Operator? No Code Status History Code Status Date Activated Date Inactivated Comments No Code 05/03/2022 11:09 AM 05/03/2022 5:34 PM This o rder reflects the patients wishes and were consensually agreed upon. Question Answer Comments Discussion of Advance Directives occurred with: Patient Does the patient have a Living Will? No Does the patient have Health Care Power of Flaking Roll Operator? No Full Code 05/23/2016 2:01 PM 05/26/2016 [...] the patient have Health Care Power of Flaking Roll Operator? No Full Code 05/22/2016 8:39 PM 05/23/2016 2:35 AM This o rder reflects the patients wishes and were consensually agreed upon. Question Answer Comments Discussion of Advance Directives occurred with: Patient Care Teams Oncology Social Work Relationship Specialty Start Date End Date Zuleyka Benz DO [address] [place] [address] [place] [address] PCP - General Internal Medicine 07/08/18 documented as of this encounter
--- OUTSIDE RECORDS SUMMARY | 2023-09-21 21:20 | External Medical Summary | Summary of Care ---
Author Name Unknown Organization [facility] Address [address] [place] [address] Phone [phone] Care Team Providers Care Shipping Support Clerk Name Role Phone Zuleyka Benz DO Primary Care Provider [phone] Reason for Visit * Reason Onset Date Comments Test Results 05/28/2023 Toenail culture Encounter Details Date Type Department Care Team (Late st Contact Info) Description 05/28/2023 Telephone Podiatry, [facility] [address] [place] [address] Lolita Doll DPM [address] [place] [address] Test Results (Toenail culture ) Allergies Active Allergy Reactions Criticality Noted Date Comments Bee Venom Edema Other High 08/09/2020 Enalapril Cough 02/20/2011 Morphine And Related Nausea/vomiting High 07/29/2009 documented as of this encounter (statuses as of 05/30/2023) Medications Medication Sig Dispensed Refills Start Date End Date Status aspirin 81 MG chewable tabletIndications:Old myocardial infarct,Atherosclerot ic heart disease of [place]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 angina pectoris (HCC) Take 1 Tablet by mouth in the morning. 60 Tab 6 05/02/2017 Active Nitroglycerin 0.4 MG Sublingual Tablet Sublingual (Nitrostat)Indication s:HTN, goal below 140/90,Coronary artery disease involving [place] heart without angina pectoris, unspecified vessel or lesion type,Lower extremity edema,Dyslipidemia, goal LDL below 70,Asymptomatic bilateral carotid artery stenosis,MOORE (dyspnea on exertion),Frequent PVCs Place under the tongue 1 Tablet as needed for Pain, Chest. May repeat 3 times. If chest pain continues, call 911. 30 Tablet 1 07/03/2021 Active Atorvastatin Calcium 80 MG Oral Tablet (Lipitor)Indications: Coronary artery disease involving [place] heart without angina pectoris, unspecified vessel or lesion type,Dyslipidemia, goal LDL below 70,Asymptomatic bilateral carotid artery stenosis Take by mouth 1 Tablet in the evening. 90 Tablet 3 09/28/2021 Active Losartan Potassium 50 MG Oral Tablet (Cozaar) Take by mouth 1 Tablet in the morning AND 1 Tablet before bedtime. 90 Tablet 1 10/25/2021 Active B-12 1000 MCG Oral Capsule Take 1 Capsule by mouth in the morning. 0 Active amLODIPine Besylate 5 MG Oral Tablet (Norvasc) Take 1 Tablet by mouth in the morning. 90 Tablet 3 01/16/2022 Active Furosemide 20 MG Oral TabletIndications:HTN , goal below 140/90,Coronary artery disease involving [place] heart without angina pectoris, unspecified vessel or lesion type,Lower extremity edema,Dyslipidemia, goal LDL below 70,Asymptomatic bilateral carotid artery stenosis,MOORE (dyspnea on exertion),Frequent PVCs Only as needed 90 Tablet 3 01/16/2022 Active Tamsulosin HCl 0.4 MG Oral Capsule (Flomax)Indications:U rinary frequency,Urinary incontinence, unspecified type TAKE 1 CAPSULE BY MOUTH EVERY DAY IN THE MORNING 90 Capsule 3 05/16/2022 Active Loratadine 10 MG Oral Tablet (Claritin)Indications :Flu-like symptoms,Nasal sinus congestion,Non-recurr ent acute serous otitis media of both ears TAKE 1 TABLET BY MOUTH EVERY DAY IN THE MORNING 30 Tablet 0 05/31/2022 Active Carvedilol 12.5 MG Oral Tablet (Coreg)Indications:Fr equent PVCs,Coronary artery disease involving [place] heart without angina pectoris, unspecified vessel or lesion type,HTN, goal below 140/90 Take by mouth 1/2 tablet 2 times per day with morning and evening meals 90 Tablet 3 07/25/2022 Active Cephalexin 500 MG Oral Capsule (Keflex) 0 08/27/2022 Act gisela Sulfamethoxazole-Trim ethoprim 800-160 MG Oral Tablet (Bactrim DS) 0 08/27/2022 Active hydrOXYzine HCl 50 MG Oral TabletIndications:Fea r of flying Take 1 tablet 30 minutes before flying if needed for anxiety. 20 Tablet 0 11/20/2022 Active Pantoprazole Sodium 40 MG Oral Tablet Delayed Release (Protonix) TAKE BY MOUTH 1 TAB IN THE MORNING 30 MINS BEFORE THE FIRST MEAL OF THE DAY DO NOT CRUSH/SPLIT/CHEW 90 Tablet 1 11/22/2022 Active hydroCHLOROthiazide 25 MG Oral Tablet (Hydrodiuril) Take 1 Tablet by mouth in the morning. 90 Tablet 3 12/06/2022 Active Isosorbide Mononitrate ER 60 MG Oral Tablet Extended Release 24 Hour (Imdur)Indications:HT N, goal below 140/90,Frequent PVCs TAKE 1 TABLET BY MOUTH EVERY DAY IN THE MORNING 90 Tablet 3 01/30/2023 Active Azithromycin 250 MG Oral Tablet (Zithromax Z-Kelton)Indications:Acu te maxillary sinusitis, recurrence not specified Take two tablets by mouth on first day, then 1 tablet daily until gone 6 Tablet 0 02/06/2023 Active Clotrimazole-Betameth asone 1-0.05 % External Cream Apply to affected area twice daily. 45 g 6 04/29/2023 Active Hospital, Clinic, or Other Facility Administered Medication Ordered Dose Route Frequency Start Date End Date Status albuterol (PROVENTIL HFA) inhaler 4 PuffIndications:COPD, mild (HCC) 4 Puff IN Q4H PRN 08/07/2017 Active documented as of this encounter (statuses as of 05/30/2023) Active Problems Problem Noted Date Diagnosed Date [...] EGFR 71 Atherosclerotic heart diseas e of [place]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 angina pectoris 09/06/2016 Thoracic aortic ectasia 09/06/2016 S/P CABG x 3 08/06/2016 HTN, goal below 130/80 04/30/2013 Dyslipidemia, goal LDL below 70 04/03/2012 HTN, goal below 140/90 05/13/2008 Old myocardial infarct 09/30/2003 COPD, mild documented as of this encounter (statuses as of 05/30/2023) Resolved Problems Problem Noted Date Diagnosed Date [...] as of this encounter (statuses as of 05/30/2023) Immunizations Name Administration Dates Next Due Pneumococcal [...] encounter Miscellaneous Notes * Telephone Encounter - Mariposa Sr OSA - 05/30/2023 10:29 AM EST Patient returned your call regarding culture results. [phone] * Telephone Encounter - Lolita Doll DPM - 05/28/2023 12:22 PM EST Left 2nd message to review toenail culture results. documented in this encounter Plan of Treatment Health Maintenance Due Date Last Done Comments Albumin/Creatinine Ratio 08/01/1973 Alpha-1 Antitrypsin 08/01/1973 Zoster Vaccines (1 of 2) 08/01/2005 DTaP,Tdap,and Td Vaccines (1 - Tdap) 02/23/2007 02/22/2007 COLONOSCOPY-ANNUAL AGES 18-100 01/13/2009 01/14/2008 Pneumococcal Vaccine: 65+ Years (2 of 2 - PCV) 02/22/2009 02/23/2008 Depression Screening 01/09/2020 01/08/2019 AAA Screening 08/01/2020 COVID-19 Vaccine (1 - 2022- season) 2022 Influenza Vaccine (FLU shot) (#1) 2022 01/23/2018, 02/01/2014, 01/25/2012, Additional history exists O2 ASSESSMENT COMPLETED IN PAST YEAR FOR COPD 08/31/2023 08/30/2022 GFR 02/12/2024 02/11/2023, 02/0 08/2022, 12/12/2021, Additional history exists Diabetes Screening 02/11/2026 02/11/2023, 0 04/30/2022, 12/12/2021, Additional history exists LUNG CANCER SCREENING - USE SMARTSET 14119 Completed 01/08/2018 GARDASIL-HPV IMMUNIZATION SERIES Aged Out No longer eligible based on patient's age to complete this topic Hepatitis B Aged Out No longer eligi ble based on patient's age to complete this topic MENINGOCOCCAL (MENACTRA/MENVEO) Aged Out No longer eligible based on patient's age to complete this topic documented as of this encounter Medical Devices Implanted Type Area Water Safety Instructor Device Identifier Shelf Expiration Date Model / Serial / Lot Sut Steel 6 M654g - [id number] Implanted:Qty: 4 on 05/23/2016 by Vinny Wolf MD at [place] [facility] [place] N/A: Sternum JNJ : [employer] 11/22/2020 [id number] / / [id number] Graft Marker Coronary - [id number] Implanted:Qty: 1 on 05/23/2016 by Vinny Wolf MD at [place] [facility] [place] N/A: Aorta VM CARDIO VASCULAR 09/21/2017 [id number] / / [id number] Graft Marker Coronary - [id number] Implanted:Qty: 1 on 05/23/2016 by Vinny Wolf MD at [place] [facility] [place] N/A: Aorta VM CARDIO VASCULAR 09/21/2017 [id number] / / [id number] Graft Marker Coronary - [id number] Implanted:Qty: 1 on 05/23/2016 by Vinny Wolf MD at [place] [facility] [place] N/A: Aorta VM CARDIO VASCULAR 09/21/2017 [id number] / / [id number] Lens Intraoc 22.5 - [id number] - [id number] Implanted:Qty: 1 on 05/03/2022 by CastilloJonny jackson MD at OR [facility] Left: Eye BAUSCH & LOMB 02/21/2027 [id number] / [id number] / [id number] Lens Intraoc 22.5 - [id number] - [id number] Implanted:Qty: 1 on 05/10/2022 by Jonny Chong MD at OR [facility] Right: Eye BAUSCH & LOMB 11/22/2026 [id number] / [id number] / [id number] documented as of this encounter Advance Directives [...] the patient have Health Care Power of Carbon Sequestration Plant Manager? No Code Status History Code Status Date Activated Date Inactivated Comments No Code 05/03/2022 11:09 AM 05/03/2022 5:34 PM This o rder reflects the patients wishes and were consensually agreed upon. Question Answer Comments Discussion of Advance Directives occurred with: Patient Does the patient have a Living Will? No Does the patient have Health Care Power of Carbon Sequestration Plant Manager? No Full Code 05/23/2016 2:01 PM 05/26/2016 [...] the patient have Health Care Power of Carbon Sequestration Plant Manager? No Full Code 05/22/2016 8:39 PM 05/23/2016 2:35 AM This o rder reflects the patients wishes and were consensually agreed upon. Question Answer Comments Discussion of Advance Directives occurred with: Patient Care Teams Shipping Support Clerk Relationship Specialty Start Date End Date Zuleyka Benz DO [address] [place] [address] [place] [address] PCP - General Internal Medicine 07/08/18 documented as of this encounter
--- OUTSIDE RECORDS SUMMARY | 2023-09-21 21:20 | External Medical Summary | Summary of Care ---
Author Name Unknown Organization [facility] Address [address] [place] [address] Phone [phone] Care Team Providers Care Quality Control Manager Name Role Phone Zuleyka Benz DO Primary Care Provider [phone] Reason for Visit * Reason Onset Date Comments Test Results 07/05/2023 Encounter Details Date Type Department Care Team (Late st Contact Info) Description 07/05/2023 Telephone Cardiology, [address] [place] [address] Luda Baldwin CRNP [address] [place] [address] Test Results Allergies Active Allergy Reactions Criticality Noted Date Comments Bee Venom Edema Other High 08/09/2020 Enalapril Cough 02/20/2011 Morphine And Related Nausea/vomiting High 07/29/2009 documented as of this encounter (statuses as of 07/05/2023) Medications Medication Sig Dispensed Refills Start Date End Date Status aspirin 81 MG chewable tabletIndications: Old myocardial infarct,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 60 Tab 6 05/02/2017 Active Nitroglycerin 0.4 MG Sublingual Tablet Sublingual (Nitrostat)Indicat ions:HTN, goal below 140/90,Coronary artery disease involving [place] heart without angina pectoris, unspecified vessel or [...] Oral Tablet (Norvasc)Indicatio ns:Coronary artery disease involving [place] coronary artery of [place] heart without angina pectoris,HTN, goal below 140/90,Dyslipidemi a, goal LDL below 70,Coronary artery disease involving [place] heart without angina pectoris, unspecified vessel or lesion type,Asymptomatic bilateral carotid artery stenosis Take 1 Tablet by mouth in the morning. 90 Tablet 3 06/28/2023 Active Atorvastatin Calcium 80 MG Oral Tablet (Lipitor)Indicatio ns:Coronary artery disease involving [place] coronary artery of [place] heart without angina pectoris,HTN, goal below 140/90,Dyslipidemi a, goal LDL below 70,Coronary artery disease involving [place] heart without angina pectoris, unspecified vessel or lesion type,Asymptomatic bilateral carotid artery stenosis Take 1 Tablet by mouth every afternoon. 90 Tablet 3 06/28/2023 Active Carvedilol 12.5 MG Oral Tablet (Coreg)Indications :Coronary artery disease involving [place] coronary artery of [place] heart without angina pectoris,HTN, goal below 140/90,Dyslipidemi a, goal LDL below 70,Coronary artery disease involving [place] heart without angina pectoris, unspecified vessel or lesion type,Asymptomatic bilateral carotid artery stenosis Take by mouth 1/2 tablet 2 times per day with morning and evening meals 90 Tablet 3 06/28/2023 Active Furosemide 20 MG Oral Tablet (Lasix)Indications :Coronary artery disease involving [place] coronary artery of [place] heart without angina pectoris,HTN, goal below 140/90,Dyslipidemi a, goal LDL below 70,Coronary artery disease involving [place] heart without angina pectoris, unspecified vessel or lesion type,Asymptomatic bilateral carotid artery stenosis Only as needed 90 Tablet 3 06/28/2023 Active hydroCHLOROthiazid e 25 MG Oral Tablet (Hydrodiuril)Indic ations:Coronary artery disease involving [place] coronary artery of [place] heart without angina pectoris,HTN, goal below 140/90,Dyslipidemi a, goal LDL below 70,Coronary artery disease involving [place] heart without angina pectoris, unspecified vessel or lesion type,Asymptomatic bilateral carotid artery stenosis Take 1 Tablet by mouth in the morning. 90 Tablet 3 06/28/2023 Active Isosorbide Mononitrate ER 60 MG Oral Tablet Extended Release 24 Hour (Imdur)Indications :Coronary artery disease involving [place] coronary artery of [place] heart without angina pectoris,HTN, goal below 140/90,Dyslipidemi a, goal LDL below 70,Coronary artery disease involving [place] heart without angina pectoris, unspecified vessel or lesion type,Asymptomatic bilateral carotid artery stenosis TAKE 1 TABLET BY MOUTH EVERY DAY IN THE MORNING 90 Tablet 3 06/28/2023 Active Losartan Potassium 50 MG Oral Tablet (Cozaar)Indication s:Coronary artery disease involving [place] coronary artery of [place] heart without angina pectoris,HTN, goal below 140/90,Dyslipidemi a, goal LDL below 70,Coronary artery disease involving [place] heart without angina pectoris, unspecified vessel or [...] EGFR 71 Atherosclerotic heart diseas e of [place]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 angina [...] encounter Miscellaneous Notes * Telephone Encounter - Oberteuffer, Cori, OPERATOR SPECIALIST COMMUNICATIONS - 07/05/2023 3:51 PM EDT Letter mailed. * Telephone Encounter - Iman Gary CMA - 07/05/2023 3:50 PM EDT ----- Message from PETER Madden sent at 07/05/2023 2:46 PM EDT ----- Covering for PETER Bustamante CBC is stable. Kidney function and electrolytes are normal. Glucose is elevated. No changes to be made at this time. documented in this encounter Plan of Treatment Upcoming Encounters Date Type Department Care Team (Late st Contact Info) Description 07/11/2023 1:00 PM EDT Nurse Only Cardiology [address] [place] [address] [place], Nurse Cardiology [address] [place] [address] 07/11/2023 1:15 PM EDT Imaging Radiology [address] [place] [address] 07/11/2023 2:30 PM EDT Cardiac Studies Cardiac Studies [address] [place] [address] 07/31/2023 2:30 PM EDT Office Visit Family Medicine [address] [place] [phone] [address] [place] [address] 12/13/2023 8:00 AM EDT Office Visit Cardiology, [facility] [address] [place] [address] Luda Baldwin CRNP [address] [place] [address] Health Maintenance Due Date Last Done Comments Albumin/Creatinine Ratio 08/01/1973 Alpha-1 Antitrypsin 08/01/1973 Zoster Vaccines (1 of 2) 08/01/2005 DTaP,Tdap,and Td Vaccines (1 - Tdap) 02/23/2007 02/22/2007 COLONOSCOPY-ANNUAL AGES 18-100 01/13/2009 01/14/2008 Pneumococcal Vaccine: 65+ Years (2 of 2 - PCV) 02/22/2009 02/23/2008 Depression Screening 01/09/2020 01/08/2019 AAA Screening 08/01/2020 COVID-19 Vaccine ( - season) 2022 Influenza Vaccine (FLU shot) (Season Ended) 2023 01/23/2018, 02/01/2014, 01/25/2012, Additional history exists GFR 07/04/2024 07/05/2023, 01/24, 04/30/2022, Additional history exists O2 ASSESSMENT COMPLETED IN PAST YEAR FOR COPD 07/04/2024 07/05/2023 Diabetes Screening 07/04/2026 07/05/2023, 1 04/13/2022, 04/30/2022, Additional history exists LUNG CANCER SCREENING - USE SMARTSET 55446 Completed 01/08/2018 GARDASIL-HPV IMMUNIZATION SERIES Aged Out No longer eligible based on patient's age to complete this topic Hepatitis B Aged Out No longer eligi ble based on patient's age to complete this topic MENINGOCOCCAL (MENACTRA/MENVEO) Aged Out No longer eligible based on patient's age to complete this topic documented as of this encounter Medical Devices Implanted Type Area Orthopedic Designer Device Identifier Shelf Expiration Date Model / Serial / Lot Sut Steel 6 M654g - [id number] Implanted:Qty: 4 on 05/23/2016 by Vinny Wolf MD at [place] [facility] [place]/A: Sternum JNJ : [employer] 11/22/2020 [id number] / / [id number] Graft Marker Coronary - [id number] Implanted:Qty: 1 on 05/23/2016 by Vinny Wolf MD at [place] [facility] [place] N/A: Aorta VM CARDIO VASCULAR 09/21/2017 [id number] / / [id number] Graft Marker Coronary - [id number] Implanted:Qty: 1 on 05/23/2016 by Vinny Wolf MD at [place] [facility] [place] N/A: Aorta VM CARDIO VASCULAR 09/21/2017 [id number] / / [id number] Graft Marker Coronary - [id number] Implanted:Qty: 1 on 05/23/2016 by Vinny Wolf MD at [place] [facility] [place] N/A: Aorta VM CARDIO VASCULAR 09/21/2017 [id number] / / [id number] Lens Intraoc 22.5 - [id number] - [id number] Implanted:Qty: 1 on 05/03/2022 by Jonny Chong MD at OR [facility] Left: Eye BAUSCH & LOMB 02/21/2027 [id number] / [id number] / [id number] Lens Intraoc 22.5 - [id number] - [id number] Implanted:Qty: 1 on 05/10/2022 by Jonny Chong MD at OR [facility] Right: Eye BAUSCH & LOMB 11/22/2026 [id number] / [id number] / [id number] documented as of this encounter Advance Directives [...] the patient have Health Care Power of Erecting Engineer? No Code Status History Code Status Date Activated Date Inactivated Comments No Code 05/03/2022 11:09 AM 05/03/2022 5:34 PM This o rder reflects the patients wishes and were consensually agreed upon. Question Answer Comments Discussion of Advance Directives occurred with: Patient Does the patient have a Living Will? No Does the patient have Health Care Power of Erecting Engineer? No Full Code 05/23/2016 2:01 PM [...] the patient have Health Care Power of Erecting Engineer? No Full Code 05/22/2016 8:39 PM 05/23/2016 2:35 AM This o rder reflects the patients wishes and were consensually agreed upon. Question Answer Comments Discussion of Advance Directives occurred with: Patient Care Teams Quality Control Manager Relationship Specialty Start Date End Date Zuleyka Benz DO [address] [place] [address] [place] [phone] PCP - General Internal Medicine 07/08/18 documented as of this encounter
--- OUTSIDE RECORDS SUMMARY | 2023-09-21 21:20 | External Medical Summary | Summary of Care ---
Author Name Unknown Organization [facility] Address [address] [place] [facility] [address] Phone [phone] Care Team Providers Care Prison Guard Name Role Phone Zuleyka Benz DO Primary Care Provider [phone] Encounter Details Date Type Department Care Team ([facility] st Contact Info) Description 06/06/2023 Result Scan Unspecified Department <No scans attached> Allergies Active Allergy Reactions Criticality Noted Date Comments Bee Venom Edema Other High 08/09/2020 Enalapril Cough 02/20/2011 Morphine And Related Nausea/vomiting High 07/29/2009 documented as of this encounter (statuses as of 06/07/2023) Medications Medication Sig Dispensed Refills Start Date End Date Status aspirin 81 MG chewable tabletIndications:O ld myocardial infarct,Atheroscler 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 60 Tab 6 05/02/2017 Active Nitroglycerin 0.4 MG Sublingual Tablet Sublingual (Nitrostat)Indicati ons:HTN, goal below 140/90,Coronary artery disease involving [place] heart without angina pectoris, unspecified vessel or lesion type,Lower extremity edema,Dyslipidemia, goal LDL below 70,Asymptomatic bilateral carotid artery stenosis,MOORE (dyspnea on exertion),Frequent PVCs Place under the tongue 1 Tablet as needed for Pain, Chest. May repeat 3 times. If chest pain continues, call 911. 30 Tablet 1 07/03/2021 Active Atorvastatin Calcium 80 MG Oral Tablet (Lipitor)Indication s:Coronary artery disease involving [place] heart without angina pectoris, unspecified vessel or [...] 3 01/16/2022 Active Furosemide 20 MG Oral TabletIndications:H TN, goal below 140/90,Coronary artery disease involving [place] heart without angina pectoris, unspecified vessel or [...] 05/31/2022 Active Carvedilol 12.5 MG Oral Tablet (Coreg)Indications: Frequent PVCs,Coronary artery disease involving [place] heart without angina pectoris, unspecified vessel or lesion type,HTN, goal below 140/90 Take by mouth 1/2 tablet 2 times per day with morning and evening meals 90 Tablet 3 07/25/2022 Active Cephalexin 500 MG Oral Capsule (Keflex) 0 08/27/2022 Active Sulfamethoxazole-Tr imethoprim 800-160 MG Oral Tablet (Bactrim DS) 0 [...] Oral Tablet Extended Release 24 Hour (Imdur)Indications: HTN, goal below 140/90,Frequent PVCs TAKE 1 TABLET BY MOUTH EVERY DAY IN THE MORNING 90 Tablet 3 01/30/2023 Active Azithromycin 250 MG Oral Tablet (Zithromax Z-Kelton)Indications:A cute maxillary sinusitis, recurrence not specified Take two tablets by mouth on first day, then 1 tablet daily until gone 6 Tablet 0 02/06/2023 Active Clotrimazole-Betame thasone 1-0.05 % External Cream Apply to affected area twice daily. 45 g 6 04/29/2023 Active Ciclopirox 8 % External Solution Apply over nail and surrounding skin. Apply daily over previous coat. After seven (7) days, may remove with alcohol and continue cycle. 6.6 mL 3 05/30/2023 Active Hospital, Clinic, or Other Facility Administered Medication Ordered Dose Route Frequency Start Date End Date Status albuterol (PROVENTIL HFA) inhaler 4 PuffIndications:COPD, mild (HCC) 4 Puff IN Q4H PRN 08/07/2017 Active documented as of this encounter (statuses as of 06/07/2023) Active Problems Problem Noted Date Diagnosed Date [...] EGFR 71 Atherosclerotic heart diseas e of [place]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 angina pectoris 09/06/2016 Thoracic aortic ectasia 09/06/2016 S/P CABG x 3 08/06/2016 HTN, goal below 130/80 04/30/2013 Dyslipidemia, goal LDL below 70 04/03/2012 HTN, goal below 140/90 05/13/2008 Old myocardial infarct 09/30/2003 COPD, mild documented as of this encounter (statuses as of 06/07/2023) Resolved Problems Problem Noted Date Diagnosed Date [...] as of this encounter (statuses as of 06/07/2023) Immunizations Name Administration Dates Next Due Pneumococcal [...] as of this encounter Plan of Treatment Health Maintenance [...] exists LUNG CANCER SCREENING - USE SMARTSET 98917 Completed 01/08/2018 GARDASIL-HPV IMMUNIZATION SERIES Aged Out No longer eligible based on patient's age to complete this topic Hepatitis B Aged Out No longer eligi ble based on patient's age to complete this topic MENINGOCOCCAL (MENACTRA/MENVEO) Aged Out No longer eligible based on patient's age to complete this topic documented as of this encounter Medical Devices Implanted Type Area Mfg Assoc Device Identifier Shelf Expiration Date Model / Serial / Lot Sut Steel 6 M654g - [id number] Implanted:Qty: 4 on 05/23/2016 by Vinny Wolf MD at OR [facility] [place] N/A: Sternum JNJ : [employer] 11/22/2020 [id number] / / [id number] Graft Marker Coronary - [id number] Implanted:Qty: 1 on 05/23/2016 by Vinny Wolf MD at OR [facility] [place] N/A: Aorta VM CARDIO VASCULAR 09/21/2017 [id number] / / [id number] Graft Marker Coronary - [id number] Implanted:Qty: 1 on 05/23/2016 by Vinny Wolf MD at OR [facility] [place] N/A: Aorta VM CARDIO VASCULAR 09/21/2017 [id number] / / [id number] Graft Marker Coronary - [id number] Implanted:Qty: 1 on 05/23/2016 by Vinny Wolf MD at OR [facility] [place] N/A: Aorta VM CARDIO VASCULAR 09/21/2017 [id number] / / [id number] Lens Intraoc 22.5 - [id number] - [id number] Implanted:Qty: 1 on 05/03/2022 by Jonny Chong MD at OR [facility] Left: Eye BAUSCH & LOMB 02/21/2027 [id number] / [id number] / [id number] Lens Intraoc 22.5 - [id number] - [id number] Implanted:Qty: 1 on 05/10/2022 by Jonny Chong MD at OR [facility] Right: Eye BAUSCH & LOMB 11/22/2026 [id number] / [id number] / [id number] documented as of this encounter Procedures Procedure Name Priority Date/Time Associated Diagnosis Comments RADIOLOGY SCANNED RESULT 06/06/2023 documented in this encounter Results * RADIOLOGY SCANNED RESULT (06/06/2023) 06/06/2023 No Physician Data Unknown DIAGNOSTIC RAD IOLOGY SERVICES documented in this encounter Advance Directives Latest Code Status on File Code Status Date Activated Date Inactivated Comments No Code 05/10/2022 8:51 AM 05/10/2022 3:12 PM This order reflects the patients wishes and were consensually agreed upon. Question Answer Comments Discussion of Advance Directives occurred with: Patient Does the patient have a Living Will? No Does the patient have Health Care Power of Cotton Baler? No Code Status History Code Status Date Activated Date Inactivated Comments No Code 05/03/2022 11:09 AM 05/03/2022 5:34 PM This o rder reflects the patients wishes and were consensually agreed upon. Question Answer Comments Discussion of Advance Directives occurred with: Patient Does the patient have a Living Will? No Does the patient have Health Care Power of Cotton Baler? No Full Code 05/23/2016 2:01 PM 05/26/2016 [...] the patient have Health Care Power of Cotton Baler? No Full Code 05/22/2016 8:39 PM 05/23/2016 2:35 AM This o rder reflects the patients wishes and were consensually agreed upon. Question Answer Comments Discussion of Advance Directives occurred with: Patient Care Teams Prison Guard Relationship Specialty Start Date End Date Zuleyka Benz DO [address] [place] [address] [place] [address] PCP - General Internal Medicine 07/08/18 documented as of this encounter
--- OUTSIDE RECORDS SUMMARY | 2023-09-21 21:20 | External Medical Summary | Summary of Care ---
Author Name Unknown Organization [facility] Address [address] [place] [address] Phone [phone] Care Team Providers Care Security Incident Response Specialist Name Role Phone Zuleyka Benz DO Primary Care Provider [phone] Reason for Visit * Reason Onset Date Comments Test Results 05/30/2023 Toenail culture Encounter Details Date Type Department Care Team (Late st Contact Info) Description 05/30/2023 Telephone Podiatry, [facility] [address] [place] [address] Lolita Doll DPM [address] [place] [address] Test Results (Toenail culture ) Allergies Active Allergy Reactions Criticality Noted Date Comments Bee Venom Edema Other High 08/09/2020 Enalapril Cough 02/20/2011 Morphine And Related Nausea/vomiting High 07/29/2009 documented as of this encounter (statuses as of 05/30/2023) Medications Medication Sig Dispensed Refills Start Date End Date Status aspirin 81 MG chewable tabletIndications:O ld myocardial infarct,Atheroscler otic heart disease of [place]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 angina pectoris (HCC) Take 1 Tablet by mouth in the morning. 60 Tab 6 05/02/2017 Active Nitroglycerin 0.4 MG Sublingual Tablet Sublingual (Nitrostat)Indicati ons:HTN, goal below 140/90,Coronary artery disease involving [place] heart without angina pectoris, unspecified vessel or lesion type,Lower extremity edema,Dyslipidemia, goal LDL below 70,Asymptomatic bilateral carotid artery stenosis,MOORE (dyspnea on exertion),Frequent PVCs Place under the tongue 1 Tablet as needed for Pain, Chest. May repeat 3 times. If chest pain continues, call 911. 30 Tablet 1 07/03/2021 Active Atorvastatin Calcium 80 MG Oral Tablet (Lipitor)Indication s:Coronary artery disease involving [place] heart without angina pectoris, unspecified vessel or [...] TN, goal below 140/90,Coronary artery disease involving [place] heart without angina pectoris, unspecified vessel or [...] Tablet (Coreg)Indications: Frequent PVCs,Coronary artery disease involving [place] heart without angina pectoris, unspecified vessel or [...] 06/07/2021 CKD (chronic kidney disease), stage II 02/17/202 2 Overview: EGFR 71 Atherosclerotic heart diseas e of [place]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 angina [...] encounter Miscellaneous Notes * Telephone Encounter - Lolita Doll DPM - 05/30/2023 11:56 AM EST Spoke with Jeffry regarding toenail culture results. I recommended a topical anti fungal to start. Ciclopirox prescribed and I provided him instructions and length of use. documented in this encounter Plan of Treatment Health Maintenance Due Date Last Done Comments Albumin/Creatinine Ratio 08/01/1973 Alpha-1 Antitrypsin 08/01/1973 Zoster Vaccines (1 of 2) 08/01/2005 DTaP,Tdap,and Td Vaccines (1 - Tdap) 02/23/2007 02/22/2007 COLONOSCOPY-ANNUAL AGES 18-100 01/13/2009 01/14/2008 Pneumococcal Vaccine: 65+ Years (2 of 2 - PCV) 02/22/2009 02/23/2008 Depression Screening 01/09/2020 01/08/2019 AAA Screening 08/01/2020 COVID-19 Vaccine (1 - 2022-24 season) 2022 Influenza Vaccine (FLU shot) (#1) 2022 01/23/2018, 02/01/2014, 01/25/2012, Additional history exists O2 ASSESSMENT COMPLETED IN PAST YEAR FOR COPD 08/31/2023 08/30/2022 GFR 02/12/2024 02/11/2023, 02/0 08/2022, 12/12/2021, Additional history exists Diabetes Screening 02/11/2026 02/11/2023, 0 04/30/2022, 12/12/2021, Additional history exists LUNG CANCER SCREENING - USE SMARTSET 44721 Completed 01/08/2018 GARDASIL-HPV IMMUNIZATION SERIES Aged Out No longer eligible based on patient's age to complete this topic Hepatitis B Aged Out No longer eligi ble based on patient's age to complete this topic MENINGOCOCCAL (MENACTRA/MENVEO) Aged Out No longer eligible based on patient's age to complete this topic documented as of this encounter Medical Devices Implanted Type Area Customer Insight Analyst Device Identifier Shelf Expiration Date Model / Serial / Lot Sut Steel 6 M654g - [id number] Implanted:Qty: 4 on 05/23/2016 by Vinny Wolf MD at [place] [facility] [place]/A: Sternum JNJ : [employer] 11/22/2020 [id number] / / [id number] Graft Marker Coronary - [id number] Implanted:Qty: 1 on 05/23/2016 by Vinny Wolf MD at [place] [facility] [place] N/A: Aorta VM CARDIO VASCULAR 09/21/2017 [id number] / / [id number] Graft Marker Coronary - [id number] Implanted:Qty: 1 on 05/23/2016 by Vinny Wolf MD at [place] [facility] [place] N/A: Aorta VM CARDIO VASCULAR 09/21/2017 [id number] / / [id number] Graft Marker Coronary - [id number] Implanted:Qty: 1 on 05/23/2016 by Vinny Wolf MD at [place] [facility] [place] N/A: Aorta VM CARDIO VASCULAR 09/21/2017 [id number] / / [id number] Lens Intraoc 22.5 - [id number] - [id number] Implanted:Qty: 1 on 05/03/2022 by CastilloJonny jackson MD at OR [facility] Left: Eye BAUSCH & LOMB 02/21/2027 [id number] / [id number] / [id number] Lens Intraoc 22.5 - [id number] - [id number] Implanted:Qty: 1 on 05/10/2022 by Jonny Chong MD at OR [facility] Right: Eye BAUSCH & LOMB 11/22/2026 [id number] / [id number] / [id number] documented as of this encounter Advance Directives [...] the patient have Health Care Power of Online Marketing Director? No Code Status History Code Status Date Activated Date Inactivated Comments No Code 05/03/2022 11:09 AM 05/03/2022 5:34 PM This o rder reflects the patients wishes and were consensually agreed upon. Question Answer Comments Discussion of Advance Directives occurred with: Patient Does the patient have a Living Will? No Does the patient have Health Care Power of Online Marketing Director? No Full Code 05/23/2016 2:01 PM 05/26/2016 [...] the patient have Health Care Power of Online Marketing Director? No Full Code 05/22/2016 8:39 PM 05/23/2016 2:35 AM This o rder reflects the patients wishes and were consensually agreed upon. Question Answer Comments Discussion of Advance Directives occurred with: Patient Care Teams Security Incident Response Specialist Relationship Specialty Start Date End Date Zuleyka Benz DO [address] [place] [address] [place] [address] PCP - General Internal Medicine 07/08/18 documented as of this encounter
--- OUTSIDE RECORDS SUMMARY | 2023-09-21 21:20 | External Medical Summary ---
Author Name Unknown Address Unknown Organization K01:[facility] [place] [address] [facility] [address] Laboratory Report Ordering Provider Test Date Status MARVA COHEN 07/05/2023 08:02:25 Final Observation Date Value Abnormality Reference (Units ) Status WBC, Total 07/05/2023 08:02:25 6.87 4.00-10.80 (K/uL) Final RBC 07/05/2023 08:02:25 5.13 4.50-5.25 (M/uL) Final Hemoglobin 07/05/2023 08:02:25 16.7 14.0-16.8 (g/dL) Final HCT 07/05/2023 08:02:25 49.1 Above high normal 40.0-48.4 (%) Final MCV 07/05/2023 08:02:25 95.7 82.0-99.5 (fL) Final MCH 07/05/2023 08:02:25 32.6 27.0-34.0 (pg) Final MCHC 07/05/2023 08:02:25 34.0 32.0-36.0 (g/dL) Final RDW 07/05/2023 08:02:25 12.7 11.5-15.5 (%) Final Platelets 07/05/2023 08:02:25 243 140-400 (K/uL) Final MPV 07/05/2023 08:02:25 10.5 6.6-11.1 (fL) Final Nucleated erythrocytes/100 leukocytes [Ratio] in Blood by Automated count 07/05/2023 08:02:25 0 <=0 (/100 WBCs) Final Performing Location [facility] [place] [address] [place] [address]
--- OUTSIDE RECORDS SUMMARY | 2023-09-21 21:20 | External Medical Summary | Summary of Care ---
Author Name Unknown Organization [facility] Address [address] [place] [address] Phone [phone] Care Team Providers Care Clerical Office Worker Name Role Phone Zuleyka Benz DO Primary Care Provider Reason for Visit * Reason Comments Acute Encounter Details Date Type Department Care Team (Late st Contact Info) Description 07/05/2023 12:20 PM EDT Office Visit Family Medicine [address] [phone] Florencia Cameron MD [address] [place] [address] [place] [phone] Tick bite, unspecified site, initial encounter* Allergies Active Allergy Reactions Criticality Noted Date Comments Bee Venom Edema Other High 08/09/2020 Enalapril Cough 02/20/2011 Morphine And Related Nausea/vomiting High 07/29/2009 documented as of this encounter (statuses as of 07/05/2023) Medications Medication Sig Dispensed Refills Start Date End Date Status aspirin 81 MG chewable tabletIndication s:Old myocardial infarct,Atherosc lerotic heart disease of [place]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 angina pectoris (HCC) Take 1 Tablet by mouth in the morning. 60 Tab 6 05/02/2017 Active Nitroglycerin 0.4 MG Sublingual Tablet Sublingual (Nitrostat)Indic ations:HTN, goal below 140/90,Coronary artery disease involving [place] heart without angina pectoris, unspecified vessel or [...] Active Tamsulosin HCl 0.4 MG Oral Capsule (Flomax)Indicati ons:Urinary frequency,Urinar y incontinence, unspecified type TAKE 1 CAPSULE BY MOUTH EVERY DAY IN THE MORNING 90 Capsule 3 05/16/2022 Active Loratadine 10 MG Oral Tablet (Claritin)Indica [...] NOT CRUSH/SPLIT/CHEW 90 Tablet 1 11/22/2022 Active Clotrimazole-Bet amethasone 1-0.05 % External Cream Apply to affected area twice daily. 45 g 6 04/29/2023 Active Ciclopirox 8 % External Solution Apply over nail and surrounding skin. Apply daily over previous coat. After seven (7) days, may remove with alcohol and continue cycle. 6.6 mL 3 05/30/2023 Active amLODIPine Besylate 5 MG Oral Tablet (Norvasc)Indicat ions:Coronary artery disease involving [place] coronary artery of [place] heart without angina pectoris,HTN, goal below 140/90,Dyslipide ze, goal LDL below 70,Coronary artery disease involving [place] heart without angina pectoris, unspecified vessel or lesion type,Asymptomati c bilateral carotid artery stenosis Take 1 Tablet by mouth in the morning. 90 Tablet 3 06/28/2023 Active Atorvastatin Calcium 80 MG Oral Tablet (Lipitor)Indicat ions:Coronary artery disease involving [place] coronary artery of [place] heart without angina pectoris,HTN, goal below 140/90,Dyslipide ze, goal LDL below 70,Coronary artery disease involving [place] heart without angina pectoris, unspecified vessel or lesion type,Asymptomati c bilateral carotid artery stenosis Take 1 Tablet by mouth every afternoon. 90 Tablet 3 06/28/2023 Active Carvedilol 12.5 MG Oral Tablet (Coreg)Indicatio ns:Coronary artery disease involving [place] coronary artery of [place] heart without angina pectoris,HTN, goal below 140/90,Dyslipide ze, goal LDL below 70,Coronary artery disease involving [place] heart without angina pectoris, unspecified vessel or lesion type,Asymptomati c bilateral carotid artery stenosis Take by mouth 1/2 tablet 2 times per day with morning and evening meals 90 Tablet 3 06/28/2023 Active Furosemide 20 MG Oral Tablet (Lasix)Indicatio ns:Coronary artery disease involving [place] coronary artery of [place] heart without angina pectoris,HTN, goal below 140/90,Dyslipide ze, goal LDL below 70,Coronary artery disease involving [place] heart without angina pectoris, unspecified vessel or lesion type,Asymptomati c bilateral carotid artery stenosis Only as needed 90 Tablet 3 06/28/2023 Active hydroCHLOROthiaz daniel 25 MG Oral Tablet (Hydrodiuril)Ind ications:Coronar y artery disease involving [place] coronary artery of [place] heart without angina pectoris,HTN, goal below 140/90,Dyslipide ze, goal LDL below 70,Coronary artery disease involving [place] heart without angina pectoris, unspecified vessel or lesion type,Asymptomati c bilateral carotid artery stenosis Take 1 Tablet by mouth in the morning. 90 Tablet 3 06/28/2023 Active Isosorbide Mononitrate ER 60 MG Oral Tablet Extended Release 24 Hour (Imdur)Indicatio ns:Coronary artery disease involving [place] coronary artery of [place] heart without angina pectoris,HTN, goal below 140/90,Dyslipide ze, goal LDL below 70,Coronary artery disease involving [place] heart without angina pectoris, unspecified vessel or lesion type,Asymptomati c bilateral carotid artery stenosis TAKE 1 TABLET BY MOUTH EVERY DAY IN THE MORNING 90 Tablet 3 06/28/2023 Active Losartan Potassium 50 MG Oral Tablet (Cozaar)Indicati ons:Coronary artery disease involving [place] coronary artery of [place] heart without angina pectoris,HTN, goal below 140/90,Dyslipide ze, goal LDL below 70,Coronary artery disease involving [place] heart without angina pectoris, unspecified vessel or lesion type,Asymptomati c bilateral carotid artery stenosis Take 1 Tablet by mouth in the morning and 1 Tablet before bedtime. 90 Tablet 1 06/28/2023 Active Doxycycline Hyclate 100 MG Oral CapsuleIndicatio ns:Tick bite, unspecified site, initial encounter Take 1 Capsule by mouth in the morning and 1 Capsule before bedtime. Do all this for 10 days. Until gone.. 20 Capsule 0 07/05/2023 4 Active Cephalexin 500 MG Oral Capsule (Keflex) 0 08/27/2022 4 Discontinued Hospital, Clinic, or Other Facility Administered [...] 06/07/2021 CKD (chronic kidney disease), stage II 2 Overview: EGFR 71 Atherosclerotic heart diseas e of [place]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 angina [...] Sign Reading Time Taken Comments Blood Pressure 158/92 07/05/2023 8:27 AM EDT Pulse 81 07/05/2023 8:27 AM EDT Temperature 36.5 C (97.7 F) 07/05/2023 8:27 AM ED T Respiratory Rate - - Oxygen Saturation 97% 07/05/2023 8:27 AM EDT Inhaled Oxygen Concentration - - Weight 86.1 kg (189 lb 12.8 oz) 07/05/2023 8:27 AM EDT Height - - Body Mass Index 32.09 08/30/2022 1:42 PM EDT documented in this [...] as of this encounter Progress Notes * Florencia Cameron MD - 07/05/2023 8:38 AM EDT Subjective: HPI: Jeffry Benoit is a 67 year old male with hx of CAD s/p CABG, HLD, COPD, HTN, GERD, CKD II seen for Pt noticed a tick yesterday afternoon on the back - removed it - but still have very small piece - denied any fever or erythema Patient Active Problem List Diagnosis Code Old myocardial infarct I25.2 HTN, goal below 140/90 I10 Dyslipidemia, goal LDL below 70 E78.5 COPD, mild (HCC) J44.9 HTN, goal below 130/80 I10 S/P CABG x 3 Z95.1 Atherosclerotic heart disease of [place]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 angina pectoris (HCC) I25.118 Thoracic aortic ectasia (HCC) I77.810 Gastroesophageal reflux disease with esophagitis without hemorrhage K21.00 CKD (chronic kidney disease), stage II N18.2 Supraumbilical hernia without gangrene and without obstruction K43.9 BPH with obstruction/lower urinary tract symptoms N40.1, N13.8 Premature atrial contractions I49.1 ASCVD (arteriosclerotic cardiovascular disease) I25.10 PSVT (paroxysmal supraventricular tachycardia) ([facility]) I47.10 Current Outpatient Medications Medication Sig Dispense Refill [...] TAKE BY MOUTH 1 TAB IN THE [id number] MINS BEFORE THE FIRST MEAL OF THE DAY DO NOT CRUSH/SPLIT/CHEW 90 Tablet 1 Clotrimazole-Betamethasone 1-0.05 % External Cream Apply to affected area twice daily. 45 g 6 Ciclopirox 8 % External Solution Apply over nail and surrounding skin. Apply daily over previous coat. After seven (7) days, may remove with alcohol and continue cycle. 6.6 mL 3 amLODIPine Besylate 5 MG Oral Tablet (Norvasc) Take 1 Tablet by mouth in the morning. 90 Tablet 3 Atorvastatin Calcium 80 MG Oral Tablet [...] 1 Tablet before bedtime. 90 Tablet 1 Doxycycline Hyclate 100 MG Oral Capsule Take 1 Capsule by mouth in the morning and 1 Capsule beforebedtime. Do all this for 10 days. Until gone.. 20 Capsule 0 Current Facility-Administered Medications Medication Dose Route Frequency Provider Last Rate Last Admin albuterol (PROVENTIL HFA) inhaler 4 Puff 4 Puff Inhalation Q4H PRN Jennifer Cantor MD 4 Puff at 02/27/18 1415 Past Medical History: Diagnosis Date Acute myocardial infarction of inferior wall, initial episode of care ([facility]) 09/19/03, 12/31/12 CAD S/P percutaneous coronary angioplasty RCA stent in , Cx in 13 CKD (chronic kidney disease), stage II 05/11/2021 EGFR 71 COPD, mild ([facility]) Depressive disorder, not elsewhere classified Gastroesophageal reflux disease with esophagitis without hemorrhage History of colon polyps 07/08/2018 History of tobacco use 07/08/2018 HTN, goal below 130/80 04/30/2013 Hyperlipidemia LDL goal < 70 Major depressive disorder with single episode, in full remission ([facility]) 11/24/2009 Sexual function problem being followed by psychiatrist at [facility]. Supraumbilical hernia without gangrene and without obstruction 07/05/2021 fat containing Past Surgical History: Procedure Laterality Date CABG, ARTERIAL, SINGLE N/A 05/23/2016 CORONARY ARTERY BYPASS GRAFT USING ARTERY 1 GRAFT performed by Vinny Wolf MD at [facility] CABG, ARTERY-VEIN, THREE 05/23/2016 CORONARY ARTERY BYPASS GRAFT ARTERIAL AND VENOUS 3 GRAFTS performed by Vinny Wolf MD at OR [facility] CARPAL TUNNEL SURGERY 10/23/2008 COLONOSCOPY W/ LESION REMOVAL, SNARE 01/14/2008 await path, repeat in 1-3 years CORONARY ARTERY DILATION, BALLOON 09/20/2003 RCA PTCA/stent MULTILINK VISION EGD, FLEXIBLE, DIAGNOSTIC 08/17/2020 Z-line irregular 40 cm from incisors / single duodenal polyp / biopsies from the small intestine did show evidence of a lipoma. These are generally considered benign and require no long-term follow-up. pseudocyst from your pancreatitis / f/u [address] /ESOPHAGOGASTRODUODENOSCOPY (EGD), FLEXIBLE, TRANSORAL, DIAGNOSTIC performed by Mago Rizo DO at [facility] EGD, W/ENDOSCOPIC US 08/17/2020 intramural lesion found in duodenum, evidence of cholecystectomy, cystic lesion in pancreatic body /biopsies from small intestine did show evidence of a lipoma. generally considered benign & no long-term follow-up /follow CT 3 to 4 months/ ESOPHAGOGASTRODUODENOSCOPY (EGD), FLEXIBLE, TRANSORAL, ENDOSCOPIC ULTRASOUND performed by Mago Rizo DO at [facility] ENDO,VIDEO ASSIST HARVEST SONYA 05/23/2016 ENDOSCOPY VIDEO ASSISTED HARVEST VEIN performed by Vinny Wolf MD at OR [facility] REMOVE CATARACT, INSERT LENS PROSTH Left 05/03/2022 left EXTRACAPSULAR CATARACT REMOVAL WITH INTRAOCULAR LENS performed by Jonny Chong MD at [facility] REMOVE CATARACT, INSERT LENS PROSTH Right 05/10/2022 right EXTRACAPSULAR CATARACT REMOVAL WITH INTRAOCULAR LENS performed by Jonny Chong MD at [facility] Review of patient's allergies indicates: Allergen Reactions Bee Venom Edema Other Morphine And Related Nausea/vomiting Enalapril Cough Family History Problem Relation Age of Onset Cancer Mother breast Heart Disorder Father acute [place] Cancer Sister uterine No Past Hx Other denies any skin diseases, cancers, or melanoma Other (Sleep Apnea) Brother Social History Tobacco Use Smoking status: Former Current packs/day: 0.00 Average packs/day: 1.5 packs/day for 38.0 years (57.0 ttl pk-yrs) Types: Cigarettes Start date: 01/26/1975 Quit date: 01/26/2013 Years since quittin.4 Smokeless tobacco: Never Substance Use Topics Alcohol use: No Vaping/E-Cigarette Use Vaping/E-Cigarette Use Never User Vaping/E-Cigarette Substances Vaping/E-Cigarette Devices ROS: -Per HPI OBJECTIVE: BP 158/92 | Pulse 81 | Temp 36.5 C (97.7 F) | Wt 86.1 kg (189 lb 12.8 oz) | SpO2 97% | BMI 32.09 kg/m | BSA 1.98 m PHYSICAL EXAM: Skin: - very small piece of tick left on the back - very small surrounding erythema ASSESSMENT/PLAN: Removed the tick completely - will do 10 days tx due to the skin erythema - RTC if no improvement Tick bite, unspecified site, initial encounter (Primary) - Doxycycline Hyclate 100 MG Oral Capsule; Take 1 Capsule by mouth in the morning and 1 Capsule before bedtime. Do all this for 10 days. Until gone.. Florencia Cameron MD Family medicine, [place] [phone] documented in this encounter Nursing Notes * Zeina Cabrera CMA - 07/05/2023 8:26 AM EDT He is here for a tick bite. He had the tick yesterday. He got most of it out. No rash, just redness. No other symptoms yet. documented in this encounter Plan of Treatment Upcoming Encounters Date Type Department Care Team (Late st Contact Info) Description 07/11/2023 1:00 PM EDT Nurse Only Cardiology [address] [place] [address] [place], Nurse Cardiology [address] [place] [address] 07/11/2023 1:15 PM EDT Imaging Radiology [address] [place] [address] 07/11/2023 2:30 PM EDT Cardiac Studies Cardiac Studies [address] [place] [address] 07/31/2023 2:30 PM EDT Office Visit Family Medicine [address] [place] [phone] [address] [place] [address] 12/13/2023 8:00 AM EDT Office Visit Cardiology, [facility] [address] [place] [address] Luda Baldwin CRNP [address] [place] [address] Health Maintenance Due Date Last Done Comments Albumin/Creatinine Ratio 08/01/1973 Alpha-1 Antitrypsin 08/01/1973 Zoster Vaccines (1 of 2) 08/01/2005 DTaP,Tdap,and Td Vaccines (1 - Tdap) 02/23/2007 02/22/2007 COLONOSCOPY-ANNUAL AGES 18-100 01/13/2009 01/14/2008 Pneumococcal Vaccine: 65+ Years (2 of 2 - PCV) 02/22/2009 02/23/2008 Depression Screening 01/09/2020 01/08/2019 AAA Screening 08/01/2020 COVID-19 Vaccine (1 - 2022- season) 2022 Influenza Vaccine (FLU shot) (Season Ended) 2023 01/23/2018, 02/01/2014, 01/25/2012, Additional history exists GFR 02/12/2024 02/11/2023, 02/08/2022, 12/12/2021, Additional history exists O2 ASSESSMENT COMPLETED IN PAST YEAR FOR COPD 07/04/2024 07/05/2023 Diabetes Screening 02/11/2026 02/11/2023, 0 04/30/2022, 12/12/2021, Additional history exists LUNG CANCER SCREENING - USE SMARTSET 78931 Completed 01/08/2018 GARDASIL-HPV IMMUNIZATION SERIES Aged Out No longer eligible based on patient's age to complete this topic Hepatitis B Aged Out No longer eligi ble based on patient's age to complete this topic MENINGOCOCCAL (MENACTRA/MENVEO) Aged Out No longer eligible based on patient's age to complete this topic documented as of this encounter Medical Devices Implanted Type Area Employee Relations Assistant Device Identifier Shelf Expiration Date Model / Serial / Lot Sut Steel 6 [id number] - [id number] Implanted:Qty: 4 on 05/23/2016 by Vinny Wolf MD at OR [facility] N/A: Sternum JNJ : [employer] 11/22/2020 [id number] / / [id number] Graft Marker Coronary - [id number] Implanted:Qty: 1 on 05/23/2016 by Vinny Wolf MD at OR [facility] N/A: Aorta VM CARDIO VASCULAR 09/21/2017 [id number] / / [id number] Graft Marker Coronary - [id number] Implanted:Qty: 1 on 05/23/2016 by Vinny Wolf MD at OR [facility] N/A: Aorta VM CARDIO VASCULAR 09/21/2017 [id number] / / [id number] Graft Marker Coronary - [id number] Implanted:Qty: 1 on 05/23/2016 by Vinny Wolf MD at OR [facility] N/A: Aorta VM CARDIO VASCULAR 09/21/2017 [id number] / / [id number] Lens Intraoc 22.5 - [id number] - [id number] Implanted:Qty: 1 on 05/03/2022 by Jonny Chong MD at OR [facility] Left: Eye [employer]USCH [employer] LOMB 02/21/2027 [id number] / [id number] / [id number] Lens Intraoc 22.5 - [id number] - [id number] Implanted:Qty: 1 on 05/10/2022 by Jonny Chong MD at OR [facility] Right: Eye BAUSCH [employer] LOMB 11/22/2026 [id number] / [id number] / [id number] documented as of this encounter Visit Diagnoses Diagnosis Tick bite, unspecified site, initial encounter- Primary documented in this encounter Advance Directives Latest Code Status on File Code Status Date Activated Date Inactivated Comments No Code 05/10/2022 8:51 AM 05/10/2022 3:12 PM This order reflects the patients wishes and were consensually agreed upon. Question Answer Comments Discussion of Advance Directives occurred with: Patient Does the patient have a Living Will? No Does the patient have Health Care Power of Ldr Nurse? No Code Status History Code Status Date Activated Date Inactivated Comments No Code 05/03/2022 11:09 AM 05/03/2022 5:34 PM This o rder reflects the patients wishes and were consensually agreed upon. Question Answer Comments Discussion of Advance Directives occurred with: Patient Does the patient have a Living Will? No Does the patient have Health Care Power of Ldr Nurse? No Full Code 05/23/2016 2:01 PM 05/26/2016 6:20 PM This or ojrge reflects the patients wishes and were consensually agreed upon. Full Code 05/23/2016 2:35 AM 05/23/2016 2:01 PM This or jorge reflects the patients wishes and were consensually agreed upon. Question Answer Comments Discussion of Advance Directives occurred with: Patient Does the patient have a Living Will? No Does the patient have Health Care Power of Ldr Nurse? No Full Code 05/22/2016 8:39 PM 05/23/2016 2:35 AM This o rder reflects the patients wishes and were consensually agreed upon. Question Answer Comments Discussion of Advance Directives occurred with: Patient Care Teams Clerical Office Worker Relationship Specialty Start Date End Date Zuleyka Benz DO [address] [place] [address] [place] [address] PCP - General Internal Medicine 07/08/18 documented as of this encounter"
--- OUTSIDE RECORDS SUMMARY | 2023-09-21 21:20 | External Medical Summary | Summary of Care ---
Author Name Unknown Organization [facility] Address [address] [place] [address] Phone [phone] Care Team Providers Care Technical Support Engineer Name Role Phone Zuleyka Benz DO Primary Care Provider Encounter Details Date Type Department Care Team (Late st Contact Info) Description 06/03/2023 Orders Only Outcomes Research Department [address] [place] [address] Sarah Donovan CHRA MyCImmun[facility]accine Research Other*[id number] Allergies Active Allergy Reactions Criticality Noted Date Comments Bee Venom Edema Other High 08/09/2020 Enalapril Cough 02/20/2011 Morphine And Related Nausea/vomiting High 07/29/2009 documented as of this encounter (statuses as of 06/03/2023) Medications Medication Sig Dispensed Refills Start Date End Date Status aspirin 81 MG chewable tabletIndications:O ld myocardial infarct,Atheroscler otic heart disease of galena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 angina pectoris (HCC) Take 1 Tablet by mouth in the morning. 60 Tab 6 05/02/2017 Active Nitroglycerin 0.4 MG Sublingual Tablet Sublingual (Nitrostat)Indicati ons:HTN, goal below 140/90,Coronary artery disease involving galena heart without angina pectoris, unspecified vessel or lesion type,Lower extremity edema,Dyslipidemia, goal LDL below 70,Asymptomatic bilateral carotid artery stenosis,MOORE (dyspnea on exertion),Frequent PVCs Place under the tongue 1 Tablet as needed for Pain, Chest. May repeat 3 times. If chest pain continues, call 911. 30 Tablet 1 07/03/2021 Active Atorvastatin Calcium 80 MG Oral Tablet (Lipitor)Indication s:Coronary artery disease involving galena heart without angina pectoris, unspecified vessel or [...] TN, goal below 140/90,Coronary artery disease involving galena heart without angina pectoris, unspecified vessel or [...] Tablet (Coreg)Indications: Frequent PVCs,Coronary artery disease involving galena heart without angina pectoris, unspecified vessel or [...] as of this encounter (statuses as of 06/03/2023) Active Problems Problem Noted Date Diagnosed Date [...] EGFR 71 Atherosclerotic heart diseas e of galena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 angina pectoris 09/06/2016 Thoracic aortic ectasia 09/06/2016 S/P CABG x 3 08/06/2016 HTN, goal below 130/80 04/30/2013 Dyslipidemia, goal LDL below 70 04/03/2012 HTN, goal below 140/90 05/13/2008 Old myocardial infarct 09/30/2003 COPD, mild documented as of this encounter (statuses as of 06/03/2023) Resolved Problems Problem Noted Date Diagnosed Date [...] as of this encounter (statuses as of 06/03/2023) Immunizations Name Administration Dates Next Due Pneumococcal [...] as of this encounter Plan of Treatment Scheduled Orders Name Type Priority Associated Diagnoses Orde r Schedule MYCODE SUBSEQUENT ADULT Lab Routine MyCode Research Other*[id number] Every 6 Months for 2 Occurrences starting 06/03/2023 until 06/22/2024 Health Maintenance Due Date Last Done Comments Albumin/Creatinine Ratio 08/01/1973 Alpha-1 Antitrypsin 08/01/1973 Zoster Vaccines (1 of 2) 08/01/2005 DTaP,Tdap,and Td Vaccines (1 - Tdap) 02/23/2007 02/22/2007 COLONOSCOPY-ANNUAL AGES 18-100 01/13/2009 01/14/2008 Pneumococcal Vaccine: 65+ Years (2 of 2 - PCV) 02/22/2009 02/23/2008 Depression Screening 01/09/2020 01/08/2019 AAA Screening 08/01/2020 COVID-19 Vaccine ( - 2022-24 season) 2022 Influenza Vaccine (FLU shot) (#1) 2022 01/23/2018, 02/01/2014, 01/25/2012, Additional history exists O2 ASSESSMENT COMPLETED IN PAST YEAR FOR COPD 08/31/2023 08/30/2022 GFR 02/12/2024 02/11/2023, 02/0 08/2022, 12/12/2021, Additional history exists Diabetes Screening 02/11/2026 02/11/2023, 0 04/30/2022, 12/12/2021, Additional history exists LUNG CANCER SCREENING - USE SMARTSET 31499 Completed 01/08/2018 GARDASIL-HPV IMMUNIZATION SERIES Aged Out No longer eligible based on patient's age to complete this topic Hepatitis B Aged Out No longer eligi ble based on patient's age to complete this topic MENINGOCOCCAL (MENACTRA/MENVEO) Aged Out No longer eligible based on patient's age to complete this topic documented as of this encounter Medical Devices Implanted Type Area Social Media Senior Associate Device Identifier Shelf Expiration Date Model / Serial / Lot Sut Steel 6 [id number] - [id number] Implanted:Qty: 4 on 05/23/2016 by Vinny Wolf MD at OR [facility] N/A: Sternum JNJ : [employer] 11/22/2020 [id number] / / [id number] Graft Marker Coronary - [id number] Implanted:Qty: 1 on 05/23/2016 by Vinny Wolf MD at OR [facility] N/A: Aorta VM CARDIO VASCULAR 09/21/2017 [id number] / / [id number] Graft Marker Coronary - [id number] Implanted:Qty: 1 on 05/23/2016 by Vinny Wolf MD at OR [facility] N/A: Aorta VM CARDIO VASCULAR 09/21/2017 [id number] / / [id number] Graft Marker Coronary - [id number] Implanted:Qty: 1 on 05/23/2016 by Vinny Wolf MD at OR [facility] N/A: Aorta VM CARDIO VASCULAR 09/21/2017 [id number] / / [id number] Lens Intraoc 22.5 - [id number] - [id number] Implanted:Qty: 1 on 05/03/2022 by Jonny Chong MD at OR [facility] Left: Eye [employer] LOMB 02/21/2027 [id number] / [id number] / [id number] Lens Intraoc 22.5 - [id number] - [id number] Implanted:Qty: 1 on 05/10/2022 by Jonny Chong MD at OR [facility] Right: Eye BAUSCH [employer] LOMB 11/22/2026 [id number] / [id number] / [id number] documented as of this encounter Visit Diagnoses Diagnosis MyCode Research Other*[id number] documented in this encounter Advance Directives Latest Code Status on File Code Status Date Activated Date Inactivated Comments No Code 05/10/2022 8:51 AM 05/10/2022 3:12 PM This order reflects the patients wishes and were consensually agreed upon. Question Answer Comments Discussion of Advance Directives occurred with: Patient Does the patient have a Living Will? No Does the patient have Health Care Power of Game Designer/Creative Director? No Code Status History Code Status Date Activated Date Inactivated Comments No Code 05/03/2022 11:09 AM 05/03/2022 5:34 PM This o rder reflects the patients wishes and were consensually agreed upon. Question Answer Comments Discussion of Advance Directives occurred with: Patient Does the patient have a Living Will? No Does the patient have Health Care Power of Game Designer/Creative Director? No Full Code 05/23/2016 2:01 PM [...] the patient have Health Care Power of Game Designer/Creative Director? No Full Code 05/22/2016 8:39 PM 05/23/2016 2:35 AM This o rder reflects the patients wishes and were consensually agreed upon. Question Answer Comments Discussion of Advance Directives occurred with: Patient Care Teams Technical Support Engineer Relationship Specialty Start Date End Date Zuleyka Benz DO [address] [place] [address] STEPHANIE Flores [id number] PCP - General Internal Medicine 07/08/18 documented as of this encounter
--- OUTSIDE RECORDS SUMMARY | 2023-09-21 21:20 | External Medical Summary ---
Author Name Unknown Address Unknown Organization K01:[facility] [place] - [address] [place] [id number] Laboratory Report Ordering Provider Test Date Status MARVA COHEN 07/05/2023 08:02:25 Final Observation Date Value Abnormality Reference (Units ) Status Triglyceride 07/05/2023 08:02:25 271 Above high normal <=174 (mg/dL) Final Triglyceride Reference Range s (mg/dL):
<150 Acceptable
150-174 Borderline high
175-499 High
>=500 Very high Cholesterol 07/05/2023 08:02:25 155 <200 (mg /dL) Final Total Cholesterol Reference Ranges (mg/dL):
<200 Desirable
200-239 Borderline high
>=240 High HDL 07/05/2023 08:02:25 26 Below low normal >39 (mg/dL) Final HDL Cholesterol Reference Ra nges (mg/dL):
>=60 High (Desirable)
<50 Low (Undesirable) For Females
<40 Low (Undesirable) For Males NON-HDL CHOLESTEROL 07/05/2023 08:02:25 129 <=159 (mg/dL) Final Non-HDL Cholesterol Referenc e Range (mg/dL):
<100 Target level for high risk ASCVD patient
<130 Optimal for general population
130-159 Near optimal for general population
160-189 Borderline High
190-219 High
>=220 Very High Performing Location [facility] [place] - [address] [place] [address]
--- OUTSIDE RECORDS SUMMARY | 2023-09-21 21:20 | External Medical Summary | Summary of Care ---
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 Name Role Phone Zuleyka Benz DO Primary Care Provider Reason for Referral * Precert (Within 10 days (routine)) - Authorized Specialty Diagnoses / Procedures Referred By Contac t Referred To Contact Cardiac Studies Diagnoses Coronary artery disease involving [place] coronary artery of [place] heart without angina pectoris HTN, goal below 140/90 Dyslipidemia, goal LDL below 70 Coronary artery disease involving [place] heart without angina pectoris, unspecified vessel or lesion type Asymptomatic bilateral carotid artery stenosis Frequent PVCs Lower extremity edema MOORE (dyspnea on exertion) Procedures ECHO, COMPLETE (2D), TRANS-THORACIC Luda Baldwin CRNP [address] [place] [address] Referral ID Status Reason Start Date Expiration Date V isits Requested Visits Authorized [id number] Authorized Precert 06/28/2023 999 999 Reason for Visit * Reason Comments Follow Up Encounter Details Date Type Department Care Team (Late st Contact Info) Description 06/28/2023 2:00 PM EDT Office Visit Cardiology, [facility] [address] [place] [address] Luda Baldwin CRNP [address] [place] [address] Coronary artery disease involving [place] coronary artery of [place] heart without angina pectoris*; HTN, goal below 140/90; Dyslipidemia, goal LDL below 70; Coronary artery disease involving [place] heart without angina pectoris, unspecified vessel or lesion type; Asymptomatic bilateral carotid artery stenosis Allergies Active Allergy Reactions Criticality Noted Date Comments Bee Venom Edema Other High 08/09/2020 Enalapril Cough 02/20/2011 Morphine And Related Nausea/vomiting High 07/29/2009 documented as of this encounter (statuses as of 06/28/2023) Medications Medication Sig Dispensed Refills Start Date End Date Status aspirin 81 MG chewable tabletIndications: Old myocardial infarct,Atheroscle rotic heart disease of [place]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 angina pectoris (HCC) Take 1 Tablet by mouth in the morning. 60 Tab 6 05/02/2017 Active Nitroglycerin 0.4 MG Sublingual Tablet Sublingual (Nitrostat)Indicat ions:HTN, goal below 140/90,Coronary artery disease involving [place] heart without angina pectoris, unspecified vessel or [...] 08/27/2022 Active hydrOXYzine HCl 50 MG Oral TabletIndications: [...] Oral Tablet (Norvasc)Indicatio ns:Coronary artery disease involving [place] coronary artery of [place] heart without angina pectoris,HTN, goal below 140/90,Dyslipidemi a, goal LDL below 70,Coronary artery disease involving [place] heart without angina pectoris, unspecified vessel or lesion type,Asymptomatic bilateral carotid artery stenosis Take 1 Tablet by mouth in the morning. 90 Tablet 3 06/28/2023 Active Atorvastatin Calcium 80 MG Oral Tablet (Lipitor)Indicatio ns:Coronary artery disease involving [place] coronary artery of [place] heart without angina pectoris,HTN, goal below 140/90,Dyslipidemi a, goal LDL below 70,Coronary artery disease involving [place] heart without angina pectoris, unspecified vessel or lesion type,Asymptomatic bilateral carotid artery stenosis Take 1 Tablet by mouth every afternoon. 90 Tablet 06/28/2023 Active Carvedilol 12.5 MG Oral Tablet (Coreg)Indications :Coronary artery disease involving [place] coronary artery of [place] heart without angina pectoris,HTN, goal below 140/90,Dyslipidemi a, goal LDL below 70,Coronary artery disease involving [place] heart without angina pectoris, unspecified vessel or lesion type,Asymptomatic bilateral carotid artery stenosis Take by mouth 1/2 tablet 2 times per day with morning and evening meals 90 Tablet 3 06/28/2023 Active Furosemide 20 MG Oral Tablet (Lasix)Indications :Coronary artery disease involving [place] coronary artery of [place] heart without angina pectoris,HTN, goal below 140/90,Dyslipidemi a, goal LDL below 70,Coronary artery disease involving [place] heart without angina pectoris, unspecified vessel or lesion type,Asymptomatic bilateral carotid artery stenosis Only as needed 90 Tablet 3 06/28/2023 Active hydroCHLOROthiazid e 25 MG Oral Tablet (Hydrodiuril)Indic ations:Coronary artery disease involving [place] coronary artery of [place] heart without angina pectoris,HTN, goal below 140/90,Dyslipidemi a, goal LDL below 70,Coronary artery disease involving [place] heart without angina pectoris, unspecified vessel or lesion type,Asymptomatic bilateral carotid artery stenosis Take 1 Tablet by mouth in the morning. 90 Tablet 3 06/28/2023 Active Isosorbide Mononitrate ER 60 MG Oral Tablet Extended Release 24 Hour (Imdur)Indications :Coronary artery disease involving [place] coronary artery of [place] heart without angina pectoris,HTN, goal below 140/90,Dyslipidemi a, goal LDL below 70,Coronary artery disease involving [place] heart without angina pectoris, unspecified vessel or lesion type,Asymptomatic bilateral carotid artery stenosis TAKE 1 TABLET BY MOUTH EVERY DAY IN THE MORNING 90 Tablet 3 06/28/2023 Active Losartan Potassium 50 MG Oral Tablet (Cozaar)Indication s:Coronary artery disease involving [place] coronary artery of [place] heart without angina pectoris,HTN, goal below 140/90,Dyslipidemi a, goal LDL below 70,Coronary artery disease involving [place] heart without angina pectoris, unspecified vessel or lesion type,Asymptomatic bilateral carotid artery stenosis Take 1 Tablet by mouth in the morning and 1 Tablet before bedtime. 90 Tablet 1 06/28/2023 Active Atorvastatin Calcium 80 MG Oral Tablet (Lipitor)Indicatio ns:Coronary artery disease involving [place] heart without angina pectoris, unspecified vessel or lesion type,Dyslipidemia, goal LDL below 70,Asymptomatic bilateral carotid artery stenosis Take by mouth 1 Tablet in the evening. 90 Tablet 3 09/28/2021 4 Discontinue d(Refill) Losartan Potassium 50 MG Oral Tablet (Cozaar) Take by mouth 1 Tablet in the morning AND 1 Tablet before bedtime. 90 Tablet 1 10/25/2021 4 Discontinue d(Refill) amLODIPine Besylate 5 MG Oral Tablet (Norvasc) Take 1 Tablet by mouth in the morning. 90 Tablet 3 01/16/2022 4 Discontinue d(Refill) Furosemide 20 MG Oral TabletIndications: HTN, goal below 140/90,Coronary artery disease involving [place] heart without angina pectoris, unspecified vessel or lesion type,Lower extremity edema,Dyslipidemia , goal LDL below 70,Asymptomatic bilateral carotid artery stenosis,MOORE (dyspnea on exertion),Frequent PVCs Only as needed 90 Tablet 3 01/16/2022 4 Discontinue d(Refill) Carvedilol 12.5 MG Oral Tablet (Coreg)Indications :Frequent PVCs,Coronary artery disease involving [place] heart without angina pectoris, unspecified vessel or lesion type,HTN, goal below 140/90 Take by mouth 1/2 tablet 2 times per day with morning and evening meals 90 Tablet 3 07/25/2022 4 Discontinue d(Refill) Sulfamethoxazole-T rimethoprim 800-160 MG Oral Tablet (Bactrim DS) 0 08/27/2022 4 Discontinue d(Patient preference/ discontinua tion) hydroCHLOROthiazid e 25 MG Oral Tablet (Hydrodiuril) Take 1 Tablet by mouth in the morning. 90 Tablet 3 12/06/2022 4 Discontinue d(Refill) Isosorbide Mononitrate ER 60 MG Oral Tablet Extended Release 24 Hour (Imdur)Indications :HTN, goal below 140/90,Frequent PVCs TAKE 1 TABLET BY MOUTH EVERY DAY IN THE MORNING 90 Tablet 3 01/30/2023 4 Discontinue d(Refill) Azithromycin 250 MG Oral Tablet (Zithromax Z-Kelton)Indications: Acute maxillary sinusitis, recurrence not specified Take two tablets by mouth on first day, then 1 tablet daily until gone 6 Tablet 0 02/06/2023 4 Discontinue d(Patient preference/ discontinua tion) Hospital, Clinic, or Other Facility Administered Medication Ordered Dose Route Frequency Start Date End Date Status albuterol (PROVENTIL HFA) inhaler 4 PuffIndications:COPD, mild (HCC) 4 Puff IN Q4H PRN 08/07/2017 Active documented as of this encounter (statuses as of 06/28/2023) Active Problems Problem Noted Date Diagnosed Date [...] EGFR 71 Atherosclerotic heart diseas e of [place]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 angina pectoris 09/06/2016 Thoracic aortic ectasia 09/06/2016 S/P CABG x 3 08/06/2016 HTN, goal below 130/80 04/30/2013 Dyslipidemia, goal LDL below 70 04/03/2012 HTN, goal below 140/90 05/13/2008 Old myocardial infarct 09/30/2003 COPD, mild documented as of this encounter (statuses as of 06/28/2023) Resolved Problems Problem Noted Date Diagnosed Date [...] as of this encounter (statuses as of 06/28/2023) Immunizations Name Administration Dates Next Due Pneumococcal [...] 1 03/28/1974 - 01/26/2013 Smokeless Tobacco: Never Tobacco Cessation:Counseling Given: Not Answered Alcohol Use Standard Drinks/Week Comments No 0 [...] Sign Reading Time Taken Comments Blood Pressure 172/102 06/28/2023 2:06 PM EDT Pulse 68 06/28/2023 1:51 PM EDT Temperature - - Respiratory Rate 12 06/28/2023 1:51 PM EDT Oxygen Saturation - - Inhaled Oxygen Concentration - - Weight 86.3 kg (190 lb 4 oz) 06/28/2023 1:51 PM EDT Height - - Body Mass Index 32.16 08/30/2022 1:42 PM EDT documented in this [...] No 05/24/2016 documented as of this encounter Patient Instructions * Patient Instructions* Luda Baldwin CRNP - 06/28/2023 2:01 PM EDT Restart meds-- refills provided. Nurse BP check in 2 weeks, labs same day Schedule carotid duplex Schedule echo documented in this encounter Progress Notes * Luda Baldwin CRNP - 06/28/2023 2:00 PM EDT Cardiology Outpatient Visit 06/28/[address] Baker Past medical history: Chronic complex coronary disease as listed above with NSTEMI 04/2016 s/p CABG x 4, 05/23/2016. MENA-LAD, SVG-D1, SVG-OM3, SVG-PDA History of prior inferior myocardial infarction (2003) Abnormal nuclear with infarct of the inferior basal myocardium with no active ischemia per nuclear stress 07/2021. Preserved LV systolic function. Dyslipidemia - tolerating atorvastatin HTN - controlled Former tobacco abuse History of noncompliance with medications and follow-up appointments HPI Very pleasant 67-year-old male presenting to the cardiology office today in routine follow-up. Was last evaluated by Dr. Baker in April of 2022. Today the patient presents feeling well and offers no acute concerns. Unfortunately, he has been out of a number of his medications --but he has not sure which ones. Confusion occurred with him switching insurances and moving to the mail order. Because of this his blood pressures are hypertensive. Again, he is asymptomatic. No chest pain, shortness of breath, palpitations, dizziness, syncope or near syncope. No orthopnea, PND, or increased lower extremity edema. He is also requesting follow-up for a possible colonoscopy. Notes that he has been having diarrhea.No blood in the stools. Current Outpatient Medications Medication Sig Dispense Refill [...] DAY IN THE MORNING 90 Capsule 3 Cephalexin 500 MG Oral Capsule (Keflex) Pantoprazole Sodium 40 MG Oral Tablet Delayed Release (Protonix) TAKE BY MOUTH 1 TAB IN THE [id number] MINS BEFORE THE FIRST MEAL OF THE [...] 1 Tablet before bedtime. 90 Tablet 1 Loratadine 10 MG Oral Tablet (Claritin) TAKE 1 TABLET BY MOUTH EVERY DAY IN THE MORNING 30 Tablet 0 hydrOXYzine HCl 50 MG Oral Tablet Take 1 tablet 30 minutes before flying if needed for anxiety. 20 Tablet 0 Current Facility-Administered Medications Medication Dose Route Frequency Provider Last Rate Last Admin albuterol (PROVENTIL HFA) inhaler 4 Puff 4 Puff Inhalation Q4H PRN Jennifer Cantor MD 4 Puff at 02/27/18 1415 Past Medical History: Diagnosis Date Acute myocardial infarction of inferior wall, initial episode of care ([facility]) 09/19/03, 12/31/12 CAD S/P percutaneous coronary angioplasty RCA stent in , Cx in 13 CKD (chronic kidney disease), stage II 05/11/2021 EGFR 71 COPD, mild ([facility]) Depressive disorder, not elsewhere classified Gastroesophageal reflux disease with esophagitis without hemorrhage History of colon polyps 07/08/2018 History of tobacco use 07/08/2018 HTN, goal below 130/80 04/30/2013 Hyperlipidemia LDL goal < 70 Major depressive disorder with single episode, in full remission ([facility]) 11/24/2009 Sexual function problem being followed by psychiatrist at [facility]. Supraumbilical hernia without gangrene and without obstruction 07/05/2021 fat containing Past Surgical History: Procedure Laterality Date CABG, ARTERIAL, SINGLE N/A 05/23/2016 CORONARY ARTERY BYPASS GRAFT USING ARTERY 1 GRAFT performed by Vinny Wolf MD at OR [facility] CABG, ARTERY-VEIN, THREE 05/23/2016 CORONARY ARTERY BYPASS GRAFT ARTERIAL AND VENOUS 3 GRAFTS performed by Vinny Wolf MD at OR [facility] CARPAL TUNNEL SURGERY 10/23/2008 COLONOSCOPY W/ LESION [...] performed by Mago Rizo DO at ENDOSCOPY [facility] EGD, W/ENDOSCOPIC US 08/17/2020 intramural lesion found in duodenum, evidence of cholecystectomy, cystic lesion in pancreatic body /biopsies from small intestine did show evidence of a lipoma. generally considered benign & no long-term follow-up /follow CT 3 to 4 months/ ESOPHAGOGASTRODUODENOSCOPY (EGD), FLEXIBLE, TRANSORAL, ENDOSCOPIC ULTRASOUND performed by Mago Rizo DO at ENDOSCOPY [facility] ENDO,VIDEO ASSIST HARVEST SONYA 05/23/2016 ENDOSCOPY VIDEO ASSISTED HARVEST VEIN performed by Vinny Wolf MD at OR [facility] REMOVE CATARACT, INSERT LENS PROSTH Left 05/03/2022 left EXTRACAPSULAR CATARACT REMOVAL WITH INTRAOCULAR LENS performed by Jonny Chong MD at [facility] REMOVE CATARACT, INSERT LENS PROSTH Right 05/10/2022 right EXTRACAPSULAR CATARACT REMOVAL WITH INTRAOCULAR LENS performed by Jonny Chong MD at [facility] Social History Tobacco Use Smoking status: Former Current packs/day: 0.00 Average packs/day: 1.5 packs/day for 38.0 years (57.0 ttl pk-yrs) Types: Cigarettes Start date: 01/26/1975 Quit date: 01/26/2013 Years since quittin.4 Smokeless tobacco: Never Vaping Use Vaping Use: Never used Substance Use Topics Alcohol use: No Drug use: No Review of patient's allergies indicates: Allergen Reactions Bee Venom Edema Other Morphine And Related Nausea/vomiting Enalapril Cough Review of Systems: See HPI for pertinent positives. All others negative, other than those noted in HPI. Physical Exam BP 172/102 | Pulse 68 | Resp 12 | Wt 86.3 kg (190 lb 4 oz) | BMI 32.16 kg/m | BSA 1.98 m General: No acute distress. A+Ox3. HEENT: Normocephalic. Atraumatic. Conjunctiva and sclera clear. NECK: No carotid bruits. No JVD. Carotid upstrokes are brisk. Heart: RRR. S1 and S2 noted without murmur, rubs, gallops. Lungs: Clear to auscultation. No wheezes, rhonchi, rales. Abdomen: Normal bowel sounds. Soft. Nontender. No masses or organomegaly. No abdominal bruits. Extremities: No edema. No clubbing or cyanosis. Pulses: radial=2/4, posterior tibial=2/4, dorsalis pedis = 2/4. NEURO: No focal deficits. PSYCH: Normal. Lab data/imaging study review: Limited echo 11/2021 The examination is adequate to evaluate the referral indication. There was normal sinus rhythm with ventricular bigeminy , trigeminy during the examination. The left ventricular cavity size is normal. There is a moderate sized inferior and posterior wall motion abnormality with hypokinesis to akinesis of the segments. There is a small sized inferior scar. Calculated LV ejection Fraction = 56% (bi-plane method of discs). Nuclear stress 07/2021 Gated analysis reveals hypokinesis of the inferior basilar myocardium with an estimated left ventricular ejection fraction of around 41%. Overall this pharmacologic nuclear stress test reveals an infarct of the inferior basilar myocardium and no active ischemia. These findings are most consistent with the distribution of the right coronary or left circumflex arteries. o 06/2021 Patient had a min HR of 53 bpm, max HR of 99 bpm, and avg HR of 73 bpm. Predominant underlying rhythm was Sinus Rhythm. Isolated SVEs were frequent (18.3%, 82100), SVE Couplets were frequent (7.5%, 8098), and no SVE Triplets were present. Isolated VEs were occasional (1.7%, 3612), VE Couplets were rare (<1.0%, 7), and no VE Triplets were present. Ventricular Bigeminy was present. No event marker or diary entries were submitted Impression: Sinus rhythm, average rate 73 beats per minute with occasional ventricular ectopic beats, bigeminy trigeminy Echo 05/2021 The primary indication after review was deemed appropriate and the examination was performed. Mildly dilated LV chamber size with mild concentric LVH, sigmoid appearring septum. Normal LV systolic function. Calculated LV ejection Fraction = 54% (bi-plane method of discs). There is a moderate sized inferior and posterior wall motion abnormality with hypokinesis to akinesis of the segments, otherwise, normal wall motion. Grade I diastolic dysfunction. Mild mitral regurgitation. Impression/Plan: 1. Coronary artery disease involving [place] heart without angina pectoris, unspecified vessel or lesion type -Chronic complex coronary disease as listed above with NSTEMI 04/2016 s/p CABG x 4, 05/23/2016. -Stable, No angina. 1. Continue aspirin 81 mg daily 2. Repeat resting echo to reassess LV systolic function and valvular status. 2. HTN, goal below 140/90 -Hypertensive heart disease with diastolic dysfunction -Blood pressure is elevated due to medication noncompliance. 1. Restart multi-drug regimen with amlodipine, carvedilol, hydrochlorothiazide, Imdur, losartan as ordered-- refills provided for all medications as he is not sure which ones he needs refills on. 2. Euvolemic on exam. Continue Lasix 20 mg as needed 3. Routine blood work ordered. 3. Dyslipidemia, goal LDL below 70 1. Continue atorvastatin 80 mg daily--repeat fasting cholesterol panel. 4. Asymptomatic bilateral carotid artery stenosis -less than 50% stenosis bilaterally per duplex 2021 1. Repeat carotid duplex in the near future The patient agrees to the above plan and will call with additional questions or concerns. ER with all emergencies advised. Follow-up: Return in about 6 months (around 12/28/2023). | Check-out note: Needs a PCP appt for wellness check. Carotid duplex in urg if able. Schedule echo Nurse BP check in [place] in 2 weeks. I spent a total of 30 minutes on the date of service in preparation, delivery, and documentation ofthe care provided to Jeffry Benoit excluding any time spent in the performance of separately billed services. PETER Johansen, Department of Cardiology This chart was completed in part utilizing [employer] Speech Voice Recognition Software. Grammatical errors, random word insertions, prounoun errors, and incomplete sentences are an occasional consequence of this system due to software limitations, ambient noise, and hardware issues. Any formal questions or concerns about the content, text, or information contained within the body of this dictation should be directly addressed to the provider for clarification. documented in this encounter Nursing Notes * Dai Coy CMA - 06/28/2023 1:51 PM EDT Examination Room: 4 Name: Jefrfy Benoit Date of : (1955). Reason for Visit: 1 year f/u -- previous Dr. Baker patient Interim Hospitalization(s): denies Problems/Concerns: denies Chest Pain/SOB: denies [facility] Discussed: Yes [facility] is a way you can talk to your provider online through e-mail. Would you like to sign up? I can activate it for you? IN PROCESS Patient was instructed to not get up on the exam table until directed and assisted by their provider; patient is to remain seated in the chair/ wheelchair/ exam table for fall prevention and safety reasons. Patient is aware to have assistance to step down off exam table with personnel. Patient voiced full comprehension of instructions. documented in this encounter Plan of Treatment Upcoming Encounters Date Type Department Care Team (Late st Contact Info) Description 07/11/2023 1:00 PM EDT Nurse Only Cardiology [address] [place] [address] [place], Nurse Cardiology [address] [place] [address] 07/11/2023 1:15 PM EDT Imaging Radiology [address] [place] [address] 07/11/2023 2:30 PM EDT Cardiac Studies Cardiac Studies [address] [place] [address] 07/31/2023 2:30 PM EDT Office Visit Family Medicine [address] [place] [phone] [address] [place] [address] 12/13/2023 8:00 AM EDT Office Visit Cardiology, [facility] [address] [place] [address] Luda Baldwin CRNP [address] [place] [address] Scheduled Orders Name Type Priority Associated Diagnoses Orde r Schedule CBC Lab Routine Coronary artery disease involving [place] coronary artery of [place] heart without angina pectoris HTN, goal below 140/90 Dyslipidemia, goal LDL below 70 Coronary artery disease involving [place] heart without angina pectoris, unspecified vessel or lesion type Asymptomatic bilateral carotid artery stenosis Expected: 07/05/2023, Expires: 06/27/2024 COMPREHENSIVE METABOLIC PANEL Lab Routine Coronary artery disease involving [place] coronary artery of [place] heart without angina pectoris HTN, goal below 140/90 Dyslipidemia, goal LDL below 70 Coronary artery disease involving [place] heart without angina pectoris, unspecified vessel or lesion type Asymptomatic bilateral carotid artery stenosis Expected: 07/05/2023, Expires: 06/27/2024 LIPID PANEL WITH DIRECT LDL IF TG IS HIGH Lab Routine Coronary artery disease involving [place] coronary artery of [place] heart without angina pectoris HTN, goal below 140/90 Dyslipidemia, goal LDL below 70 Coronary artery disease involving [place] heart without angina pectoris, unspecified vessel or lesion type Asymptomatic bilateral carotid artery stenosis Expected: 07/05/2023, Expires: 06/27/2024 MAGNESIUM Lab Routine Coronary artery disease involving [place] coronary artery of [place] heart without angina pectoris HTN, goal below 140/90 Dyslipidemia, goal LDL below 70 Coronary artery disease involving [place] heart without angina pectoris, unspecified vessel or lesion type Asymptomatic bilateral carotid artery stenosis Expected: 07/05/2023, Expires: 06/27/2024 EKG EKG Routine HTN, goal below 140/90 Ordered: 06/28/2023 VASC DUPLEX CAROTID BILAT Medical Imaging Routine Coronary artery disease involving [place] coronary artery of [place] heart without angina pectoris HTN, goal below 140/90 Dyslipidemia, goal LDL below 70 Coronary artery disease involving [place] heart without angina pectoris, unspecified vessel or lesion type Asymptomatic bilateral carotid artery stenosis Expected: 06/28/2023, Expires: 07/27/2024 ECHO, COMPLETE (2D), TRANS-THORACIC Echocardiology Routine Coronary artery disease involving [place] coronary artery of [place] heart without angina pectoris HTN, goal below 140/90 Dyslipidemia, goal LDL below 70 Coronary artery disease involving [place] heart without angina pectoris, unspecified vessel or lesion type Asymptomatic bilateral carotid artery stenosis Expected: 06/28/2023, Expires: 06/27/2024 Health Maintenance Due Date Last Done Comments [...] exists LUNG CANCER SCREENING - USE SMARTSET [id number] Completed 01/08/2018 GARDASIL-HPV IMMUNIZATION SERIES Aged Out No longer eligible based on patient's age to complete this topic Hepatitis B Aged Out No longer eligi ble based on patient's age to complete this topic MENINGOCOCCAL (MENACTRA/MENVEO) Aged Out No longer eligible based on patient's age to complete this topic documented as of this encounter Medical Devices Implanted Type Area Full Charge Bookkeeper Device Identifier Shelf Expiration Date Model / Serial / Lot Sut Steel 6 [id number] - [id number] Implanted:Qty: 4 on 05/23/2016 by Vinny Wolf MD at OR THE [facility] N/A: Sternum JNJ : [employer] 11/22/2020 [id number] / / [id number] Graft Marker Coronary - [id number] Implanted:Qty: 1 on 05/23/2016 by Vinny Wolf MD at OR [facility] N/A: Aorta VM CARDIO VASCULAR 09/21/2017 [id number] / / [id number] Graft Marker Coronary - [id number] Implanted:Qty: 1 on 05/23/2016 by Vinny Wolf MD at OR [facility] N/A: Aorta VM CARDIO VASCULAR 09/21/2017 [id number] / / [id number] Graft Marker Coronary - [id number] Implanted:Qty: 1 on 05/23/2016 by Vinny Wolf MD at OR [facility] N/A: Aorta VM CARDIO VASCULAR 09/21/2017 [id number] / / [id number] Lens Intraoc 22.5 - [id number] - [id number] Implanted:Qty: 1 on 05/03/2022 by Jonny Chong MD at OR [facility] Left: Eye BAUSCH & LOMB 02/21/2027 [id number] / [id number] / [id number] Lens Intraoc 22.5 - [id number] - [id number] Implanted:Qty: 1 on 05/10/2022 by Jonny Chong MD at OR [facility] Right: Eye BAUSCH & LOMB 11/22/2026 [id number] / [id number] / [id number] documented as of this encounter Visit Diagnoses Diagnosis 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 No Code Status History Code Status Date Activated Date Inactivated Comments No Code 05/03/2022 11:09 AM 05/03/2022 5:34 PM This o rder reflects the patients wishes and were consensually agreed upon. Question Answer Comments Discussion of Advance Directives occurred with: Patient Does the patient have a Living Will? No Does the patient have Health Care Power of Senior Network Security Architect? No Full Code 05/23/2016 2:01 PM 05/26/2016 [...] the patient have Health Care Power of Senior Network Security Architect? No Full Code 05/22/2016 8:39 PM 05/23/2016 2:35 AM This o rder reflects the patients wishes and were consensually agreed upon. Question Answer Comments Discussion of Advance Directives occurred with: Patient Care Teams Doubling Machine Operator Relationship Specialty Start Date End Date Zuleyka Benz DO [address] [place] [address] [place] [address] PCP - General Internal Medicine 07/08/18 documented as of this encounter"
--- OUTSIDE RECORDS SUMMARY | 2023-09-21 21:20 | External Medical Summary ---
Author Name Unknown Address Unknown Organization K01:[facility] [place] [address] [facility] [place] [address] Laboratory Report Ordering Provider Test Date Status MARVA COHEN 07/05/2023 08:02:25 Final Observation Date Value Abnormality Reference (Units ) Status BUN 07/05/2023 08:02:25 8 6-20 (mg/dL) Final Creatinine 07/05/2023 08:02:25 1.0 0.6-1.2 (mg/dL) Final Glomerular filtration rate/1.73 sq M.predicted [Volume Rate/Area] in Serum, Plasma or Blood by Creatinine-based formula (CKD-EPI) 07/05/2023 08:02:25 83 >=60 (mL/min) Final eGFR is calculated based on the CKD-EPI 2020 equation Sodium 07/05/2023 08:02:25 140 135-146 (m mol/L) Final Potassium 07/05/2023 08:02:25 4.1 3.5-5.1 (m mol/L) Final Cl 07/05/2023 08:02:25 100 98-107 (mm ol/L) Final CO2 07/05/2023 08:02:25 28 22-32 (mmo l/L) Final Anion gap 07/05/2023 08:02:25 12 7-15 (mmol /L) Final Glucose 07/05/2023 08:02:25 142 Above high normal 70 -120 (mg/dL) Final Albumin 07/05/2023 08:02:25 4.4 3.8-5.0 (g /dL) Final AST (Aspartate aminotransferase) 07/05/2023 08:02:25 25 10-50 (U/L) Fin al Alk Phos 07/05/2023 08:02:25 69 35-130 (U/ L) Final Bilirubin, Total 07/05/2023 08:02:25 1.0 <=1 .2 (mg/dL) Final Calcium 07/05/2023 08:02:25 9.7 8.4-10.2 ( mg/dL) Final Protein 07/05/2023 08:02:25 7.0 6.0-8.3 (g /dL) Final ALT (Alanine aminotransferase) 07/05/2023 08:02:25 19 10-50 (U/L) Wes bernal Performing Location [facility] [place] [facility] [address] [facility] [id number]
--- OUTSIDE RECORDS SUMMARY | 2023-09-21 21:20 | External Medical Summary ---
Author Name Unknown Address Unknown Organization K01:[facility] [place] [address] [place] [address] Laboratory Report Ordering Provider Test Date Status RILEY ASHLEY 07/05/2023 08:02:25 Final Observation Date Value Abnormality Reference (Units ) Status MYCODE SPECIMEN-SST 07/05/2023 08:02:25 Freezing of extracted DNA, whole blood and/or serum. Final Performing Location [facility] [place] [address] [place] [address]
--- OUTSIDE RECORDS SUMMARY | 2023-09-21 21:20 | External Medical Summary | Summary of Care ---
Author Name Unknown Organization [facility] Address [address] [place] [address] Phone [phone] Care Team Providers Care Paleobotanist Name Role Phone Zuleyka Benz DO Primary Care Provider Reason for Visit * Reason Onset Date Comments Med Request 06/25/2023 Encounter Details Date Type Department Care Team (Late st Contact Info) Description 06/25/2023 Telephone Podiatry, [facility] [address] [place] [address] Lolita Doll, DPRoderick [address] [place], [place] [id number] Med Request Allergies Active Allergy Reactions Criticality Noted Date Comments Bee Venom Edema Other High 08/09/2020 Enalapril Cough 02/20/2011 Morphine And Related Nausea/vomiting High 07/29/2009 documented as of this encounter (statuses as of 06/25/2023) Medications Medication Sig Dispensed Refills Start Date End Date Status aspirin 81 MG chewable tabletIndications:O ld myocardial infarct,Atheroscler otic heart disease of chemehuevi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 angina pectoris (HCC) Take 1 Tablet by mouth in the morning. 60 Tab 6 05/02/2017 Active Nitroglycerin 0.4 MG Sublingual Tablet Sublingual (Nitrostat)Indicati ons:HTN, goal below 140/90,Coronary artery disease involving cheme[place]vi heart without angina pectoris, unspecified vessel or lesion type,Lower extremity edema,Dyslipidemia, goal LDL below 70,Asymptomatic bilateral carotid artery stenosis,MOORE (dyspnea on exertion),Frequent PVCs Place under the tongue 1 Tablet as needed for Pain, Chest. May repeat 3 times. If chest pain continues, call 911. 30 Tablet 1 07/03/2021 Active Atorvastatin Calcium 80 MG Oral Tablet (Lipitor)Indication s:Coronary artery disease involving che[place]vi heart without angina pectoris, unspecified vessel or [...] [place], goal below 140/90,Coronary artery disease involving [place] heart without angina pectoris, unspecified vessel or [...] Tablet (Coreg)Indications: Frequent PVCs,Coronary artery disease involving che[place]vi heart without angina pectoris, unspecified vessel or [...] as of this encounter (statuses as of 06/25/2023) Active Problems Problem Noted Date Diagnosed Date [...] EGFR 71 Atherosclerotic heart diseas e of [place]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 angina pectoris 09/06/2016 Thoracic aortic ectasia 09/06/2016 S/P CABG x 3 08/06/2016 HTN, goal below 130/80 04/30/2013 Dyslipidemia, goal LDL below 70 04/03/2012 HTN, goal below 140/90 05/13/2008 Old myocardial infarct 09/30/2003 COPD, mild documented as of this encounter (statuses as of 06/25/2023) Resolved Problems Problem Noted Date Diagnosed Date [...] as of this encounter (statuses as of 06/25/2023) Immunizations Name Administration Dates Next Due Pneumococcal [...] Miscellaneous Notes * Telephone Encounter - Mariposa Davis LPN - 06/25/2023 1:35 PM EDT Called pt to advise him that he needs to set up an account with his mail order pharmacy at [phone] to receive meds; no answer, left a detailed voice message with this info for him. * Telephone Encounter - Laney Mims MED ASSIST - 06/25/2023 1:12 PM EDT Called [facility] Mail order pharmacy, spoke with edward. She states patient has not received this yet because he has no account set up with them. Patient needs to call and set up account before they can fill this. * Telephone Encounter - Radha Rodriguez OSA - 06/25/2023 11:59 AM EDT Dru, Pt is calling and stated a med was to be called in for a foot cream. He said the med was to be mailed to him? I see the TE for 05/29 stated what it was, not sure if it was ordered. Please advise pt. Thank you. documented in this encounter Plan of Treatment Upcoming Encounters Date Type Department Care Team (Late st Contact Info) Description 06/28/2023 2:00 PM EDT Office Visit Cardiology, [facility] [address] [place] [address] DennyLuda holman CRNP [address] [place] [address] Health Maintenance Due Date Last Done Comments Albumin/Creatinine Ratio 08/01/1973 Alpha-1 Antitrypsin 08/01/1973 Zoster Vaccines (1 of 2) 08/01/2005 DTaP,Tdap,and Td Vaccines (1 - Tdap) 02/23/2007 02/22/2007 COLONOSCOPY-ANNUAL AGES 18-100 01/13/2009 01/14/2008 Pneumococcal Vaccine: 65+ Years (2 of 2 - PCV) 02/22/2009 02/23/2008 Depression Screening 01/09/2020 01/08/2019 AAA Screening 08/01/2020 COVID-19 Vaccine ( - 2022- season) 2022 O2 ASSESSMENT COMPLETED IN PAST YEAR FOR COPD 08/31/2023 08/30/2022 Influenza Vaccine (FLU shot) (Season Ended) 2023 01/23/2018, 02/01/2014, 01/25/2012, Additional history exists GFR 02/12/2024 02/11/2023, 02/0 08/2022, 12/12/2021, Additional history exists Diabetes Screening 02/11/2026 02/11/2023, 0 04/30/2022, 12/12/2021, Additional history exists LUNG CANCER SCREENING - USE SMARTSET 89074 Completed 01/08/2018 GARDASIL-HPV IMMUNIZATION SERIES Aged Out No longer eligible based on patient's age to complete this topic Hepatitis B Aged Out No longer eligi ble based on patient's age to complete this topic MENINGOCOCCAL (MENACTRA/MENVEO) Aged Out No longer eligible based on patient's age to complete this topic documented as of this encounter Medical Devices Implanted Type Area Loom Overhauler Device Identifier Shelf Expiration Date Model / Serial / Lot Sut Steel 6 M654g - [id number] Implanted:Qty: 4 on 05/23/2016 by Vinny Wolf MD at OR [facility] N/A: Sternum JNJ : [employer] 11/22/2020 M654G / / [id number] Graft Marker Coronary - [id number] Implanted:Qty: 1 on 05/23/2016 by Vinny Wolf MD at OR [facility] N/A: Aorta VM CARDIO VASCULAR 09/21/2017 [id number] / / [id number] Graft Marker Coronary - [id number] Implanted:Qty: 1 on 05/23/2016 by Vinny Wolf MD at OR [facility] [place] [facility] N/A: Aorta VM CARDIO VASCULAR 09/21/2017 [id number] / / [id number] Graft Marker Coronary - [id number] Implanted:Qty: 1 on 05/23/2016 by Vinny Wolf MD at OR [facility] [place] [facility] N/A: Aorta VM CARDIO VASCULAR 09/21/2017 [id number] / / [id number] Lens Intraoc 22.5 - [id number] - [id number] Implanted:Qty: 1 on 05/03/2022 by Jonny Chong MD at OR [facility] Left: Eye BAUSCH & LOMB 02/21/2027 [id number] / [id number] / [id number] Lens Intraoc 22.5 - [id number] - [id number] Implanted:Qty: 1 on 05/10/2022 by Jonny Chong MD at OR [facility] Right: Eye BAUSCH & LOMB 11/22/2026 [id number] / [id number] / [id number] documented as of this encounter Advance Directives [...] the patient have Health Care Power of Duster Tender? No Code Status History Code Status Date Activated Date Inactivated Comments No Code 05/03/2022 11:09 AM 05/03/2022 5:34 PM This o rder reflects the patients wishes and were consensually agreed upon. Question Answer Comments Discussion of Advance Directives occurred with: Patient Does the patient have a Living Will? No Does the patient have Health Care Power of Duster Tender? No Full Code 05/23/2016 2:01 PM 05/26/2016 6:20 PM This or jorge reflects the patients wishes and were consensually agreed upon. Full Code 05/23/2016 2:35 AM 05/23/2016 2:01 PM This o rder reflects the patients wishes and were consensually agreed upon. Question Answer Comments Discussion of Advance Directives occurred with: Patient Does the patient have a Living Will? No Does the patient have Health Care Power of Duster Tender? No Full Code 05/22/2016 8:39 PM 05/23/2016 2:35 AM This o rder reflects the patients wishes and were consensually agreed upon. Question Answer Comments Discussion of Advance Directives occurred with: Patient Care Teams Paleobotanist Relationship Specialty Start Date End Date Zuleyka Benz DO [address] [place] [address] [place] [address] PCP - General Internal Medicine 07/08/18 documented as of this encounter
--- OUTSIDE RECORDS SUMMARY | 2023-09-21 21:20 | External Medical Summary ---
Author Name Unknown Address Unknown Organization K01:LAB[facility]ATORY [facility] - [address] [place] [address] Laboratory Report Ordering Provider Test Date Status MARVA COHEN 07/05/2023 08:02:25 Final Observation Date Value Abnormality Reference (Units ) Status Magnesium 07/05/2023 08:02:25 2.2 1.5-2.6 (m g/dL) Final Performing Location LABORATORY [facility] - [address] [place] [address]
--- OUTSIDE RECORDS SUMMARY | 2023-09-21 21:20 | External Medical Summary | Summary of Care ---
Author Name Unknown Organization [facility] Address [address] [place] [address] Phone [phone] Care Team Providers Care Pairing Machine Operator Name Role Phone Zuleyka Benz DO Primary Care Provider Reason for Visit * Reason Onset Date Comments Med Request 06/25/2023 Encounter Details Date Type Department Care Team (Late st Contact Info) Description 06/25/2023 Telephone Podiatry, [facility] [address] [place] [address] Lolita Doll, DPRoderick [address] [place], [place] [phone] Med Request Allergies Active Allergy Reactions Criticality [...] s:Coronary artery disease involving assiniboine and sioux heart [...] TN, goal below 140/90,Coronary artery disease involving assiniboine [...] Tablet (Coreg)Indications: Frequent PVCs,Coronary artery disease involving assiniboine and sioux heart [...] encounter Miscellaneous Notes * Telephone Encounter - Laney Mims MED ASSIST - 06/25/2023 1:12 PM EDT [facility], spoke with edward. She states patient has not received this yet because he has no account set up with them. Patient needs to call and set up account before they can fill this. * Telephone Encounter - Radha Rodriguez OSA - 06/25/2023 11:59 AM EDT Dru Pt is calling and stated a med [...] 06/28/2023 2:00 PM EDT Office Visit Cardiology, [facility] [address] [place] [address] Luda Baldwin CRNP [address] [place] [address] Health Maintenance Due Date Last Done Comments [...] exists LUNG CANCER SCREENING - USE SMARTSET 77075 Completed 01/08/2018 GARDASIL-HPV IMMUNIZATION SERIES Aged Out No longer eligible based on patient's age to complete this topic Hepatitis B Aged Out No longer eligi ble based on patient's age to complete this topic MENINGOCOCCAL (MENACTRA/MENVEO) Aged Out No longer eligible based on patient's age to complete this topic documented as of this encounter Medical Devices Implanted Type Area Quill Layer Device Identifier Shelf Expiration Date Model / Serial / Lot Delicia Flynn 6 M654g - [id number] Implanted:Qty: 4 on 05/23/2016 by Vinny Wolf MD at [place] [facility] N/A: Sternum JNJ : [employer] 11/22/2020 M654G / / [id number] Graft Marker Coronary - [id number] Implanted:Qty: 1 on 05/23/2016 by Vinny Wolf MD at [place] [facility] N/A: Aorta VM CARDIO VASCULAR 09/21/2017 [id number] / / [id number] Graft Marker Coronary - [id number] Implanted:Qty: 1 on 05/23/2016 by Vinny Wolf MD at [place] [facility] N/A: Aorta VM CARDIO VASCULAR 09/21/2017 [id number] / / [id number] Graft Marker Coronary - [id number] Implanted:Qty: 1 on 05/23/2016 by Vinny Wolf MD at [place] [facility] N/A: Aorta VM CARDIO VASCULAR 09/21/2017 [id number] / / [id number] Lens Intraoc 22.5 - [id number] - [id number] Implanted:Qty: 1 on 05/03/2022 by Jonny Chong MD at OR [facility] Left: Eye BAUSCH & LOMB 02/21/2027 [id number] / [id number] / [id number] Lens Intraoc 22.5 - [id number] - [id number] Implanted:Qty: 1 on 05/10/2022 by Jonny Chong MD at OR [facility] Right: Eye BAUSCH & LOMB 11/22/2026 [id number] / [id number] / [id number] documented as of this encounter Advance Directives [...] the patient have Health Care Power of Drum Builder? No Code Status History Code Status Date Activated Date Inactivated Comments No Code 05/03/2022 11:09 AM 05/03/2022 5:34 PM This o rder reflects the patients wishes and were consensually agreed upon. Question Answer Comments Discussion of Advance Directives occurred with: Patient Does the patient have a Living Will? No Does the patient have Health Care Power of Drum Builder? No Full Code 05/23/2016 2:01 PM 05/26/2016 [...] the patient have Health Care Power of Drum Builder? No Full Code 05/22/2016 8:39 PM 05/23/2016 2:35 AM This o rder reflects the patients wishes and were consensually agreed upon. Question Answer Comments Discussion of Advance Directives occurred with: Patient Care Teams Pairing Machine Operator Relationship Specialty Start Date End Date Zuleyka Benz DO [address] [place] [address] [place] [address] PCP - General Internal Medicine 07/08/18 documented as of this encounter
--- OUTSIDE RECORDS SUMMARY | 2023-09-21 21:20 | External Medical Summary ---
Author Name Unknown Address Unknown Organization K01:LAB[facility]ATORY [facility] [place] - [address] [place] [address] Laboratory Report Ordering Provider Test Date Status RILEY ASHLEY 07/05/2023 08:02:25 Final Observation Date Value Abnormality Reference (Units ) Status MYCODE SPECIMEN-SST 07/05/2023 08:02:25 Freezing of extracted DNA, whole blood and/or serum. Final Performing Location LABORATORY [facility] - [address] [place] [address]
--- OUTSIDE RECORDS SUMMARY | 2023-09-21 21:21 | External Medical Summary | Summary of Care ---
Author Name Unknown Organization [facility] Address [address] [place] [address] Phone [phone] Care Team Providers Care Verification Engineer Name Role Phone Zuleyka Benz DO Primary Care Provider [phone] Reason for Visit * Reason Onset Date Comments Test Results 05/28/2023 Toenail culture Encounter Details Date Type Department Care Team (Late st Contact Info) Description 05/28/2023 Telephone Podiatry, [facility] [address] [place] [address] Lolita Doll DPM [address] [place] [address] Test Results (Toenail culture ) Allergies Active Allergy Reactions Criticality Noted Date Comments Bee Venom Edema Other High 08/09/2020 Enalapril Cough 02/20/2011 Morphine And Related Nausea/vomiting High 07/29/2009 documented as of this encounter (statuses as of 05/28/2023) Medications Medication Sig Dispensed Refills Start Date End Date Status aspirin 81 MG chewable tabletIndications:Old myocardial infarct,Atherosclerot ic heart disease of [place]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 angina pectoris (HCC) Take 1 Tablet by mouth in the morning. 60 Tab 6 05/02/2017 Active Nitroglycerin 0.4 MG Sublingual Tablet Sublingual (Nitrostat)Indication s:HTN, goal below 140/90,Coronary artery disease involving [place] heart without angina pectoris, unspecified vessel or lesion type,Lower extremity edema,Dyslipidemia, goal LDL below 70,Asymptomatic bilateral carotid artery stenosis,MOORE (dyspnea on exertion),Frequent PVCs Place under the tongue 1 Tablet as needed for Pain, Chest. May repeat 3 times. If chest pain continues, call 911. 30 Tablet 1 07/03/2021 Active Atorvastatin Calcium 80 MG Oral Tablet (Lipitor)Indications: Coronary artery disease involving [place] heart without angina pectoris, unspecified vessel or [...] , goal below 140/90,Coronary artery disease involving [place] heart without angina pectoris, unspecified vessel or [...] Tablet (Coreg)Indications:Fr equent PVCs,Coronary artery disease involving mohe[place] heart without angina pectoris, unspecified vessel or [...] as of this encounter (statuses as of 05/28/2023) Active Problems Problem Noted Date Diagnosed Date [...] EGFR 71 Atherosclerotic heart diseas e of [place]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 angina pectoris 09/06/2016 Thoracic aortic ectasia 09/06/2016 S/P CABG x 3 08/06/2016 HTN, goal below 130/80 04/30/2013 Dyslipidemia, goal LDL below 70 04/03/2012 HTN, goal below 140/90 05/13/2008 Old myocardial infarct 09/30/2003 COPD, mild documented as of this encounter (statuses as of 05/28/2023) Resolved Problems Problem Noted Date Diagnosed Date [...] as of this encounter (statuses as of 05/28/2023) Immunizations Name Administration Dates Next Due Pneumococcal [...] exists LUNG CANCER SCREENING - USE SMARTSET 13880 Completed 01/08/2018 GARDASIL-HPV IMMUNIZATION SERIES Aged Out No longer eligible based on patient's age to complete this topic Hepatitis B Aged Out No longer eligi ble based on patient's age to complete this topic MENINGOCOCCAL (MENACTRA/MENVEO) Aged Out No longer eligible based on patient's age to complete this topic documented as of this encounter Medical Devices Implanted Type Area Smog Technician Device Identifier Shelf Expiration Date Model / Serial / Lot Sut Steel 6 M654g - [id number] Implanted:Qty: 4 on 05/23/2016 by Vinny Wolf MD at OR [facility] N/A: Sternum JNJ : [employer] 11/22/2020 M654G / / [id number] Graft Marker Coronary - [id number] Implanted:Qty: 1 on 05/23/2016 by Vinny Wolf MD at OR [facility] N/A: Aorta VM CARDIO VASCULAR 09/21/2017 [id number] / / [id number] Graft Marker Coronary - [id number] Implanted:Qty: 1 on 05/23/2016 by Vinny Wolf MD at OR [facility] N/A: Aorta VM CARDIO VASCULAR 09/21/2017 [id number] / / [id number] Graft Marker Coronary - [id number] Implanted:Qty: 1 on 05/23/2016 by Vinny Wolf MD at OR [facility] N/A: Aorta VM CARDIO VASCULAR 09/21/2017 [id number] / / [id number] Lens Intraoc 22.5 - [id number] - [id number] Implanted:Qty: 1 on 05/03/2022 by Jonny Chong MD at OR [facility] Left: Eye BAUSCH & LOMB 02/21/2027 [id number] / [id number] / [id number] Lens Intraoc 22.5 - [id number] - [id number] Implanted:Qty: 1 on 05/10/2022 by Jonny Chong MD at [facility] Right: Eye BAUSCH & LOMB 11/22/2026 [id number] / [id number] / [id number] documented as of this encounter Advance Directives [...] the patient have Health Care Power of Leveling Machine Operator? No Code Status History Code Status Date Activated Date Inactivated Comments No Code 05/03/2022 11:09 AM 05/03/2022 5:34 PM This o rder reflects the patients wishes and were consensually agreed upon. Question Answer Comments Discussion of Advance Directives occurred with: Patient Does the patient have a Living Will? No Does the patient have Health Care Power of Leveling Machine Operator? No Full Code 05/23/2016 2:01 PM [...] the patient have Health Care Power of Leveling Machine Operator? No Full Code 05/22/2016 8:39 PM 05/23/2016 2:35 AM This order reflects the patients wishes and were consensually agreed upon. Question Answer Comments Discussion of Advance Directives occurred with: Patient Care Teams Verification Engineer Relationship Specialty Start Date End Date Zuleyka Benz DO [address] [place] [address] [place] [address] PCP - General Internal Medicine 07/08/18 documented as of this encounter
--- OUTSIDE RECORDS SUMMARY | 2023-09-21 21:21 | External Medical Summary | Summary of Care ---
Author Name Unknown Organization [facility] Address [address] [facility] [place] [address] Phone [phone] Care Team Providers Care Assembler Wet Wash Name Role Phone Zuleyka Benz DO Primary Care Provider [phone] Reason for Visit * Reason Comments Post-Op Hernia repair 2023. Encounter Details Date Type Department Care Team (Latest Contact Info) Description 05/14/2023 9:15 AM EST Office Visit General Surgery, [facility] [address] [place] [address] Florina Knox MD [address] [place] [address] Postoperative follow-up* Allergies Active Allergy Reactions Criticality Noted Date Comments Bee Venom Edema Other High 08/09/2020 Enalapril Cough 02/20/2011 Morphine And Related Nausea/vomiting High 07/29/2009 documented as of this encounter (statuses as of 05/14/2023) Medications Medication Sig Dispensed Refills Start Date End Date Status aspirin 81 MG chewable tabletIndications:Old myocardial infarct,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 60 Tab 6 05/02/2017 Active Nitroglycerin 0.4 MG Sublingual Tablet Sublingual (Nitrostat)Indication s:HTN, goal below 140/90,Coronary artery disease involving [place] heart without angina pectoris, unspecified vessel or lesion type,Lower extremity edema,Dyslipidemia, goal LDL below 70,Asymptomatic bilateral carotid artery stenosis,MOORE (dyspnea on exertion),Frequent PVCs Place under the tongue 1 Tablet as needed for Pain, Chest. May repeat 3 times. If chest pain continues, call 911. 30 Tablet 1 07/03/2021 Active Atorvastatin Calcium 80 MG Oral Tablet (Lipitor)Indications: Coronary artery disease involving [place] heart without angina pectoris, unspecified vessel or [...] , goal below 140/90,Coronary artery disease involving [place] heart without angina pectoris, unspecified vessel or [...] Tablet (Coreg)Indications:Fr equent PVCs,Coronary artery disease involving [place] heart without angina pectoris, unspecified vessel or [...] as of this encounter (statuses as of 05/14/2023) Active Problems Problem Noted Date Diagnosed Date [...] EGFR 71 Atherosclerotic heart diseas e of [place]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 angina pectoris 09/06/2016 Thoracic aortic ectasia 09/06/2016 S/P CABG x 3 08/06/2016 HTN, goal below 130/80 04/30/2013 Dyslipidemia, goal LDL below 70 04/03/2012 HTN, goal below 140/90 05/13/2008 Old myocardial infarct 09/30/2003 COPD, mild documented as of this encounter (statuses as of 05/14/2023) Resolved Problems Problem Noted Date Diagnosed Date [...] as of this encounter (statuses as of 05/14/2023) Immunizations Name Administration Dates Next Due Pneumococcal [...] Sign Reading Time Taken Comments Blood Pressure - - Pulse - - Temperature 36.6 C (97.9 F) 05/14/2023 9:02 AM ES T Respiratory Rate - - Oxygen Saturation - [...] as of this encounter Progress Notes * Florina Knox MD - 05/14/2023 9:23 AM EST F/U S/P open repair ventral hernia. POD 2 weeks. Pt is doing fine, no abdominal pain, no fever. I reviewed hernia sac pathology report with pt. PE V S S AO X 3 Abd : soft, NT, ND, the incision heals well. No bulging, no redness. F/U prn, pt wants to back to work tomorrow, documented in this encounter Nursing Notes * Alessandra Tatum MED ASSIST - 05/14/2023 9:02 AM EST Chief Complaint Patient presents with Post-Op Hernia repair 04/30/2023. Verified patient. No pain. Incision is healing well. documented in this encounter Plan of Treatment [...] COVID-19 Vaccine ( - 2022- season) 2022 Influenza Vaccine (FLU shot) (#1) 2022 01/23/2018, 02/01/2014, 01/25/2012, Additional history exists O2 ASSESSMENT COMPLETED IN PAST YEAR FOR COPD 05/10/2023 05/10/2022 GFR 02/12/2024 02/11/2023, 02/0 08/2022, 12/12/2021, Additional history exists Diabetes Screening 02/11/2026 02/11/2023, 0 04/30/2022, 12/12/2021, Additional history exists LUNG CANCER SCREENING - USE SMARTSET 02128 Completed 01/08/2018 GARDASIL-HPV IMMUNIZATION SERIES Aged Out No longer eligible based on patient's age to complete this topic Hepatitis B Aged Out No longer eligi ble based on patient's age to complete this topic MENINGOCOCCAL (MENACTRA/MENVEO) Aged Out No longer eligible based on patient's age to complete this topic documented as of this encounter Medical Devices Implanted Type Area Dance Choreographer Device Identifier Shelf Expiration Date Model / Serial / Lot Sut Steel 6 M654g - [id number] Implanted:Qty: 4 on 05/23/2016 by Vinny Wolf MD at OR [facility] N/A: Sternum JNJ : [employer] 11/22/2020 [id number] / / [id number] Graft Marker Coronary - [id number] Implanted:Qty: 1 on 05/23/2016 by Vinny Wolf MD at OR [facility] N/A: Aorta VM CARDIO VASCULAR 09/21/2017 [id number] / / [id number] Graft Marker Coronary - [id number] Implanted:Qty: 1 on 05/23/2016 by iVnny Wolf MD at OR [facility] N/A: Aorta VM CARDIO VASCULAR 09/21/2017 [id number] / / [id number] Graft Marker Coronary - [id number] Implanted:Qty: 1 on 05/23/2016 by Vinny Wolf MD at OR [facility] N/A: Aorta VM CARDIO VASCULAR 09/21/2017 [id number] / / [id number] Lens Intraoc 22.5 - [id number] - [id number] Implanted:Qty: 1 on 05/03/2022 by Jonny Chong MD at OR [facility] Left: Eye BAUSCH & LOMB 02/21/2027 [id number] / [id number] / [id number] Lens Intraoc 22.5 - [id number] - [id number] Implanted:Qty: 1 on 05/10/2022 by Jonny Chong MD at OR [facility] Right: Eye BAUSCH & LOMB 11/22/2026 [id number] / [id number] / [id number] documented as of this encounter Visit Diagnoses Diagnosis Postoperative follow-up- Primary Follow-up examination, following unspecified surgery documented in this encounter Advance Directives Latest Code Status on File Code Status Date Activated Date Inactivated Comments No Code 05/10/2022 8:51 AM 05/10/2022 3:12 PM This order reflects the patients wishes and were consensually agreed upon. Question Answer Comments Discussion of Advance Directives occurred with: Patient Does the patient have a Living Will? No Does the patient have Health Care Power of Rosin Barrel Filler? No Code Status History Code Status Date Activated Date Inactivated Comments No Code 05/03/2022 11:09 AM 05/03/2022 5:34 PM This o rder reflects the patients wishes and were consensually agreed upon. Question Answer Comments Discussion of Advance Directives occurred with: Patient Does the patient have a Living Will? No Does the patient have Health Care Power of Rosin Barrel Filler? No Full Code 05/23/2016 2:01 PM 05/26/2016 [...] the patient have Health Care Power of Rosin Barrel Filler? No Full Code 05/22/2016 8:39 PM 05/23/2016 2:35 AM This o rder reflects the patients wishes and were consensually agreed upon. Question Answer Comments Discussion of Advance Directives occurred with: Patient Care Teams Assembler Wet Wash Relationship Specialty Start Date End Date Zuleyka Benz DO [address] [place] [address] [place] [phone] PCP - General Internal Medicine 07/08/18 documented as of this encounter
--- OUTSIDE RECORDS SUMMARY | 2023-09-21 21:21 | External Medical Summary | Summary of Care ---
Author Name Unknown Organization [facility] Address [address] [facility] [place] [address] Phone [phone] Care Team Providers Care Director Of Accounting Name Role Phone Zuleyka Benz DO Primary Care Provider [phone] Reason for Visit * Reason Comments Post-Op Hernia repair 2023. Encounter Details Date Type Department Care Team (Latest Contact Info) Description 05/14/2023 9:15 AM EST Office Visit General Surgery, [facility] [address] [place] [address] Florina Knox MD [address] [place] [address] Postoperative follow-up* Allergies Active Allergy Reactions Criticality Noted Date Comments Bee Venom Edema Other High 08/09/2020 Enalapril Cough 02/20/2011 Morphine And Related Nausea/vomiting High 07/29/2009 documented as of this encounter (statuses as of 05/14/2023) Medications Medication Sig Dispensed Refills Start Date End Date Status aspirin 81 MG chewable tabletIndications:Old myocardial infarct,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 60 Tab 6 05/02/2017 Active Nitroglycerin 0.4 MG Sublingual Tablet Sublingual (Nitrostat)Indication s:HTN, goal below 140/90,Coronary artery disease involving [place] heart without angina pectoris, unspecified vessel or lesion type,Lower extremity edema,Dyslipidemia, goal LDL below 70,Asymptomatic bilateral carotid artery stenosis,MOORE (dyspnea on exertion),Frequent PVCs Place under the tongue 1 Tablet as needed for Pain, Chest. May repeat 3 times. If chest pain continues, call 911. 30 Tablet 1 07/03/2021 Active Atorvastatin Calcium 80 MG Oral Tablet (Lipitor)Indications: Coronary artery disease involving [place] heart without angina pectoris, unspecified vessel [...] , goal below 140/90,Coronary artery disease involving [place] heart without angina pectoris, unspecified vessel [...] Tablet (Coreg)Indications:Fr equent PVCs,Coronary artery disease involving [place] heart without angina pectoris, unspecified vessel [...] EGFR 71 Atherosclerotic heart diseas e of [place]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 [...] exists LUNG CANCER SCREENING - USE SMARTSET 49562 Completed 01/08/2018 GARDASIL-HPV IMMUNIZATION SERIES Aged Out No longer eligible based on patient's age to complete this topic Hepatitis B Aged Out No longer eligi ble based on patient's age to complete this topic MENINGOCOCCAL (MENACTRA/MENVEO) Aged Out No longer eligible based on patient's age to complete this topic documented as of this encounter Medical Devices Implanted Type Area Mailroom Clerk Device Identifier Shelf Expiration Date Model / Serial / Lot Sut Steel 6 M654g - [id number] Implanted:Qty: 4 on 05/23/2016 by Vinny Wolf MD at OR [facility] N/A: Sternum JNJ : [employer] 11/22/2020 M654G / / [id number] Graft Marker Coronary - [id number] Implanted:Qty: 1 on 05/23/2016 by Vinny Wolf MD at OR [facility] N/A: Aorta VM CARDIO VASCULAR 09/21/2017 [id number] / / [id number] Graft Marker Coronary - [id number] Implanted:Qty: 1 on 05/23/2016 by Vinny Wolf MD at OR [facility] N/A: Aorta VM CARDIO VASCULAR 09/21/2017 [id number] / / [id number] Graft Marker Coronary - [id number] Implanted:Qty: 1 on 05/23/2016 by Vinny Wolf MD at OR [facility] N/A: Aorta VM CARDIO VASCULAR 09/21/2017 [id number] / / [id number] Lens Intraoc 22.5 - [id number] - [id number] Implanted:Qty: 1 on 05/03/2022 by Jonny Chong MD at OR [facility] Left: Eye BAUSCH & LOMB 02/21/2027 [id number] / [id number] / [id number] Lens Intraoc 22.5 - [id number] - [id number] Implanted:Qty: 1 on 05/10/2022 by Jonny Chong MD at OR [facility] Right: Eye BAUSCH & LOMB 11/22/2026 [id number] / [id number] / [id number] documented as of this encounter Visit Diagnoses [...] the patient have Health Care Power of Anatomic Pathologist? No Code Status History Code Status Date Activated Date Inactivated Comments No Code 05/03/2022 11:09 AM 05/03/2022 5:34 PM This o rder reflects the patients wishes and were consensually agreed upon. Question Answer Comments Discussion of Advance Directives occurred with: Patient Does the patient have a Living Will? No Does the patient have Health Care Power of Anatomic Pathologist? No Full Code 05/23/2016 2:01 PM 05/26/2016 [...] the patient have Health Care Power of Anatomic Pathologist? No Full Code 05/22/2016 8:39 PM 05/23/2016 2:35 AM This o rder reflects the patients wishes and were consensually agreed upon. Question Answer Comments Discussion of Advance Directives occurred with: Patient Care Teams Director Of Accounting Relationship Specialty Start Date End Date Zuleyka Benz DO [address] [place] [address] [place] [phone] PCP - General Internal Medicine 07/08/18 documented as of this encounter
--- OUTSIDE RECORDS SUMMARY | 2023-09-21 21:21 | External Medical Summary ---
Author Name Unknown Address Unknown Organization K01:[facility] [place] - [address] [place] [id number] Laboratory Report Ordering Provider Test Date Status NICOLAS CROWELL 04/29/2023 09:19:39 Final Observation Date Value Abnormality Reference (Units ) Status Bacteria identified in Specimen by Culture 04/29/2023 09:19:39 [id number]^ASPER GILLUS NIGER Abnormal Final Aspergillus niger
Test: Culture, Fungus, Derm
Specimen Source: Toe, Right
Specimen Type: Nail
Specimen Date: 04/29/2023 9:19 AM
Result Date: 05/21/2023 7:24 AM
Result Status: Final result
Abnormal: Yes
Resulting Lab: [facility] [place]
[address]
[place] [address]

CULTURE

Aspergillus niger (Abnormal)

null Performing Location [facility] [place] - [address] [facility] [address]
[2023-09-21 21:41] LABS: Basophils # (auto) 0.06 K/uL (0.00-0.20); Basophils % (auto) 0.9 %; Eosinophils # (auto) 0.15 K/uL (0.00-0.50); Eosinophils % (auto) 2.2 %; Hematocrit (blood only) 42.1 % (42.0-52.0); Hemoglobin 14.5 g/dl (14.0-18.0); Immature Granulocytes # (auto) 0.01 K/uL (0.01-0.20); Immature Granulocytes % (auto) 0.1 %; Lymphocytes # (auto) 2.08 K/uL (1.20-3.40); Lymphocytes % (auto) 30.9 %; Mean Corpuscular Hemoglobin 31.7 pg (25.0-34.0); Mean Corpuscular Hgb Conc 34.4 g/dL (32.0-36.0); Mean Corpuscular Volume 91.9 fL (80.0-100.0); Mean Platelet Volume 9.7 fL (9.4-12.4); Monocytes # (auto) 0.56 K/uL (0.11-0.59); Monocytes % (auto) 8.3 %; Neutrophils # (auto) 3.87 K/uL (1.40-6.50); Neutrophils % (auto) 57.6 %; Platelet Count 201 K/uL (130-400); RDW Coefficient of Variation 12.5 % (11.5-14.5); RDW Standard Deviation 41.9 fL (36.4-46.3); Red Blood Count 4.58 M/uL (4.70-6.10); White Blood Count 6.73 K/ul (4.8-10.8)
--- NOTE | 2023-09-21 21:42 | Emergency Department Note ---
Impression & Plan Non-ST elevation NC (NSTEMI) ED Provider Note Provider: Jaylan Gordon MD DATE OF SERVICE: 09/21/2023 CHIEF COMPLAINT: Numbness, chest discomfort HISTORY OF PRESENT ILLNESS: Patient is a 68-year-old gentleman significant past medical history of CAD/CABG, COPD, and hypertension presenting here today reporting onset about 3 hours prior to arrival initially of some numbness in the left arm. About an hour and a half ago or so began with discomfort and pressure to mid chest into the left jaw. Denies numbness left arm at this time. Denies any headache. Denies any syncope. Took nitro at home mildly helped. Called 911 and EMS gave 2 additional dose of nitroglycerin as well as full dose aspirin. This is has improved his chest pain was has improved from maybe 9 out of 10 to a 2 out of 10 currently. No significant back pain. Has occasionally had some intermittent numbness in the left neck region has had carotid Dopplers in the outpatient setting according to . PAST MEDICAL HISTORY: As noted above MEDICATIONS: Reviewed medications includes aspirin SOCIAL HISTORY: , former smoker PHYSICAL EXAM: GENERAL: alert and oriented in no acute distress on stretcher fatigued in appearance Head: normocephalic and atraumatic EYES: No injection, discharge or icterus. EOMI. NECK: Trachea midline. Supple. ENT: Mucous membranes pink and moist. LUNGS: Airway patent. No retractions. Breath sounds clear HEART: Regular rate and rhythm. No chest wall tenderness, healed sternotomy wound ABDOMEN: Soft and non-tender, without guarding or rebound. SKIN: Acyanotic, warm, dry, without rashes EXTREMITIES: Without tenderness deformity with trace edema of the bilateral lower legs. NEUROLOGICAL: No focal deficits. No aphasia. No facial droop or slurred speech. EK bpm sinus rhythm first-degree AV block with PVCs. No acute ST segment elevation or depression with QTc of 437. Lead III 2 inversions. CONTINUOUS CARDIAC MONITORING: was ordered and showed a heart rate of 60s to 70s bpm in first-degree block rare PVC 1 view chest x-ray per my interpretation: No evidence of pneumonia pneumothorax or mediastinal widening. Sternotomy wires present Patient's laboratory studies and imaging reviewed. Differential includes Cardiac ischemia, aortic dissection, pulmonary embolism, pneumothorax, pneumonia, pericarditis, myocarditis, esophageal rupture, GERD, cholecystitis, pancreatitis, musculoskeletal, as well as other pathologies. IMPRESSION/MEDICAL DECISION MAKING: Patient with extensive cardiac history. Less chest pain at this time more severe earlier but improved after some aspirin and nitro. Given some fentanyl here for pain. Not hypoxic or tachycardic. Only trace leg swelling. No significant calf tenderness appreciable. Low suspicion for PE based on clinical history low suspicion for DVT. EKG here without STEMI. Blood work without significant anemia or leukocytosis. Normal platelet count. Artery see full dose aspirin tonight. Not having significant back pain and lower suspicion for acute dissection. Blood work is anemia leukocytosis. Normal platelet count. No significant electrolyte abnormality beyond mild hypokalemia 3.4. No renal dysfunction. No evidence of hepatitis or pancreatitis. Troponin does return somewhat elevated at 119. Patient on reassessment is pain-free not having any numbness. Again does not seem consistent with CVA or dissection. Troponin elevation and stating this feels similar to prior heart attacks do believe he has a cardiac event occurring. Pain-free now. Will heparinize. Discussed with him staying in the hospitalist was contacted. DIAGNOSIS: NSTEMI DISPOSITION: Hospitalist will evaluate Patient was agreeable with this plan. Critical Care I have personally spent 32 minutes of critical care time in the direct management of this patient. This includes bedside care, interpretation of diagnostic studies, and testing, discussion with consultants, patient, and family members, and other required patient management activities. These 32 minutes is in excess of all separately billable procedures. Past Med/Surg History Problem List (Updated 09/21/23 @ 22:29 by Jaylan Gordon M.D.) Non-ST elevation NC (NSTEMI) (Acute) Ventral hernia Encounter for pre-operative examination Hypokalemia BPH w urinary obs/LUTS Pancreatitis (Acute ~06/2020) Mitral regurgitation Calculus of gallbladder with cholecystitis Decreased vision History of quadruple bypass (~2016) 2017 [facility] (MENA-LAD, SVG-D1, SVG-OM3, SVG-PDA) Lipoma of small intestine duodenal lipoma HTN (hypertension) COPD, mild Dyslipidemia Depression CAD (coronary artery disease) 8 stents prior to 2012. S/p 4 vessel CABG 2016 "2003 - inferior wall NC, s/p PCI and stenting to RCA 12/2012 - NSTEMI, s/p BMS to left cx" GERD (gastroesophageal reflux disease) Medical History BPH (benign prostatic hyperplasia) CAD (coronary artery disease) 8 stents prior to 2012. S/p 4 vessel CABG 2016 "2003 - inferior wall NC, s/p PCI and stenting to RCA 12/2012 - NSTEMI, s/p BMS to left cx" COPD, mild Decreased vision Depression Dyslipidemia GERD (gastroesophageal reflux disease) HTN (hypertension) Hx of pancreatitis 2020, no issues since Lipoma of small intestine duodenal lipoma Myocardial Infarction 2003 Surgical History History of carpal tunnel surgery RT History of cataract surgery History of colonoscopy History of heart artery stent STENTS PLACED TOTAL 8 (BEFORE 2012) History of quadruple bypass (~2016) 2016 [facility] (MENA-LAD, SVG-D1, SVG-OM3, SVG-PDA) History of tooth extraction Hx laparoscopic cholecystectomy (10/02/19) Laparoscopic Cholecystectomy Dr. Acharya 10/09/2019 Family History Mother Breast cancer Heart disease Father Heart disease Myocardial infarction Denies family history of Pancreatic cancer Ovarian cancer Prostate cancer Colorectal cancer Social History Smoking Status: Former smoker Second Hand Exposure: No; Do You Dip or Chew Tobacco: No; Hx Alcohol Use: No Hx Substance Use: No Preferred Language: Burkinan Communication Ability: Effective Visual Impairment: No Limitations Hearing Ability: Hard of Hearing Entry Level Chemist Required: No Beliefs That Will Affect Care: None marital status: Current Living Situation: Spouse Current Living Situation Comment: Becky Méndez current occupational status: employed current occupation: [employer] How many Children do You have: 0 Feels Safe at Home: Yes Childhood Exposure to Second-Hand Smoke: Yes Diet: regular caffeine: No during the past year weight has: remained stable Physical Activity Frequency: Daily Seatbelt Use: always Sunscreen Use: No Assistive Devices: None Allergies Allergies Allergy/AdvReac Type Severity Reaction Status Date / Time bee venom protein (honey bee) Allergy Intermediate EXTREME Verified 09/21/23 21:47 SWELLING codeine AdvReac Intermediate NAUSEA/VOMI Verified 09/21/23 21:47 TING enalapril AdvReac Intermediate COUGH Verified 09/21/23 21:47 morphine AdvReac Intermediate NAUSEA/VOMI Verified 09/21/23 21:47 TING Home Meds Home Medications Medication Instructions Recorded Confirmed aspirin 81 mg tablet,delayed 81 mg PO QAM 06/02/19 09/21/23 release albuterol sulfate 90 mcg/actuation 1 inh inhalation DIRECTED PRN 09/21/23 09/21/23 aerosol inhaler (Proventil HFA) Shortness Of Breath Or Wheezing amlodipine 5 mg tablet 5 mg PO QAM 09/21/23 09/21/23 atorvastatin 80 mg tablet 80 mg PO QPM 09/21/23 09/21/23 carvedilol 12.5 mg tablet 6.25 mg PO BID 09/21/23 09/21/23 ciclopirox 8 % topical solution 1 applic topical DIRECTED 09/21/23 09/21/23 clotrimazole-betamethasone 1 1 applic topical BID PRN Skin 09/21/23 09/21/23 %-0.05 % topical cream Irritation cyanocobalamin (vitamin B-12) 1,000 mcg PO DAILY 09/21/23 09/21/23 1,000 mcg tablet (Vitamin B-12) ezetimibe 10 mg tablet 10 mg PO QAM 09/21/23 09/21/23 furosemide 20 mg tablet 20 mg PO DAILY PRN Fluid Retention 09/21/23 09/21/23 hydrochlorothiazide 25 mg tablet 25 mg PO QAM 09/21/23 09/21/23 hydroxyzine HCl 50 mg tablet 50 mg PO DIRECTED PRN FLYING 09/21/23 09/21/23 ANXIETY isosorbide mononitrate 60 mg 60 mg PO QAM 09/21/23 09/21/23 tablet,extended release 24 hr loratadine 10 mg tablet (Claritin) 10 mg PO DAILY 09/21/23 09/21/23 nitroglycerin 0.4 mg sublingual 0.4 mg sublingual DIRECTED PRN 09/21/23 09/21/23 tablet Chest Pain Previous Rx's Medication Instructions Recorded losartan 50 mg tablet 50 mg PO BID #180 tabs 04/06/22 Results & Data (ED) Vital Signs Vital Signs - 24 hr 09/21/23 21:20 09/21/23 21:20 09/21/23 21:30 Temperature 37.1 C Temperature Source Oral Pulse Rate 69 71 65 Pulse Rate from SpO2 Sensor Respiratory Rate 17 Respiratory Effort / Characteristics Non-Labored Spontaneous Respiratory Depth Normal Respiratory Pattern Regular Blood Pressure 152/113 H Blood Pressure Mean 126 Blood Pressure Position Sitting Pulse Oximetry 95 95 Oxygen Delivery Method Room Air Room Air Sepsis Recent Fever Within 48 Hours No Sepsis New/Unexplained Change in Mental Status N/A Sepsis Action Taken by Nursing No Action Required 09/21/23 21:31 09/21/23 22:03 09/21/23 22:49 Temperature Temperature Source Pulse Rate 63 66 Pulse Rate from SpO2 Sensor 61 Respiratory Rate 16 18 Respiratory Effort / Characteristics Respiratory Depth Respiratory Pattern Blood Pressure 146/85 H 112/87 Blood Pressure Mean 105 94 Blood Pressure Position Pulse Oximetry 95 94 97 Oxygen Delivery Method Room Air Room Air Sepsis Recent Fever Within 48 Hours Sepsis New/Unexplained Change in Mental Status Sepsis Action Taken by Nursing Laboratory Data 09/21/23 21:20 09/21/23 21:20 Lab Results 09/21/23 09/21/23 Range/Units 21:20 21:32 WBC 6.73 (4.8-10.8) K/ul RBC 4.58 L (4.70-6.10) M/uL Hgb 14.5 (14.0-18.0) g/dl Hct 42.1 (42.0-52.0) % MCV 91.9 (80.0-100.0) fL MCH 31.7 (25.0-34.0) pg MCHC 34.4 (32.0-36.0) g/dL RDW Std Deviation 41.9 (36.4-46.3) fL RDW Coeff of [place] 12.5 (11.5-14.5) % Plt Count 201 (130-400) K/uL MPV 9.7 (9.4-12.4) fL Immature Gran % (Auto) 0.1 % Neut % (Auto) 57.6 % Lymph % (Auto) 30.9 % [place] % (Auto) 8.3 % Eos % (Auto) 2.2 % Baso % (Auto) 0.9 % Neut # (Auto) 3.87 (1.40-6.50) K/uL Lymph # (Auto) 2.08 (1.20-3.40) K/uL [place] # (Auto) 0.56 (0.11-0.59) K/uL Eos # (Auto) 0.15 (0.00-0.50) K/uL Baso # (Auto) 0.06 (0.00-0.20) K/uL Immature Gran # (Auto) 0.01 (0.01-0.20) K/uL PT 10.6 (9.0-12.0) Seconds INR 1.0 (0.9-1.1) APTT 27 (21-31) Seconds PTT Ratio 1.0 Sodium 136 (136-145) mmol/L Potassium 3.4 L (3.5-5.1) mmol/L Chloride 107 (98-107) mmol/L Carbon Dioxide 24 (21-32) mmol/L Anion Gap 5 (3-11) BUN 13 (6-23) mg/dl Creatinine 0.81 (0.6-1.4) mg/dl Est Cr Clr Drug Dosing 87.0 ml/min Est GFR ( Amer) 105.8 ml/min Est GFR (Non-Af Amer) 91.3 ml/min BUN/Creatinine Ratio 16.0 (10-20) Glucose 133 H (70-99(Fasting)) mg/dl Calcium 9.2 (8.6-10.3) mg/dl Total Bilirubin 0.7 (0.2-1.0) mg/dl AST 22 (13-39) U/L ALT 17 (7-52) U/L Alkaline Phosphatase 58 (34-104) U/L Troponin I High Sens 119.4 H* (0-20) pg/ml Total Protein 6.7 (6.0-8.3) gm/dl Albumin 4.2 (3.4-5.0) gm/dl Globulin 2.5 (2.5-4.0) gm/dl Albumin/Globulin Ratio 1.7 (0.9-2) Lipase 33 (11-82) U/L SARS-CoV-2 (PCR) NEGATIVE (Negative) Influenza Type A (PCR) Negative (Neg) Influenza Type B (PCR) Negative (Neg) RSV (RT-PCR) Negative (Neg) Administered Medications Heparin Sodium/Dextrose (Heparin Sodium/Dextrose) 25,000 units in 500 mls @ 17 mls/hr IV .Q24H SEBAS; Protocol Stop: 10/21/23 22:44 Last Admin: 09/21/23 22:46 Dose: 850 units/hr, 17 mls/hr Documented By: Co-signed By: MINNIE Discontinued Medications Fentanyl Citrate (Fentanyl Citrate Pf 100 Mcg/2 Ml Vial) 50 mcg IV NOW STA Stop: 09/21/23 21:24 Last Admin: 09/21/23 21:44 Dose: 50 mcg Documented By: Heparin Sodium (Porcine) (Heparin Sod (Porcine) 1000 Unit/Ml) 1 units IV NOW ONE Stop: 09/21/23 22:42 Last Admin: 09/21/23 22:46 Dose: 4,000 units Documented By: Co-signed By: MINNIE Potassium Chloride (Potassium Chloride Crtab 20 Meq Tabcr) 40 meq PO NOW STA Stop: 09/21/23 22:32 Last Admin: 09/21/23 22:46 Dose: 40 meq Documented By: Discharge Plan Visit Data Chief Complaint: Chest Pain Stated Complaint: Chest Pain, Hypertension, Nausea ED Provider: Jaylan Gordon Discharge Problem: Non-ST elevation NC (NSTEMI) Patient Disposition: Being Evaluated by Hospitalist Forms Stand Alone Forms: My [facility] [employer] Prescriptions Prescriptions: No Action losartan 50 mg tablet 50 mg PO BID Qty: 180 1RF aspirin 81 mg Tablet,Delayed Release (Dr/Ec) 81 mg PO QAM carvedilol 12.5 mg tablet 6.25 mg PO BID cyanocobalamin (vitamin B-12) [Vitamin B-12] 1,000 mcg Tablet 1,000 mcg PO DAILY hydroxyzine HCl 50 mg tablet 50 mg PO DIRECTED PRN (Reason: FLYING ANXIETY) ciclopirox 8 % solution 1 applic TOPICAL DIRECTED isosorbide mononitrate 60 mg tablet extended release 24 hr 60 mg PO QAM clotrimazole-betamethasone 1-0.05 % cream 1 applic TOPICAL BID PRN (Reason: Skin Irritation) nitroglycerin 0.4 mg tablet, sublingual 0.4 mg sublingual DIRECTED PRN (Reason: Chest Pain) hydrochlorothiazide 25 mg tablet 25 mg PO QAM furosemide 20 mg tablet 20 mg PO DAILY PRN (Reason: Fluid Retention) albuterol sulfate [Proventil HFA] 90 mcg/actuation Hfa Aerosol Inhaler 1 inh INHALATION DIRECTED PRN (Reason: Shortness Of Breath Or Wheezing) loratadine [Claritin] 10 mg Tablet 10 mg PO DAILY ezetimibe 10 mg tablet 10 mg PO QAM atorvastatin 80 mg tablet 80 mg PO QPM Rx Instructions: EVERY AFTERNOON amlodipine 5 mg tablet 5 mg PO QAM Referrals Referrals: Zuleyka Benz DO [Primary Care Provider] -
[2023-09-21] MEDS: fentaNYL citrate PF 100 MCG/2 ML VIAL IV STA (21:44)
[2023-09-21 21:54] LABS: Albumin Globulin Ratio 1.7 (0.9-2); Albumin Level 4.2 gm/dl (3.4-5.0); Bilirubin,Total 0.7 mg/dl (0.2-1.0); Calcium 9.2 mg/dl (8.6-10.3); Est GFR (African American) 105.8 ml/min; Est GFR (Non-African American) 91.3 ml/min; Globulin 2.5 gm/dl (2.5-4.0); Potassium 3.4 mmol/L (3.5-5.1); Total Protein 6.7 gm/dl (6.0-8.3)
[2023-09-21 22:03] LABS: Partial Thromboplastin Time 27 Seconds (21-31); Prothrombin Time 10.6 Seconds (9.0-12.0)
[2023-09-21 22:18] LABS: Troponin I High Sensitivity 119.4 pg/ml (0-20)
[2023-09-21] MEDS ORDERED: Heparin IV Adult Wt-Based Low-Dose w/ INITIAL Bolus Protocol IV STA (22:26)
[2023-09-21 22:42] LABS: Influenza A virus by PCR Negative (Neg); Influenza B virus by PCR Negative (Neg); RSV by PCR Negative (Neg); SARS CoV2 RNA(COVID-19) Ceph NEGATIVE (Negative)
[2023-09-21] MEDS: HEPARIN SOD (PORCINE) 1000 UNIT/ML IV ONE (22:46)
[2023-09-21] MEDS: HEPARIN SODIUM/DEXTROSE 25,000 UNITS/500 ML BAG IV SCH (22:46)
[2023-09-21] MEDS: POTASSIUM CHLORIDE CRTAB 20 MEQ TABCR PO STA (22:46)
--- NOTE | 2023-09-21 23:58 | History & Physical Report ---
Date of Service September 21, 2023 Assessment & Plan (1) Non-ST elevation CA (NSTEMI): Plan: 68-year-old male with past medical history significant for CAD s/p CABG, hypertension, COPD, hyperlipidemia, PACs, paroxysmal supraventricular tachycardia, GERD, BPH, comes with chest pain. Patient states he gets on and off left jaw numbness. On and off chest pains. But today in the evening when patient was sitting noticed left-sided chest pain 5/10 in severity with numbness in the left upper extremity and numbness in the jaw and was more significant than his usual symptoms.. Took nitro and an aspirin and routine EMS gave 2 nitros. Currently chest pain is resolved. He has some mild dizziness. Currently no nausea. No shortness of breath. No headache. Vision is okay. No runny nose or sore throat. No cough. No abdominal pain. Normal bowel and bladder movements. Hemodynamics are okay. Non-ST elevated CA came with left-sided chest pain and left jaw and left upper EXTR numbness. After nitro x3 and aspirin symptoms resolved. initial troponin 119 and repeat is [address] changes ER started IV heparin which will be continued close monitoring telemetry n.p.o. will follow serial cardiac enzymes and echocardiogram cardiac consult in a.m. history of CAD s/p CABG in 2017 and history of CA in 2004 on aspirin, high-dose statin and Coreg and Zetia and Imdur hyperlipidemia on statin and Zetia hypertension on amlodipine, Coreg, hydrochlorothiazide, Imdur, losartan on Lasix as needed will monitor history of paroxysmal supraventricular tachycardia on Coreg COPD history of tobacco abuse on inhalers as needed DVT prophylaxis IV heparin disposition telemetry full code. History of Present Illness Chief Complaint: Chest pain Primary Care Provider: Zuleyka Benz DO 68-year-old male with past medical history significant for CAD s/p CABG, hypertension, COPD, hyperlipidemia, PACs, paroxysmal supraventricular tachycardia, GERD, BPH, comes with chest pain. Patient states he gets on and off left jaw numbness. On and off chest pains. But today in the evening when patient was sitting noticed left-sided chest pain 5/10 in severity with numbness in the left upper extremity and numbness in the jaw and was more significant than his usual symptoms.. Took nitro and an aspirin and routine EMS gave 2 nitros. Currently chest pain is resolved. He has some mild dizziness. Currently no nausea. No shortness of breath. No headache. Vision is okay. No runny nose or sore throat. No cough. No abdominal pain. Normal bowel and bladder movements. Hemodynamics are okay. Past medical history. As mentioned above Past surgical history. CABG. Carpal tunnel surgery. Colonoscopy. Coronary stent placement. EGD. EGD with endoscopic ultrasound. Bilateral cataracts. Social history. Former smoker. Quit in . Smoked 1.5 packs a day for 38 years. No alcohol use. No drug use. Family history. Mother had breast cancer. Sister had uterine cancer. Father had CA. Allergies Allergy/AdvReac Type Severity Reaction Status Date / Time bee venom protein (honey bee) Allergy Intermediate EXTREME Verified 09/21/23 21:47 SWELLING codeine AdvReac Intermediate NAUSEA/VOMI Verified 09/21/23 21:47 TING enalapril AdvReac Intermediate COUGH Verified 09/21/23 21:47 morphine AdvReac Intermediate NAUSEA/VOMI Verified 09/21/23 21:47 TING Home Medications Medication Instructions Recorded Confirmed Type aspirin 81 mg tablet,delayed 81 mg PO QAM 06/02/19 09/21/23 History release losartan 50 mg tablet 50 mg PO BID #180 tabs 04/06/22 09/21/23 Rx albuterol sulfate 90 mcg/actuation 1 inh inhalation DIRECTED PRN 09/21/23 09/21/23 History aerosol inhaler (Proventil HFA) Shortness Of Breath Or Wheezing amlodipine 5 mg tablet 5 mg PO QAM 09/21/23 09/21/23 History atorvastatin 80 mg tablet 80 mg PO QPM 09/21/23 09/21/23 History carvedilol 12.5 mg tablet 6.25 mg PO BID 09/21/23 09/21/23 History ciclopirox 8 % topical solution 1 applic topical DIRECTED 09/21/23 09/21/23 History clotrimazole-betamethasone 1 1 applic topical BID PRN Skin 09/21/23 09/21/23 History %-0.05 % topical cream Irritation cyanocobalamin (vitamin B-12) 1,000 mcg PO DAILY 09/21/23 09/21/23 History 1,000 mcg tablet (Vitamin B-12) ezetimibe 10 mg tablet 10 mg PO QAM 09/21/23 09/21/23 History furosemide 20 mg tablet 20 mg PO DAILY PRN Fluid Retention 09/21/23 09/21/23 History hydrochlorothiazide 25 mg tablet 25 mg PO QAM 09/21/23 09/21/23 History hydroxyzine HCl 50 mg tablet 50 mg PO DIRECTED PRN FLYING 09/21/23 09/21/23 History ANXIETY isosorbide mononitrate 60 mg 60 mg PO QAM 09/21/23 09/21/23 History tablet,extended release 24 hr loratadine 10 mg tablet (Claritin) 10 mg PO DAILY 09/21/23 09/21/23 History nitroglycerin 0.4 mg sublingual 0.4 mg sublingual DIRECTED PRN 09/21/23 09/21/23 History tablet Chest Pain Past Med/Surg History Problem List (Updated 09/21/23 @ 22:29 by Jaylan Gordon M.D.) Non-ST elevation CA (NSTEMI) (Acute) Ventral hernia Encounter for pre-operative examination Hypokalemia BPH w urinary obs/LUTS Pancreatitis (Acute ~06/2020) Mitral regurgitation Calculus of gallbladder with cholecystitis Decreased vision History of quadruple bypass (~2016) 2016 [facility] (MENA-LAD, SVG-D1, SVG-OM3, SVG-PDA) Lipoma of small intestine duodenal lipoma HTN (hypertension) COPD, mild Dyslipidemia Depression CAD (coronary artery disease) 8 stents prior to 2012. 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, s/p PCI and stenting to RCA 12/2012 - NSTEMI, s/p BMS to left cx" GERD (gastroesophageal reflux disease) Medical History BPH (benign prostatic hyperplasia) CAD (coronary artery disease) 8 stents prior to 2012. 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, s/p PCI and stenting to RCA 12/2012 - NSTEMI, s/p BMS to left cx" COPD, mild Decreased vision Depression Dyslipidemia GERD (gastroesophageal reflux disease) HTN (hypertension) Hx of pancreatitis 2020, no issues since Lipoma of small intestine duodenal lipoma Myocardial Infarction 2003 Surgical History History of carpal tunnel surgery RT History of cataract surgery History of colonoscopy History of heart artery stent STENTS PLACED TOTAL 8 (BEFORE 2012) History of quadruple bypass (~2016) 2017 [facility] (MENA-LAD, SVG-D1, SVG-OM3, SVG-PDA) History of tooth extraction Hx laparoscopic cholecystectomy (10/02/19) Laparoscopic Cholecystectomy Dr. Acharya 10/09/2019 Family History Mother Breast cancer Heart disease Father Heart disease Myocardial infarction Denies family history of Pancreatic cancer Ovarian cancer Prostate cancer Colorectal cancer Social History Smoking Status: Former smoker Second Hand Exposure: No; Do You Dip or Chew Tobacco: No; Hx Alcohol Use: No Hx Substance Use: No Preferred Language: Swedish Communication Ability: Effective Visual Impairment: No Limitations Hearing Ability: Hard of Hearing Egg Crater Required: No Beliefs That Will Affect Care: None marital status: Current Living Situation: Other Current Living Situation Comment: with ex- current occupational status: employed current occupation: [employer] How many Children do You have: 0 Feels Safe at Home: Yes Safety Concerns: Feels Safe At This Time Childhood Exposure to Second-Hand Smoke: Yes Diet: regular caffeine: No during the past year weight has: remained stable Physical Activity Frequency: Daily Seatbelt Use: always Sunscreen Use: No Assistive Devices: Glasses Review of Systems Review of Systems: All systems reviewed & are unremarkable except as noted in HPI & below Physical Exam Physical Exam: General- Not in distress Head- atraumatic Eyes- PERRL, EOMI. ENT- oropharynx clear Neck- supple, no JVD. Lungs- clear to auscultation no wheezing or crackles. Heart- regular rate and rhythm; no murmur, no gallop. Abdomen- normal bowel sounds, soft, nontender, no distension. Extremities- no pretibial edema, no erythema seen. Neuro- alert, oriented PERRL, no facial palsy; no dysarthria; moves extremities. Results & Data Results & Data Vital Signs (Past 12 Hours) Vital Signs Temp Pulse Resp BP Pulse Ox O2 Del Method 09/21/23 23:06 60 16 146/86 H 97 09/21/23 23:00 61 20 130/79 97 09/21/23 22:49 66 18 112/87 97 09/21/23 22:03 63 16 146/85 H 94 Room Air 09/21/23 21:31 95 Room Air 09/21/23 21:30 65 95 Room Air 09/21/23 21:20 71 09/21/23 21:20 37.1 C 69 17 152/113 H 95 Room Air Diagnostic Findings Laboratory Results WBC 6.73 K/ul (4.8-10.8) 09/21/23 21:20 RBC 4.58 M/uL (4.70-6.10) L 09/21/23 21:20 Hgb 14.5 g/dl (14.0-18.0) 09/21/23 21:20 Hct 42.1 % (42.0-52.0) 09/21/23 21:20 MCV 91.9 fL (80.0-100.0) 09/21/23 21:20 MCH 31.7 pg (25.0-34.0) 09/21/23 21:20 MCHC 34.4 g/dL (32.0-36.0) 09/21/23 21:20 RDW Std Deviation 41.9 fL (36.4-46.3) 09/21/23 21:20 RDW Coeff of [place] 12.5 % (11.5-14.5) 09/21/23 21:20 Plt Count 201 K/uL (130-400) 09/21/23 21:20 MPV 9.7 fL (9.4-12.4) 09/21/23 21:20 Immature Gran % (Auto) 0.1 % 09/21/23 21:20 Neut % (Auto) 57.6 % 09/21/23 21:20 Lymph % (Auto) 30.9 % 09/21/23 21:20 [place] % (Auto) 8.3 % 09/21/23 21:20 Eos % (Auto) 2.2 % 09/21/23 21:20 Baso % (Auto) 0.9 % 09/21/23 21:20 Neut # (Auto) 3.87 K/uL (1.40-6.50) 09/21/23 21:20 Lymph # (Auto) 2.08 K/uL (1.20-3.40) 09/21/23 21:20 [place] # (Auto) 0.56 K/uL (0.11-0.59) 09/21/23 21:20 Eos # (Auto) 0.15 K/uL (0.00-0.50) 09/21/23 21:20 Baso # (Auto) 0.06 K/uL (0.00-0.20) 09/21/23 21:20 Immature Gran # (Auto) 0.01 K/uL (0.01-0.20) 09/21/23 21:20 PT 10.6 Seconds (9.0-12.0) 09/21/23 21:20 INR 1.0 (0.9-1.1) 09/21/23 21:20 APTT 27 Seconds (21-31) 09/21/23 21:20 PTT Ratio 1.0 09/21/23 21:20 Sodium 136 mmol/L (136-145) 09/21/23 21:20 Potassium 3.4 mmol/L (3.5-5.1) L 09/21/23 21:20 Chloride 107 mmol/L (98-107) 09/21/23 21:20 Carbon Dioxide 24 mmol/L (21-32) 09/21/23 21:20 Anion Gap 5 (3-11) 09/21/23 21:20 BUN 13 mg/dl (6-23) 09/21/23 21:20 Creatinine 0.81 mg/dl (0.6-1.4) 09/21/23 21:20 Est Cr Clr Drug Dosing 87.0 ml/min 09/21/23 21:20 Est GFR ( Amer) 105.8 ml/min 09/21/23 21:20 Est GFR (Non-Af Amer) 91.3 ml/min 09/21/23 21:20 BUN/Creatinine Ratio 16.0 (10-20) 09/21/23 21:20 Glucose 133 mg/dl (70-99(Fasting)) H 09/21/23 21:20 Calcium 9.2 mg/dl (8.6-10.3) 09/21/23 21:20 Total Bilirubin 0.7 mg/dl (0.2-1.0) 09/21/23 21:20 AST 22 U/L (13-39) 09/21/23 21:20 ALT 17 U/L (7-52) 09/21/23 21:20 Alkaline Phosphatase 58 U/L (34-104) 09/21/23 21:20 Troponin I High Sens 143.2 pg/ml (0-20) H* 09/21/23 23:10 Total Protein 6.7 gm/dl (6.0-8.3) 09/21/23 21:20 Albumin 4.2 gm/dl (3.4-5.0) 09/21/23 21:20 Globulin 2.5 gm/dl (2.5-4.0) 09/21/23 21:20 Albumin/Globulin Ratio 1.7 (0.9-2) 09/21/23 21:20 Lipase 33 U/L (11-82) 09/21/23 21:20 SARS-CoV-2 (PCR) NEGATIVE (Negative) 09/21/23 21:32 Influenza Type A (PCR) Negative (Neg) 09/21/23 21:32 Influenza Type B (PCR) Negative (Neg) 09/21/23 21:32 RSV (RT-PCR) Negative (Neg) 09/21/23 21:32 ECG Additional Comments: ECG. Sinus bradycardia with first-degree AV block at rate of 58. Q waves i n inferior leads seen. QTc 441. Code Status & VTE Plan VTE Prophylaxis Plan VTE Prophylaxis will be ordered: Yes
[2023-09-22] MEDS ORDERED: NITROGLYCERIN SL 0.4 MG/TAB TAB SL PRN (00:02)
[2023-09-22] MEDS ORDERED: ACETAMINOPHEN 325 MG TAB PO PRN (00:02)
[2023-09-22] MEDS ORDERED: ALBUTEROL HFA 8 GM INHALER INH PRN (00:02)
[2023-09-22] MEDS ORDERED: hydrOXYzine HCl 25 MG TAB PO PRN (00:02)
[2023-09-22 06:13] LABS: Basophils # (auto) 0.07 K/uL (0.00-0.20); Basophils % (auto) 0.9 %; Eosinophils # (auto) 0.09 K/uL (0.00-0.50); Eosinophils % (auto) 1.1 %; Hemoglobin 13.7 g/dl (14.0-18.0); Immature Granulocytes # (auto) 0.01 K/uL (0.01-0.20); Immature Granulocytes % (auto) 0.1 %; Lymphocytes # (auto) 2.51 K/uL (1.20-3.40); Lymphocytes % (auto) 31.7 %; Mean Corpuscular Hemoglobin 31.6 pg (25.0-34.0); Mean Corpuscular Hgb Conc 34.3 g/dL (32.0-36.0); Mean Corpuscular Volume 92.4 fL (80.0-100.0); Monocytes % (auto) 8.8 %; Neutrophils # (auto) 4.53 K/uL (1.40-6.50); Neutrophils % (auto) 57.4 %; Platelet Count 179 K/uL (130-400); RDW Coefficient of Variation 12.5 % (11.5-14.5); RDW Standard Deviation 42.5 fL (36.4-46.3); Red Blood Count 4.33 M/uL (4.70-6.10); White Blood Count 7.91 K/ul (4.8-10.8)
[2023-09-22 06:32] LABS: ANTI-Xa, UFH(UnfractionatedHep 0.29 IU/ml (0.3-0.7)
[2023-09-22 06:44] LABS: BUN Creatinine Ratio 15.4 (10-20); Calcium 8.6 mg/dl (8.6-10.3); Creatinine Clr Calc Pharmacy 86.5 ml/min; Est GFR (African American) 107.5 ml/min; Est GFR (Non-African American) 92.8 ml/min; Magnesium 1.9 mg/dl (1.7-2.4); Potassium 3.8 mmol/L (3.5-5.1)
[2023-09-22 06:53] LABS: Troponin I High Sensitivity 407.1 pg/ml (0-20)
--- NOTE | 2023-09-22 07:50 | XRay Report ---
XR chest 1V portable CLINICAL HISTORY: Chest pain, nonspecific COMPARISON STUDY: Chest CT June 25, 2020. Chest radiograph November 15, 2021. FINDINGS: There are median sternotomy wires. No pneumothorax or pleural effusion is present. No conso lidation is identified to suggest pneumonia. Cardiomediastinal silhouette is stable. There is no evid ence for pulmonary edema. Mild left basilar opacity favors atelectasis. IMPRESSION: No acute cardiopulmonary findings. No change in appearance of the chest. ACT 112: Negative or not required by law. Electronically signed by: Prem Lee M.D. 09/22/2023 7:49 AM
--- NOTE | 2023-09-22 08:29 | Cardiology Consultation ---
Date of Consultation September 22, 2023 Assessment & Plan (1) Non-ST elevation AR (NSTEMI): (2) S/P CABG x 4: (3) Sinus bradycardia: Plan 68-year-old male history multivessel coronary disease status post coronary artery bypass grafting x 4 in 2016 presents with chest discomfort rest rating to his left arm. Elevated troponin suggestive of NSTEMI. Pain-free overnight. Bedside echocardiogram demonstrating inferior posterior wall motion abnormality which is chronic. No new regional wall motion abnormalities with preserved LV systolic function, no significant valvular pathology noted. Continue IV heparin, aspirin, isosorbide monohydrate, amlodipine, and high intensity statin therapy as ordered. Reduce carvedilol to 3.125 mg twice daily. Risk, benefits, alternatives to cardiac catheterization with coronary artery bypass angiography discussed. Patient agreeable to proceed. He may have a heart healthy diet today. N.p.o. except medications after midnight. Hold IV heparin at 6:30 AM. Urgent cardiac catheterization would be considered with any recurrent anginal symptoms at rest. I spent a total of 60 minutes on the date of service in preparation, delivery, and documentation of the care provided to this patient, excluding any time spent in the performance of separately billed services. History of Present Illness Reason for Consultation: NSTEMI Requesting Physician: Dr. Booth Attending Physician: Jose Alejandro MD History of Present Illness 68-year-old male presents emergency department with chest discomfort, left jaw discomfort and left arm numbness. Treated with sublingual nitroglycerin and full dose aspirin en route. Initially pain 9/10 down to 2/10 in the ER with medical treatment. IV heparin initiated. Pain-free overnight. Feeling well this morning. Denies recurrent chest pain or shortness of breath. Telemetry reveals sinus bradycardia in the 40s and 50s. Denies lightheadedness, dizziness, syncope, or near syncope. Past medical history: 1. Chronic complex coronary disease as listed above with NSTEMI 04/2016 s/p CABG x 4, 05/23/2016. -MENA-LAD, SVG-D1, SVG-OM3, SVG-PDA 2. History of prior inferior myocardial infarction (2003) 3. Abnormal nuclear with infarct of the inferior basal myocardium with no active ischemia per nuclear stress 07/2021. Preserved LV systolic function. 4. Dyslipidemia - tolerating atorvastatin 5. HTN 6. Former tobacco abuse 7. History of noncompliance with medications and follow-up appointments Allergies Allergy/AdvReac Type Severity Reaction Status Date / Time bee venom protein (honey bee) Allergy Intermediate EXTREME Verified 09/21/23 21:47 SWELLING codeine AdvReac Intermediate NAUSEA/VOMI Verified 09/21/23 21:47 TING enalapril AdvReac Intermediate COUGH Verified 09/21/23 21:47 morphine AdvReac Intermediate NAUSEA/VOMI Verified 09/21/23 21:47 TING Home Medications Medication Instructions Recorded Confirmed Type aspirin 81 mg tablet,delayed 81 mg PO QAM 06/02/19 09/21/23 History release losartan 50 mg tablet 50 mg PO BID #180 tabs 04/06/22 09/21/23 Rx albuterol sulfate 90 mcg/actuation 1 inh inhalation DIRECTED PRN 09/21/23 09/21/23 History aerosol inhaler (Proventil HFA) Shortness Of Breath Or Wheezing amlodipine 5 mg tablet 5 mg PO QAM 09/21/23 09/21/23 History atorvastatin 80 mg tablet 80 mg PO QPM 09/21/23 09/21/23 History carvedilol 12.5 mg tablet 6.25 mg PO BID 09/21/23 09/21/23 History ciclopirox 8 % topical solution 1 applic topical DIRECTED 09/21/23 09/21/23 History clotrimazole-betamethasone 1 1 applic topical BID PRN Skin 09/21/23 09/21/23 History %-0.05 % topical cream Irritation cyanocobalamin (vitamin B-12) 1,000 mcg PO DAILY 09/21/23 09/21/23 History 1,000 mcg tablet (Vitamin B-12) ezetimibe 10 mg tablet 10 mg PO QAM 09/21/23 09/21/23 History furosemide 20 mg tablet 20 mg PO DAILY PRN Fluid Retention 09/21/23 09/21/23 History hydrochlorothiazide 25 mg tablet 25 mg PO QAM 09/21/23 09/21/23 History hydroxyzine HCl 50 mg tablet 50 mg PO DIRECTED PRN FLYING 09/21/23 09/21/23 History ANXIETY isosorbide mononitrate 60 mg 60 mg PO QAM 09/21/23 09/21/23 History tablet,extended release 24 hr loratadine 10 mg tablet (Claritin) 10 mg PO DAILY 09/21/23 09/21/23 History nitroglycerin 0.4 mg sublingual 0.4 mg sublingual DIRECTED PRN 09/21/23 09/21/23 History tablet Chest Pain Patient History Medical History BPH (benign prostatic hyperplasia) CAD (coronary artery disease) 8 stents prior to 2012. S/p 4 vessel CABG 2016 "2003 - inferior wall AR, s/p PCI and stenting to RCA 12/2012 - NSTEMI, s/p BMS to left cx" COPD, mild Decreased vision Depression Dyslipidemia GERD (gastroesophageal reflux disease) HTN (hypertension) Hx of pancreatitis 2020, no issues since Lipoma of small intestine duodenal lipoma Myocardial Infarction 2003 Surgical History History of carpal tunnel surgery RT History of cataract surgery History of colonoscopy History of heart artery stent STENTS PLACED TOTAL 8 (BEFORE 2012) [facility] of [facility]2016[facility], SVG-D1, SVG-OM3, SVG-PDA) History of tooth extraction Hx laparoscopic cholecystectomy (10/02/19) Laparoscopic Cholecystectomy Dr. Acharya 10/09/2019 Family History Mother Breast cancer Heart disease Father Heart disease Myocardial infarction Denies family history of Pancreatic cancer Ovarian cancer Prostate cancer Colorectal cancer Social History Smoking Status: Former smoker Second Hand Exposure: No; Do You Dip or Chew Tobacco: No; Hx Alcohol Use: No Hx Substance Use: No Preferred Language: French Communication Ability: Effective Visual Impairment: No Limitations Hearing Ability: Hard of Hearing Helicopter Officer Required: No Beliefs That Will Affect Care: None marital status: Current Living Situation: Other Current Living Situation Comment: with ex- current occupational status: employed current occupation: [employer] How many Children do You have: 0 Feels Safe at Home: Yes Safety Concerns: Feels Safe At This Time Childhood Exposure to Second-Hand Smoke: Yes Diet: regular caffeine: No during the past year weight has: remained stable Physical Activity Frequency: Daily Seatbelt Use: always Sunscreen Use: No Assistive Devices: Glasses Review of Systems Review of Systems: All systems reviewed & are unremarkable except as noted in Subjective Physical Exam Constitutional: well nourished; no acute distress and not ill appearing Respiratory: no respiratory distress, no labored breathing and no retractions Auscultation: no crackles, no rales, no rhonchi and no wheezes Cardiovascular: Rate/Rhythm: regular rate and regular rhythm Heart Sounds: normal S1 and normal S2; no murmur Vessels: no JVD and no carotid bruit Extremities: no edema Gastrointestinal (Abdomen): Inspection/Auscultation: abdomen normal to inspection and normal bowel sounds; abdomen not distended Percussion/Palpation: abdomen soft; abdomen nontender, no guarding and abdomen not rigid Neurologic: CN's II-XI intact bilaterally and moves all extremities Results & Data Vital Signs (Past 12 Hours) Vital Signs Temp Pulse Pulse Resp BP BP Pulse Ox 09/22/23 07:51 36.4 C L 52 L 16 131/72 96 09/22/23 07:00 52 L 09/22/23 03:05 36.4 C L 63 16 128/73 96 09/22/23 00:50 58 L 09/22/23 00:00 36.4 C L 59 L 18 147/81 H 96 09/21/23 23:51 36.4 C L 59 L 18 147/81 H 96 09/21/23 23:45 36.4 C L 59 L 18 147/81 H 96 09/21/23 23:06 60 16 146/86 H 97 09/21/23 23:00 61 20 130/79 97 09/21/23 22:49 66 18 112/87 97 09/21/23 22:03 63 16 146/85 H 94 09/21/23 21:31 95 09/21/23 21:30 65 95 09/21/23 21:20 71 09/21/23 21:20 37.1 C 69 17 152/113 H 95 O2 Del Method 09/22/23 07:51 Room Air 09/22/23 07:00 09/22/23 03:05 Room Air 09/22/23 00:50 09/22/23 00:00 Room Air 09/21/23 23:51 Room Air 09/21/23 23:45 Room Air 09/21/23 23:06 09/21/23 23:00 09/21/23 22:49 09/21/23 22:03 Room Air 09/21/23 21:31 Room Air 09/21/23 21:30 Room Air 09/21/23 21:20 09/21/23 21:20 Room Air Laboratory Results Cardiac Enzymes 09/21/23 09/21/23 09/22/23 Range/Units 21:20 23:10 05:37 AST 22 (13-39) U/L Troponin I High Sens 119.4 H* 143.2 H* 407.1 H* D (0-20) pg/ml Coagulation 09/21/23 Range/Units 21:20 PT 10.6 (9.0-12.0) Seconds APTT 27 (21-31) Seconds CBC 09/21/23 09/22/23 Range/Units 21:20 05:37 WBC 6.73 7.91 (4.8-10.8) K/ul RBC 4.58 L 4.33 L (4.70-6.10) M/uL Hgb 14.5 13.7 L (14.0-18.0) g/dl Hct 42.1 40.0 L (42.0-52.0) % Plt Count 201 179 (130-400) K/uL Neut # (Auto) 3.87 4.53 (1.40-6.50) K/uL Lymph # (Auto) 2.08 2.51 (1.20-3.40) K/uL [place] # (Auto) 0.56 0.70 H (0.11-0.59) K/uL Eos # (Auto) 0.15 0.09 (0.00-0.50) K/uL Baso # (Auto) 0.06 0.07 (0.00-0.20) K/uL Comprehensive Metabolic Panel 09/21/23 09/22/23 Range/Units 21:20 05:37 Sodium 136 139 (136-145) mmol/L Potassium 3.4 L 3.8 (3.5-5.1) mmol/L Chloride 107 109 H (98-107) mmol/L Carbon Dioxide 24 26 (21-32) mmol/L BUN 13 12 (6-23) mg/dl Creatinine 0.81 0.78 (0.6-1.4) mg/dl Glucose 133 H 94 (70-99(Fasting)) mg/dl Calcium 9.2 8.6 (8.6-10.3) mg/dl AST 22 (13-39) U/L ALT 17 (7-52) U/L Alkaline Phosphatase 58 (34-104) U/L Total Protein 6.7 (6.0-8.3) gm/dl Albumin 4.2 (3.4-5.0) gm/dl Intake and Output 09/21/23 09/22/23 09/22/23 22:59 06:59 14:59 Intake Total 139.117 / 139.117 50 / 50 Output Total 675 / 675 400 / 400 Balance -535.883 / -535.883 -350 / -350 Intake: IV 139.117 / 139.117 Heparin Sodium/Dextrose 25,000 139.117 / 139.117 units In 500 ml @ 900 UNITS/HR 18 mls/hr IV .Q24H [facility] Rx#: [id number] Oral 50 / 50 Output: Urine 675 / 675 400 / 400 Other: Other Intake Source sips Weight 90.9 kg 86.7 kg Weight Measurement Method Built in [facility] Built in [facility] Diagnostic Findings 2D echocardiogram report 05/12/2023: The qualitative LV ejection fraction is 55-59% (normal). The LV wall thickness is mildly increased (concentric). There is a small sized inferior wall motion abnormality with hypokinesis to akinesis of the segments. There is a small sized inferior scar. Mild mitral regurgitation is present. The aortic root is mildly enlarged. Compared to prior study of 12/14/2021, there is no significant change. Lexiscan nuclear stress test report 07/26/21: Gated analysis reveals hypokinesis of the inferior basilar myocardium with an estimated left ventricular ejection fraction of around 41%. Overall this pharmacologic nuclear stress test reveals an infarct of the inferior basilar myocardium and no active ischemia. These findings are most consistent with the distribution of the right coronary or left circumflex arteries. ECG Additional Comments: ECG: Sinus bradycardia with first-degree AV block, age-indeterminate inferior infarct. No change when compared to previous.
[2023-09-22] MEDS: amLODIPine BESYLATE 5 MG TAB PO SCH (08:49)
[2023-09-22] MEDS: hydroCHLOROthiazide 25 MG TAB PO SCH (08:49)
[2023-09-22] MEDS: ASPIRIN 81 MG ECTAB PO SCH (08:49)
[2023-09-22] MEDS: ISOSORBIDE MONO EXTENDED REL 60 MG TABCR PO SCH (08:49)
[2023-09-22] MEDS: LOSARTAN POTASSIUM 50 MG TAB PO SCH (08:49)
[2023-09-22] MEDS: LORATADINE 10 MG TAB PO SCH (08:49)
[2023-09-22] MEDS: CYANOCOBALAMIN (B-12) 500 MCG TABLET PO SCH (08:49)
[2023-09-22] MEDS: POTASSIUM CHLORIDE CRTAB 20 MEQ TABCR PO ONE (08:49)
[2023-09-22] MEDS: EZETIMIBE 10 MG TAB PO SCH (08:50)
[2023-09-22] MEDS: carvediloL 6.25 MG TAB PO SCH (08:50)
[2023-09-22] MEDS ORDERED: Nursing to Pharmacy Communication SCH (10:45)
[2023-09-22 12:30] LABS: ANTI-Xa, UFH(UnfractionatedHep 0.24 IU/ml (0.3-0.7)
--- NOTE | 2023-09-22 12:51 | Hospitalist Progress Note ---
Date of Service September 22, 2023 Assessment & Plan (1) Non-ST elevation [place] (NSTEMI): Plan: 68-year-old male with past medical history significant for CAD s/p CABG, hypertension, COPD, hyperlipidemia, PACs, paroxysmal supraventricular tachycardia, GERD, BPH, comes with chest pain. Patient states he gets on and off left jaw numbness. On and off chest pains. But today in the evening when patient was sitting noticed left-sided chest pain 5/10 in severity with numbness in the left upper extremity and numbness in the jaw and was more significant than his usual symptoms.. Took nitro and an aspirin and routine EMS gave 2 nitros. Currently chest pain is resolved. He has some mild dizziness. Currently no nausea. No shortness of breath. No headache. Vision is okay. No runny nose or sore throat. No cough. No abdominal pain. Normal bowel and bladder movements. Non-ST elevated [place] H/O CAD S/P CABG in 2017, H/O [place] 2004 --CXR:No acute cardiopulmonary findings. No change in appearance of the chest. --ECHO: EF 55 to 60%. Moderate size basal septal, inferior, posterior wall motion abnormality with hypokinesis to akinesis of the segments. Mild concentric LVH. Mild mitral regurgitation. Mild aortic root dilatation. Grade 1 diastolic dysfunction. Compared to prior echo in June 2023, no significant change. -- Troponin elevated --EKG: No ST elevation --Continue aspirin, statin, beta-jerrod, isosorbide --Continue IV heparin Appreciate cardiology input N.p.o. after midnight for cardiac cath tomorrow Hypokalemia Replace and monitor Hyperlipidemia Continue statin, Zetia Hypertension Continue amlodipine, Coreg Also on Imdur, losartan Hold HCTZ/Lasix for now H/O Paroxysmal supraventricular tachycardia Continue carvedilol COPD H/O Tobacco abuse Continue inhalers DVT Px: IV heparin Code Status Full code Admission and Anticipated Discharge Date Admission Date: September 21, 2023 Subjective Patient is seen and examined at bedside Chest/jaw pain resolved Offers no new complaints today Denies any dyspnea, nausea, vomiting, abdominal pain Discussed with cardiology today On IV heparin currently Review of Systems Review of Systems: All systems reviewed & are unremarkable except as noted in Subjective Physical Exam Physical Exam: Physical Exam: Vitals signs as noted above General Appearance:Moderately built and nourished, no apparent distress Head: normocephalic, Atraumatic Eyes: normal inspection, EOMI Neck: supple, Trachea midline Respiratory/Chest: Normal breath sounds, CTA, No accessory muscle use Cardiovascular: S1, S2, No murmur Abdomen/GI:Soft, Non tender, Bowel sounds present Extremities/Musculoskeletal:normal inspection, no edema Neurologic/Psych:AAOX3, grossly no focal neurological deficits Skin: normal color, warm Results & Data Results & Data Vital Signs (Past 12 Hours) Vital Signs Temp Pulse Pulse Pulse Resp BP Pulse Ox 09/22/23 11:50 36.6 C 58 L 15 109/67 94 09/22/23 08:50 47 L 09/22/23 07:51 36.4 C L 52 L 16 131/72 96 09/22/23 07:00 52 L 09/22/23 03:05 36.4 C L 63 16 128/73 96 09/22/23 00:50 58 L O2 Del Method 09/22/23 11:50 Room Air 09/22/23 08:50 09/22/23 07:51 Room Air 09/22/23 07:00 09/22/23 03:05 Room Air 09/22/23 00:50 Laboratory Results Short CBC 09/21/23 09/22/23 Range/Units 21:20 05:37 WBC 6.73 7.91 (4.8-10.8) K/ul Hgb 14.5 13.7 L (14.0-18.0) g/dl Hct 42.1 40.0 L (42.0-52.0) % Plt Count 201 179 (130-400) K/uL BMP 09/21/23 09/22/23 21:20 05:37 Sodium 136 139 Potassium 3.4 L 3.8 Chloride 107 109 H Carbon Dioxide 24 26 BUN 13 12 Creatinine 0.81 0.78 Glucose 133 H 94 Calcium 9.2 8.6 Liver Function 09/21/23 Range/Units 21:20 Total Bilirubin 0.7 (0.2-1.0) mg/dl AST 22 (13-39) U/L ALT 17 (7-52) U/L Alkaline Phosphatase 58 (34-104) U/L Albumin 4.2 (3.4-5.0) gm/dl
--- NOTE | 2023-09-22 14:16 | Electrocardiogram Report ---
Test Reason : Blood Pressure : / mmHG Vent. Rate : 069 BPM Atrial Rate : 069 BPM P-R Int : 210 ms QRS Dur : 114 ms QT Int : 408 ms P-R-T Axes : 051 -20 -14 degrees QTc Int : 437 ms Sinus rhythm with 1st degree A-V block with occasional Premature ventricular complexes Minimal voltage criteria for LVH, may be normal variant ( [place] product ) Inferior infarct (cited on or before 18-FEB-2008) Abnormal ECG When compared with ECG of 30-APR-2023 07:46, No significant change was found Confirmed by Jesus Sahni ([id number]) on 09/22/2023 2:15:41 PM Referred By: REFERRED SELF Confirmed By:Jesus Sahni
--- NOTE | 2023-09-22 14:19 | Electrocardiogram Report ---
Test Reason : Blood Pressure : / mmHG Vent. Rate : 058 BPM Atrial Rate : 058 BPM P-R Int : 210 ms QRS Dur : 112 ms QT Int : 450 ms P-R-T Axes : 047 -22 -35 degrees QTc Int : 441 ms Sinus bradycardia with 1st degree A-V block Inferior infarct (cited on or before 18-FEB-2008) Abnormal ECG When compared with ECG of 21-SEP-2023 21:18, Premature ventricular complexes are no longer Present Confirmed by Jesus Sahni ([id number]) on 09/22/2023 2:18:53 PM Referred By: REFERRED SELF Confirmed By:Jesus Sahni
--- NOTE | 2023-09-22 14:21 | Electrocardiogram Report ---
Test Reason : Blood Pressure : / mmHG Vent. Rate : 054 BPM Atrial Rate : 054 BPM P-R Int : 228 ms QRS Dur : 112 ms QT Int : 464 ms P-R-T Axes : 055 -20 -23 degrees QTc Int : 440 ms Sinus bradycardia with 1st degree A-V block Inferior infarct (cited on or before 18-FEB-2008) Abnormal ECG When compared with ECG of 22-SEP-2023 00:08, No significant change was found Confirmed by Jesus Sahni ([id number]) on 09/22/2023 2:20:58 PM Referred By: REFERRED SELF Confirmed By:Jesus Sahni
[2023-09-22 18:36] LABS: ANTI-Xa, UFH(UnfractionatedHep 0.25 IU/ml (0.3-0.7)
[2023-09-22] MEDS: ATORVASTATIN 40 MG TAB PO SCH (20:28)
[2023-09-23 02:04] LABS: ANTI-Xa, UFH(UnfractionatedHep 0.24 IU/ml (0.3-0.7)
[2023-09-23 06:55] LABS: Hematocrit (blood only) 42.1 % (42.0-52.0); Hemoglobin 14.8 g/dl (14.0-18.0); Mean Corpuscular Hemoglobin 32.2 pg (25.0-34.0); Mean Corpuscular Hgb Conc 35.2 g/dL (32.0-36.0); Mean Corpuscular Volume 91.7 fL (80.0-100.0); Mean Platelet Volume 9.8 fL (9.4-12.4); Platelet Count 189 K/uL (130-400); RDW Coefficient of Variation 12.5 % (11.5-14.5); RDW Standard Deviation 42.1 fL (36.4-46.3); Red Blood Count 4.59 M/uL (4.70-6.10); White Blood Count 7.99 K/ul (4.8-10.8)
[2023-09-23 08:11] LABS: ANTI-Xa, UFH(UnfractionatedHep < 0.10 IU/ml (0.3-0.7)
--- NOTE | 2023-09-23 08:42 | Pre Anesthesia Assessment ---
Date of Service September 23, 2023 Pre Sedation Assessment Vital Signs Temp Pulse Pulse Resp BP Pulse Ox O2 Del Method 09/23/23 09:06 59 L 09/23/23 08:36 62 16 135/87 97 Room Air 09/23/23 07:31 36.7 C 48 L 19 133/74 92 Room Air 09/23/23 04:14 36.8 C 64 18 143/82 H 96 Room Air 09/22/23 22:33 36.7 C 58 L 19 126/74 94 Room Air 09/22/23 21:43 65 09/22/23 19:49 36.8 C 66 18 128/70 95 Room Air 09/22/23 15:26 36.6 C 59 L 16 119/74 94 Room Air 09/22/23 13:00 58 L 09/22/23 11:50 36.6 C 58 L 15 109/67 94 Room Air Cardiovascular + regular rate and + regular rhythm + S1 normal and + S2 normal; no murmur no JVD and no carotid bruit no edema Respiratory + respiratory effort normal; no respiratory distress, no labored breathing and no retractions no crackles, no rales, no rhonchi and no wheezes Pre-Sedation Airway Assessment Smoking Status: Former smoker Mallampati Class: II ASA: ASA3 NPO Status Date of Last Intake of Fluids: 09/22/23 Date of Last Intake of Solid Food: 09/22/23 Procedure Planning Contraindications for Sedation: none Current Medications Reviewed: Yes Notes The planned sedation has been discussed with the patient. Informed Consent was obtained. I have identified the patient, determined the appropriateness of sedation and have assessed the patient immediately prior to the procedure. All medicine(s) and interventions are by my order.
[2023-09-23] MEDS: MIDAZOLAM HCL 1 MG/ML 2ML VIAL ONE ×2 (10:07→10:32)
--- NOTE | 2023-09-23 10:18 | Post Anesthesia Assessment ---
Date of Service September 23, 2023 Post Sedation Assessment Vital Signs Temp Pulse Pulse Resp BP Pulse Ox O2 Del Method 09/23/23 09:06 59 L 09/23/23 08:36 62 16 135/87 97 Room Air 09/23/23 07:31 36.7 C 48 L 19 133/74 92 Room Air 09/23/23 04:14 36.8 C 64 18 143/82 H 96 Room Air 09/22/23 22:33 36.7 C 58 L 19 126/74 94 Room Air 09/22/23 21:43 65 09/22/23 19:49 36.8 C 66 18 128/70 95 Room Air 09/22/23 15:26 36.6 C 59 L 16 119/74 94 Room Air 09/22/23 13:00 58 L 09/22/23 11:50 36.6 C 58 L 15 109/67 94 Room Air Recovery Score Activity: Moves 4 extremities Respiration: Deep Breath/Cough Circulation: +/-20% PreAnes Value Consciousness: Arouseable (by name) Oxygen Saturation: > 92% On Room Air Discharge Sedation Level of Care: Phase I Post Sedation Plan On clinical assessment, the patient appears to have tolerated the sedation without complications. Patient is recovering as anticipated. Patient will continue to be monitored by nursing and may be discharged when sedation discharge criteria are met per below protocol. Upon Completions of procedure up to 15 minutes continue every 5 minute vital signs and the P.A.R. score; then discharge to a Phase I or Fast Track to Phase II per the following guidelines: * Discharge Patient to appropriate Phase II area if PAR is 8 or greater or return to pre- procedure baseline. The post - procedure orders will be as directed. * If PAR score is less than 8 or not return to pre-procedure baseline then patient will follow Phase I monitoring till PAR is reached for Phase II. The Phase I may be done in procedure room or may call to secure a Phase I area. * If naloxone or flumazenil are used for reversal, hold in Phase I for continued monitoring from when last reversal dose was given for a minimum of 60 minutes or longer pending the nurse and/or physician discretion of patient condition before discharge to Phase II. Please call the Sedation Physician to re-evaluate and complete post-note for discharge to Phase II area. Do NOT discharge from procedure sedation or Phase 1 until post- sedation evaluation note is complete by procedure /sedation MD Sedation Discharge Instructions to be given to the patient at discharge to home.
--- NOTE | 2023-09-23 10:23 | Cardiac Catheterization ---
Cardiac Cath Procedure Full Procedure Date September 23, 2023 Pre-Procedure Diagnosis Pre-Procedure Diagnosis: Non STEMI and CAD AUC Score AUC Score: 8 Post-Procedure Diagnosis Post-Procedure Diagnosis: Severe CAD and Normal Intracardiac Pressures Procedure(s) Performed Procedure(s) Performed: Coronary Angiography, Left Heart Cath, Bypass Graft Angiography and Femoral Artery Angiography Chemical Strength Tester Quan Kimbrough DO Psychologist Engineering(s) Gertrudis RTR Estimated Blood Loss Estimated Blood Loss: 8cc Medication(s) Medication(s): Lidocaine 1% and Versed Summary of Findings 90% proximal SVG to OM3 Patent SVG to OM2 Patent SVG to RPDA Patent MENA to LAD 60% proximal, 80% mid LAD, distal vessel fills via competive flow from MENA 100% proximal Left circumflex. 100% mid RCA Hemodynamics Rest Ao:: 125/70/91 Final Ao: 139/70/95 LV: 143/1/6 Recommendations Recommendations: PCI without planned CABG Radiation Exposure (mGy) 1576 Contrast (mls) 130 Fluids (cc crystalloids) Fluids (cc crystalloids): 100 Nss Drains Drains: N/A Anesthesia Moderate sedation. Start 0910. End 1004. Sedation moniotr: Malena PHAM Procedural Complication(s) No apparent complications at the end of procedure. Disposition Patient remained in [employer] for PCI of SVG I attest to the content of the Intraoperative Record and any orders documented therein. Any exceptions are noted below. ACC Data: [employer] Cardiac Status Clinical evaluation leading to the procedure NSTEMI CAD Presenation: Non STEMI Anginal Classification: CCS IV Heart Failure: No Cardiogenic Shock within 24 Hours: No Cardiac Arrest within 24 Hours: No Imaging Studies Past 6 Months: Yes Stress Studies Past 6 Months: No STEMI OR Non-STEMI Symptom Onset Date: 09/21/23 Symptom Onset Time: 05:00 Thrombolytics: No Coronary Anatomy Dominant: Right Left Main (% Stenosis): Normal LAD (% Stenosis): Proximal (60%), Mid (diffusely diseased with up to 50% d stenosis followed by 80% stenosis) and Distal (luminal irregularities, 10%) D1 (% Stenosis): Mid (30%) and Distal (Diffuse luminal irregularities, 20%) D2 (% Stenosis): Ostial (70%, small vessel) Circumflex (% Stenosis): Proximal (100%) RCA (% Stenosis): Mid (100%) R PDA (% Stenosis): Mid (50%) Grafts - LAD (%): Normal Grafts - Circumflex (%): Proximal (90% SVG to OM3) and Normal (Patent SVG to OM2) Grafts - RCA (%): Normal (Patent SVG to RPDA) Diagnostic Physicians Name: Quan Kimbrough DO Closure Device Percutaneous Entry Location: Femoral Closure Device: Angio-Seal Recommendations: PCI without planned CABG Intraprocedure Events Significant Disection: No Perforation: No
[2023-09-23] MEDS: fentaNYL citrate PF 100 MCG/2 ML VIAL ONE (10:32)
[2023-09-23] MEDS: HEPARIN (PORCINE) 1000 UNIT/ML 10 ML (CATH LAB USE ONLY) ONE (10:32)
[2023-09-23] MEDS: OPTIRAY 350 ONE (10:33)
--- NOTE | 2023-09-23 10:43 | Post Anesthesia Assessment ---
Date of Service September 23, 2023 Post Sedation Assessment Vital Signs Temp Pulse Pulse Resp BP Pulse Ox O2 Del Method 09/23/23 09:06 59 L 09/23/23 08:36 62 16 135/87 97 Room Air 09/23/23 07:31 98.1 F 48 L 19 133/74 92 Room Air 09/23/23 04:14 98.2 F 64 18 143/82 H 96 Room Air 09/22/23 22:33 98.1 F 58 L 19 126/74 94 Room Air 09/22/23 21:43 65 09/22/23 19:49 98.2 F 66 18 128/70 95 Room Air 09/22/23 15:26 97.9 F 59 L 16 119/74 94 Room Air 09/22/23 13:00 58 L 09/22/23 11:50 97.9 F 58 L 15 109/67 94 Room Air Recovery Score Activity: Moves 4 extremities Respiration: Deep Breath/Cough Circulation: +/-20% PreAnes Value Consciousness: Arouseable (by name) Oxygen Saturation: > 92% On Room Air Discharge Sedation Level of Care: Fast Track Phase II Post Sedation Plan On clinical assessment, the patient appears to have tolerated the sedation without complications. Patient is recovering as anticipated. Patient will continue to be monitored by nursing and may be discharged when sedation discharge criteria are met per below protocol. Upon Completions of procedure up to 15 minutes continue every 5 minute vital signs and the P.A.R. score; then discharge to a Phase I or Fast Track to Phase II per the following guidelines: * Discharge Patient to appropriate Phase II area if PAR is 8 or greater or return to pre- procedure baseline. The post - procedure orders will be as directed. * If PAR score is less than 8 or not return to pre-procedure baseline then patient will follow Phase I monitoring till PAR is reached for Phase II. The Phase I may be done in procedure room or may call to secure a Phase I area. * If naloxone or flumazenil are used for reversal, hold in Phase I for continued monitoring from when last reversal dose was given for a minimum of 60 minutes or longer pending the nurse and/or physician discretion of patient condition before discharge to Phase II. Please call the Sedation Physician to re-evaluate and complete post-note for discharge to Phase II area. Do NOT discharge from procedure sedation or Phase 1 until post- sedation evaluation note is complete by procedure /sedation MD Sedation Discharge Instructions to be given to the patient at discharge to home.
--- NOTE | 2023-09-23 10:53 | Cardiac Catheterization ---
[facility] Data: Garage Helper Cardiac Status Clinical evaluation leading to the procedure CAD Presenation: Non STEMI Anginal Classification: CCS IV Diagnostic Physicians Name: Chang Das MD Closure Device Recommendations: PCI without planned CABG Cardiac Cath Procedure Full Procedure Date September 23, 2023 Pre-Procedure Diagnosis Pre-Procedure Diagnosis: Non STEMI and CAD AUC Score AUC Score: 8 Post-Procedure Diagnosis Post-Procedure Diagnosis: Severe CAD and Successful PCI Procedure(s) Performed Procedure(s) Performed: Coronary Angiography, Drug Eluting Stent and Bypass Graft Angiography Supervisor Word Processing Chang Das MD Stuffing Machine Operator(s) Gertrudis RTR Estimated Blood Loss Estimated Blood Loss: 20 Medication(s) Medication(s): Clopidogrel, Fentanyl, Heparin, Lidocaine 1%, Nicardipine, Nitroglycerin and Versed Summary of Findings Indication: NSTEMI Access: 6 Fr right ED TEACHER Catheters: JR4 guide Findings: For full details of patient's coronary angiography please see cath report dictated by Dr. Kimbrough. Briefly, patient found to have 90% stenosis in proximal vein graft to OM1. Decision to proceed with PCI. -- PCI -- Antithrombotic therapy: Heparin, clopidogrel Procedure: Vein graft cannulated with JR4 guide Pre-procedure flow JEAN 1-2 Beer Still Runner Compounder 50 wire passed across lesion into distal OM Proximal vein graft direct stented with 2.5 x 22 mm Marshall drug-eluting stent IC vasodilators administered for distal spasm Post procedure JEAN 3 flow, stent well expanded with minimal residual stenosis and no apparent cardiac complications. Arterial Closure: Angio-Seal Summary: 1. Successful PCI of proximal vein graft to OM1 with single drug-eluting stent (2.5 x 22 mm Marshall). Recommendations: To PCU for continued monitoring Loaded with clopidogrel 600 mg in Garage [employer] Continue dual-antiplatelet therapy for at least 1 year Continue statin, and ASCVD risk factor modification Consult cardiac Rehab Hemodynamics Rest Ao:: 138/74/117 Final Ao: 136/73/100 LV: -- Recommendations Recommendations: PCI without planned CABG Specimens Specimens: None Radiation Exposure (mGy) 1895 Contrast (mls) 160 total Drains Drains: N/A Anesthesia Moderate sedation. Start 1015. End 1032. Sedation moniotr: Malena PHAM Procedural Complication(s) None Disposition PCU I attest to the content of the Intraoperative Record and any orders documented therein. Any exceptions are noted below. [facility] Card Cath Procedure Codes Moderate Sedation Procedure 1: Sedation/Anesthesia: 05465 Mod Sedation by the same physician; Ea [id number] Minutes Stenting Procedure 1: Cardiovascular Stent Procedures: 00492 Perc tranluminal revascularization of or throughout CABG PG Care Time/CCT Total # of Minutes Spent Total Time Spent with Patient: Total time spent is greater than 50% in coordination of care (as documented) at patient's floor/unit and/or counseling patient:
[2023-09-23] MEDS: CLOPIDOGREL BISULFATE 300 MG TAB ONE (10:56)
[2023-09-23] MEDS: NITROGLYCERIN/D5W 100MCG/ML 20ML SYR ONE (10:57)
[2023-09-23] MEDS: niCARdipine HCL INJ 2.5 MG/ML 10 ML AMP ONE (10:58)
[2023-09-23 10:59] LABS: Troponin I High Sensitivity 618.9 pg/ml (0-20)
[2023-09-23 11:06] LABS: BUN Creatinine Ratio 15.3 (10-20); Calcium 8.8 mg/dl (8.6-10.3); Creatinine Clr Calc Pharmacy 78.8 ml/min; Est GFR (African American) 103.8 ml/min; Est GFR (Non-African American) 89.5 ml/min; Potassium 3.7 mmol/L (3.5-5.1)
[2023-09-23] MEDS: SODIUM CHLORIDE 0.9% 1,000 ML IV SCH ×2 (11:27→21:53)
[2023-09-23] MEDS: ONDANSETRON INJ 2 MG/ML 2 ML VIAL IV PRN (11:30)
--- NOTE | 2023-09-23 15:13 | Hospitalist Progress Note ---
Date of Service September 23, 2023 Assessment & Plan (1) Non-ST elevation [place] (NSTEMI): Plan: 68-year-old male with past medical history significant for CAD s/p CABG, hypertension, COPD, hyperlipidemia, PACs, paroxysmal supraventricular tachycardia, GERD, BPH, comes with chest pain. Patient states he gets on and off left jaw numbness. On and off chest pains. But today in the evening when patient was sitting noticed left-sided chest pain 5/10 in severity with numbness in the left upper extremity and numbness in the jaw and was more significant than his usual symptoms.. Took nitro and an aspirin and routine EMS gave 2 nitros. Currently chest pain is resolved. He has some mild dizziness. Currently no nausea. No shortness of breath. No headache. Vision is okay. No runny nose or sore throat. No cough. No abdominal pain. Normal bowel and bladder movements. Non-ST elevated [place] H/O CAD S/P CABG in 2017, H/O [place] 2004 --CXR:No acute cardiopulmonary findings. No change in appearance of the chest. --ECHO: EF 55 to 60%. Moderate size basal septal, inferior, posterior wall motion abnormality with hypokinesis to akinesis of the segments. Mild concentric LVH. Mild mitral regurgitation. Mild aortic root dilatation. Grade 1 diastolic dysfunction. Compared to prior echo in June 2023, no significant change. -- Troponin elevated --EKG: No ST elevation --S/P Successful PCI of proximal vein graft to OM1 with single drug-eluting stent by Dr. Das on 09/23/2023 --Continue aspirin, statin, beta-jerrod, isosorbide -- IV heparin discontinued Appreciate cardiology input Started on Plavix 75 mg daily Needs follow-up with cardiology on discharge Hypokalemia Replace and monitor Hyperlipidemia Continue statin, Zetia Hypertension Continue amlodipine, Coreg Also on Imdur, losartan Hold HCTZ/Lasix for now H/O Paroxysmal supraventricular tachycardia Continue carvedilol COPD H/O Tobacco abuse Continue inhalers DVT Px: IV heparin DCed Heparin SQ Code Status Full code Admission and Anticipated Discharge Date Admission Date: September 21, 2023 Subjective Patient is seen and examined at bedside Had cardiac catheterization this morning Transient nausea post cath Feels well during my encounter Denies any chest pain, dyspnea, nausea, vomiting, abdominal pain Review of Systems Review of Systems: All systems reviewed & are unremarkable except as noted in Subjective Physical Exam Physical Exam: Physical Exam: Vitals signs as noted above General Appearance:Moderately built and nourished, no apparent distress Head: normocephalic, Atraumatic Eyes: normal inspection, EOMI Neck: supple, Trachea midline Respiratory/Chest: Normal breath sounds, CTA, No accessory muscle use Cardiovascular: S1, S2, No murmur Abdomen/GI:Soft, Non tender, Bowel sounds present Extremities/Musculoskeletal:normal inspection, no edema Neurologic/Psych:AAOX3, grossly no focal neurological deficits Skin: normal color, warm Results & Data Results & Data Vital Signs (Past 12 Hours) Vital Signs Temp Pulse Pulse Pulse Resp BP BP 09/23/23 15:05 36.4 C L 57 L 18 122/68 09/23/23 12:20 57 L 20 114/68 09/23/23 12:05 56 L 18 117/70 09/23/23 11:50 56 L 18 132/75 09/23/23 11:35 49 L 18 146/80 H 09/23/23 11:22 36.6 C 48 L 19 150/75 H 09/23/23 10:59 54 L 16 120/79 09/23/23 10:44 52 L 16 120/75 09/23/23 09:06 59 L 09/23/23 08:36 62 16 135/87 09/23/23 07:31 36.7 C 48 L 19 133/74 09/23/23 04:14 36.8 C 64 18 143/82 H Pulse Ox O2 Del Method 09/23/23 15:05 95 Room Air 09/23/23 12:20 96 Room Air 09/23/23 12:05 93 Room Air 09/23/23 11:50 95 Room Air 09/23/23 11:35 94 Room Air 09/23/23 11:22 94 Room Air 09/23/23 10:59 94 Room Air 09/23/23 10:44 94 Room Air 09/23/23 09:06 09/23/23 08:36 97 Room Air 09/23/23 07:31 92 Room Air 09/23/23 04:14 96 Room Air Laboratory Results Short CBC 09/23/23 09/23/23 Range/Units 01:20 06:22 WBC Cancelled 7.99 Hgb Cancelled 14.8 Hct Cancelled 42.1 Plt Count Cancelled 189 BMP 09/23/23 09/23/23 01:20 06:22 Sodium Cancelled 137 Potassium Cancelled 3.7 Chloride Cancelled 105 Carbon Dioxide Cancelled 27 BUN Cancelled 13 Creatinine Cancelled 0.85 Glucose Cancelled 101 H Calcium Cancelled 8.8
--- NOTE | 2023-09-23 17:00 | CT Scan Report ---
CT head/brain wo con CLINICAL HISTORY: Altered mental status post Cardiac Cath Technique: Contiguous axial CT images of the head were acquired from the base of the skull to the dilshad mahad without intravenous contrast administration. Images were viewed in brain, subdural and [facility]. Automated dose lowering techniques and/or adjustment according to patient size were utilized for this exam. Comparison: Comparison is made to CT head 01/28/2020 Findings: The ventricles, basal cisterns, and cerebral sulci are normal. There is no acute intracranial hemorrh age or evidence of acute territorial infarction. Neither mass effect, shift of the midline structures , nor abnormal extra-axial fluid collections are shown. Imaged portions of the paranasal sinuses and mastoid air cells are clear. The orbits appear normal. There are no acute fractures of the calvaria or scalp swelling. Impression: No acute intracranial hemorrhage, no evidence of acute territorial infarction or other acute intracra nial disease process. ACT 112: Negative or not required by law. Electronically signed by: Reggie Montez M.D. 09/23/2023 4:59 PM
[2023-09-23] MEDS: HEPARIN SOD 5,000 UNIT/0.5 ML VIAL SQ SCH (20:20)
[2023-09-23] MEDS: OPTIRAY 320 125ml IV ONE (22:16)
[2023-09-23] MEDS: LORazepam 0.25 MG in SYRINGE 0.125 ML IV STA (22:58)
--- NOTE | 2023-09-24 00:36 | Magnetic Resonance Report ---
Exam(s): MRI HEAD Without Contrast EXAM: MR Head Without Intravenous Contrast CLINICAL HISTORY: word finding difficulty. CVA?. TECHNIQUE: Magnetic resonance images of the head/brain without intravenous contrast in multiple planes. COMPARISON: CT head 09/23/2023 FINDINGS: Limited examination due to claustrophobia. 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 Generalized age-appropriate central and peripheral atrophy. No hydrocephalus. No midline shift. No evidence for acute hemorrhage or abnormal extra-axial fluid collection. Foramen magnum is unremarkable. IMPRESSION: Limited examination due to claustrophobia. 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 Communications: Call Doctor Stroke Electronically signed by: Vinny Fontenot M.D. 09/24/23 00:35 AM
--- NOTE | 2023-09-24 00:41 | CT Scan Report ---
Exam(s): CTA HEAD With Contrast IV Amt: 118 ml opti 320 EXAM: CT Angiography Head With Intravenous Contrast CLINICAL HISTORY: Reason for exam: cva?. TECHNIQUE: Axial computed tomographic angiography images of the head with intravenous contrast. CTDI is 24 mGy and DLP is 466 mGy-cm. Automated exposure control was utilized for the study. A dose lowering technique was utilized adhering to the principles of ALARA. 3D and MIP reconstructed images were created and reviewed. CONTRAST: Patient received 118 ml opti 320 of IV contrast COMPARISON: CT head, MRI head 09/23/2023. FINDINGS: Right internal carotid artery: No acute abnormality. Intracranial segment is patent with no significant stenosis. No aneurysm. Right anterior cerebral artery: Unremarkable. No occlusion or significant stenosis. No aneurysm. Right middle cerebral artery: No large vessel occlusion involving the M1 segment. Attenuated distal trifurcation branches with narrowing and occlusion of a branch within the anterior medial sylvian fissure. No aneurysm. Right posterior cerebral artery: Unremarkable. No occlusion or significant stenosis. No aneurysm. Right vertebral artery: Unremarkable as visualized. Left internal carotid artery: No acute abnormality. Intracranial segment is patent with no significant stenosis. No aneurysm. Left anterior cerebral artery: Unremarkable. No occlusion or significant stenosis. No aneurysm. Left middle cerebral artery: Unremarkable. No occlusion or significant stenosis. No aneurysm. Left posterior cerebral artery: Unremarkable. No occlusion or significant stenosis. No aneurysm. Left vertebral artery: Unremarkable as visualized. Basilar artery: Unremarkable. No occlusion or significant stenosis. No aneurysm. IMPRESSION: No large vessel occlusion. Attenuated left middle cerebral artery distal trifurcation branches with narrowing and occlusion of a branch within the anterior medial sylvian fissure, corresponding to the acute left temporal-parietal infarct seen on CT and MRI. Electronically signed by: Vinny Fontenot M.D. 09/24/23 00:40 AM
--- NOTE | 2023-09-24 00:48 | CT Scan Report ---
Exam(s): CTA NECK With Contrast IV Amt: 118 cc opti 320 EXAM: CT Angiography Neck With Intravenous Contrast CLINICAL HISTORY: Reason for exam: cva?. TECHNIQUE: Routine carotid CT angiography protocol was performed with intravenous contrast. NASCET criteria using the distal ICAs for comparison were used for evaluation of stenoses. CTDI is 24 mGy and DLP is 466 mGy-cm. Automated exposure control was utilized for the study. A dose lowering technique was utilized adhering to the principles of ALARA. 3D and MIP reconstructed images were created and reviewed. CONTRAST: Patient received 118 cc opti 320 of IV contrast COMPARISON: None. FINDINGS: VASCULATURE: Study is limited by patient motion. Right common carotid artery: Unremarkable. No occlusion or significant stenosis. No dissection. Right internal carotid artery: Unremarkable. Extracranial segment is patent with no occlusion or significant stenosis. No dissection. Right external carotid artery: Unremarkable. No occlusion. Right vertebral artery: Unremarkable. No occlusion or significant stenosis. No dissection. Left common carotid artery: Unremarkable. No occlusion or significant stenosis. No dissection. Left internal carotid artery: Minimal calcified plaque at the left carotid bulb without a hemodynamically significant stenosis. No dissection. Left external carotid artery: Unremarkable. No occlusion. Left vertebral artery: Unremarkable. No occlusion or significant stenosis. No dissection. NECK: Bones/joints: Degenerative changes of the spine. No acute fracture. Soft tissues: Unremarkable. Lung apices: Status post sternotomy. CAROTID STENOSIS REFERENCE USING NASCET CRITERIA: % ICA stenosis = (1 - narrowest ICA diameter/diameter of distal cervical ICA) x 100. Mild - <50% stenosis. Moderate - 50-69% stenosis. Severe - 70-94% stenosis. Near occlusion - 95-99% stenosis. Occluded - 100% stenosis. IMPRESSION: No hemodynamically significant stenosis. Electronically signed by: Vinny Fontenot M.D. 09/24/23 00:47 AM
[2023-09-24] MEDS ORDERED: PHARMACIST DISCHARGE MED REC CONSULT PRN (01:18)
[2023-09-24] MEDS: OLANZapine 10 MG/2.1 ML SDV IM STA (01:51)
[2023-09-24] MEDS: OLANZapine 10 MG/2.1 ML SDV IM PRN (07:23)
[2023-09-24 07:28] LABS: Basophils # (auto) 0.05 K/uL (0.00-0.20); Basophils % (auto) 0.5 %; Eosinophils # (auto) 0.07 K/uL (0.00-0.50); Eosinophils % (auto) 0.7 %; Hemoglobin 14.3 g/dl (14.0-18.0); Immature Granulocytes # (auto) 0.03 K/uL (0.01-0.20); Immature Granulocytes % (auto) 0.3 %; Lymphocytes # (auto) 2.05 K/uL (1.20-3.40); Lymphocytes % (auto) 21.7 %; Mean Corpuscular Hgb Conc 34.9 g/dL (32.0-36.0); Mean Corpuscular Volume 91.7 fL (80.0-100.0); Mean Platelet Volume 9.9 fL (9.4-12.4); Monocytes # (auto) 0.82 K/uL (0.11-0.59); Monocytes % (auto) 8.7 %; Neutrophils # (auto) 6.41 K/uL (1.40-6.50); Neutrophils % (auto) 68.1 %; Platelet Count 200 K/uL (130-400); RDW Coefficient of Variation 12.6 % (11.5-14.5); RDW Standard Deviation 42.5 fL (36.4-46.3); Red Blood Count 4.47 M/uL (4.70-6.10); White Blood Count 9.43 K/ul (4.8-10.8)
--- NOTE | 2023-09-24 08:07 | Communication Note ---
Date of Service: September 24, 2023 Nursing staff was worried that patient still confused and some word finding difficulty. Patient had ct scan earlier which seemed unremarkable. Seen the bettina ent. Patient oriented to name. Obeying simple commands, No facial droop, Moving extremities ok but has some pressured speech. Stat CTA head and Neck and also MRI head ordered. MRI showing "Acute nonhemorrhagic infarct in the posterior left temporal and parietal lobe without significant mass-effect." CTA head showing:"No large vessel occlusion. Attenuated left middle cerebral artery d istal trifurcation branches with narrowing and occlusion of a branch within the anterior medial sylvian fissure, corresponding to the acute left temporal- parietal infarct seen on CT and MRI". Called [facility]. Dr.Nagaraja jefferson [facility] seen patient on Tele cart. No TNK as patient out of window. No thrombectomy as occlusion is in distal branch. Patient already on aspirin and plavix and high dose statin. Recommended to keep SBP less than 180 and to avoid hypotension.Ok for DVt px.. But no anticoagulation for 2 weeks if patient develops a fib to prevent hemorrhagic conversion and to repeat echo for any thrombus as per [facility]. For now placed on scds. Ordered stroke order set. Consulted Neurology.Notified . Close monitor. Notified am providers.
[2023-09-24 08:11] LABS: Calcium 8.5 mg/dl (8.6-10.3); Potassium 3.9 mmol/L (3.5-5.1)
[2023-09-24 08:17] LABS: BUN Creatinine Ratio 14.1 (10-20); Chol HDL Ratio 3.6 (0-5); Creatinine Clr Calc Pharmacy 80.9 ml/min; Est GFR (African American) 103.8 ml/min; Est GFR (Non-African American) 89.5 ml/min
[2023-09-24 08:37] LABS: Estimated Average Glucose 111 mg/dl; Hemoglobin A1C 5.5 % (4.5-5.6)
--- NOTE | 2023-09-24 11:53 | Communication Note ---
Date of Service: September 24, 2023 Neurology Service Plan of Care Note - Telecart is down and a inperson assessment wasn't completed, however i did review the chart and look at all imaging. Jeffry Benoit is a 68M with a PMH of CABG, [place], HTN and HLD who presented to the ED with chest pain and left arm numbness and is sp cardiac cath. A stroke alert was called today because he developed word finding difficulties and appeared confused. CT head was unremarkable. The CTA showed a left M3 occlusion which corresponded with a left MCA territory stroke. Echo showed no LV throumbus. The mechanism of the stroke is likely jessica-procedural. Recommendations -- antiplatelets per cardiology -- continue statin -- PT/OT/ECMO SPECIALIST evaluation, and likely rehab -- permissive HTN for 24 hours, then goal normotension -- no further neuro imaging or work up -- if telecart becomes available I will evalauted the patient on camera.
--- NOTE | 2023-09-24 13:15 | Cardiology Progress Note ---
Date of Service September 24, 2023 Assessment & Plan (1) Acute CVA (cerebrovascular accident): (2) Non-ST elevation CA (NSTEMI): (3) Presence of stent of bypass graft: (4) S/P CABG x 4: (5) HTN (hypertension): (6) Sinus bradycardia: Plan 68-year-old male history multivessel coronary disease status post coronary artery bypass grafting x 4 in 2017 and prior OM stent presented to hospital with NSTEMI. Cardiac catheterization performed 09/23/2023 demonstrating 90% stenosis of the SVG to obtuse marginal branch vessel. Drug-eluting stent implanted. Unfortunately, patient developed confusion and word finding issues last evening. MRI confirms acute nonhemorrhagic infarct of the posterior left temporal and parietal lobes without significant mass effect. Continue dual antiplatelet therapy for minimum of 12 months post percutaneous intervention/CA. No anticoagulation for 2 weeks to avoid hemorrhagic conversion. Permissive hypertension (SBP <180mmhg) for the next 24 hours as per neurology recommendations. Hydrochlorothiazide and losartan currently on hold. Resume meds in AM. Continue carvedilol, amlodipine, and atorvastatin. present at bedside. Results of cardiac catheterization, MRI, and clinical findings/recommendations discussed with both the patient and his at length. All questions answered to their satisfaction. I spent a total of 56 minutes on the date of service in preparation, delivery, and documentation of the care provided to this patient, excluding any time spent in the performance of separately billed services. Admission and Anticipated Discharge Date Admission Date: September 21, 2023 Subjective 68-year-old male seen and examined at the bedside. Suffered left MCA territory stroke last evening 09/23/2023. Word finding issues noted this a.m. No focal motor deficit. present at bedside. Patient denies chest pain or shortness of breath. Mild right groin discomfort noted. Review of Systems Review of Systems: All systems reviewed & are unremarkable except as noted in Subjective Physical Exam Constitutional: well nourished; no acute distress and not ill appearing ENMT: Mallampati Class: II Respiratory: normal respiratory effort; no respiratory distress, no labored breathing and no retractions Auscultation: no crackles, no rales, no rhonchi and no wheezes Cardiovascular: Rate/Rhythm: regular rate and regular rhythm Heart Sounds: normal S1 and normal S2; no murmur Vessels: no JVD and no carotid bruit Extremities: no edema Gastrointestinal (Abdomen): Inspection/Auscultation: abdomen normal to inspection and normal bowel sounds; abdomen not distended Percussion/Palpation: abdomen soft; abdomen nontender, no guarding and abdomen not rigid Neurologic: moves all extremities Speech / Cognition: + abnormal speech (+ Word finding issues) Results & Data Vital Signs (Past 12 Hours) Vital Signs Temp Pulse Resp BP Pulse Ox O2 Del Method 09/24/23 12:28 36.4 C L 65 18 163/88 H 95 Room Air 09/24/23 10:57 36.6 C 65 18 163/88 H 95 Room Air 09/24/23 04:20 36.5 C 63 18 146/85 H 92 Room Air Laboratory Results Lipids 09/24/23 Range/Units 06:58 Triglycerides 94 (0-150) mg/dl Cholesterol 114 (0-200) mg/dl HDL Cholesterol 32 mg/dl Cholesterol/HDL Ratio 3.6 (0-5) CBC 09/24/23 Range/Units 06:58 WBC 9.43 (4.8-10.8) K/ul RBC 4.47 L (4.70-6.10) M/uL Hgb 14.3 (14.0-18.0) g/dl Hct 41.0 L (42.0-52.0) % Plt Count 200 (130-400) K/uL Neut # (Auto) 6.41 (1.40-6.50) K/uL Lymph # (Auto) 2.05 (1.20-3.40) K/uL Pepin # (Auto) 0.82 H (0.11-0.59) K/uL Eos # (Auto) 0.07 (0.00-0.50) K/uL Baso # (Auto) 0.05 (0.00-0.20) K/uL Comprehensive Metabolic Panel 09/24/23 Range/Units 06:58 Sodium 139 (136-145) mmol/L Potassium 3.9 (3.5-5.1) mmol/L Chloride 107 (98-107) mmol/L Carbon Dioxide 28 (21-32) mmol/L BUN 12 (6-23) mg/dl Creatinine 0.85 (0.6-1.4) mg/dl Glucose 94 (70-99(Fasting)) mg/dl Calcium 8.5 L (8.6-10.3) mg/dl Intake and Output 09/23/23 09/24/23 09/24/23 22:59 06:59 14:59 Intake Total 740 / 740 Output Total 525 / 1025 325 / 1025 200 / 200 Balance 215 / -285 -325 / -285 -200 / -200 Intake: IV 500 / 500 Heparin Sodium/Dextrose 25,000 0 / 0 units In 500 ml @ 0 mls/hr IV . Q0M [facility] Rx#:[id number] Sodium Chloride 0.9% 1,000 ml @ 500 / 500 100 mls/hr IV .Q10H [facility] Rx#: [id number] Oral 240 / 240 Output: Urine 525 / 1025 325 / 1025 200 / 200 Other: Weight 90.083 kg Weight Measurement Method Built in [facility] (5) HTN (hypertension) Hypertension type: primary hypertension Qualified Code(s): I10 - Essential (primary) hypertension
--- NOTE | 2023-09-24 13:30 | Neurology Consultation ---
Date of Consultation September 24, 2023 Assessment & Plan (1) Acute ischemic left MCA stroke: Jeffry Benoit is a 68M with a PMH of CABG, MN, HTN and HLD who presented to the ED with chest pain and left arm numbness and is sp cardiac cath. A stroke alert was called today because he developed word finding difficulties and appeared confused. CT head was unremarkable. The CTA showed a left M3 occlusion which corresponded with a left MCA territory stroke. Echo showed no LV throumbus. The mechanism of the stroke is likely jessica-procedural. 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 After connecting through interactive tele-video, patient was identified by name and date of and/or wristband check.Patient (or authorized healthcare entry level marketing representative) was informed that this was a telemedicine visit and it was being conducted confidentially over secure lines. My office door was closed and no one else was present in the room with me.Patient (or authorized healthcare entry level marketing representative) provided consent to proceed with the visit, expressed an understanding of privacy and security of the telemedicine visit, and gave permission to have a hospital entry level marketing representative in the room in order to assist with the visit and to conduct portions of the visit, as needed. I informed the patient (or authorized healthcare entry level marketing representative) that I reviewed their record and presented the opportunity for them to ask any questions regarding the visit today. The patient agreed to participate. History of Present Illness Reason for Consultation: aphasia Attending Physician: Jose Alejandro MD History of Present Illness Jeffry Benoit is a 68M with a PMH of HTN, HLD, CABG and MN who initially presented with chest pain and was found to have aphasia. He can provide limited history secondary to his aphasia but he does endorse some difficulty getting his words out. Allergies Allergy/AdvReac Type Severity Reaction Status Date / Time bee venom protein (honey bee) Allergy Intermediate EXTREME Verified 09/21/23 21:47 SWELLING codeine AdvReac Intermediate NAUSEA/VOMI Verified 09/21/23 21:47 TING enalapril AdvReac Intermediate COUGH Verified 09/21/23 21:47 morphine AdvReac Intermediate NAUSEA/VOMI Verified 09/21/23 21:47 TING Home Medications Medication Instructions Recorded Confirmed Type aspirin 81 mg tablet,delayed 81 mg PO QAM 06/02/19 09/21/23 History release losartan 50 mg tablet 50 mg PO BID #180 tabs 04/06/22 09/21/23 Rx albuterol sulfate 90 mcg/actuation 1 inh inhalation DIRECTED PRN 09/21/23 09/21/23 History aerosol inhaler (Proventil HFA) Shortness Of Breath Or Wheezing amlodipine 5 mg tablet 5 mg PO QAM 09/21/23 09/21/23 History atorvastatin 80 mg tablet 80 mg PO QPM 09/21/23 09/21/23 History carvedilol 12.5 mg tablet 6.25 mg PO BID 09/21/23 09/21/23 History ciclopirox 8 % topical solution 1 applic topical DIRECTED 09/21/23 09/21/23 History clotrimazole-betamethasone 1 1 applic topical BID PRN Skin 09/21/23 09/21/23 History %-0.05 % topical cream Irritation cyanocobalamin (vitamin B-12) 1,000 mcg PO DAILY 09/21/23 09/21/23 History 1,000 mcg tablet (Vitamin B-12) ezetimibe 10 mg tablet 10 mg PO QAM 09/21/23 09/21/23 History furosemide 20 mg tablet 20 mg PO DAILY PRN Fluid Retention 09/21/23 09/21/23 History hydrochlorothiazide 25 mg tablet 25 mg PO QAM 09/21/23 09/21/23 History hydroxyzine HCl 50 mg tablet 50 mg PO DIRECTED PRN FLYING 09/21/23 09/21/23 History ANXIETY isosorbide mononitrate 60 mg 60 mg PO QAM 09/21/23 09/21/23 History tablet,extended release 24 hr loratadine 10 mg tablet (Claritin) 10 mg PO DAILY 09/21/23 09/21/23 History nitroglycerin 0.4 mg sublingual 0.4 mg sublingual DIRECTED PRN 09/21/23 09/21/23 History tablet Chest Pain Patient History Medical History BPH (benign prostatic hyperplasia) CAD (coronary artery disease) 8 stents prior to 2012. S/p 4 vessel CABG 2016 "2003 - inferior wall MN, s/p PCI and stenting to RCA 12/2012 - NSTEMI, s/p BMS to left cx" COPD, mild Decreased vision Depression Dyslipidemia GERD (gastroesophageal reflux disease) HTN (hypertension) Hx of pancreatitis 2020, no issues since Lipoma of small intestine duodenal lipoma Myocardial Infarction 2003 Surgical History History of carpal tunnel surgery RT History of cataract surgery History of colonoscopy History of heart artery stent STENTS PLACED TOTAL 8 (BEFORE 2012) History of quadruple bypass (~2016) 2016 NIRANJAN THELMAHECTOR (MENA-LAD, SVG-D1, SVG-OM3, SVG-PDA) History of tooth extraction Hx laparoscopic cholecystectomy (10/02/19) Laparoscopic Cholecystectomy Dr. Acharya 10/09/2019 Family History Mother Breast cancer Heart disease Father Heart disease Myocardial infarction Denies family history of Pancreatic cancer Ovarian cancer Prostate cancer Colorectal cancer Social History Smoking Status: Former smoker Second Hand Exposure: No; Do You Dip or Chew Tobacco: No; Hx Alcohol Use: No Hx Substance Use: No Preferred Language: Nepali Communication Ability: Effective Visual Impairment: No Limitations Hearing Ability: Hard of Hearing Sports Management Professor Required: No Beliefs That Will Affect Care: None marital status: Current Living Situation: Other Current Living Situation Comment: with ex- current occupational status: employed current occupation: [employer] How many Children do You have: 0 Feels Safe at Home: Yes Safety Concerns: Feels Safe At This Time Childhood Exposure to Second-Hand Smoke: Yes Diet: regular caffeine: No during the past year weight has: remained stable Physical Activity Frequency: Daily Seatbelt Use: always Sunscreen Use: No Assistive Devices: None Review of Systems unable to obtain secondary to aphasia Physical Exam Mental Status:alert, orientated to person, place and month; follows complex commands, expressive aphasia, names 3/6, numerous paraphasic errors and word substitutions Cranial Nerves: CN 2 - no visual defect on confrontation and pupils round, equal, reactive to light CN 3, 4, 6 - extra-ocular movements intact and no nystagmus CN 5 - facial sensation intact CN 7 - no facial asymmetry CN 8 - intact hearing CN 9, 10 - palate symmetric, normal gag CN 11 - good shoulder shrug CN 12 - tongue midline MOTOR: Strength was at least antigravity throughout, Pronator drift was absent, and There were no abnormal movements SENSATION: intact GAIT: stable, no ataxia COORDINATION: no ataxia with finger to nose testing and heel to amaya testing REFLEXES: cannot assess over telemedicine Results & Data Vital Signs (Past 12 Hours) Vital Signs Temp Pulse Resp BP Pulse Ox O2 Del Method 09/24/23 12:28 36.4 C L 65 18 163/88 H 95 Room Air 09/24/23 10:57 36.6 C 65 18 163/88 H 95 Room Air 09/24/23 04:20 36.5 C 63 18 146/85 H 92 Room Air Laboratory Results Abnormal Lab Results 09/24/23 06:58 WBC 9.43 RBC 4.47 L Hgb 14.3 Hct 41.0 L MCV 91.7 MCH 32.0 MCHC 34.9 RDW Std Deviation 42.5 RDW Coeff of Rasta 12.6 Plt Count 200 MPV 9.9 Immature Gran % (Auto) 0.3 Neut % (Auto) 68.1 Lymph % (Auto) 21.7 Bartholomew % (Auto) 8.7 Eos % (Auto) 0.7 Baso % (Auto) 0.5 Neut # (Auto) 6.41 Lymph # (Auto) 2.05 Bartholomew # (Auto) 0.82 H Eos # (Auto) 0.07 Baso # (Auto) 0.05 Immature Gran # (Auto) 0.03 Sodium 139 Potassium 3.9 Chloride 107 Carbon Dioxide 28 Anion Gap 4 BUN 12 Creatinine 0.85 Est Cr Clr Drug Dosing 80.9 Est GFR ( Amer) 103.8 Est GFR (Non-Af Amer) 89.5 BUN/Creatinine Ratio 14.1 Glucose 94 Estimat Average Glucose 111 Hemoglobin A1c 5.5 Calcium 8.5 L Triglycerides 94 Cholesterol 114 LDL Cholesterol, Calc 63 VLDL Cholesterol, Calc 19 HDL Cholesterol 32 Cholesterol/HDL Ratio 3.[address] 09/23/23 15:30 CT head/brain wo con CLINICAL HISTORY: Altered mental status post Cardiac Cath Technique: Contiguous axial CT images of the head were acquired from the base of the skull to the vertex without intravenous contrast administration. Images were viewed in brain, subdural and bone windows. Automated dose lowering techniques and/or adjustment according to patient size were utilized for this exam. Comparison: Comparison is made to CT head 01/28/2020 Findings: The ventricles, basal cisterns, and cerebral sulci are normal. There is no acute intracranial hemorrhage or evidence of acute territorial infarction. Neither mass effect, shift of the midline structures, nor abnormal extra-axial fluid co llections are shown. Imaged portions of the paranasal sinuses and mastoid air cells are clear. The orbits appear normal. There are no acute fractures of the calvaria or scalp swelling. Impression: No acute intracranial hemorrhage, no evidence of acute territorial infarction or other acute intracranial disease process. ACT 112: Negative or not required by law. Electronically signed by: Reggie Montez M.D. 09/23/2023 4:59 PM Brain MRI 09/23/23 21:11 CR Exam(s): MRI HEAD Without Contrast EXAM: MR Head Without Intravenous Contrast CLINICAL HISTORY: word finding difficulty. CVA?. TECHNIQUE: Magnetic resonance images of the head/brain without intravenous contrast in multiple planes. COMPARISON: CT head 09/23/2023 FINDINGS: Limited examination due to claustrophobia. 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 Generalized age-appropriate central and peripheral atrophy. No hydrocephalus. No midline shift. No evidence for acute hemorrhage or abnormal extra-axial fluid collection. Foramen magnum is unremarkable. IMPRESSION: Limited examination due to claustrophobia. 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 Communications: Call Doctor Stroke Electronically signed by: Vinny Fontenot M.D. 09/24/23 00:35 AM Head CTA 09/23/23 21:11 Exam(s): CTA HEAD With Contrast IV Amt: 118 ml opti 320 EXAM: CT Angiography Head With Intravenous Contrast CLINICAL HISTORY: Reason for exam: cva?. TECHNIQUE: Axial computed tomographic angiography images of the head with intravenous contrast. CTDI is 24 mGy and DLP is 466 mGy-cm. Automated exposure control was utilized for the study. A dose lowering technique was utilized adhering to the principles of ALARA. 3D and MIP reconstructed images were created and reviewed. CONTRAST: Patient received 118 ml opti 320 of IV contrast COMPARISON: CT head, MRI head 09/23/2023. FINDINGS: Right internal carotid artery: No acute abnormality. Intracranial segment is patent with no significant stenosis. No aneurysm. Right anterior cerebral artery: Unremarkable. No occlusion or significant stenosis. No aneurysm. Right middle cerebral artery: No large vessel occlusion involving the M1 segment. Attenuated distal trifurcation branches with narrowing and occlusion of a branch within the anterior medial sylvian fissure. No aneurysm. Right posterior cerebral artery: Unremarkable. No occlusion or significant stenosis. No aneurysm. Right vertebral artery: Unremarkable as visualized. Left internal carotid artery: No acute abnormality. Intracranial segment is patent with no significant stenosis. No aneurysm. Left anterior cerebral artery: Unremarkable. No occlusion or significant stenosis. No aneurysm. Left middle cerebral artery: Unremarkable. No occlusion or significant stenosis. No aneurysm. Left posterior cerebral artery: Unremarkable. No occlusion or significant stenosis. No aneurysm. Left vertebral artery: Unremarkable as visualized. Basilar artery: Unremarkable. No occlusion or significant stenosis. No aneurysm. IMPRESSION: No large vessel occlusion. Attenuated left middle cerebral artery distal trifurcation branches with narrowing and occlusion of a branch within the anterior medial sylvian fissure, corresponding to the acute left temporal-parietal infarct seen on CT and MRI. Electronically signed by: Vinny Fontenot M.D. 09/24/23 00:40 AM Neck CTA 09/23/23 21:11 Exam(s): CTA NECK With Contrast IV Amt: 118 cc opti 320 EXAM: CT Angiography Neck With Intravenous Contrast CLINICAL HISTORY: Reason for exam: cva?. TECHNIQUE: Routine carotid CT angiography protocol was performed with intravenous contrast. NASCET criteria using the distal ICAs for comparison were used for evaluation of stenoses. CTDI is 24 mGy and DLP is 466 mGy-cm. Automated exposure control was utilized for the study. A dose lowering technique was utilized adhering to the principles of ALARA. 3D and MIP reconstructed images were created and reviewed. CONTRAST: Patient received 118 cc opti 320 of IV contrast COMPARISON: None. FINDINGS: VASCULATURE: Study is limited by patient motion. Right common carotid artery: Unremarkable. No occlusion or significant stenosis. No dissection. Right internal carotid artery: Unremarkable. Extracranial segment is patent with no occlusion or significant stenosis. No dissection. Right external carotid artery: Unremarkable. No occlusion. Right vertebral artery: Unremarkable. No occlusion or significant stenosis. No dissection. Left common carotid artery: Unremarkable. No occlusion or significant stenosis. No dissection. Left internal carotid artery: Minimal calcified plaque at the left carotid bulb without a hemodynamically significant stenosis. No dissection. Left external carotid artery: Unremarkable. No occlusion. Left vertebral artery: Unremarkable. No occlusion or significant stenosis. No dissection. NECK: Bones/joints: Degenerative changes of the spine. No acute fracture. Soft tissues: Unremarkable. Lung apices: Status post sternotomy. CAROTID STENOSIS REFERENCE USING NASCET CRITERIA: % ICA stenosis = (1 - narrowest ICA diameter/diameter of distal cervical ICA) x 100. Mild - <50% stenosis. Moderate - 50-69% stenosis. Severe - 70-94% stenosis. Near occlusion - 95-99% stenosis. Occluded - 100% stenosis. IMPRESSION: No hemodynamically significant stenosis. Electronically signed by: Vinny Fontenot M.D. 09/24/23 00:47 AM
--- NOTE | 2023-09-24 14:11 | Pharmacy Report ---
- Date of Service September 24, 2023 - Pharmacy CVA/TIA Medication Review Medications to Prevent Stroke handout has been added to the patients discharge packet. Antiplatelet(s) * ASA 81 mg + Plavix 75 mg (dual antiplatelets 12 month minimum per cards recommendation post stenting) Cholesterol * High intensity statin: atorvastatin 80 mg daily DVT Prophylaxis * SCD thighs Therapeutic Anticoagulation * No history of Afib/Aflutter noted Type 2 Diabetes * Patient does not have T2DM
[2023-09-24] MEDS: CLOPIDOGREL BISULFATE 75 MG TAB PO SCH (14:39)
--- NOTE | 2023-09-24 15:59 | Hospitalist Progress Note ---
Date of Service September 24, 2023 Assessment & Plan (1) Non-ST elevation DE (NSTEMI): Plan: 68-year-old male with past medical history significant for CAD s/p CABG, hypertension, COPD, hyperlipidemia, PACs, paroxysmal supraventricular tachycardia, GERD, BPH, comes with chest pain. Patient states he gets on and off left jaw numbness. On and off chest pains. But today in the evening when patient was sitting noticed left-sided chest pain 5/10 in severity with numbness in the left upper extremity and numbness in the jaw and was more significant than his usual symptoms.. Took nitro and an aspirin and routine EMS gave 2 nitros. Currently chest pain is resolved. He has some mild dizziness. Currently no nausea. No shortness of breath. No headache. Vision is okay. No runny nose or sore throat. No cough. No abdominal pain. Normal bowel and bladder movements. Non-ST elevated DE H/O CAD S/P CABG in 2017, H/O DE 2004 --CXR:No acute cardiopulmonary findings. No change in appearance of the chest. --ECHO: EF 55 to 60%. Moderate size basal septal, inferior, posterior wall motion abnormality with hypokinesis to akinesis of the segments. Mild concentric LVH. Mild mitral regurgitation. Mild aortic root dilatation. Grade 1 diastolic dysfunction. Compared to prior echo in June 2023, no significant change. -- Troponin elevated --EKG: No ST elevation --S/P Successful PCI of proximal vein graft to OM1 with single drug-eluting stent by Dr. Das on 09/23/2023 --Continue aspirin, Plavix, statin, beta-jerrod, isosorbide Appreciate cardiology input Needs follow-up with cardiology on discharge Plan to resume losartan, HCTZ tomorrow Acute CVA Likely related to cardiac catheterization Acute metabolic encephalopathy secondary to above --MRI brain: Limited examination due to claustrophobia. 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 --Head CTA:No large vessel occlusion. Attenuated left middle cerebral artery distal trifurcation branches with narrowing and occlusion of a branch within the anterior medial sylvian fissure, corresponding to the acute left temporal- parietal infarct seen on CT and MRI. --Neck CTA:No hemodynamically significant stenosis. --ECHO: No interatrial shunt --Continue aspirin, Plavix Continue statin Appreciate neurology input Needs follow-up with neurology on discharge Hypokalemia Replace and monitor Hyperlipidemia Continue statin, Zetia Hypertension On amlodipine, Coreg Also on Imdur, losartan Plan to resume losartan, HCTZ tomorrow H/O Paroxysmal supraventricular tachycardia Continue carvedilol COPD H/O Tobacco abuse Continue inhalers DVT Px: Heparin SQ--held SCDs for now Code Status Full code Admission and Anticipated Discharge Date Admission Date: September 21, 2023 Subjective Patient is seen and examined at bedside Confused and slightly agitated this morning Unable to obtain much history Updated patient's over the phone Denies any chest pain, dyspnea Discussed with neurology today Review of Systems Review of Systems: Other Physical Exam Physical Exam: Physical Exam: Vitals signs as noted above General Appearance:Moderately built and nourished, no apparent distress Head: normocephalic, Atraumatic Eyes: normal inspection, EOMI Neck: supple, Trachea midline Respiratory/Chest: Normal breath sounds, CTA, No accessory muscle use Cardiovascular: S1, S2, No murmur Abdomen/GI:Soft, Non tender, Bowel sounds present Extremities/Musculoskeletal:normal inspection, no edema Neurologic/Psych:Alert, awake, expressive aphasia, slightly slurred speech, otherwise grossly no focal neurological deficits Skin: normal color, warm Results & Data Results & Data Vital Signs (Past 12 Hours) Vital Signs Temp Pulse Pulse Resp BP Pulse Ox O2 Del Method 09/24/23 15:38 36.6 C 62 18 135/55 L 94 Room Air 09/24/23 15:02 Room Air 09/24/23 13:59 69 09/24/23 12:28 36.4 C L 65 18 163/88 H 95 Room Air 09/24/23 10:57 36.6 C 65 18 163/88 H 95 Room Air 09/24/23 04:20 36.5 C 63 18 146/85 H 92 Room Air Laboratory Results Short CBC 09/24/23 Range/Units 06:58 WBC 9.43 (4.8-10.8) K/ul Hgb 14.3 (14.0-18.0) g/dl Hct 41.0 L (42.0-52.0) % Plt Count 200 (130-400) K/uL BMP 09/24/23 06:58 Sodium 139 Potassium 3.9 Chloride 107 Carbon Dioxide 28 BUN 12 Creatinine 0.85 Glucose 94 Calcium 8.5 L
--- NOTE | 2023-09-24 22:55 | Electrocardiogram Report ---
Test Reason : Blood Pressure : / mmHG Vent. Rate : 059 BPM Atrial Rate : 059 BPM P-R Int : 218 ms QRS Dur : 110 ms QT Int : 444 ms P-R-T Axes : 041 -25 000 degrees QTc Int : 439 ms Sinus bradycardia with 1st degree A-V block Inferior infarct (cited on or before 18-FEB-2008) Abnormal ECG When compared with ECG of 22-SEP-2023 05:51, No significant change was found Confirmed by Jesus Sahni ([id number]) on 09/24/2023 10:55:42 PM Referred By: REFERRED SELF Confirmed By:Jesus Sahni
--- NOTE | 2023-09-25 05:41 | Electrocardiogram Report ---
Test Reason : Blood Pressure : / mmHG Vent. Rate : 055 BPM Atrial Rate : 055 BPM P-R Int : 218 ms QRS Dur : 114 ms QT Int : 456 ms P-R-T Axes : 055 -24 -11 degrees QTc Int : 436 ms Sinus bradycardia with 1st degree A-V block Minimal voltage criteria for LVH, may be normal variant ( [place] product ) Inferior infarct (cited on or before 18-FEB-2008) Abnormal ECG When compared with ECG of 23-SEP-2023 06:04, No significant change was found Confirmed by Jesus Sahni ([id number]) on 09/25/2023 5:41:04 AM Referred By: REFERRED SELF Confirmed By:Jesus Sahni
[2023-09-25 08:26] LABS: Basophils # (auto) 0.05 K/uL (0.00-0.20); Basophils % (auto) 0.5 %; Eosinophils # (auto) 0.17 K/uL (0.00-0.50); Eosinophils % (auto) 1.8 %; Hematocrit (blood only) 42.4 % (42.0-52.0); Hemoglobin 14.6 g/dl (14.0-18.0); Immature Granulocytes # (auto) 0.02 K/uL (0.01-0.20); Immature Granulocytes % (auto) 0.2 %; Lymphocytes # (auto) 2.25 K/uL (1.20-3.40); Lymphocytes % (auto) 24.1 %; Mean Corpuscular Hemoglobin 31.8 pg (25.0-34.0); Mean Corpuscular Hgb Conc 34.4 g/dL (32.0-36.0); Mean Corpuscular Volume 92.4 fL (80.0-100.0); Mean Platelet Volume 9.9 fL (9.4-12.4); Monocytes # (auto) 0.92 K/uL (0.11-0.59); Monocytes % (auto) 9.9 %; Neutrophils # (auto) 5.92 K/uL (1.40-6.50); Neutrophils % (auto) 63.5 %; Platelet Count 211 K/uL (130-400); RDW Coefficient of Variation 12.9 % (11.5-14.5); RDW Standard Deviation 43.8 fL (36.4-46.3); Red Blood Count 4.59 M/uL (4.70-6.10); White Blood Count 9.33 K/ul (4.8-10.8)
[2023-09-25 08:50] LABS: BUN Creatinine Ratio 16.5 (10-20); Creatinine Clr Calc Pharmacy 70.1 ml/min; Est GFR (African American) 92.6 ml/min; Est GFR (Non-African American) 79.9 ml/min; Magnesium 2.1 mg/dl (1.7-2.4); Potassium 4.1 mmol/L (3.5-5.1)
[2023-09-25] MEDS: LOSARTAN POTASSIUM 25 MG TAB PO SCH (10:04)
[2023-09-25] MEDS ORDERED: STROKE PATIENT DISCHARGE STA (10:58)
--- NOTE | 2023-09-25 10:59 | Discharge Summary ---
Discharge Summary Date of Service September 25, 2023 Principal Dx & Hospital Course #1 = Principal Diagnosis (1) Non-ST elevation CA (NSTEMI): Mr Benoit is a 68-year-old male with past medical history significant for CAD s/p CABG, hypertension, COPD, hyperlipidemia, PACs, paroxysmal supraventricular tachycardia, GERD, BPH, who was admitted on 09/20 for chest pain and found to have NSTEMI. Patient was place on heparin and underwent LHC on 09/22. LHC revealed 90% stenosis in proximal vein graft to OM1 on which a KAY was deployed. Course complicated by notable agitation and word finding difficult the evening of 09/22. Imaging reveal left parietal and temporal lobe infarcts. Patient on statin, which was increased to 80mg daily. Plavix and aspirin continued in setting of stent and infarcts. Discussed case with . states she isn't clear what medications he is on routinely at home and has a "cabinet filled and cannot go through them all." Represcribed all medications for 1 month refill as was upset over medications at home. Encouraged disposal of extra medications. Patient reported subjective improvement of symptoms upon discharge. Stating that he is jumbling his words intermittently, but much better than day prior. reports the same noted improvement. On day of discharge, patient without chest pain, nausea, vomiting or other acute concerns. #NSTEMI s/p stent #CAD S/P CABG in 2017 #Prior CA 2004 CXR:No acute cardiopulmonary findings. No change in appearance of the chest. ECHO: EF 55 to 60%. Moderate size basal septal, inferior, posterior wall motion abnormality with hypokinesis to akinesis of the segments. Mild concentric LVH. Mild mitral regurgitation. Mild aortic root dilatation. Grade 1 diastolic dysfunction. Compared to prior echo in June 2023, no significant change. EKG: No ST elevation --S/P Successful PCI of proximal vein graft to OM1 with single drug-eluting stent by Dr. Das on 09/23/2023 --Continue aspirin, Plavix, statin, beta-jerrod, isosorbide #Acute CVA s/p cath #Acute metabolic encephalopathy secondary to above MRI brain: Limited examination due to claustrophobia. 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 Head CTA:No large vessel occlusion. Attenuated left middle cerebral artery distal trifurcation branches with narrowing and occlusion of a branch within the anterior medial sylvian fissure, corresponding to the acute left temporal- parietal infarct seen on CT and MRI. Neck CTA:No hemodynamically significant stenosis. ECHO: No interatrial shunt Continue aspirin, Plavix Continue statin Appreciate neurology input Needs follow-up with neurology on discharge #Hypokalemia Replace and monitor #Hyperlipidemia Continue statin, Zetia #Hypertension continue home regimen #H/O Paroxysmal supraventricular tachycardia Continue carvedilol #COPD H/O Tobacco abuse Continue inhalers Notes For Next Care Provider Medication Changes From Visit Aspirin 81mg daily must be taken daily (next dose is 09/25 in the morning ) Plavix (clopidogrel) 75mg daily must be continued in conjunction with aspirin for at least 1 year. (next dose is 09/25 in the morning) Admission HPI Per Admitting Provider 68-year-old male with past medical history significant for CAD s/p CABG, hypertension, COPD, hyperlipidemia, PACs, paroxysmal supraventricular tachycardia, GERD, BPH, comes with chest pain. Patient states he gets on and off left jaw numbness. On and off chest pains. But today in the evening when patient was sitting noticed left-sided chest pain 5/10 in severity with numbness in the left upper extremity and numbness in the jaw and was more significant than his usual symptoms.. Took nitro and an aspirin and routine EMS gave 2 nitros. Currently chest pain is resolved. He has some mild dizziness. Currently no nausea. No shortness of breath. No headache. Vision is okay. No runny nose or sore throat. No cough. No abdominal pain. Normal bowel and bladder movements. Hemodynamics are okay. Past medical history. As mentioned above Past surgical history. CABG. Carpal tunnel surgery. Colonoscopy. Coronary stent placement. EGD. EGD with endoscopic ultrasound. Bilateral cataracts. Social history. Former smoker. Quit in . Smoked 1.5 packs a day for 38 years. No alcohol use. No drug use. Family history. Mother had breast cancer. Sister had uterine cancer. Father had CA. Admission Exam Per Admitting Provider General- Not in distress Head- atraumatic Eyes- PERRL, EOMI. ENT- oropharynx clear Neck- supple, no JVD. Lungs- clear to auscultation no wheezing or crackles. Heart- regular rate and rhythm; no murmur, no gallop. Abdomen- normal bowel sounds, soft, nontender, no distension. Extremities- no pretibial edema, no erythema seen. Neuro- alert, oriented PERRL, no facial palsy; no dysarthria; moves extremities. Discharge Exam Constitutional WD/WN, vitals as above Respiratory normal respiratory effort, lungs clear to auscultation Cardiovascular RRR, no murmur, no edema Gastrointestinal (Abdomen) normal bowel sounds, soft, nontender, no hepatosplenomegaly Neurologic PERRL, EOMI, accommodation nl, no face palsy, no dysarthria no dysarthria, but noted occasional stammering and word finding on exam Updated Medication List Medication Instructions Recorded Confirmed Type albuterol sulfate 90 mcg/actuation 1 inh inhalation DIRECTED PRN 09/21/23 09/21/23 History aerosol inhaler (Proventil HFA) Shortness Of Breath Or Wheezing ciclopirox 8 % topical solution 1 applic topical DIRECTED 09/21/23 09/21/23 History clotrimazole-betamethasone 1 1 applic topical BID PRN Skin 09/21/23 09/21/23 History %-0.05 % topical cream Irritation Pharmacist Discharge Consult 1 ea Not Applicable UD PRN review 09/25/23 Rx [Pharmacist Discharge Med Rec #1 units Consult] amlodipine 5 mg tablet 5 mg PO QAM #30 tabs 09/25/23 Rx aspirin 81 mg tablet,delayed 81 mg PO QAM #30 tabs 09/25/23 Rx release atorvastatin 80 mg tablet 80 mg PO QPM #30 tabs 09/25/23 Rx carvedilol 12.5 mg tablet 6.25 mg (1/2 x 12.5 mg) PO BID #60 09/25/23 Rx tabs clopidogrel 75 mg tablet 75 mg PO QAM #30 tabs 09/25/23 Rx cyanocobalamin (vitamin B-12) 1,000 mcg PO DAILY #30 tabs 09/25/23 Rx 1,000 mcg tablet (Vitamin B-12) ezetimibe 10 mg tablet 10 mg PO QAM #30 tabs 09/25/23 Rx furosemide 20 mg tablet 20 mg PO DAILY PRN Fluid Retention 09/25/23 Rx #30 tabs hydrochlorothiazide 25 mg tablet 25 mg PO QAM #30 tabs 09/25/23 Rx hydroxyzine HCl 50 mg tablet 50 mg PO DIRECTED PRN FLYING 09/25/23 Rx ANXIETY #30 tabs isosorbide mononitrate 60 mg 60 mg PO QAM #30 tabs 09/25/23 Rx tablet,extended release 24 hr loratadine 10 mg tablet (Claritin) 10 mg PO DAILY #30 tabs 09/25/23 Rx losartan 50 mg tablet 50 mg PO BID #60 tabs 09/25/23 Rx nitroglycerin 0.4 mg sublingual 0.4 mg sublingual DIRECTED PRN 09/25/23 Rx tablet Chest Pain #30 tabs Hospital Stay Data Consultations 09/21/23 22:26 ED Decision to Admit Stat 09/22/23 08:00 Consult Cardiology Routine 09/24/23 01:18 Consult Neurology Routine Procedures Performed Operation Date: 09/23/23 08:00 Actual Procedures p Cineradiography w/Routine Exam - Quan Kimbrough DO s Cath, Left w/Cors Vent Grafts - Chang Das MD s Drug Eluting Stent Bypass GR - Chang Das MD Diagnostic Imagining Performed 09/23/23 06:53 CL Cath Imgs for PACS use only Routine 09/23/23 15:30 CT head/brain wo con Urgent 09/23/23 21:11 CTA head w con [CT angio head w con] Stat CTA neck with con [CT angio neck with con] Stat MR brain wo con Urgent Pending Results Patient Have Any Pending Studies at Discharge: No Discharge Instructions Given to Patient (Per Discharging Provider) You were admitted for chest pain and found to have blockages in your heart vessels that required a stent. During this time, it was noted that you experienced wordfinding issues and imaging revealed left sided stroke. Your symptoms are resolving. Physical therapy does not suspect any need for stroke rehab at this time. Given concern about medications at home, all home medications were refilled. Here is an explanation of medications: Heart Blockages and Stent: Aspirin 81mg daily must be taken daily (next dose is 09/25 in the morning ) Plavix (clopidogrel) 75mg daily must be continued in conjunction with aspirin for at least 1 year. (next dose is 09/25 in the morning) High blood pressure: Carvedilol 6.25mg two times a day Losartan 50mg two times a day Amlodipine 5mg daily (decreased from 10mg daily) Isosorbide Mononitrate 60mg daily Hydrochlorothiazide 25mg daily Cholesterol: Zetia 10mg daily Atorvastatin 80mg daily Chest pain: Nitroglycerin as needed up to 3 times a day, subinguinal/under tongue Swelling: Furosemide 20mg as needed for leg swelling B12 deficiency: Cyanocobalamin 1000mg tablet daily Anxiety: Hydroxyzine 50mg as needed for anxiety Seasonal Allergies: Loratadine 10mg daily You can resume home foot creams as previously directed Follow-up with your primary care physician Dr. Benz in 1 week Follow-up with your extermination inspector Dr. Kimbrough as advised Seek immediate medical attention if your symptoms reoccur or worsen Please take all medications as instructed on discharge list below. Please call if you have any questions or problems. You can reach a [facility] hospitalist on duty at [facility] 24 hours a day by calling [phone] Home Care: * Take your medications exactly as directed. Don't skip doses. * Remember that recovery after a heart attack takes time. Plan to rest for at lease 4-8 weeks while you recover. Then return to normal activity when your doctor says it's okay. * Ask your doctor about joining a heart rehabilitation program. * Tell your doctor if you are feeling depressed. Feelings of sadness are common after a heart attack, but it is important that you speak to someone if you are feeling overwhelmed by these feelings. * If you are having chest pain, call 911 for an ambulance. Do NOT drive yourself to the hospital. * Ask your family members to learn CPR. * Learn to take your own blood pressure and pulse. Keep a record of your results. Ask your doctor when you should seek emergency medical attention. He or she will tell you which blood pressure reading is dangerous. Lifestyle Changes: * Maintain a healthy weight. Get help to lose any extra pounds. * Cut back on salt. * Limit canned, dried, packaged, and fast foods. * Don't add salt to your food. * Season foods with herbs instead of salt when you cook. * Break the smoking habit. Enroll in a stop-smoking program to improve your chances of success. * Limit fatty foods. * Ask your doctor about having your lipid levels checked regularly. * Build up your activity according to your doctor's recommendation. * Ask your doctor when it's okay to resume sexual activity. * Tell your doctor about any erectile dysfunction (ED) medication you are taking. Some ED medications are not safe if you take certain heart medications. * Try to manage stress. Follow Up: It is important for you to keep your follow up appointments with your medical provider. Total Time Total Time Spent Total Time Spent (In Minutes): 45
--- NOTE | 2023-09-25 11:48 | Cardiology Progress Note ---
Date of Service September 25, 2023 Assessment & Plan (1) Acute CVA (cerebrovascular accident): (2) Non-ST elevation SC (NSTEMI): (3) Presence of stent of bypass graft: (4) S/P CABG x 4: (5) HTN (hypertension): (6) Sinus bradycardia: Plan 68-year-old male history multivessel coronary disease status post coronary artery bypass grafting x 4 in 2017 and prior OM stent presented to hospital with NSTEMI. Cardiac catheterization performed 09/23/2023 demonstrating 90% stenosis of the SVG to obtuse marginal branch vessel. Drug-eluting stent implanted. Unfortunately, patient developed confusion and word finding issues last evening. MRI confirms acute nonhemorrhagic infarct of the posterior left temporal and parietal lobes without significant mass effect. Continue dual antiplatelet therapy for minimum of 12 months post percutaneous intervention/SC. No anticoagulation for 2 weeks to avoid hemorrhagic conversion with CVA. Restart hydrochlorothiazide and losartan. Continue carvedilol, amlodipine, and atorvastatin. Recommendations discussed with hospitalist for continuity of care. Outpatient cardiology follow-up in 2 weeks. I spent a total of 50 minutes on the date of service in preparation, delivery, and documentation of the care provided to this patient, excluding any time spent in the performance of separately billed services. Admission and Anticipated Discharge Date Admission Date: September 21, 2023 Subjective 68-year-old male seen and examined at the bedside. More alert today. Word finding issues persist. Requesting discharge as soon as possible. Denies chest pain or shortness of breath. Tolerating current medications. Telemetry demonstrates sinus rhythm. Review of Systems Review of Systems: All systems reviewed & are unremarkable except as noted in Subjective Physical Exam Constitutional: well nourished; no acute distress and not ill appearing Respiratory: normal respiratory effort; no respiratory distress, no labored breathing and no retractions Auscultation: no crackles, no rales, no rhonchi and no wheezes Cardiovascular: Rate/Rhythm: regular rate and regular rhythm Heart Sounds: normal S1 and normal S2; no murmur Vessels: no JVD and no carotid bruit Extremities: no edema Gastrointestinal (Abdomen): Inspection/Auscultation: abdomen normal to inspection and normal bowel sounds; abdomen not distended Percussion/Palpation: abdomen soft; abdomen nontender, no guarding and abdomen not rigid Neurologic: CN's II-XI intact bilaterally and moves all extremities Speech / Cognition: + abnormal speech (+ Word finding issues) Results & Data Vital Signs (Past 12 Hours) Vital Signs Temp Pulse Pulse Pulse Resp BP BP 09/25/23 11:08 36.3 C L 76 67 18 122/62 120/79 09/25/23 10:37 36.3 C L 67 18 122/62 09/25/23 07:26 74 09/25/23 06:56 36.6 C 74 18 150/84 H Pulse Ox O2 Del Method 09/25/23 11:08 95 09/25/23 10:37 95 Room Air 09/25/23 07:26 09/25/23 06:56 96 Room Air Laboratory Results CBC 09/25/23 Range/Units 07:58 WBC 9.33 (4.8-10.8) K/ul RBC 4.59 L (4.70-6.10) M/uL Hgb 14.6 (14.0-18.0) g/dl Hct 42.4 (42.0-52.0) % Plt Count 211 (130-400) K/uL Neut # (Auto) 5.92 (1.40-6.50) K/uL Lymph # (Auto) 2.25 (1.20-3.40) K/uL [place] # (Auto) 0.92 H (0.11-0.59) K/uL Eos # (Auto) 0.17 (0.00-0.50) K/uL Baso # (Auto) 0.05 (0.00-0.20) K/uL Comprehensive Metabolic Panel 09/25/23 Range/Units 07:58 Sodium 137 (136-145) mmol/L Potassium 4.1 (3.5-5.1) mmol/L Chloride 105 (98-107) mmol/L Carbon Dioxide 24 (21-32) mmol/L BUN 16 (6-23) mg/dl Creatinine 0.97 (0.6-1.4) mg/dl Glucose 135 H (70-99(Fasting)) mg/dl Calcium 9.0 (8.6-10.3) mg/dl Intake and Output 09/24/23 09/25/23 09/25/23 22:59 06:59 14:59 Intake Total 236 / 1236 750 / 750 Output Total 275 / 875 Balance -39 / 361 750 / 750 Intake: Oral 236 / 236 750 / 750 Output: Urine 275 / 5 Other: # Unmeasured Voids 1 2 Weight 88.178 kg 88.178 kg Weight Measurement Method Built in [facility] Patient Weight 09/26/23 06:59 Weight 88.178 kg (5) HTN (hypertension) Hypertension type: primary hypertension Qualified Code(s): I10 - Essential (primary) hypertension
== END 2023-09-25 14:15 | disposition home or self-care (01) | DRG 321 ==
LOC: ED 21:11 → SUATTDRO 23:20 → 4W 23:20